=== PATIENT | female | born 1940 | race Caucasian/White ===

== ENCOUNTER 2016-11-11 20:19 | Inpatient (IN) | payer MEDICARE ==
[2016-11-11] MEDS ORDERED: Ondansetron INJ* 2 MG/ML VIAL IV ONE (20:49)
[2016-11-11] MEDS ORDERED: Morphine INJ* 4 MG/ML 1 ML SYRINGE IV ONE (20:49)
[2016-11-11] MEDS ORDERED: NS 0.9% 1000 ML* 2,000 ML IV ONE (20:49)
[2016-11-11] MEDS ORDERED: Morphine INJ* 4 MG/ML 1 ML SYRINGE IM ONE (21:50)
[2016-11-11] MEDS ORDERED: Ondansetron ODT TAB* 4 MG PO ONE (21:51)
[2016-11-11 22:27] LABS: Hematocrit 40 % (35-47); Mean Corpuscular HGB Conc 33 g/dl (31-36); Mean Corpuscular Hemoglobin 28 pg (27-31); Mean Corpuscular Volume 85 fL (80-97); Mean Platelet Volume 8 um3 (7.4-10.4); Red Blood Count 4.68 10^6/ul (4.0-5.4); Red Cell Distribution Width 13 % (10.5-15)
[2016-11-11 22:29] LABS: Add Diff/Slide Review? Slide Review Added; Comments Flag Yes
[2016-11-11 22:40] LABS: ALT 15 U/L (7-52); Albumin 3.5 g/dL (3.2-5.2); Alkaline Phosphatase 109 U/L (34-104); BUN/Creatinine Ratio 14.5 (8-20); Blood Urea Nitrogen 18 mg/dL (6-24); C Reactive Protein 21.03 mg/L (< 5.00); CO2 Carbon Dioxide 29 mmol/L (22-32); Calcium 9.5 mg/dL (8.6-10.3); Chloride 90 mmol/L (101-111); EGFR African American 54.1 (>60); EGFR Non-African American 42.1 (>60); Globulin 3.4 g/dL (2-4); Glucose 128 mg/dL (70-100); Lipase < 10 U/L (11.0-82.0); Sodium 128 mmol/L (133-145); Total Protein 6.9 g/dL (6.4-8.9)
[2016-11-11 23:04] LABS: AST 20 U/L (13-39); Anion Gap 9 mmol/L (2-11); Potassium 3.6 mmol/L (3.5-5.0)
[2016-11-11] MEDS ORDERED: Iodixanol* (CONTRAST) 320 MG/ML 100 ML SDV IV ONE (23:17)
--- NOTE | 2016-11-11 23:17 | ED ---
Jeremiah Huerta Erika, scribed for Mihai Schulz MD on 11/11/16 at 2055 . Abdominal Pain/Female - HPI Summary HPI Summary: Patient is a 76-year-old female presenting to the ED with a CC of abdominal pain. Patient reports that she had RLQ abdominal pain for 3 weeks. She had a negative CT at [place]. On 11/09/2016, patient had an upper and lower endoscopy, which showed polyps and diverticulosis. Yesterday, she had mild cramping, but pain was much improved. Then yesterday, she fell and broke her left wrist, but abdominal pain continued to be improved. At 05:00 today, patient developed worsening abdominal pains again, this time diffusely across the abdomen, but worse on the left side. Pain is aggravated by movement, and patient reports she feels bloated. Associated symptoms include chills and nausea. PSHx hysterectomy , , hip replacement. - History of Current Complaint Chief Complaint: EDAbdPain Stated Complaint: ABD PAIN Time Seen by Provider: 11/11/16 20:38 Hx Obtained From: Patient, Family/First Line Production Supervisor - Daughter Onset/Duration: Gradual Onset, Lasting Hours, Still Present Timing: Constant Severity Initially: Mild Severity Currently: Moderate Pain Intensity: 10 Pain Scale Used: 0-10 Numeric Location: Diffuse Aggravating Factor(s): Movement Alleviating Factor(s): Nothing Associated Signs and Symptoms: Positive: Nausea, Other: - chills Allergies/Adverse Reactions: Allergies Allergy/AdvReac Type Severity Reaction Status Date / Time Doxycycline AdvReac Nausea Verified 11/11/16 21:17 PMH/Surg Hx/FS Hx/Imm Hx Cardiovascular History: Reports: Hx Hypertension Respiratory History: Reports: Hx Chronic Obstructive Pulmonary Disease (COPD) - oxygen prn GI History: Reports: Other GI Disorders - frequent diarrhea History: Reports: Other Problems/Disorders - urinary incontinence Musculoskeletal History: Reports: Hx Arthritis - knees, Hx Back Problems Sensory History: Reports: Hx Contacts or Glasses Opthamlomology History: Reports: Hx Contacts or Glasses Neurological History: Reports: Hx Headaches, Other Neuro Impairments/Disorders - PAIN CLINIC PATIENT Psychiatric History: Reports: Hx Anxiety - Cancer History Cancer Type, Location and Year: cervical cancer - Surgical History Surgery Procedure, Year, and Place: hysterectomy 1980c-section 1975. left hip 07/2014 Infectious Disease History: No Infectious Disease History: Denies: Traveled Outside the [place] in Last 30 Days - Family History Known Family History: Positive: Hypertension - Social History Occupation: Retired Alcohol Use: None Hx Substance Use: No Substance Use Type: Reports: None Hx Tobacco Use: Yes Smoking Status (MU): Former Smoker Type: eCigarettes Review of Systems Positive: Chills Positive: Abdominal Pain, Nausea Positive: Arthralgia - L wrist All Other Systems Reviewed And Are Negative: Yes Physical Exam Triage Information Reviewed: Yes Vital Signs On Initial Exam: Initial Vitals Temp Pulse Resp BP Pulse Ox 97.5 F 86 22 110/81 95 11/11/16 20:21 11/11/16 20:21 11/11/16 20:21 11/11/16 20:21 11/11/16 20:21 Vital Signs Reviewed: Yes Appearance: Positive: Well-Appearing, Pain Distress - Moderate Skin: Positive: Warm, Skin Color Reflects Adequate Perfusion, Dry Head/Face: Positive: Normal Head/Face Inspection Eyes: Positive: EOMI, SADIA ENT: Positive: Normal ENT inspection Neck: Positive: Supple, Nontender Respiratory/Lung Sounds: Positive: Clear to Auscultation, Breath Sounds Present Cardiovascular: Positive: RRR Abdomen Description: Positive: Other: - Tenderness diffusely in the abdomen, worse on the left. LUE splinted Bowel Sounds: Positive: Hypoactive Musculoskeletal: Positive: Normal, Strength/ROM Intact Neurological: Positive: Normal, Sensory/Motor Intact, Alert, Oriented to Person Place, Time Psychiatric: Positive: Affect/Mood Appropriate Diagnostics - Vital Signs Vital Signs Temp Pulse Resp BP Pulse Ox 11/11/16 20:21 97.5 F 86 22 110/81 95 - Laboratory Lab Results: Lab Results 11/11/16 11/11/16 11/11/16 Range/Units 22:15 22:15 22:15 WBC 33.0 H (3.5-10.8) 10^3/ul RBC 4.68 (4.0-5.4) 10^6/ul Hgb 13.0 (12.0-16.0) g/dl Hct 40 (35-47) % MCV 85 (80-97) fL MCH 28 (27-31) pg MCHC 33 (31-36) g/dl RDW 13 (10.5-15) % Plt Count 414 (150-450) 10^3/ul MPV 8 (7.4-10.4) um3 Neut % (Auto) 97.1 H (38-83) % Lymph % (Auto) 1.0 L (25-47) % Shannon % (Auto) 1.1 (1-9) % Eos % (Auto) 0.1 (0-6) % Baso % (Auto) 0.7 (0-2) % Absolute Neuts (auto) 32.1 H (1.5-7.7) 10^3/ul Absolute Lymphs (auto) 0.3 L (1.0-4.8) 10^3/ul Absolute Monos (auto) 0.3 (0-0.8) 10^3/ul Absolute Eos (auto) 0 (0-0.6) 10^3/ul Absolute Basos (auto) 0.2 (0-0.2) 10^3/ul Absolute Nucleated RBC 0.02 10^3/ul Nucleated RBC % 0.1 INR (Anticoag Therapy) 0.81 L (0.89-1.11) APTT 23.4 L (26.0-36.3) seconds Sodium 128 L (133-145) mmol/L Potassium 3.6 (3.5-5.0) mmol/L Chloride 90 L (101-111) mmol/L Carbon Dioxide 29 (22-32) mmol/L Anion Gap 9 (2-11) mmol/L BUN 18 (6-24) mg/dL Creatinine 1.24 H (0.51-0.95) mg/dL Est GFR ( Amer) 54.1 (>60) Est GFR (Non-Af Amer) 42.1 (>60) BUN/Creatinine Ratio 14.5 (8-20) Glucose 128 H (70-100) mg/dL Lactic Acid (0.5-2.0) mmol/L Calcium 9.5 (8.6-10.3) mg/dL Total Bilirubin 0.60 (0.2-1.0) mg/dL AST 20 (13-39) U/L ALT 15 (7-52) U/L Alkaline Phosphatase 109 H (34-104) U/L C-Reactive Protein 21.03 H (< 5.00) mg/L B-Natriuretic Peptide ( - 100) pg/mL Total Protein 6.9 (6.4-8.9) g/dL Albumin 3.5 (3.2-5.2) g/dL Globulin 3.4 (2-4) g/dL Albumin/Globulin Ratio 1.0 (1-3) Lipase < 10 L (11.0-82.0) U/L 11/11/16 11/11/16 Range/Units 22:15 22:15 WBC (3.5-10.8) 10^3/ul RBC (4.0-5.4) 10^6/ul Hgb (12.0-16.0) g/dl Hct (35-47) % MCV (80-97) fL MCH (27-31) pg MCHC (31-36) g/dl RDW (10.5-15) % Plt Count (150-450) 10^3/ul MPV (7.4-10.4) um3 Neut % (Auto) (38-83) % Lymph % (Auto) (25-47) % Shannon % (Auto) (1-9) % Eos % (Auto) (0-6) % Baso % (Auto) (0-2) % Absolute Neuts (auto) (1.5-7.7) 10^3/ul Absolute Lymphs (auto) (1.0-4.8) 10^3/ul Absolute Monos (auto) (0-0.8) 10^3/ul Absolute Eos (auto) (0-0.6) 10^3/ul Absolute Basos (auto) (0-0.2) 10^3/ul Absolute Nucleated RBC 10^3/ul Nucleated RBC % INR (Anticoag Therapy) (0.89-1.11) APTT (26.0-36.3) seconds Sodium (133-145) mmol/L Potassium (3.5-5.0) mmol/L Chloride (101-111) mmol/L Carbon Dioxide (22-32) mmol/L Anion Gap (2-11) mmol/L BUN (6-24) mg/dL Creatinine (0.51-0.95) mg/dL Est GFR ( Amer) (>60) Est GFR (Non-Af Amer) (>60) BUN/Creatinine Ratio (8-20) Glucose (70-100) mg/dL Lactic Acid 1.2 (0.5-2.0) mmol/L Calcium (8.6-10.3) mg/dL Total Bilirubin (0.2-1.0) mg/dL AST (13-39) U/L ALT (7-52) U/L Alkaline Phosphatase (34-104) U/L C-Reactive Protein (< 5.00) mg/L B-Natriuretic Peptide 98 ( - 100) pg/mL Total Protein (6.4-8.9) g/dL Albumin (3.2-5.2) g/dL Globulin (2-4) g/dL Albumin/Globulin Ratio (1-3) Lipase (11.0-82.0) U/L Result Diagrams: 11/11/16 22:15 11/11/16 22:15 Lab Statement: Any lab studies that have been ordered have been reviewed, and results considered in the medical decision making process. Abdominal Pain Fem Course/Dx - Course Course Of Treatment: STABLE IN ED. CT/DISPOSITION PENDING AT SHIFT CHANGE. - Diagnoses Provider Diagnoses: Abdominal pain Discharge - Discharge Plan Condition: Stable Disposition: OTHER Discharge Disposition Comment: M Referrals: Campbell Cassidy MD [Primary Care Provider] - The documentation as recorded by the Jeremiah reich Erika accurately reflects the service I personally performed and the decisions made by , Mihai Schulz MD.
[2016-11-12] MEDS ORDERED: HYDROmorphone* 1 MG/ML 1 ML SYR IV ONE (00:08)
[2016-11-12] MEDS ORDERED: LORazepam INJ* 2 MG/ML 1 ML VIAL IV PUSH ONE (00:14)
[2016-11-12] MEDS ORDERED: Piperac/Tazob 3.375 gm in NS* 3.375 GM/100 ML BAG IVPB ONE (01:15)
--- NOTE | 2016-11-12 02:15 | HP ---
H&P (Free Text) History and Physical: PCP: Hao Cassidy MD Date/Time of Evaluation: 11/12/2016 0200 CC: abdominal pain HPI: Mrs Montero is a 76YO obese female currently sedated from IV narcotics administered in ED for abdominal pain. She rouses to light touch, but cannot answer questions. Responses are incoherent and then she fades quickly back to light sleep. This history is therefore obtained from ED staff and the available medical record. She reportedly has been having RLQ pain for ~3weeks. She has been seen at [facility] and undergone a negative CT. Upper/lower endoscopies performed 11/09/2016 in [facility] found diverticulosis & polyps. It is unknown whether a biopsy was performed during colonoscopy or not. Her pain was reportedly improved yesterday, but unfortunately she fell fracturing her L wrist which is splinted. Today around 1700 her pain began to worsen being more generalized than before prompting her to present for evaluation. WBCs are 33k 97 % neutrophils. Na+ is 128. Creatinine is 1.24 (? baseline). CRP is 21. Lipase < 10. CT abd/pel W is read as non-specific stranding in the sigmoid mesenteric fat without diverticulitis, small amount of ascites. PMedHx HTN COPD chronic diarrhea urinary incontinence OA chronic pain diverticulosis Ambulatory Orders Nursing to reconcile. Hydrochlorothiazide TAB* [Hydrodiuril TAB*] 25 mg PO DAILY 10/25/12 Metoprolol Tartrate TAB* [Lopressor TAB*] 25 mg PO DAILY 10/25/12 Sertraline* [Zoloft*] 50 mg PO DAILY 10/25/12 Tiotropium [place] Monohydrate [Spiriva Handihaler] 18 mcg IN DAILY 10/25/12 Diclofenac Sodium [Diclofenac Sodium ER] 100 mg PO DAILY 04/03/13 Lorazepam [Ativan] 1 mg PO TID PRN 12/03/14 HYDROcodone/ACETAMIN 5-325 MG* [[place] 5-325 TAB*] 1 tab PO TID PRN 09/24/15 Budesonide/Formote 160/4.5(NF) [Symbicort 160/4.5 (NF)] 1 puff INH BID 12/24/15 Allergies Doxycycline Adverse Reaction (Verified 11/11/16 21:17) Nausea PSurgHx hysterectomy BEBA SocHx: former smoker, no alcohol; uncertain living arrangements; full code status FamHx: unobtainable ROS: as above, otherwise reviewed and all were negative Constitutional: NAD, normally developed, obese elderly white female vitals: Vital Signs Temp 36.4 C 11/11/16 20:21 Pulse 92 11/12/16 02:30 Resp 22 11/12/16 02:30 BP 136/59 11/12/16 02:30 Pulse Ox 95 11/12/16 02:30 Intake & Output 11/11/16 11/11/16 11/12/16 11:59 23:59 11:59 Weight 77.111 kg HEENM: atraumatic; sclera/conjunctiva: non-icteric/clear; hearing: clinically intact; oropharynx: clear, mucosa moist Neck: soft tissue: non-tender; thyroid: normal Pulmonary: clear to auscultation bilaterally, good aeration, no accessory muscle use CV: RR/RR, normal S1S2, no carotid bruit, no jugular venous distention, 2+ B DP/ PT, no edema Abdominal: soft, non-distended, non-tender, no rebound/guarding/rigidity, normoactive bowel sounds, no hepatosplenomegaly or masses, no costovertebral angle tenderness Musculoskeletal: general: grossly intact; gait: too sedated to ambulate Integumental: normal appearance and texture of exposed skin Psychiatric orientation: somnolent, oriented to person and place, loosely to situation affect: sedated mood: acquiescent eye contact: poor content: mostly incoherent responses: slowed insight: currently poor Testing: Lab Results 11/11/16 11/11/16 11/11/16 Range/Units 22:15 22:15 22:15 WBC 33.0 H (3.5-10.8) 10^3/ul RBC 4.68 (4.0-5.4) 10^6/ul Hgb 13.0 (12.0-16.0) g/dl Hct 40 (35-47) % MCV 85 (80-97) fL MCH 28 (27-31) pg MCHC 33 (31-36) g/dl RDW 13 (10.5-15) % Plt Count 414 (150-450) 10^3/ul MPV 8 (7.4-10.4) um3 Neut % (Auto) 97.1 H (38-83) % Lymph % (Auto) 1.0 L (25-47) % [place] % (Auto) 1.1 (1-9) % Eos % (Auto) 0.1 (0-6) % Baso % (Auto) 0.7 (0-2) % Absolute Neuts (auto) 32.1 H (1.5-7.7) 10^3/ul Absolute Lymphs (auto) 0.3 L (1.0-4.8) 10^3/ul Absolute Monos (auto) 0.3 (0-0.8) 10^3/ul Absolute Eos (auto) 0 (0-0.6) 10^3/ul Absolute Basos (auto) 0.2 (0-0.2) 10^3/ul Absolute Nucleated RBC 0.02 10^3/ul Nucleated RBC % 0.1 INR (Anticoag Therapy) 0.81 L (0.89-1.11) APTT 23.4 L (26.0-36.3) seconds Sodium 128 L (133-145) mmol/L Potassium 3.6 (3.5-5.0) mmol/L Chloride 90 L (101-111) mmol/L Carbon Dioxide 29 (22-32) mmol/L Anion Gap 9 (2-11) mmol/L BUN 18 (6-24) mg/dL Creatinine 1.24 H (0.51-0.95) mg/dL Est GFR ( Amer) 54.1 (>60) Est GFR (Non-Af Amer) 42.1 (>60) BUN/Creatinine Ratio 14.5 (8-20) Glucose 128 H (70-100) mg/dL Lactic Acid (0.5-2.0) mmol/L Calcium 9.5 (8.6-10.3) mg/dL Total Bilirubin 0.60 (0.2-1.0) mg/dL AST 20 (13-39) U/L ALT 15 (7-52) U/L Alkaline Phosphatase 109 H (34-104) U/L C-Reactive Protein 21.03 H (< 5.00) mg/L B-Natriuretic Peptide ( - 100) pg/mL Total Protein 6.9 (6.4-8.9) g/dL Albumin 3.5 (3.2-5.2) g/dL Globulin 3.4 (2-4) g/dL Albumin/Globulin Ratio 1.0 (1-3) Lipase < 10 L (11.0-82.0) U/L 11/11/16 11/11/16 Range/Units 22:15 22:15 WBC (3.5-10.8) 10^3/ul RBC (4.0-5.4) 10^6/ul Hgb (12.0-16.0) g/dl Hct (35-47) % MCV (80-97) fL MCH (27-31) pg MCHC (31-36) g/dl RDW (10.5-15) % Plt Count (150-450) 10^3/ul MPV (7.4-10.4) um3 Neut % (Auto) (38-83) % Lymph % (Auto) (25-47) % [place] % (Auto) (1-9) % Eos % (Auto) (0-6) % Baso % (Auto) (0-2) % Absolute Neuts (auto) (1.5-7.7) 10^3/ul Absolute Lymphs (auto) (1.0-4.8) 10^3/ul Absolute Monos (auto) (0-0.8) 10^3/ul Absolute Eos (auto) (0-0.6) 10^3/ul Absolute Basos (auto) (0-0.2) 10^3/ul Absolute Nucleated RBC 10^3/ul Nucleated RBC % INR (Anticoag Therapy) (0.89-1.11) APTT (26.0-36.3) seconds Sodium (133-145) mmol/L Potassium (3.5-5.0) mmol/L Chloride (101-111) mmol/L Carbon Dioxide (22-32) mmol/L Anion Gap (2-11) mmol/L BUN (6-24) mg/dL Creatinine (0.51-0.95) mg/dL Est GFR ( Amer) (>60) Est GFR (Non-Af Amer) (>60) BUN/Creatinine Ratio (8-20) Glucose (70-100) mg/dL Lactic Acid 1.2 (0.5-2.0) mmol/L Calcium (8.6-10.3) mg/dL Total Bilirubin (0.2-1.0) mg/dL AST (13-39) U/L ALT (7-52) U/L Alkaline Phosphatase (34-104) U/L C-Reactive Protein (< 5.00) mg/L B-Natriuretic Peptide 98 ( - 100) pg/mL Total Protein (6.4-8.9) g/dL Albumin (3.2-5.2) g/dL Globulin (2-4) g/dL Albumin/Globulin Ratio (1-3) Lipase (11.0-82.0) U/L CT abd/pel W, personally reviewed: read as: non-specific sigmoid mesenteric fat stranding & small amount of ascites Impression: 76F presenting with worsening abdominal pain and leukocytosis 2 days after upper & lower endoscopies; clinically this is consistent with sigmoid diverticulitis, but certainly concern is had for an occult colonic injury during endoscopy DIAGNOSIS & PLAN Primary abdominal pain & leukocytosis : consider GI consult in AM : pain control : piperacillin/tazobactam IV : blood CX : trend WBCs : IVFs : clear liquid diet : supportive care Secondary HTN : review meds once reconciled COPD : albuterol PRN Admission Rational: inpatient for suspected diverticulitis vs colonic injury in patient at high risk of rapid decompensation making outpatient setting inappropriate DVTp: SCDs & heparin SQ Code Status: full HCP: unable to determine
[2016-11-12] MEDS ORDERED: Acetaminophen TAB* 325 MG PO PRN (02:19)
[2016-11-12] MEDS ORDERED: CMCS: Melatonin (NF) 3 MG TAB PO PRN (02:19)
[2016-11-12] MEDS ORDERED: Albuterol 2.5 MG/3 ML NEB.SOL* (0.083%) INH PRN (02:19)
[2016-11-12] MEDS ORDERED: Ondansetron INJ* 2 MG/ML VIAL IV PRN (02:19)
[2016-11-12] MEDS ORDERED: HYDROmorphone* 1 MG/ML 1 ML SYR IV PRN (02:19)
[2016-11-12] MEDS ORDERED: NS 0.9% 1000 ML* 1,000 ML IV SCH (02:30)
--- NOTE | 2016-11-12 02:36 | ED ---
Ayanna Huerta Janilya, scribed for Piper Mera MD on 11/11/16 at 2309 . Course/Dx - Course Course Of Treatment: pt admitted with likely diverticulitis case discussed with Dr. ashley maria given - Diagnoses Provider Diagnoses: Abdominal pain - Provider Notifications Discussed Care Of Patient With: Dr. Lucas (hospitalist) at 0136: agrees to evaluate pt for admission. Discharge - Discharge Plan Condition: Stable Disposition: ADMITTED TO [facility] Diagnostics - Vital Signs Vital Signs Temp Pulse Resp BP Pulse Ox 11/11/16 22:03 14 11/11/16 20:21 97.5 F 86 22 110/81 95 - Laboratory Lab Results: Lab Results 11/11/16 11/11/16 11/11/16 Range/Units 22:15 22:15 22:15 WBC 33.0 H (3.5-10.8) 10^3/ul RBC 4.68 (4.0-5.4) 10^6/ul Hgb 13.0 (12.0-16.0) g/dl Hct 40 (35-47) % MCV 85 (80-97) fL MCH 28 (27-31) pg MCHC 33 (31-36) g/dl RDW 13 (10.5-15) % Plt Count 414 (150-450) 10^3/ul MPV 8 (7.4-10.4) um3 Neut % (Auto) 97.1 H (38-83) % Lymph % (Auto) 1.0 L (25-47) % [place] % (Auto) 1.1 (1-9) % Eos % (Auto) 0.1 (0-6) % Baso % (Auto) 0.7 (0-2) % Absolute Neuts (auto) 32.1 H (1.5-7.7) 10^3/ul Absolute Lymphs (auto) 0.3 L (1.0-4.8) 10^3/ul Absolute Monos (auto) 0.3 (0-0.8) 10^3/ul Absolute Eos (auto) 0 (0-0.6) 10^3/ul Absolute Basos (auto) 0.2 (0-0.2) 10^3/ul Absolute Nucleated RBC 0.02 10^3/ul Nucleated RBC % 0.1 INR (Anticoag Therapy) 0.81 L (0.89-1.11) APTT 23.4 L (26.0-36.3) seconds Sodium 128 L (133-145) mmol/L Potassium 3.6 (3.5-5.0) mmol/L Chloride 90 L (101-111) mmol/L Carbon Dioxide 29 (22-32) mmol/L Anion Gap 9 (2-11) mmol/L BUN 18 (6-24) mg/dL Creatinine 1.24 H (0.51-0.95) mg/dL Est GFR ( Amer) 54.1 (>60) Est GFR (Non-Af Amer) 42.1 (>60) BUN/Creatinine Ratio 14.5 (8-20) Glucose 128 H (70-100) mg/dL Lactic Acid (0.5-2.0) mmol/L Calcium 9.5 (8.6-10.3) mg/dL Total Bilirubin 0.60 (0.2-1.0) mg/dL AST 20 (13-39) U/L ALT 15 (7-52) U/L Alkaline Phosphatase 109 H (34-104) U/L C-Reactive Protein 21.03 H (< 5.00) mg/L B-Natriuretic Peptide ( - 100) pg/mL Total Protein 6.9 (6.4-8.9) g/dL Albumin 3.5 (3.2-5.2) g/dL Globulin 3.4 (2-4) g/dL Albumin/Globulin Ratio 1.0 (1-3) Lipase < 10 L (11.0-82.0) U/L 11/11/16 11/11/16 Range/Units 22:15 22:15 WBC (3.5-10.8) 10^3/ul RBC (4.0-5.4) 10^6/ul Hgb (12.0-16.0) g/dl Hct (35-47) % MCV (80-97) fL MCH (27-31) pg MCHC (31-36) g/dl RDW (10.5-15) % Plt Count (150-450) 10^3/ul MPV (7.4-10.4) um3 Neut % (Auto) (38-83) % Lymph % (Auto) (25-47) % [place] % (Auto) (1-9) % Eos % (Auto) (0-6) % Baso % (Auto) (0-2) % Absolute Neuts (auto) (1.5-7.7) 10^3/ul Absolute Lymphs (auto) (1.0-4.8) 10^3/ul Absolute Monos (auto) (0-0.8) 10^3/ul Absolute Eos (auto) (0-0.6) 10^3/ul Absolute Basos (auto) (0-0.2) 10^3/ul Absolute Nucleated RBC 10^3/ul Nucleated RBC % INR (Anticoag Therapy) (0.89-1.11) APTT (26.0-36.3) seconds Sodium (133-145) mmol/L Potassium (3.5-5.0) mmol/L Chloride (101-111) mmol/L Carbon Dioxide (22-32) mmol/L Anion Gap (2-11) mmol/L BUN (6-24) mg/dL Creatinine (0.51-0.95) mg/dL Est GFR ( Amer) (>60) Est GFR (Non-Af Amer) (>60) BUN/Creatinine Ratio (8-20) Glucose (70-100) mg/dL Lactic Acid 1.2 (0.5-2.0) mmol/L Calcium (8.6-10.3) mg/dL Total Bilirubin (0.2-1.0) mg/dL AST (13-39) U/L ALT (7-52) U/L Alkaline Phosphatase (34-104) U/L C-Reactive Protein (< 5.00) mg/L B-Natriuretic Peptide 98 ( - 100) pg/mL Total Protein (6.4-8.9) g/dL Albumin (3.2-5.2) g/dL Globulin (2-4) g/dL Albumin/Globulin Ratio (1-3) Lipase (11.0-82.0) U/L Result Diagrams: 11/11/16 22:15 11/11/16 22:15 Lab Statement: Any lab studies that have been ordered have been reviewed, and results considered in the medical decision making process. - CT abd/pel CT Interpretation: Positive (See Comments) - Small ascites. Nonspecific strandig in sigmoid mesenteric fat. Top normal diamter small bowel left upper quadrant. No bowel obstruction, colitis, or free air. Appendix not seen. Diverticulosis colon without acute diverticulitis. Unremarkable pancreas, kidneys and gallbladder. Hysterectomy. Retroperitoneal surgical clips. GERD. CT Interpretation Completed By: Radiologist The documentation as recorded by the Ayanna reich Janilya accurately reflects the service I personally performed and the decisions made by me, Piper Mera MD.
[2016-11-12] MEDS ORDERED: Piperac/Tazob 3.375 gm in NS* 3.375 GM/100 ML BAG IVPB SCH (06:00)
[2016-11-12] MEDS ORDERED: Omeprazole CAP* 20 MG PO SCH (06:00)
--- NOTE | 2016-11-12 08:23 | RAD ---
INDICATION: Diffuse abdominal pain worse on the LEFT. Post colonoscopy and EGD November 09, 2016. Post hysterectomy. COMPARISON: No relevant prior exams available on the [facility] [place] PACS. TECHNIQUE: Multidetector CT images were obtained from the lung bases to the ischial tuberosities with 96 mL Visipaque 320 IV and oral contrast. Multiplanar reformation. REPORT: Mild RIGHT greater than LEFT basilar atelectasis. The liver is decreased in density consistent with fatty infiltration. No suspicious focal hepatic lesions or biliary dilatation. Unremarkable distended gallbladder. Unremarkable pancreas and spleen. Negative for CT abnormality of the upper GI or small bowel. Contrast extends to the ileocecal valve and cecum. The appendix is not visualized. The colon is largely decompressed remarkable for mild diverticulosis primarily at the sigmoid colon. No diffuse or focal colonic wall thickening. Small volume of water density ascites including perihepatic, RIGHT paracolic gutter, and LEFT lower quadrant. Reticulation in the abdominal mesenteric fat. Negative for free intraperitoneal air. Negative for hernias. Postsurgical change of previous infraumbilical midline laparotomy. Unremarkable adrenal glands. Unremarkable kidneys with symmetric nephrograms and pyelograms. No abnormality of the ureters evident. Partially distended urinary bladder without gross abnormality. Postsurgical change of hysterectomy. No adnexal region lesions evident. Negative for lymphadenopathy. Atherosclerotic plaque without aneurysm of the abdominal aorta or iliac arteries. Physiologic partial distention of the IVC. Prosthetic LEFT hip. Polyarticular degenerative arthropathy. No suspicious focal osseous lesions evident. IMPRESSION: 1. Fatty infiltration of the liver. 2. Small volume of water density ascites including perihepatic, RIGHT paracolic gutter, and LEFT lower quadrant. Reticulation of the pelvic mesenteric fat. No defined loculated peritoneal abscess evident. 3. Colonic diverticulosis without findings of diverticulitis. The appendix is not visualized and may have been resected. No focal or diffuse bowel wall thickening or dilatation. 4. Negative for free air.
[2016-11-12] MEDS ORDERED: Docusate CAP* 100 MG PO SCH (09:00)
[2016-11-12 09:03] LABS: Hematocrit 36 % (35-47); Hemoglobin 11.5 g/dl (12.0-16.0); Mean Corpuscular HGB Conc 32 g/dl (31-36); Mean Corpuscular Hemoglobin 27 pg (27-31); Mean Corpuscular Volume 86 fL (80-97); Mean Platelet Volume 9 um3 (7.4-10.4); Red Blood Count 4.21 10^6/ul (4.0-5.4); Red Cell Distribution Width 13 % (10.5-15)
[2016-11-12 09:12] LABS: BUN/Creatinine Ratio 16.2 (8-20); Calcium 8.6 mg/dL (8.6-10.3); EGFR African American 48.6 (>60); EGFR Non-African American 37.8 (>60); Potassium 3.4 mmol/L (3.5-5.0)
[2016-11-12 09:26] LABS: Comments Flag Yes; White Blood Count 39.5 10^3/ul (3.5-10.8)
--- NOTE | 2016-11-12 10:59 | PN ---
Subjective Date of Service: 11/12/16 Interval History: Called by RN that abd pain is severe. Upon arrival pt is tachypneic, cooperative , and conversational, but disoriented. Has problems with giving me adequate chronology of event. Spoke with daughter Matilda who stated that pt started developing abd pain when in [place] 3 weeks ago. She also had diarrhea 5x/day. She was seen at [facility] 2 weeks ago twice and sent to be seen by gastroenterology as outpatient. At this point her CT showed gastroenteritis. EGD/colonoscopy was delayed since pt was on baseline 02 at 2 L at home and performed with anesthesia help on 11/10/15 (GI doc: Dr. Dowell). Pt felt well x 2 days, then fell and fractured her left wrist-was seen in ED at hospital in [place] and discharged. She developed severe abd pain on 11/11/16. Today the pain is worse. Pt appears delirious Objective Active Medications: Acetaminophen (Tylenol Tab*) 650 mg PO Q6H PRN PRN Reason: FEVER/PAIN Albuterol (Ventolin 2.5 Mg/3 Ml Neb.[place]*) 2.5 mg INH Q2H PRN PRN Reason: SOB/WHEEZING Docusate Sodium (Colace Cap*) 200 mg PO BID BIBI Heparin Sodium (Porcine) (Heparin Vial(*)) 5,000 units SUBCUT Q8HR BIBI Hydromorphone HCl (Dilaudid Iv*) 0.5 mg IV Q3H PRN PRN Reason: PAIN Last Admin: 11/12/16 08:52 Dose: 0.5 mg Lactated Ringer's (Lactated Ringers 1000 Ml Bag*) 1,000 mls @ 175 mls/hr IV PER RATE BIBI Lactated Ringer's (Lactated Ringers 1000 Ml Bag*) 1,000 mls @ 0 mls/hr IV WIDE OPEN BIBI PRN Reason: Wide Open Stop: 11/12/16 23:59 Piperacillin Sod/Tazobactam Sod (Zosyn 3.375 Gm In Ns Premix*) 3.375 gm in 100 mls @ 25 mls/hr IVPB Q6HR BIBI Melatonin (Melatonin (Nf)) 3 mg PO BEDTIME PRN; Protocol PRN Reason: Sleep Omeprazole (Prilosec Cap*) 20 mg PO DAILY@0600 BIBI Last Admin: 11/12/16 05:57 Dose: 20 mg Ondansetron HCl (Zofran Inj*) 4 mg IV Q6H PRN PRN Reason: NAUSEA Vital Signs 11/12/16 11/12/16 11/12/16 02:30 03:00 03:47 Temperature 98.2 F Pulse Rate 92 92 95 Respiratory 22 21 18 Rate Blood Pressure 136/59 128/64 112/48 (mmHg) O2 Sat by Pulse 95 96 100 Oximetry 11/12/16 11/12/16 11/12/16 04:51 07:27 08:52 Temperature 98.3 F Pulse Rate 92 Respiratory 18 16 16 Rate Blood Pressure 106/55 (mmHg) O2 Sat by Pulse 96 Oximetry Oxygen Devices in Use Now: Nasal Cannula - at 2 L, 02 sat 97% Appearance: 76 yo F tachypneic, disoriented, cade to provide some history, oriented x2. Eyes: No Scleral Icterus, PERRLA Ears/Nose/Mouth/Throat: NL Teeth, Lips, Gums, - - mucosa Neck: NL Appearance and Movements; NL JVP, Trachea Midline Respiratory: Symmetrical Chest Expansion and Respiratory Effort, - - wheezes at b/l bases Cardiovascular: NL Sounds; No Murmurs; No JVD, RRR, - - tachy Abdominal: - - diffuse, severe abd tenderness and guarding, BS hyperactive Extremities: No Clubbing, Cyanosis, - - trace ankle edema b/l Skin: No Rash or Ulcers, No Nodules or Sclerosis Neurological: NL Muscle Strength and Tone Result Diagrams: 11/12/16 08:42 11/12/16 08:42 Additional Lab and Data: Lab Results 11/11/16 11/11/16 11/11/16 Range/Units 22:15 22:15 22:15 WBC 33.0 H (3.5-10.8) 10^3/ul RBC 4.68 (4.0-5.4) 10^6/ul Hgb 13.0 (12.0-16.0) g/dl Hct 40 (35-47) % MCV 85 (80-97) fL MCH 28 (27-31) pg MCHC 33 (31-36) g/dl RDW 13 (10.5-15) % Plt Count 414 (150-450) 10^3/ul MPV 8 (7.4-10.4) um3 Neut % (Auto) 97.1 H (38-83) % Lymph % (Auto) 1.0 L (25-47) % [place] % (Auto) 1.1 (1-9) % Eos % (Auto) 0.1 (0-6) % Baso % (Auto) 0.7 (0-2) % Absolute Neuts (auto) 32.1 H (1.5-7.7) 10^3/ul Absolute Lymphs (auto) 0.3 L (1.0-4.8) 10^3/ul Absolute Monos (auto) 0.3 (0-0.8) 10^3/ul Absolute Eos (auto) 0 (0-0.6) 10^3/ul Absolute Basos (auto) 0.2 (0-0.2) 10^3/ul Absolute Nucleated RBC 0.02 10^3/ul Nucleated RBC % 0.1 INR (Anticoag Therapy) 0.81 L (0.89-1.11) APTT 23.4 L (26.0-36.3) seconds Sodium 128 L (133-145) mmol/L Potassium 3.6 (3.5-5.0) mmol/L Chloride 90 L (101-111) mmol/L Carbon Dioxide 29 (22-32) mmol/L Anion Gap 9 (2-11) mmol/L BUN 18 (6-24) mg/dL Creatinine 1.24 H (0.51-0.95) mg/dL Est GFR ( Amer) 54.1 (>60) Est GFR (Non-Af Amer) 42.1 (>60) BUN/Creatinine Ratio 14.5 (8-20) Glucose 128 H (70-100) mg/dL Lactic Acid (0.5-2.0) mmol/L Calcium 9.5 (8.6-10.3) mg/dL Total Bilirubin 0.60 (0.2-1.0) mg/dL AST 20 (13-39) U/L ALT 15 (7-52) U/L Alkaline Phosphatase 109 H (34-104) U/L C-Reactive Protein 21.03 H (< 5.00) mg/L B-Natriuretic Peptide ( - 100) pg/mL Total Protein 6.9 (6.4-8.9) g/dL Albumin 3.5 (3.2-5.2) g/dL Globulin 3.4 (2-4) g/dL Albumin/Globulin Ratio 1.0 (1-3) Lipase < 10 L (11.0-82.0) U/L 11/11/16 11/11/16 Range/Units 22:15 22:15 WBC (3.5-10.8) 10^3/ul RBC (4.0-5.4) 10^6/ul Hgb (12.0-16.0) g/dl Hct (35-47) % MCV (80-97) fL MCH (27-31) pg MCHC (31-36) g/dl RDW (10.5-15) % Plt Count (150-450) 10^3/ul MPV (7.4-10.4) um3 Neut % (Auto) (38-83) % Lymph % (Auto) (25-47) % [place] % (Auto) (1-9) % Eos % (Auto) (0-6) % Baso % (Auto) (0-2) % Absolute Neuts (auto) (1.5-7.7) 10^3/ul Absolute Lymphs (auto) (1.0-4.8) 10^3/ul Absolute Monos (auto) (0-0.8) 10^3/ul Absolute Eos (auto) (0-0.6) 10^3/ul Absolute Basos (auto) (0-0.2) 10^3/ul Absolute Nucleated RBC 10^3/ul Nucleated RBC % INR (Anticoag Therapy) (0.89-1.11) APTT (26.0-36.3) seconds Sodium (133-145) mmol/L Potassium (3.5-5.0) mmol/L Chloride (101-111) mmol/L Carbon Dioxide (22-32) mmol/L Anion Gap (2-11) mmol/L BUN (6-24) mg/dL Creatinine (0.51-0.95) mg/dL Est GFR ( Amer) (>60) Est GFR (Non-Af Amer) (>60) BUN/Creatinine Ratio (8-20) Glucose (70-100) mg/dL Lactic Acid 1.2 (0.5-2.0) mmol/L Calcium (8.6-10.3) mg/dL Total Bilirubin (0.2-1.0) mg/dL AST (13-39) U/L ALT (7-52) U/L Alkaline Phosphatase (34-104) U/L C-Reactive Protein (< 5.00) mg/L B-Natriuretic Peptide 98 ( - 100) pg/mL Total Protein (6.4-8.9) g/dL Albumin (3.2-5.2) g/dL Globulin (2-4) g/dL Albumin/Globulin Ratio (1-3) Lipase (11.0-82.0) U/L Assess/Plan/Problems-Billing Assessment: 76 yo F with h/o 02 dependent COPD, HTN, chronic diarrhea presents with abd pain after EGD/colonoscopy - Patient Problems (1) Acute abdomen Comment: Revieved the CT with DR. Roca. Pt has acute abd s/p EGD/c-scope 3 days ago. Spoke with Dr. Duval, pt will be transferred to ICU. OR planned in the near future. Increased IVF. Bolus with 1 L LR now. cont Zosyn Pt's daughter aware. At this point pt has severe sepsis due to most likley bowel perforation. (2) HTN (hypertension) Comment: hold all PO meds, normotensive (3) Acute renal failure Comment: due to severe sepsis Creat worse today Tobin to be placed preop, cont IVF (4) Hyponatremia Comment: appears to be associated with hypovolemia cont IVF (5) DVT prophylaxis Comment: hold heparin preop Status and Disposition: inpatient, transfer to ICU under the care of Dallas Esquivel total time spent in pt's care:45 min
[2016-11-12] MEDS: HYDROmorphone* 1 MG/ML 1 ML SYR IV PRN ×2 (11:39→22:07)
[2016-11-12] MEDS: Piperac/Tazob 3.375 gm in NS* 3.375 GM/100 ML BAG IVPB SCH ×2 (12:00→17:20)
[2016-11-12] MEDS ORDERED: Etomidate* 2 MG/ML 10 ML VIAL ONE (12:03)
[2016-11-12] MEDS ORDERED: Succinylcholine* 20 MG/ML 10 ML VIAL ONE (12:03)
[2016-11-12] MEDS ORDERED: Atracurium* 10 MG/ML 10 ML VIAL ONE ×2 (12:04→15:53)
[2016-11-12] MEDS ORDERED: Midazolam* 1 MG/ML 5 ML VIAL (5 MG) ONE (12:04)
[2016-11-12] MEDS ORDERED: fentaNYL* 50 MCG/ML 5 ML VIAL (250 MCG VIAL) ONE (12:04)
--- NOTE | 2016-11-12 12:20 | CONSULT ---
Consult Consult: See dictated note 76 yo F w\ COPD and chronic diarrhea, s/p colonoscopy on 11/09 with sudden onset of lower abd pain on 11/11. She has acute abdomen with WBC=39.[address] shows free fluid. Suspicion is for colonic injury and she needs exploratory laparotomy for definitive management. D/w patient and daughter, Matilda, who understand and agree.
--- NOTE | 2016-11-12 12:31 | CONS ---
SURGICAL CONSULTATION REPORT: DATE OF CONSULT: 11/12/16 REQUESTING PHYSICIAN: Opal Carter MD. REASON FOR CONSULTATION: Acute abdomen. HISTORY OF PRESENT ILLNESS: This is a 76-year-old female with history of oxygen dependent COPD, who presented to the [facility] Emergency Room on the evening of 11/11/16 because of abdominal pain in the lower abdomen which had been of acute onset over a period of hours. Her history is notable for having chronic diarrhea with alternating constipation over a period of months with mild abdominal pain for which she underwent a upper and lower endoscopy at [facility] apparently on the . The patient does not know the results of those studies and unfortunately the day after her colonoscopy, she fell tripping over her feet at home and struck a piece of furniture and fractured her left wrist. She went to the emergency room at [facility] and was splinted. She reports that in general yesterday she was feeling quite well. She denied taking any pain medication for her wrist although she is chronically on NSAIDs for arthritis. Last night, she had acute onset of severe lower abdominal pain and presented to the [facility] Emergency Room with leukocytosis 33,[address] scan of the abdomen and pelvis showing nonspecific stranding in the sigmoid mesenteric fat with free fluid around the liver and in the right and left pericolic gutters and no evidence of diverticulitis. There was no free air reported. The patient was admitted to the hospitalist service. She was placed on IV Zosyn. This morning, she was noted to have an acute abdomen with a leukocytosis of 39,000 and surgical consultation was requested. At the time I evaluated the patient, she was in severe discomfort, clenching her abdomen and she was awake and alert with orientation x3. The patient is not reporting any nausea, vomiting and she is able to provide most of her history. PAST MEDICAL HISTORY: Hypertension, COPD, chronic diarrhea, urinary incontinence, osteoarthritis, chronic pain, diverticulosis, cervical cancer, wrist fracture. PAST SURGICAL HISTORY: She has had section in 1975 the past as well as total abdominal hysterectomy for cervical cancer in 1979 and left hip replacement in July 2014. HOME MEDICATIONS: 1. Spiriva. 2. Zoloft. 3. Lopressor. 4. Ativan. 5. Hydrochlorothiazide. 6. [place]. 7. Diclofenac. 8. Symbicort. ALLERGIES: DOXYCYCLINE. FAMILY HISTORY: Noncontributory. SOCIAL HISTORY: She is an ex-smoker. She lives on her own. No alcohol or drug use. PHYSICAL EXAM: 5 feet 2 inches, 170 pounds, BMI of 31, blood pressure of 106/55 , pulse of 92, respirations are 16, O2 sat 96%, her temperature is 98.3. In general, she is ill appearing and obese female. Her abdomen has bowel sounds that are diminished. There is a midline scar in the lower abdomen. She has diffuse abdominal tenderness to light and deep palpation with rebound and guarding. DIAGNOSTIC STUDIES/LAB DATA: WBC is 39.5, hemoglobin 11.5, hematocrit 36, platelets are 351. Sodium 129, potassium 3.4, chloride is 94, CO2 is 25, BUN is 22 and creatinine is 1.36, glucose is 104. CT scan was reviewed and findings were fatty infiltration of the liver with free fluid, perihepatic, right and left pericolic gutter and pelvis with reticulation of pelvic fat, diverticulosis and no evidence of free air. IMPRESSION: This is a 76-year-old female with obesity, chronic obstructive pulmonary disease, O2 dependent, recent history of colonoscopy, presenting with acute abdomen with free fluid seen on CT scan and severe leukocytosis. Findings are worrisome for perforated large bowel. PLAN/RECOMMENDATIONS: As the patient is appearing septic, I am recommending transfer to the intensive care unit for invasive monitoring and aggressive resuscitation. She is going to require emergent laparotomy to assess for large bowel injury and may require resection and/or colostomy. I did discuss this with the patient and explained that she is likely to require prolonged hospitalization and will likely require postoperative respiratory support due to her comorbidity. I explained that findings at the time of operation will dictate the type of surgery required. The patient stated her understanding and agrees to proceed. [id number]/CPS #: [id number] [facility]
--- NOTE | 2016-11-12 13:11 | RAD ---
Indication: Sigmoid diverticulitis. RIGHT IJ triple-lumen catheter placement. COPD. Cardiovascular disease. Comparison: November 11, 2016 CT abdomen. Technique: Upright AP 1230 hours. Report: Mild prominence and interspersed rarefaction of the interstitial markings. Negative for pleural effusion or pneumothorax. Negative for cardiomegaly. Unremarkable central pulmonary vasculature and mediastinal contours. Tip of RIGHT IJ central venous catheter is at the level of the RIGHT atrium. Negative for free air beneath the diaphragm. IMPRESSION: 1. Tip of RIGHT IJ central limits catheter at level of the RIGHT atrium. 2. Stigmata of chronic obstructive pulmonary disease.
[2016-11-12] MEDS ORDERED: EPHEDrine (Pressors)* 50 MG/ML VIAL ONE (14:59)
[2016-11-12] MEDS ORDERED: Phenylephrine IV* 40 MCG/ML 10 ML SYRINGE ONE (14:59)
[2016-11-12] MEDS ORDERED: Atropine 1MG/ML INJ* 1 ML VIAL ONE (14:59)
[2016-11-12] MEDS ORDERED: Phenylephrine INJ* 10 MG/ML 1 ML VIAL (10 MG) ONE (16:01)
[2016-11-12] MEDS ORDERED: Propofol* 100 ML ONE (16:16)
[2016-11-12] MEDS ORDERED: Norepinephrine 16MCG/ML IVPRE* 4,000 MCG/250 ML BAG IV ONE (17:02)
--- NOTE | 2016-11-12 18:16 | PN ---
Critical Care Services: Patient admitted with abdominal pain and brought to OR today for perforrated viscus, now returns from OR. received 5 liters crystalloid fluid in OR and brought back on neosynephrine drip. No perforation found and abdomen left open - will return to OR in 24-48 hrs. patient currently on a ventilator and sedated with propofol. Vital Signs: Temp Pulse Resp BP SpO2 FiO2 96.6 F 101 17 139/59 96 30 Physical Exam: Gen:Unresponsive HEENT:Pupils midposition and reactive Lungs:Clear Cardiac: No murmurs Abdomen:Distended. Open incision covered. Extremities: Warm. No cyanosis or edema. Fluid Balance (Past 24 Hours): 11/13/16 06:59 Intake Total 5968 Output Total 700 Balance +5268 Weight Intake: IV Fluids 5968 LR 5500 NS (0.9%) 468 Output: Tobin 700 Other: Estimated Void # Voids Labs: 11/12/16 11/12/16 08:42 08:42 WBC 39.5 Hgb 11.5 Hct 36 Plt Count 351 Sodium 129 Potassium 3.4 Chloride 94 Carbon Dioxide 25 BUN 22 Creatinine 1.36 Glucose 104 H Calcium 8.6 Studies: CXR: No infiltrates Nutrition: None Impression: Postop after laparotomy for bowel perforation. Hemodynamically stable at the present time. Plan: 1. Taper off the neosynephrine. 2. Empiric antibiotic coverage with PIP/TAZO. 3. Keep patient sedated and on ventilator pending return to OR. 4. [place] fluids to counteract 3rd space losses. Case discussed with Dr. Hendricks (surgeon). Critical Care Time: 60 minutes
--- NOTE | 2016-11-12 19:47 | SURGPN ---
Brief Operative Note - Surgery Procedures: PREOP DX: ACUTE ABDOMEN POSTOP DX: SAME, PERITONITIS, ADHESIONS; OPEN ABDOMEN PROC: EX LAP,MARELY, REPAIR SB ENTEROTOMY, TAKE DOWN SPLENIC FLEXURE, OPEN ABDOMEN SURG: MECENAS ASSIST: NONE ANES:. GET; SANITO EBL: <100ML IVF:. 4L LR SPEC:. PERITONEAL FLUID CX DRAIN:. NONE COMPL:. SB ENTEROTOMY COND: GUARDED, TO ICU, INTUBATED
[2016-11-12] MEDS: Chlorhexidine MOUTHWASH 0.12%* 15 ML UDC TOPICAL SCH ×2 (19:50→23:03)
[2016-11-12] MEDS: Enoxaparin(*) 40 MG/0.4 ML SYR SUBCUT SCH (19:50)
[2016-11-12] MEDS: Propofol* 100 ML IV SCH (21:20)
--- NOTE | 2016-11-12 21:37 | OP ---
DATE OF OPERATION: 11/12/16 - ROOM #ICU-02 DATE OF : 40 SURGEON: Mac Roca MD VIDEO CONTROL OPERATOR: None. ANESTHESIOLOGIST: Dr. Quach. ANESTHESIA: General endotracheal. PRE-OP DIAGNOSIS: Acute abdomen. POST-OP DIAGNOSES: Acute abdomen and intraperitoneal adhesions. OPERATIVE PROCEDURE: Exploratory laparotomy with lysis of adhesions, repair of small bowel enterotomy, take down of splenic flexure, peritoneal lavage, and open abdomen. ESTIMATED BLOOD LOSS: Less than 100 mL. IV FLUIDS: 4 L of crystalloid. SPECIMEN: Peritoneal fluid for Gram stain culture and sensitivity. DRAINS: None. COMPLICATIONS: Small bowel enterotomy. COUNTS: The instrument, needle and sponge counts were correct. CONDITION: Guarded to ICU, intubated. DESCRIPTION OF PROCEDURE: The patient was brought to the operating room, placed on table supine. She was administered general anesthesia. Her abdomen was prepped and draped in the usual sterile fashion. Time-out was performed. Midline laparotomy was undertaken starting in [place] in the upper abdomen and the incision was carried down through the patient's previous scar all the way down to the pubic symphysis. Peritoneum was entered in the upper abdomen. There was turbid serosanguineous fluid noted in the peritoneal cavity with the fibrinous exudate. This was sent for gram stain and cultures. The incision was extended inferiorly dividing the fascia and in the area of the infraumbilical abdomen. There were dense adhesions of small bowel loops to the undersurface of the abdominal wall and an inadvertent enterotomy with small bowel was created. There was no spillage from the site. The incision was completed through the fascia and adhesiolysis was performed on right and left sides of the abdomen to free the small bowel from the anterior abdominal wall. The enterotomy was about 75% of the bowel and this was a clean transection so it was primarily closed without any resection using two-layer closure with a 3- 0 Polysorb running, inner layer and 3-0 silk outer layer as Lembert sutures. There was noted to be extensive fluid throughout the right and left paracolic gutters and in the pelvis. There was a mass of small bowel which was adherent to itself as well as to the transverse colon and omentum that was adherent to the left side of the pelvis. An extensive adhesiolysis was performed to free all of the bowel from the pelvis. The small bowel was then lapped off and the tongue of omentum that was adherent to the left side of the pelvis was taken down with LigaSure in order to be able to identify the colon at the rectosigmoid junction. There were surgical clips noted in the pelvis from the patient's previous hysterectomy presumably. There was no stool or bile staining noted in the abdomen. The inspection of the rectum and sigmoid colon did not reveal any rachelle perforation. Attention was turned to the cecum which was noted to be distended with gas. There was no perforation noted there and appendix was absent. Adhesions were present in the right upper quadrant and upper abdomen of small bowel mesentry to the falciform ligament. These were taken down, as well and the liver appeared to be fatty infiltrated. There was fluid around the liver, which was irrigated until clear. There were some adhesions of omentum to the gallbladder which otherwise appeared normal without any stones and anterior surfaces of the stomach and the duodenum were inspected and there was noted to be no evidence of inflammatory change or perforation. The nasogastric tube was checked for its proper position in the body of the stomach and secured by Anesthesia. The remaining portions of the ascending colon and transverse colon were inspected and again, no perforations were identified. It was not possible to visualize the splenic flexure completely due to adhesions of omentum across this area, so the omentum was freed by entering the gastrocolic ligament and then the dissection proceeded to free the attachments of the splenic flexure so that the colon could be brought down further into the field, so it could be carefully inspected. The dissection then proceeded along the left colon as well to free this. Now with the colon being fully able to be visualized, the colonic gas was milked proximally to distally and the colon was carefully inspected for any evidence of perforation. Saline was used to fill the pelvis as gas was milked down through the sigmoid colon into the rectum and again I could identify no perforation. At this point, I noted that the patient was having some blood pressure instability and had been started on vasopressors. It was decided to terminate the procedure with plans to leave her abdomen open and return for second look laparotomy. The abdomen was thoroughly irrigated until clear and then the surgical towels wrapped in [place] were placed into the wound beneath the fascia and additional towels placed on top of this with 10 mm Deon-Valenzuela drain placed over this area and the entire abdominal wound and skin was covered with the second [place]oban dressing. The patient remained intubated and was transferred to the intensive care unit directly intubated in a guarded condition. CC: Dr. Campbell Cassidy, [place], [place]* Dr. Tonio Dowell, [place], [place]* [id number]/[facility] #: [id number] MTDD
--- NOTE | 2016-11-12 21:37 | PRO ---
PROCEDURE NOTE: DATE OF PROCEDURE: 11/12/16 - ROOM #ICU-102 PROCEDURE: Insertion of a central venous catheter. HISTORY: The patient is a 76-year-old female scheduled for the OR for an apparent ruptured abdominal viscus. Because of a tenuous blood pressure and planned surgery, a central line was requested by the surgical service. DESCRIPTION OF PROCEDURE: A 7-Malian triple lumen catheter was inserted into the right internal jugular vein under ultrasound guidance and without consequence and the tip position was verified by postprocedural chest x-ray. The patient tolerated the procedure well and there were no complications. [id number]/CPS #: [id number] MTDD
[2016-11-13] MEDS: Piperac/Tazob 3.375 gm in NS* 3.375 GM/100 ML BAG IVPB SCH ×4 (00:07→17:51)
[2016-11-13] MEDS: Norepinephrine 16MCG/ML IVPRE* 4,000 MCG/250 ML BAG IV SCH ×2 (01:38→07:18)
[2016-11-13] MEDS: Chlorhexidine MOUTHWASH 0.12%* 15 ML UDC TOPICAL SCH ×6 (02:32→20:55)
[2016-11-13] MEDS: Propofol* 100 ML IV SCH ×5 (02:32→20:55)
[2016-11-13] MEDS: Lactated Ringers 500 ml BAG* 500 ML IV PRN ×2 (02:50→05:24)
[2016-11-13] MEDS ORDERED: Norepinephrine VIAL* 4 MG in NS 0.9% 250 ML* 246 ML IVPB SCH ×2 (03:00→04:00)
[2016-11-13] MEDS: HYDROmorphone* 1 MG/ML 1 ML SYR IV PRN (03:22)
[2016-11-13] MEDS ORDERED: Heparin VIAL(*) 5000 UNITS/ML VIAL (FIVE THOUSAND) SUBCUT SCH (06:00)
[2016-11-13 06:39] LABS: Hematocrit 38 % (35-47); Hemoglobin 12.2 g/dl (12.0-16.0); Mean Corpuscular HGB Conc 32 g/dl (31-36); Mean Corpuscular Hemoglobin 27 pg (27-31); Mean Corpuscular Volume 86 fL (80-97); Mean Platelet Volume 9 um3 (7.4-10.4); Red Blood Count 4.44 10^6/ul (4.0-5.4); Red Cell Distribution Width 13 % (10.5-15); White Blood Count 41.6 10^3/ul (3.5-10.8)
[2016-11-13 06:41] LABS: Comments Flag Yes
[2016-11-13 07:25] LABS: BUN/Creatinine Ratio 20.4 (8-20); Calcium 7.7 mg/dL (8.6-10.3); EGFR Non-African American 52.1 (>60); Potassium 3.3 mmol/L (3.5-5.0)
[2016-11-13] MEDS: Fentanyl PCA (Continuous Infusion)* 20 ML PCA SCH ×2 (08:00→21:53)
--- NOTE | 2016-11-13 08:20 | RAD ---
INDICATION: Pneumonia COMPARISON: November 12, 2016 TECHNIQUE: An AP portable view obtained at 0550 hours is submitted. FINDINGS: Bones/Soft Tissues: There are no acute bony findings. There is a right IJ catheter terminating in the superior vena cava. There is an endotracheal tube in satisfactory position 3 cm above the carson. A nasogastric tube passes normally through the mediastinum. There are overlying chest leads Cardiomediastinal: The cardiomediastinal silhouette is normal. Lungs: There is basilar hypoventilation. A developing right basal infiltrate is not excluded radiographically. Suggest follow-up.. Pleura: There are no pleural effusions. Other: None IMPRESSION: BASILAR HYPOVENTILATION. SUGGEST FOLLOW-UP TO EVALUATE FOR DEVELOPING RIGHT BASILAR INFILTRATE
[2016-11-13] MEDS: Famotidine IV* 10 MG/ML 2 ML (20 mg) IV SCH (08:40)
[2016-11-13] MEDS ORDERED: NS 0.9% 1000 ML* 1,000 ML IV ONE ×2 (09:46→12:28)
[2016-11-13] MEDS: NS 0.9% w/ 40 Meq KCL 1000 ML* 1,000 ML IV SCH ×2 (09:59→19:20)
[2016-11-13 10:04] LABS: Magnesium 1.4 mg/dL (1.9-2.7); Phosphorus 3.3 mg/dL (2.5-5.0)
--- NOTE | 2016-11-13 10:58 | PN ---
Progress Note - Progress Note Note: CRITICAL CARE MEDICINE Date: 11/13/16 Time: 925 SUBJECTIVE: Patient seen and examined. PHYSICAL EXAM: Vital Signs: Reviewed. Neurologic: awakens on vent. marion HEENT: pupils equal. Sclera anicteric. Trachea midline. Cardiovascular: S1 S2 Respiratory: coarse. Abdomen: Soft, disended, cover apllied with serous moni drainage. nt. Extremities: Warmish; mild dep edema Access: cvc LABS: Reviewed. IMAGING: Reviewed. MEDICATIONS: Reviewed. ASSESSMENT: 76 F Acute abd with concern for perforated viscous, without identifiable source post OR 11/12, remaining with open abd for planned return OR eval and closure. Septic shock sec to acute abdomen/peritonitis Acute post op, nonthoracic, resp failure Chronic resp failure/copd on O2 Acute kidney injury on admission, pre-renal as it seems with improvement now PLAN: Neurologic: keep sedated with propofol. fent gtt for now. Cardiovascular: Perfusing. Intravascular vol still low. Interstium a touch up but she has serous losses from moni and ongoing Ebb phase. Fluids adjusted to meet needs. Cellularly sodium avid. Wide pulse pressure however with low diastolics. Wean levo to maintain SBP >100 for now. steroids will help wean off levo. Respiratory: Some concern on cxr for microatelectasis vs early inflammatory insult. Change to aprv for lung protection. Maintain vent and can adjust as needed for OR needs. Gastrointestinal: ngt. npo. sup. Surgical f/u Renal/Metabolic: cr better. fluids adjusted. sosa. Infectious Disease: on zosyn. cx ngtd. adequate coverage at present. no reason to suspect resistance currently, nor if we will find culprit micro. Hematology: stable, except concentrated this am. on lovenox subq. Endocrine: diastolics remain low despite agreesive levophed and adequete perfusion. coupled with her hypoNa, would treat with pulse stress dose steroids to be able to wean levo. Musculoskeletal: bedrest given open abd Psych/Social: will look to update family. resume her ssri soon. Supportive and preventative care as ordered. SUP: H2 VTE prophylaxis: lovenox Sosa catheter given critical illness, monitoring needs for accurate assessment of NAVID and KDIGO criteria for critically ill patients and to avoid potential harms of urinary retention, skin breakdown/ulcers. Disposition: ICU Code Status: Full Critical Care Time: 45min F. Grayson Reymundo, DO
[2016-11-13] MEDS ORDERED: Norepinephrine VIAL* 1 MG/ML 4 ML VIAL ONE (11:07)
[2016-11-13] MEDS ORDERED: Magnesium Sulf 4 GM/100 ML IV* 4,000 MG/100 ML BAG IVPB ONE (11:15)
[2016-11-13] MEDS: Hydrocortisone INJ* 100 MG VIAL IV SCH ×2 (11:46→17:51)
[2016-11-13] MEDS ORDERED: Albumin Human 5%* 250 ML BTL IV ONE (12:26)
--- NOTE | 2016-11-13 12:29 | PN ---
Progress Note - Progress Note SOAP: Subjective: Intubated, sedated, on vent. Per RN has been following commands. On Levophed. Objective: Vital Signs Temp 99.7 F 11/13/16 07:12 Pulse 112 11/13/16 11:00 Resp 12 11/13/16 11:45 BP 151/66 11/13/16 08:00 Pulse Ox 99 11/13/16 11:00 NAD, intubated. Abd: dressings intact; obese. SUSANA SS o/p. Intake & Output 11/12/16 11/13/16 11/13/16 18:59 06:59 18:59 Intake Total 5968 4124.3 Output Total 700 1145 535 Balance 5268 2979.3 -535 Weight 191 lb 5.78 oz Intake: IV Fluids 5968 3255.3 LR 5500 3208 NS (0.9%) 468 47.3 IVPB 250 NS (0.9%) 250 Medicated IV 619 Levophed 456 Propofol 163 Output: SUSANA #1 750 440 Tobin 700 395 95 Laboratory Results - last 24 hr 11/13/16 11/13/16 11/13/16 06:22 06:22 06:22 WBC 41.6 H RBC 4.44 Hgb 12.2 Hct 38 MCV 86 MCH 27 MCHC 32 RDW 13 Plt Count 414 MPV 9 Hem Pathologist Commnt Sodium 131 L Potassium 3.3 L Chloride 98 L Carbon Dioxide 24 Anion Gap 9 BUN 21 Creatinine 1.03 H Est GFR ( Amer) 67.0 Est GFR (Non-Af Amer) 52.1 BUN/Creatinine Ratio 20.4 H Glucose 137 H Lactic Acid 1.5 Calcium 7.7 L Phosphorus 3.3 Magnesium 1.4 L Assessment: POD#1 s/p exlap/MARELY for peritonitis without identification of perforation. Critically ill. Plan: Cont ICU management per CCM. Cont abx and await cx results. NPO. Plan for second look laparotomy tomorrow afternoon. D/W pt's dtr Matilda.
[2016-11-13] MEDS ORDERED: Propofol* 100 ML ONE ×2 (14:39→18:04)
[2016-11-13] MEDS: Enoxaparin(*) 40 MG/0.4 ML SYR SUBCUT SCH (20:55)
[2016-11-14] MEDS: Hydrocortisone INJ* 100 MG VIAL IV SCH ×5 (01:17→23:00)
[2016-11-14] MEDS: Piperac/Tazob 3.375 gm in NS* 3.375 GM/100 ML BAG IVPB SCH ×4 (01:21→18:05)
[2016-11-14] MEDS: Chlorhexidine MOUTHWASH 0.12%* 15 ML UDC TOPICAL SCH ×6 (02:13→20:57)
[2016-11-14] MEDS: NS 0.9% w/ 40 Meq KCL 1000 ML* 1,000 ML IV SCH ×2 (03:01→09:21)
[2016-11-14 06:20] LABS: Hematocrit 27 % (35-47); Hemoglobin 8.7 g/dl (12.0-16.0); Mean Corpuscular HGB Conc 32 g/dl (31-36); Mean Corpuscular Hemoglobin 27 pg (27-31); Mean Corpuscular Volume 86 fL (80-97); Mean Platelet Volume 9 um3 (7.4-10.4); Red Blood Count 3.18 10^6/ul (4.0-5.4); Red Cell Distribution Width 14 % (10.5-15); White Blood Count 18.6 10^3/ul (3.5-10.8)
[2016-11-14 06:33] LABS: BUN/Creatinine Ratio 26.2 (8-20); Calcium 7.9 mg/dL (8.6-10.3); EGFR Non-African American 88.6 (>60); Magnesium 2.6 mg/dL (1.9-2.7); Phosphorus 2.1 mg/dL (2.5-5.0); Potassium 3.6 mmol/L (3.5-5.0)
[2016-11-14] MEDS: Propofol* 100 ML IV SCH ×4 (08:13→22:05)
[2016-11-14] MEDS: Famotidine IV* 10 MG/ML 2 ML (20 mg) IV SCH (09:19)
[2016-11-14] MEDS ORDERED: NS 0.9% w/ 40 Meq KCL 1000 ML* 1,000 ML IV SCH (09:53)
[2016-11-14] MEDS ORDERED: Potassium Phosphate IV* 15 MMOLE in NS 0.9% 250 ML* 250 ML IVPB ONE (10:30)
[2016-11-14] MEDS: fentaNYL* 50 MCG/ML 2 ML VIAL (100 MCG VIAL) IV SLOW PU PRN ×2 (10:37→20:57)
--- NOTE | 2016-11-14 10:38 | PN ---
Progress Note - Progress Note Note: CRITICAL CARE MEDICINE Date: 11/14/16 Time: 855 SUBJECTIVE: Patient seen and examined. PHYSICAL EXAM: Vital Signs: Reviewed. Neurologic: awakens on vent. communicating HEENT: pupils equal. Sclera anicteric. Trachea midline. Cardiovascular: S1 S2 Respiratory: coarse but clear. not working Abdomen: Soft, distended, moni drainage and dressing saturation serous noted Extremities: Warm. mild dep edema Access: Rij cvc LABS: Reviewed. IMAGING: Reviewed. MEDICATIONS: Reviewed. ASSESSMENT: 76 F Acute abd with perforated viscous seemingly walled off, post ex lap 11/12 Septic shock sec to acute abdomen/peritonitis Acute post op, nonthoracic, resp failure Chronic resp failure/copd on O2 Acute kidney injury on admission, improved Relative adrenal insufficiency PLAN: Neurologic: keep comfortable with propofol and fent. Cardiovascular: Perfusing. Vol status better. Has interstitial volume. off levo. Respiratory: aprv for now and lung protection through OR needs. Fio2 30% Gastrointestinal: ngt. npo. sup. OR today Renal/Metabolic: cr better. dec fluids. sosa. Infectious Disease: on zosyn. excoli from cx. keep zosyn and can de-escalate in another day or so. Hematology: stable, hemodiluted now. on lovenox subq. Endocrine: better post steroids. Musculoskeletal: bedrest given open abd Psych/Social: family at bedside updated. Supportive and preventative care as ordered. SUP: H2 VTE prophylaxis: lovenox Sosa catheter given critical illness, monitoring needs for accurate assessment of NAVID and KDIGO criteria for critically ill patients and to avoid potential harms of urinary retention, skin breakdown/ulcers. Disposition: ICU, for OR today Code Status: Full Critical Care Time: 35min Chester Dwyer DO
[2016-11-14] MEDS ORDERED: fentaNYL* 50 MCG/ML 5 ML VIAL (250 MCG VIAL) ONE (14:29)
[2016-11-14] MEDS ORDERED: Midazolam* 1 MG/ML 5 ML VIAL (5 MG) ONE (14:29)
[2016-11-14] MEDS ORDERED: Rocuronium* 10 MG/ML VIAL ONE (14:29)
[2016-11-14] MEDS ORDERED: fentaNYL* 50 MCG/ML 2 ML VIAL (100 MCG VIAL) ONE ×2 (15:33→15:53)
--- NOTE | 2016-11-14 16:51 | SURGPN ---
Brief Operative Note - Surgery Procedures: Procedures Preop Dx: intraabdominal sepsis; open abdomen Postop Dx: same; also, gangrenous acalculous cholecystitis Procedure: exploratory laparotomy; cholecystectomy Anesthesia: GET Surgeon: Chanelle Asst: ROBERTO Sotelo; MS Analilia3 EBL: <100 ml Fluids: 800 ml crystalloid Drains/Packs: 3 towels w/ ioban intra-abd; 1 towel extra-abdominal; 1 SUSANA
[2016-11-14] MEDS: Fentanyl PCA (Continuous Infusion)* 20 ML PCA SCH (16:52)
[2016-11-14] MEDS: HYDROmorphone* 1 MG/ML 1 ML SYR IV PRN ×2 (18:10→23:29)
[2016-11-14] MEDS: Enoxaparin(*) 40 MG/0.4 ML SYR SUBCUT SCH (20:57)
[2016-11-14] MEDS: Lactated Ringers 500 ml BAG* 500 ML IV PRN (22:59)
[2016-11-15] MEDS: Piperac/Tazob 3.375 gm in NS* 3.375 GM/100 ML BAG IVPB SCH ×5 (01:10→23:25)
[2016-11-15] MEDS: Chlorhexidine MOUTHWASH 0.12%* 15 ML UDC TOPICAL SCH ×6 (01:11→22:20)
[2016-11-15] MEDS: Propofol* 100 ML IV SCH ×3 (02:48→22:20)
--- NOTE | 2016-11-15 04:34 | OP ---
DATE OF OPERATION: 11/14/16 - ROOM #ICU-02 DATE OF : 40 SURGEON: Mac Roca MD ATTORNEY: ROBERTO Miranda ANESTHESIOLOGIST: Dr. Niño. ANESTHESIA: General endotracheal. PRE-OP DIAGNOSIS: Peritonitis and open abdomen. POST-OP DIAGNOSES: 1. Peritonitis and open abdomen. 2. Acalculous cholecystitis. OPERATIVE PROCEDURE: Exploratory laparotomy, open cholecystectomy, peritoneal lavage. ESTIMATED BLOOD LOSS: Minimal. IV FLUIDS: Crystalloid. SPECIMEN: Gallbladder. DRAINS: None. COMPLICATIONS: None. COUNTS: The instrument, needle, and sponge counts were correct. DESCRIPTION OF PROCEDURE: The patient was brought to the operating room and placed on the table supine. Her abdominal dressings and packs were removed and the abdomen was prepped and draped in sterile fashion. Time-out was performed. Inspection of the abdomen commenced with inspection of the previous small bowel enterotomy closure, which appeared to be intact. The small bowel was run from the ileocecal valve proximally and back again and there were no injuries noted. The cecum, ascending colon, transverse colon, splenic flexure, descending, sigmoid colon were all inspected and there was no evidence of any bowel compromise, fibrinous exudate, purulence, or ischemia. There was bowel edema present consistent with her recent surgical history. The abdomen was irrigated in 4 quadrants and the irrigant was clear. In the right upper quadrant, however , there was some bile stain noted on the retroperitoneum and inspection of the gallbladder revealed what appeared to be ischemic changes consistent with acalculous cholecystitis, therefore it was decided to perform cholecystectomy. Two lap pads were placed above the liver and retractors were placed. The gallbladder was dissected using cautery and blunt dissection to dissect in the retrograde fashion. Couple of inadvertent cholecystotomies were created and the gallbladder was drained of bile. The dissecting proceeded down to the cystic duct and the duct and artery were each identified, dissected out, doubly clamped and divided. The gallbladder was handed off as specimen. The area was lavaged again until clear. The abdominal viscera were then returned to the abdominal cavity and the abdomen was left open again due to the bowel edema. The temporary closure consisted of 3 OR towels with Ioban wraps and then Ioban across the entire dressing over SUSANA drain. The patient was then left intubated and transferred back to the intensive care unit in stable condition. CC: Tonio Dowell MD, [place], [place]; Campbell Cassidy MD, [place], [place] * [id number]/[facility] #: [id number] [facility]
[2016-11-15] MEDS: Hydrocortisone INJ* 100 MG VIAL IV SCH ×4 (06:09→23:24)
[2016-11-15] MEDS: Lactated Ringers 500 ml BAG* 500 ML IV PRN (06:23)
[2016-11-15 06:28] LABS: Hematocrit 30 % (35-47); Hemoglobin 9.5 g/dl (12.0-16.0); Mean Corpuscular HGB Conc 32 g/dl (31-36); Mean Corpuscular Hemoglobin 28 pg (27-31); Mean Corpuscular Volume 86 fL (80-97); Mean Platelet Volume 9 um3 (7.4-10.4); Red Blood Count 3.45 10^6/ul (4.0-5.4); Red Cell Distribution Width 14 % (10.5-15); White Blood Count 17.1 10^3/ul (3.5-10.8)
[2016-11-15 06:50] LABS: BUN/Creatinine Ratio 32.3 (8-20); Calcium 8.6 mg/dL (8.6-10.3); EGFR Non-African American 88.6 (>60); Potassium 4.4 mmol/L (3.5-5.0)
[2016-11-15] MEDS: Famotidine IV* 10 MG/ML 2 ML (20 mg) IV SCH (07:34)
--- NOTE | 2016-11-15 09:16 | PN ---
Progress Note - Progress Note Note: CRITICAL CARE MEDICINE Date: 11/15/16 Time: 900 SUBJECTIVE: Patient seen and examined. PHYSICAL EXAM: Vital Signs: Reviewed. Neurologic: awakens on vent. communicating HEENT: pupils equal. Sclera anicteric. Trachea midline. Cardiovascular: S1 S2 Respiratory: coarse but clear. not overbreathing this am. Abdomen: Soft, distended; inc edema Extremities: Warm. inc dep edema Access: Rij cvc LABS: Reviewed. IMAGING: Reviewed. MEDICATIONS: Reviewed. ASSESSMENT: 76 F Acute abd with perforated viscous seemingly walled off, post ex lap 11/12 Septic shock sec to acute abdomen/peritonitis Acute post op, nonthoracic, resp failure Chronic resp failure/copd on O2 Acute kidney injury on admission, improved Relative adrenal insufficiency Acalculus cholecystitis PLAN: Neurologic: keep comfortable with propofol and fent. Cardiovascular: Perfusing. Vol status up and needs diuertics. off levo. Respiratory: aprv continued thru Or needs and then look to cpap and liberate. Fio2 30% Gastrointestinal: ultilze trophic feeds for next 48hrs till OR. Renal/Metabolic: cr stable. agressive diuretics as needed. Infectious Disease: on zosyn continued. Hematology: stable, lovenox subq. Endocrine: better post steroids and can slowly taper during her acute course Musculoskeletal: bedrest given open abd Psych/Social: family at bedside updated yesterday Supportive and preventative care as ordered. SUP: H2 VTE prophylaxis: lovenox Tobin catheter given critical illness, monitoring needs for accurate assessment of NAVID and KDIGO criteria for critically ill patients and to avoid potential harms of urinary retention, skin breakdown/ulcers. Disposition: ICU, for OR Fri Code Status: Full Critical Care Time: 35min Chester Dwyer DO
--- NOTE | 2016-11-15 09:43 | PN ---
Progress Note - Progress Note SOAP: Subjective: Intubated, sedated on vent. Per RN no sinificant changes in status overnight. Objective: Vital Signs Temp 97.5 F 11/15/16 09:00 Pulse 76 11/15/16 09:00 Resp 12 11/15/16 08:00 BP 109/64 11/15/16 08:00 Pulse Ox 98 11/15/16 09:00 Abd: dressings intact. SUSANA serous. Intake & Output 11/14/16 11/15/16 11/15/16 18:59 06:59 18:59 Intake Total 1370 2149 Output Total 475 1325 347 Balance 895 824 -347 Weight 214 lb 8.156 oz 208 lb 5.389 oz Intake: IV Fluids 1185 1645 Lactated ringers 700 NS (0.9%) 288 126 NS w/ 40 meq K+ 897 819 IVPB 208 NS (0.9%) 208 Medicated IV 185 296 Propofol 185 296 Output: NG Tube Drainage Amount 50 SUSANA #1 1050 300 Tobin 475 225 47 Laboratory Results - last 24 hr 11/15/16 11/15/16 06:15 06:15 WBC 17.1 H RBC 3.45 L Hgb 9.5 L Hct 30 L MCV 86 MCH 28 MCHC 32 RDW 14 Plt Count 321 MPV 9 Sodium 133 Potassium 4.4 Chloride 107 Carbon Dioxide 22 Anion Gap 4 BUN 21 Creatinine 0.65 Est GFR ( Amer) 114.0 Est GFR (Non-Af Amer) 88.6 BUN/Creatinine Ratio 32.3 H Glucose 128 H Calcium 8.6 Active Medications Generic Name Dose Route Start Last Admin Trade Name Freq PRN Reason Stop Dose Admin Albuterol 2.5 mg 11/12/16 02:19 Ventolin 2.5 Mg/3 Ml [place]* INH Q2H PRN SOB/WHEEZING Chlorhexidine Gluconate 15 ml 11/12/16 19:00 11/15/16 06:09 Peridex Mouth Wash 0.12%* TOPICAL 15 ml Q4HR BIBI Administration Enoxaparin Sodium 40 mg 11/12/16 20:00 11/14/16 20:57 Lovenox(*) SUBCUT 40 mg Q24H BIBI Administration Famotidine 20 mg 11/13/16 09:00 11/15/16 07:34 Pepcid Iv* IV 20 mg DAILY BIBI Administration Fentanyl Citrate 25 mcg 11/14/16 09:56 11/14/16 20:57 Fentanyl* IV SLOW PU 25 mcg Q1H PRN Administration PAIN Furosemide 40 mg 11/15/16 09:00 Lasix Iv* IV SLOW PU 0800,1700 BIBI Hydrocortisone Sodium Succinate 50 mg 11/13/16 11:00 11/15/16 06:09 Solu-Cortef* IV 50 mg Q6H BIBI Administration Hydromorphone HCl 1 mg 11/12/16 11:19 11/14/16 23:29 Dilaudid Iv* IV 1 mg Q3H PRN Administration PAIN Piperacillin Sod/Tazobactam Sod 3.375 gm in 100 mls @ 200 mls/hr 11/12/16 12: 00 11/15/16 06:16 Zosyn 3.375 Gm In Ns Premix* IVPB 200 mls/hr Q6HR BIBI Administration Propofol 100 mls @ 13.88 mls/hr 11/12/16 17:00 11/15/16 02:48 Diprivan* IV 20.6 mls/hr .(Initial Rate) BIBI Administration Protocol 30 MCG/KG/MIN Lactated Ringer's 500 mls @ 999 mls/hr 11/12/16 23:12 11/15/16 06:23 Lactated Ringers 500 Ml Bag* IV 999 mls/hr .BOLUS PRN Administration IF U/O IS < 125ML OVER 4HRS Wide Open Norepinephrine Bitartrate 4 mg 250 mls @ 18.75 mls/hr 11/13/16 04:00 11:34 / Sodium Chloride IVPB 45 mls/hr .INITIAL RATE BIBI Administration Protocol 5 MCG/MIN Fentanyl Citrate 20 mls @ 1 mls/hr 11/13/16 08:00 11/14/16 16:52 Fentanyl [employer]* [employer] ENGINEER 1 mls/hr .change Q24H BIBI Administration Protocol 50 MCG/HR Ondansetron HCl 4 mg 11/12/16 02:19 Zofran Inj* IV Q6H PRN NAUSEA Microbiology 11/12/16 08:42 Aerobic Blood Culture - Preliminary Blood Venous No Growth Day 3 Anaerobic Blood Culture - Final 11/12/16 13:30 Anaerobic Culture - Preliminary Wound - Abdominal Gram Stain - Final Wound Culture - Preliminary Escherichia Coli Acid Fast Bacilli Smear - Final Assessment: Resolved intraabdominal sepsis (bacterial peritonitis presumed from bacterial translocation s/p colonoscopy) and acalculous cholecystitis. POD#1 s/p cholecystectomy/washout; POD#2 s/p exlap/MARELY repair of SB enterotomy. Plan: Will allow for diuresis and plan on return to OR on Sunday for abdominal closure. Appreciate [facility] management.
[2016-11-15] MEDS: Furosemide IV* 10 MG/ML VIAL (40 MG) IV SLOW PU SCH ×2 (10:20→17:22)
[2016-11-15] MEDS: Fentanyl PCA (Continuous Infusion)* 20 ML PCA SCH (11:16)
[2016-11-15] MEDS: KCL 20 MEQ/100 ML IVPREMIX* 20 MEQ/100 ML BAG IV SCH ×2 (17:21→20:35)
[2016-11-15] MEDS: Enoxaparin(*) 40 MG/0.4 ML SYR SUBCUT SCH (20:35)
[2016-11-15] MEDS ORDERED: Furosemide IV* 10 MG/ML VIAL (40 MG) IV SLOW PU ONE (23:00)
[2016-11-16] MEDS: Propofol* 100 ML IV SCH ×4 (02:29→21:13)
[2016-11-16] MEDS: Chlorhexidine MOUTHWASH 0.12%* 15 ML UDC TOPICAL SCH ×7 (02:29→22:30)
[2016-11-16] MEDS: Fentanyl PCA (Continuous Infusion)* 20 ML PCA SCH ×2 (05:00→20:57)
[2016-11-16] MEDS: Piperac/Tazob 3.375 gm in NS* 3.375 GM/100 ML BAG IVPB SCH ×3 (05:25→17:54)
[2016-11-16 05:55] LABS: Hematocrit 31 % (35-47); Hemoglobin 9.7 g/dl (12.0-16.0); Mean Corpuscular HGB Conc 31 g/dl (31-36); Mean Corpuscular Hemoglobin 27 pg (27-31); Mean Corpuscular Volume 86 fL (80-97); Mean Platelet Volume 9 um3 (7.4-10.4); Red Blood Count 3.64 10^6/ul (4.0-5.4); Red Cell Distribution Width 13 % (10.5-15); White Blood Count 12.3 10^3/ul (3.5-10.8)
[2016-11-16 06:27] LABS: BUN/Creatinine Ratio 32.3 (8-20); Calcium 8.5 mg/dL (8.6-10.3); EGFR African American 75.4 (>60); EGFR Non-African American 58.6 (>60); Magnesium 2.1 mg/dL (1.9-2.7); Phosphorus 3.2 mg/dL (2.5-5.0); Potassium 3.5 mmol/L (3.5-5.0)
[2016-11-16] MEDS: Hydrocortisone INJ* 100 MG VIAL IV SCH ×2 (07:22→15:16)
[2016-11-16] MEDS: Famotidine IV* 10 MG/ML 2 ML (20 mg) IV SCH (07:23)
[2016-11-16] MEDS: Furosemide IV* 10 MG/ML VIAL (40 MG) IV SLOW PU SCH (07:23)
[2016-11-16] MEDS ORDERED: D5W 1/2 NS 40 Meq KCL 1000 ML* 1,000 ML IV SCH (10:00)
[2016-11-16] MEDS: KCL 20 MEQ/100 ML IVPREMIX* 20 MEQ/100 ML BAG IV SCH ×4 (10:13→18:10)
--- NOTE | 2016-11-16 11:13 | PN ---
Progress Note - Progress Note Note: CRITICAL CARE MEDICINE Date: 11/16/16 Time: 940 SUBJECTIVE: Patient seen and examined. PHYSICAL EXAM: Vital Signs: Reviewed. Neurologic: awakens. but RASS -3 HEENT: pupils equal. Sclera anicteric. Trachea midline. Cardiovascular: S1 S2 Respiratory: coarse but clear. sync with vent Abdomen: Soft, distended; anasarca remains. Extremities: Warm. + edema Access: Rij cvc LABS: Reviewed. IMAGING: Reviewed. MEDICATIONS: Reviewed. ASSESSMENT: 76 F Acute abd with perforated viscous seemingly walled off, post ex lap 11/12, relook wash out and maryjane 11/14 Septic shock sec to acute abdomen/peritonitis - improved. Acute post op, nonthoracic, resp failure - ongoing on chronic resp failure/copd on O2 Acute kidney injury on admission, improved Relative adrenal insufficiency - stable Acalculus cholecystitis PLAN: Neurologic: keep comfortable with propofol and fent but lower sedation to allow vent trigger Cardiovascular: Perfusing. Vol status up still and would like to see further diuresis afforded as we need to ensure she can be closed to tomorrow to ensure her best chance at recovery. lasix gtt today. Respiratory: aprv continued thru OR needs. stable but need her to trigger vent at least. Fio2 30% Gastrointestinal: trophic feeds for now; can hold in am Renal/Metabolic: cr stable. Bun up and will go up further. aggressive diuretics as above. Infectious Disease: zosyn for ecoli peritonitis. Hematology: stable, lovenox subq. Endocrine: steroids taper. Musculoskeletal: bedrest given open abd Psych/Social: family to be updated Supportive and preventative care as ordered. SUP: H2 VTE prophylaxis: lovenox Tobin catheter given critical illness, monitoring needs for accurate assessment of NAVID and KDIGO criteria for critically ill patients and to avoid potential harms of urinary retention, skin breakdown/ulcers. Disposition: ICU, for OR Fri Code Status: Full Critical Care Time: 35min Chester Dwyer DO
[2016-11-16] MEDS: Enoxaparin(*) 40 MG/0.4 ML SYR SUBCUT SCH (20:56)
[2016-11-17] MEDS: Hydrocortisone INJ* 100 MG VIAL IV SCH ×3 (00:53→17:02)
[2016-11-17] MEDS: Piperac/Tazob 3.375 gm in NS* 3.375 GM/100 ML BAG IVPB SCH ×4 (00:53→17:45)
[2016-11-17] MEDS: Chlorhexidine MOUTHWASH 0.12%* 15 ML UDC TOPICAL SCH ×6 (03:26→21:56)
[2016-11-17] MEDS: Propofol* 100 ML IV SCH ×3 (06:01→19:54)
[2016-11-17 06:34] LABS: Hematocrit 34 % (35-47); Hemoglobin 10.6 g/dl (12.0-16.0); Mean Corpuscular HGB Conc 32 g/dl (31-36); Mean Corpuscular Hemoglobin 27 pg (27-31); Mean Corpuscular Volume 85 fL (80-97); Mean Platelet Volume 9 um3 (7.4-10.4); Red Blood Count 3.94 10^6/ul (4.0-5.4); Red Cell Distribution Width 13 % (10.5-15)
[2016-11-17 06:36] LABS: Add Diff/Slide Review? Slide Review Added; Comments Flag Yes
[2016-11-17 06:48] LABS: Albumin 2.6 g/dL (3.2-5.2); Calcium 8.6 mg/dL (8.6-10.3); EGFR African American 69.3 (>60); EGFR Non-African American 53.9 (>60); Magnesium 1.8 mg/dL (1.9-2.7); Phosphorus 3.5 mg/dL (2.5-5.0); Total Bilirubin 1.1 mg/dL (0.2-1.0); Total Protein 5.6 g/dL (6.4-8.9)
[2016-11-17 06:57] LABS: Potassium 2.5 mmol/L (3.5-5.0)
[2016-11-17] MEDS: KCL 20 MEQ/100 ML IVPREMIX* 20 MEQ/100 ML BAG IV SCH ×6 (07:30→21:55)
[2016-11-17] MEDS: Famotidine IV* 10 MG/ML 2 ML (20 mg) IV SCH (08:23)
[2016-11-17] MEDS ORDERED: Magnesium Sulfate 2 GM IV* 2 GM/50 ML BAG IVPB ONE (10:02)
--- NOTE | 2016-11-17 11:41 | PN ---
Progress Note - Progress Note Note: CRITICAL CARE MEDICINE Date: 11/17/16 Time: 925 SUBJECTIVE: Patient seen and examined. PHYSICAL EXAM: Vital Signs: Reviewed. Neurologic: awakens. but RASS -2 HEENT: pupils equal. Sclera anicteric. Trachea midline. Cardiovascular: S1 S2 Respiratory: coarse but clear. sync with vent Abdomen: Soft, distended; anasarca better. dressing intact Extremities: Warm. + edema better Access: Rij cvc LABS: Reviewed. IMAGING: Reviewed. MEDICATIONS: Reviewed. ASSESSMENT: 76 F Acute abd with perforated viscous seemingly walled off, post ex lap 11/12, relook wash out and maryjane 11/14 Septic shock sec to acute abdomen/peritonitis - improved. Acute post op, nonthoracic, resp failure - ongoing on chronic resp failure/copd on O2 Acute kidney injury on admission, improved Relative adrenal insufficiency - stable Acalculus cholecystitis PLAN: Neurologic: stable on propofol and fent and dec post Or. Cardiovascular: Perfusing. Vol status better post lasix gtt. hopefully can hold off on this if closure achieved today. Respiratory: aprv continued thru OR needs then will take a bit to inc her wob to meet liberated demands. Fio2 30% Gastrointestinal: trophic feeds held currently. enteral post. if further ailments lingering, would consider tpn. sup Renal/Metabolic: cr stable and Bun up a touch with no surprise post steroids/ lasix. Infectious Disease: zosyn for ecoli peritonitis. Hematology: stable, lovenox subq. Endocrine: steroids taper. Musculoskeletal: bedrest given open abd Psych/Social: family updated yesterday Supportive and preventative care as ordered. SUP: H2 VTE prophylaxis: lovenox Tobin catheter given critical illness, monitoring needs for accurate assessment of NAVID and KDIGO criteria for critically ill patients and to avoid potential harms of urinary retention, skin breakdown/ulcers. Disposition: ICU, for OR Code Status: Full Critical Care Time: 35min Chester Dwyer DO
[2016-11-17 12:39] LABS: BUN/Creatinine Ratio 36.1 (8-20); Calcium 8.5 mg/dL (8.6-10.3); EGFR African American 71.8 (>60); EGFR Non-African American 55.8 (>60); Potassium 2.8 mmol/L (3.5-5.0)
[2016-11-17] MEDS ORDERED: Rocuronium* 10 MG/ML VIAL ONE (13:06)
[2016-11-17] MEDS ORDERED: fentaNYL* 50 MCG/ML 2 ML VIAL (100 MCG VIAL) ONE (13:06)
--- NOTE | 2016-11-17 14:19 | PN ---
Progress Note - Progress Note Note: Brief surgery note: Pre-op: Open abdomen, Sepsis Post-op: same Procedure: Abdominal cavity wash out and primary closure of midline wound Surgeon: Dr. Roca Smeller: Graciela Gonzales Ellie: SARA Fluids: 1000cc LR EBL: Minimal Drains: None Catheter: Tobin to gravity Specimen: None Findings: See dictated op note
[2016-11-17] MEDS: Fentanyl PCA (Continuous Infusion)* 20 ML PCA SCH (14:52)
[2016-11-17] MEDS: Enoxaparin(*) 40 MG/0.4 ML SYR SUBCUT SCH (19:49)
[2016-11-18] MEDS: Piperac/Tazob 3.375 gm in NS* 3.375 GM/100 ML BAG IVPB SCH ×4 (00:41→18:40)
[2016-11-18] MEDS: Hydrocortisone INJ* 100 MG VIAL IV SCH ×3 (00:41→22:47)
[2016-11-18] MEDS: Chlorhexidine MOUTHWASH 0.12%* 15 ML UDC TOPICAL SCH ×6 (01:45→22:48)
[2016-11-18] MEDS: Propofol* 100 ML IV SCH ×5 (01:45→23:10)
[2016-11-18 06:05] LABS: Hematocrit 32 % (35-47); Hemoglobin 10.3 g/dl (12.0-16.0); Mean Corpuscular HGB Conc 33 g/dl (31-36); Mean Corpuscular Hemoglobin 28 pg (27-31); Mean Corpuscular Volume 85 fL (80-97); Mean Platelet Volume 9 um3 (7.4-10.4); Red Blood Count 3.74 10^6/ul (4.0-5.4); Red Cell Distribution Width 14 % (10.5-15); White Blood Count 17.5 10^3/ul (3.5-10.8)
[2016-11-18 06:24] LABS: BUN/Creatinine Ratio 41.3 (8-20); Calcium 8.7 mg/dL (8.6-10.3); EGFR African American 76.3 (>60); EGFR Non-African American 59.4 (>60); Magnesium 2.5 mg/dL (1.9-2.7); Phosphorus 2.5 mg/dL (2.5-5.0); Potassium 3.1 mmol/L (3.5-5.0)
[2016-11-18] MEDS: Famotidine IV* 10 MG/ML 2 ML (20 mg) IV SCH (10:00)
--- NOTE | 2016-11-18 11:20 | PN ---
Progress Note - Progress Note Note: CRITICAL CARE MEDICINE Date: 11/18/16 Time: 945 SUBJECTIVE: Patient seen and examined. PHYSICAL EXAM: Vital Signs: Reviewed. Neurologic: awakens. RASS -1 and off prop now. HEENT: pupils equal. Sclera anicteric. Trachea midline. Cardiovascular: S1 S2 Respiratory: coarse but clear. overbreathing. no wheeze Abdomen: Soft, less distended; anasarca better. dressing intact Extremities: Warm. edema better Access: Rij cvc LABS: Reviewed. IMAGING: Reviewed. MEDICATIONS: Reviewed. ASSESSMENT: 76 F Acute abd with perforated viscous seemingly walled off, post ex lap 11/12, relook wash out and maryjane 11/14, closure 11/17 Septic shock sec to acute abdomen/ ecoli peritonitis - improved. Acute post op, nonthoracic, resp failure - ongoing on chronic resp failure/copd on O2 Acute kidney injury on admission, improved Relative adrenal insufficiency - stable Acalculus cholecystitis Anasarca post resuscitation PLAN: Neurologic: hold prop today. fent gtt for now. re-eval pain. eval better for delirium. Cardiovascular: Perfusing. Vol status up still although inhibiting her weight moreso then resp status at this point but best to diuerese further, Respiratory: cpap this am. lighten sedation. see how her mechanics can maintain on a long sbt. hopefully to liberate today if she is fantastic or moreso tomorrow. Gastrointestinal: trophic feeds again today. sup Renal/Metabolic: diuretics. replete k Infectious Disease: zosyn for ecoli peritonitis. Hematology: stable, lovenox subq. Endocrine: steroids taper ongoing. Musculoskeletal: bedrest today but oob soon. Psych/Social: will look to update family Supportive and preventative care as ordered. SUP: H2 VTE prophylaxis: lovenox Tobin catheter given critical illness, monitoring needs for accurate assessment of NAVID and KDIGO criteria for critically ill patients and to avoid potential harms of urinary retention, skin breakdown/ulcers. Disposition: ICU Code Status: Full Critical Care Time: 35min Chester Dwyer DO
[2016-11-18] MEDS ORDERED: Furosemide IV* 10 MG/ML VIAL (40 MG) ONE (11:31)
[2016-11-18] MEDS ORDERED: Potassium Chloride LIQUID* 20 MEQ PACKET ONE (11:31)
[2016-11-18] MEDS: Sertraline* 50 MG TAB G TUBE SCH (11:35)
[2016-11-18] MEDS: KCL 20 MEQ/100 ML IVPREMIX* 20 MEQ/100 ML BAG IV SCH ×2 (11:42→14:48)
[2016-11-18] MEDS ORDERED: Chlorothiazide IV* 250 MG in NS 0.9% 50 ML* 50 ML IVPB ONE (12:00)
[2016-11-18] MEDS ORDERED: CHLOROTHIAZIDE 500 MG IV ONE (13:30)
[2016-11-18] MEDS: Potassium Chloride LIQUID* 20 MEQ PACKET G TUBE SCH ×2 (14:46→22:47)
[2016-11-18] MEDS: Furosemide IV* 10 MG/ML VIAL (40 MG) IV SLOW PU SCH ×2 (14:46→22:48)
[2016-11-18] MEDS: Enoxaparin(*) 40 MG/0.4 ML SYR SUBCUT SCH (19:28)
[2016-11-18] MEDS: Senna TAB G TUBE SCH (22:47)
[2016-11-19] MEDS: Piperac/Tazob 3.375 gm in NS* 3.375 GM/100 ML BAG IVPB SCH ×4 (00:05→17:57)
[2016-11-19] MEDS: Fentanyl PCA (Continuous Infusion)* 20 ML PCA SCH (01:32)
[2016-11-19] MEDS: Chlorhexidine MOUTHWASH 0.12%* 15 ML UDC TOPICAL SCH ×3 (03:41→10:58)
[2016-11-19] MEDS: Propofol* 100 ML IV SCH (05:40)
[2016-11-19 06:24] LABS: Hematocrit 30 % (35-47); Hemoglobin 9.8 g/dl (12.0-16.0); Mean Corpuscular HGB Conc 32 g/dl (31-36); Mean Corpuscular Hemoglobin 28 pg (27-31); Mean Corpuscular Volume 85 fL (80-97); Mean Platelet Volume 8 um3 (7.4-10.4); Red Blood Count 3.54 10^6/ul (4.0-5.4); Red Cell Distribution Width 14 % (10.5-15)
[2016-11-19 06:53] LABS: BUN/Creatinine Ratio 38.5 (8-20); Calcium 8.7 mg/dL (8.6-10.3); EGFR African American 77.3 (>60); EGFR Non-African American 60.1 (>60); Magnesium 2.4 mg/dL (1.9-2.7); Phosphorus 3.2 mg/dL (2.5-5.0)
[2016-11-19 06:59] LABS: Potassium 2.7 mmol/L (3.5-5.0)
[2016-11-19] MEDS: Famotidine IV* 10 MG/ML 2 ML (20 mg) IV SCH (07:44)
[2016-11-19] MEDS: Hydrocortisone INJ* 100 MG VIAL IV SCH (07:45)
[2016-11-19] MEDS: Senna TAB G TUBE SCH ×2 (07:45→20:33)
[2016-11-19] MEDS: Potassium Chloride LIQUID* 20 MEQ PACKET G TUBE SCH ×3 (07:45→21:51)
[2016-11-19] MEDS: Sertraline* 50 MG TAB G TUBE SCH (07:45)
[2016-11-19] MEDS: Furosemide IV* 10 MG/ML VIAL (40 MG) IV SLOW PU SCH ×3 (07:45→21:51)
--- NOTE | 2016-11-19 10:22 | PN ---
Progress Note - Progress Note Note: CRITICAL CARE MEDICINE Date: 11/19/16 Time: 925 SUBJECTIVE: Patient seen and examined. Issa cpap, high level, this am PHYSICAL EXAM: Vital Signs: Reviewed. Neurologic: awakens. RASS 0 and off prop. denies pain. HEENT: pupils equal. Sclera anicteric. Trachea midline. Cardiovascular: S1 S2 Respiratory: pretty clear. good volumes. no wheeze Abdomen: Soft, less distended again; edema better. Extremities: Warm. dep edema Access: Rij cvc LABS: Reviewed. IMAGING: Reviewed. MEDICATIONS: Reviewed. ASSESSMENT: 76 F Acute abd with perforated viscous seemingly walled off, post ex lap 11/12, relook wash out and maryjane 11/14, closure 11/17 Septic shock sec to acute abdomen/ ecoli peritonitis - improved. Acute post op, nonthoracic, resp failure - ongoing on chronic resp failure/copd on O2 Acute kidney injury on admission, improved Relative adrenal insufficiency - stable Acalculus cholecystitis Anasarca post resuscitation - improved PLAN: Neurologic: doing well. question if a level of delirium. f/u. off propo. hold fent. Cardiovascular: Perfusing. Vol status up still but stable. keep diuretics to promote flow phase today. Respiratory: liberate today. may need flow but seems to look ok and can try without to start post liberation. li leonard needs post. Gastrointestinal: trophic feeds tolerating. +Bms. Hold tf this am. may resume vs see if she can tolerate po liquids later today. sup. surgical f/u Renal/Metabolic: diuretics. replete k continued Infectious Disease: zosyn for ecoli peritonitis for 10 day course anticipated. Hematology: stable, lovenox subq. Endocrine: steroids taper - 3 days prednisone then dc Musculoskeletal: oob later today. Psych/Social: family updated. Supportive and preventative care as ordered. SUP: H2 VTE prophylaxis: lovenox Tobin catheter given critical illness, monitoring needs for accurate assessment of NAVID and KDIGO criteria for critically ill patients and to avoid potential harms of urinary retention, skin breakdown/ulcers. Disposition: ICU, improving. Code Status: Full Critical Care Time: 35min Chester Dwyer DO
[2016-11-19] MEDS: fentaNYL* 50 MCG/ML 2 ML VIAL (100 MCG VIAL) IV SLOW PU PRN ×3 (11:04→16:38)
[2016-11-19] MEDS: oxyCODONE/Acetamin 5/325 MG* TAB PO PRN ×2 (11:48→16:38)
[2016-11-19] MEDS: KCL 20 MEQ/100 ML IVPREMIX* 20 MEQ/100 ML BAG IV SCH ×2 (11:48→13:48)
[2016-11-19] MEDS: Enoxaparin(*) 40 MG/0.4 ML SYR SUBCUT SCH (21:51)
[2016-11-20] MEDS: oxyCODONE/Acetamin 5/325 MG* TAB PO PRN ×3 (01:02→19:38)
[2016-11-20] MEDS: Piperac/Tazob 3.375 gm in NS* 3.375 GM/100 ML BAG IVPB SCH ×4 (01:03→17:08)
--- NOTE | 2016-11-20 03:50 | OP ---
DATE OF OPERATION: 11/17/16 - ROOM #ICU-02 DATE OF : 40 SURGEON: Mac Roca MD INTEL RECRUITER: ROBERTO Sweeney ANESTHESIOLOGIST: Cynthia Pathak MD ANESTHESIA: General endotracheal. PRE-OP DIAGNOSIS: Peritonitis and open abdomen. POST-OP DIAGNOSIS: Peritonitis and open abdomen. OPERATIVE PROCEDURE: Exploratory laparotomy, peritoneal lavage and closure of abdominal wound. ESTIMATED BLOOD LOSS: Minimal. IV FLUIDS: 300 mL crystalloid. SPECIMEN: None. DRAINS: None. COMPLICATIONS: None. COUNTS: Instrument, needle and sponge counts were correct. DESCRIPTION OF PROCEDURE: The patient was brought to the operating room and placed on the table supine. The abdominal dressing was removed and then a Betadine prep was performed. The site was draped in sterile fashion. Time-out was performed. The small bowel was inspected, run from the ileocecal valve proximally, noted to be intact. Prior repair appeared to be intact. No evidence of any inflammation or compromise. The small bowel was inspected as well. Again it appeared to be normal with no compromise. There was adhesion of the right colon to the area of previous cholecystectomy and these adhesions were not taken down. Lavage was performed in all 4 quadrants. There was only clear fluid within the abdominal cavity. No bile staining. No evidence of any fibrinous exudate or purulence. At this point, it was determined that abdominal closure would be performed. Closure was performed with #1 Polysorb sutures in the interrupted figure-of- eight and simple interrupted fashion to approximate the fascia. The subcutaneous tissues were copiously irrigated and closure was performed with carlos at widely spaced intervals in order to allow packing of the subcutaneous tissue with 1-inch gauze. Dressing was applied. The patient remained intubated and was transferred back to the intensive care unit in a stable condition. CC: Campbell Cassidy MD, [place], [place]; Tonio Dowell MD, [place], [place]* [id number]/[facility] #: [id number] [facility] [place] [facility]
[2016-11-20 06:33] LABS: BUN/Creatinine Ratio 34.8 (8-20); Calcium 8.6 mg/dL (8.6-10.3); EGFR African American 106.4 (>60); EGFR Non-African American 82.7 (>60)
[2016-11-20 06:42] LABS: Potassium 2.7 mmol/L (3.5-5.0)
[2016-11-20] MEDS: Senna TAB G TUBE SCH (07:48)
[2016-11-20] MEDS: KCL 10 MEQ/50 ML IVPREMIX* 10 MEQ/50 ML BAG IV SCH ×3 (08:05→10:46)
[2016-11-20] MEDS: Furosemide IV* 10 MG/ML VIAL (40 MG) IV SLOW PU SCH (08:05)
[2016-11-20] MEDS: Famotidine IV* 10 MG/ML 2 ML (20 mg) IV SCH (08:05)
[2016-11-20] MEDS: Potassium Chloride LIQUID* 20 MEQ PACKET G TUBE SCH (08:05)
[2016-11-20] MEDS: predniSONE TAB* 20 MG PO SCH (08:06)
[2016-11-20] MEDS: Sertraline* 50 MG TAB G TUBE SCH (08:06)
--- NOTE | 2016-11-20 09:59 | PN ---
Progress Note - Progress Note SOAP: Subjective: Extubated over the weekend, complaints of L arm pain. Denies N/V or abdominal pain. Wants to go home. Tube feeding d/c'ed, started clear liquids. Objective: Awake and alert, looks weak, but in NAD Abdominal dressing clean and dry. Packing changed by Dr. Roca earlier today. Tobin with clear urine, I/O reviewed. Labs noted, K 2.7, WBCs trending down. Assessment: Clinically improving, s/p abdominal cavity lavage with primary closure. Plan: Clear liquid diet. Ortho consult for apparently hx L forearm fracture. Pt had fallen the day before her admission. Hypokalemia, replace K per medicine.
[2016-11-20] MEDS ORDERED: D5W KCl 40 MEQ 1000 ML* 1,000 ML IV SCH (10:00)
--- NOTE | 2016-11-20 10:29 | RAD ---
HISTORY: Follow-up left distal radius fracture. No other history is provided COMPARISONS: None VIEWS: 3, Frontal, lateral, and oblique views of the left wrist FINDINGS: BONE DENSITY: There is diffuse osteopenia. BONES: There is a comminuted slightly impacted fracture of the distal radial metaphysis. 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 ALIGNMENT: There is no dislocation. SOFT TISSUES: Unremarkable. OTHER FINDINGS: None. IMPRESSION: 1. SOMEWHAT IMPACTED FRACTURE OF THE DISTAL RADIAL METAPHYSIS. 2. OSTEOPENIA. 3. OSTEOARTHRITIS.
[2016-11-20] MEDS ORDERED: Magnesium Sulfate 2 GM IV* 2 GM/50 ML BAG IVPB ONE (10:34)
--- NOTE | 2016-11-20 10:45 | PN ---
Progress Note - Progress Note Note: CRITICAL CARE MEDICINE Date: 11/20/16 Time: 905 SUBJECTIVE: Patient seen and examined. PHYSICAL EXAM: Vital Signs: Reviewed. Neurologic: more awake and communicating. question a little delirium HEENT: pupils equal. Sclera anicteric. Trachea midline. Cardiovascular: S1 S2 Respiratory: pretty clear. good volumes. no wheeze Abdomen: Soft, less distended again; edema better Extremities: Warm. dep edema much better Access: Rij cvc LABS: Reviewed. IMAGING: Reviewed. MEDICATIONS: Reviewed. ASSESSMENT: 76 F Acute abd with perforated viscous seemingly walled off, post ex lap 11/12, relook wash out and maryjane 11/14, closure 11/17 Septic shock sec to acute abdomen/ ecoli peritonitis - improved. Acute post op, nonthoracic, resp failure - ongoing on chronic resp failure/copd on O2 Acute kidney injury on admission, improved Relative adrenal insufficiency - stable Acalculus cholecystitis Anasarca post resuscitation - improved Left Radial fx PLAN: Neurologic: doing well, maybe a mild delirium should improve with time. prn pain control Cardiovascular: Perfusing. Vol status much better and lasix completed. does need a little water back and given lack of amount of po intake would give her a day and a half of D5w. Respiratory: doing well from resp standpoint. continued. add back outpt rx Gastrointestinal: advance diet. surgical f/u Renal/Metabolic: fruther replete k and should stabilize come tomorrow. Infectious Disease: zosyn for ecoli peritonitis for 10 day course anticipated. Hematology: stable, lovenox subq. Endocrine: steroids taper - 2 days prednisone then dc Musculoskeletal: oob and pt. orhto to eval Left radial fx Psych/Social: family updated. Supportive and preventative care as ordered. SUP: H2 VTE prophylaxis: lovenox Tobin catheter out later today. Disposition: ICU this am. potential surgical floor later today or tomorrow. Code Status: Full Critical Care Time: 30min Chester Dwyer DO
[2016-11-20] MEDS: Potassium Chloride IV* 40 MEQ in D5W 1000 ML BAG* 1,000 ML IVPB SCH (10:52)
[2016-11-20] MEDS ORDERED: D5W IVPB SCH ×2 (11:00)
[2016-11-20] MEDS ORDERED: POTASSIUM CHLORIDE IVPB SCH ×2 (11:00)
[2016-11-20] MEDS ORDERED: Spiriva Inhaler DEVICE* 1 EACH DEVICE INH ONE (11:00)
[2016-11-20] MEDS: Mometasone/Formoter 100/5 MDI INH SCH ×2 (12:11→20:14)
[2016-11-20] MEDS: Tiotropium CAP.INH* CAP.INH/18 MCG INH SCH (12:11)
[2016-11-20] MEDS: KCL 20 MEQ/100 ML IVPREMIX* 20 MEQ/100 ML BAG IV SCH ×2 (12:17→13:54)
[2016-11-20] MEDS: fentaNYL* 50 MCG/ML 2 ML VIAL (100 MCG VIAL) IV SLOW PU PRN ×4 (12:33→22:49)
[2016-11-20] MEDS: Potassium Chlor TAB* 20 MEQ TAB.ER PO SCH ×2 (13:54→21:15)
[2016-11-20] MEDS ORDERED: Bupivacaine 0.5%* 50 ML VIAL INJ ONE (14:26)
--- NOTE | 2016-11-20 18:57 | RAD ---
Indication: Post distal radial reduction. Comparison: 09 hours November 20, 2016 Technique: Lateral and oblique AP views of the LEFT wrist. REPORT AND IMPRESSION: Overlying splint limits image quality. Transverse fracture through the distal metaphysis of the radius extending to the distal radial ulnar articulation. Decreased magnitude of dorsal tilt of the distal radioarticular surface compared with the earlier exam of the same date.
[2016-11-20] MEDS: Enoxaparin(*) 40 MG/0.4 ML SYR SUBCUT SCH (21:14)
--- NOTE | 2016-11-20 22:25 | CONS ---
CONSULTATION REPORT: DATE OF CONSULT: 11/20/16 CHIEF COMPLAINT: Left wrist fracture. HISTORY OF PRESENT ILLNESS: Ms. Montero is a 76-year-old female who is in the ICU. She was extubated yesterday per the nurse. She has undergone multiple abdominal surgeries while here in the hospital. The last of these was on , which was an exploratory laparotomy and a peritoneal lavage. She has had a repair of the small bowel enterotomy during the admission as well. Prior to admission to the hospital, she had fractured her left wrist. This was splinted. The time is a little unclear, but it was sometime around 11/12/16, the date she was admitted to the hospital. She has been in the ICU. PAST MEDICAL HISTORY: Reviewed from the patient's chart. PAST SURGICAL HISTORY: Reviewed from the patient's chart. MEDICATIONS: Reviewed from the patient's chart. ALLERGIES: Reviewed from the patient's chart. FAMILY HISTORY: Reviewed from the patient's chart. SOCIAL HISTORY: Reviewed from the patient's chart. REVIEW OF SYSTEMS: Obtained from the chart. She currently has altered mental status. She is extubated and has quite a productive cough. Otherwise, the review of systems is unobtainable given her mental status. PHYSICAL EXAMINATION: General: She has altered mental status and is not oriented to person, place, or time. Left upper extremity: Focused examination of the left upper extremity shows tenderness at the left wrist. There was a splint placed, which was taken off. There is a little maceration in the first web space, but otherwise, the skin is intact. There is quite a bit of edema in all of the extremities. There is a little deformity again at the left wrist. The remainder of the secondary survey was negative for any focal areas of tenderness. IMAGING: X-rays of the left wrist show a left extraarticular distal radius fracture that has a little bit dorsal tilt and is a little bit dorsally translated. IMPRESSION: Left distal radius fracture. PLAN: I went ahead and performed a closed reduction maneuver and placed her in a short-arm cast. Postreduction films are of poor quality but alignment looks adequate so we can plan to treat this nonoperatively. I have instructed her nurse at the bedside about how to care for the skin edges of the cast. I will check on her again if she stays in the hospital or if she is discharged, she should follow up with me in the office. The number for my office is [phone]. DESCRIPTION OF PROCEDURE: Informed consent was obtained over the telephone from the patient's decision makers. I went ahead and infiltrated the areas of fracture with 0.5% Marcaine, 20 mL. I then waited about 10 or 15 minutes and then, we performed a closed reduction maneuver via extension, traction, and then flexion. While the reduction was held, I went ahead and placed a short arm cast in a standard fashion. She tolerated this very well with minimal discomfort. [id number]/[facility] #: [id number] BARBI
[2016-11-20] MEDS ORDERED: Temazepam CAP* 15 MG PO PRN (22:34)
[2016-11-21] MEDS: Potassium Chloride IV* 40 MEQ in D5W 1000 ML BAG* 1,000 ML IVPB SCH (00:58)
[2016-11-21] MEDS: Piperac/Tazob 3.375 gm in NS* 3.375 GM/100 ML BAG IVPB SCH ×4 (00:58→18:06)
[2016-11-21] MEDS: fentaNYL* 50 MCG/ML 2 ML VIAL (100 MCG VIAL) IV SLOW PU PRN ×5 (01:40→18:05)
[2016-11-21] MEDS: oxyCODONE/Acetamin 5/325 MG* TAB PO PRN ×2 (04:38→16:23)
[2016-11-21 06:12] LABS: Hematocrit 30 % (35-47); Hemoglobin 9.5 g/dl (12.0-16.0); Mean Corpuscular HGB Conc 32 g/dl (31-36); Mean Corpuscular Hemoglobin 27 pg (27-31); Mean Corpuscular Volume 86 fL (80-97); Mean Platelet Volume 8 um3 (7.4-10.4); Red Blood Count 3.49 10^6/ul (4.0-5.4); Red Cell Distribution Width 14 % (10.5-15); White Blood Count 15.5 10^3/ul (3.5-10.8)
[2016-11-21 06:27] LABS: BUN/Creatinine Ratio 26.3 (8-20); Calcium 8.5 mg/dL (8.6-10.3); EGFR African American 132.6 (>60); EGFR Non-African American 103.1 (>60); Magnesium 2.2 mg/dL (1.9-2.7); Phosphorus 1.8 mg/dL (2.5-5.0); Potassium 3.8 mmol/L (3.5-5.0)
[2016-11-21] MEDS: Tiotropium CAP.INH* CAP.INH/18 MCG INH SCH (08:37)
[2016-11-21] MEDS: Mometasone/Formoter 100/5 MDI INH SCH ×2 (08:42→20:31)
[2016-11-21] MEDS: Potassium Chlor TAB* 20 MEQ TAB.ER PO SCH ×2 (09:47→13:39)
[2016-11-21] MEDS: predniSONE TAB* 20 MG PO SCH (09:47)
[2016-11-21] MEDS: Sertraline* 50 MG TAB G TUBE SCH (09:48)
--- NOTE | 2016-11-21 09:58 | PN ---
Progress Note - Progress Note Note: CRITICAL CARE MEDICINE Date: 11/21/16 Time: 855 SUBJECTIVE: Patient seen and examined. oob in chair. PHYSICAL EXAM: Vital Signs: Reviewed. Neurologic: communicating. probable mild delirium HEENT: pupils equal. Sclera anicteric. Trachea midline. Cardiovascular: S1 S2 Respiratory: clear. adequete volumes. no wheeze Abdomen: Soft, dressing applied. edema better Extremities: Warm. mild dep edema Access: Rij cvc LABS: Reviewed. IMAGING: Reviewed. MEDICATIONS: Reviewed. ASSESSMENT: 76 F Acute abd with perforated viscous seemingly walled off, post ex lap 11/12, relook wash out and maryjane 11/14, closure 11/17 Septic shock sec to acute abdomen/ ecoli peritonitis - improved. Acute post op, nonthoracic, resp failure - ongoing on chronic resp failure/copd on O2 Acute kidney injury on admission, improved Relative adrenal insufficiency - stable Acalculus cholecystitis Anasarca post resuscitation - improved Left Radial fx PLAN: Neurologic: doing well. not on her outpt ativan and would continue that way. prn pain control. mild delirium should improve with time. Cardiovascular: Perfusing. Vol status stable. not on oupt bb yet and can f/u need. dc cvc and place piv Respiratory: doing well from resp standpoint. home O2 allotment. outpt regimen. Gastrointestinal: advancing diet. surgical f/u Renal/Metabolic: lytes better. Infectious Disease: zosyn for ecoli peritonitis to complete 10 day course. wbc still up post op and with steroids, otherwise stable. Hematology: stable, lovenox subq. Endocrine: steroids taper - 1 days prednisone then dc Musculoskeletal: oob and pt. ortho to placed left radius in cast and will need outpt f/u. Psych/Social: family updated yesterday. Supportive and preventative care as ordered. SUP: H2 VTE prophylaxis: lovenox Disposition: to surgical floor today. will need rehab soon. Code Status: Full Critical Care Time: 28min Chester Dwyer DO
--- NOTE | 2016-11-21 13:10 | SURGPN ---
Subjective - Introduction -: Feeling much better today, OOB to chair, already transferred to surgical floor. Denies any pain. Tolerating liquid diet. - Medications -: Active Medications Generic Name Dose Route Start Last Admin Trade Name Freq PRN Reason Stop Dose Admin Albuterol 2.5 mg 11/12/16 02:19 Ventolin 2.5 Mg/3 Ml Neb.[place]* INH Q2H PRN SOB/WHEEZING Enoxaparin Sodium 40 mg 11/12/16 20:00 11/20/16 21:14 Lovenox(*) SUBCUT 40 mg Q24H BIBI Administration Fentanyl Citrate 25 mcg 11/14/16 09:56 11/21/16 09:48 Fentanyl* IV SLOW PU 25 mcg Q1H PRN Administration PAIN Piperacillin Sod/Tazobactam Sod 3.375 gm in 100 mls @ 200 mls/hr 11/12/16 12: 00 11/21/16 12:17 Zosyn 3.375 Gm In Ns Premix* IVPB 11/22/16 06:01 200 mls/hr Q6HR BIBI Administration Mometasone Furoate/Formoterol Fumar 2 puff 11/20/16 11:00 11/21/16 08:42 Dulera 100/5 Mdi* INH 2 puff BID BIBI Administration Ondansetron HCl 4 mg 11/12/16 02:19 Zofran Inj* IV Q6H PRN NAUSEA Oxycodone/Acetaminophen 1 tab 11/19/16 11:23 11/21/16 04:38 Percocet 5/325 Tab* PO 1 tab Q4H PRN Administration PAIN Potassium Chloride 20 meq 11/20/16 14:00 11/21/16 09:47 Klor Con Er Tab* PO 11/21/16 14:01 20 meq TID BIBI Administration Potassium Phosphate 500 mg 11/21/16 14:00 K Phos Original Tab* PO 11/22/16 09:01 TID BIBI Prednisone 20 mg 11/20/16 09:00 11/21/16 09:47 Deltasone Tab* PO 11/22/16 09:01 20 mg DAILY BIBI Administration Sertraline HCl 50 mg 11/18/16 12:00 11/21/16 09:48 Zoloft* G TUBE 50 mg DAILY BIBI Administration Tiotropium [place] 1 cap 11/20/16 11:00 11/21/16 08:37 Spiriva Cap.Inh* INH 1 cap DAILY BIBI Administration Objective - Objective -: Awake and alert, more verbal and oriented today, respond to questions. - Intake and Output -: Intake & Output 11/19/16 11/20/16 11/21/16 11/22/16 06:59 06:59 06:59 06:59 Intake Total 1047.1 2861 4142 120 Output Total 2185 5050 1450 Balance -1137.9 -2189 2692 120 Weight 190 lb 11.198 oz 178 lb 9.191 oz 181 lb 10.574 oz Intake: IV Fluids 833.1 680 2002 D5 with 40K 1702 NS KVO 356.1 135 Zosyn 477 545 300 IVPB 141 784 D5 with 40K 352 NS KVO 285 Zosyn 141 147 Medicated IV 214 Propofol 214 IV Narcotic Infusion 717 Fentanyl 717 Oral 25 1190 120 Tube Feeding 298 106 Tube Feeding Flush Amount 0 60 Albumin 1000 Output: NG Tube Drainage Amount 50 Urine 100 Tobin 2085 5000 1450 Other: Estimated Void Large # Bowel Movements 2 1 1 Estimated Stool Amount Medium Small Small # Voids 1 Surgical Physical Exam - Comments -: VSS, afebrile Lungs CTA bilaterally Heart RRR, no murmurs. Abdomen soft, non-distended. Midline wound clean and dry. Packing between carlos changed from iodoform to aquacell as instructed. No bleeding or discharge noted. Ext with no edema Assessment and Plan - Assessment -: A 76 y/o female with resolving peritonitis and sepsis, s/p multiple abdominal surgeries with lavage and closure. - Plan Additional Comments: Continue liquid diet, advance as tolerated. GI and DVT prophylaxis Will change Aquacell packing every other day.
[2016-11-21] MEDS ORDERED: Potassium Chlor TAB* 20 MEQ TAB.ER ONE (13:31)
[2016-11-21] MEDS: Potassium Acid Phosphate TAB* 500 MG PO SCH ×2 (13:39→20:30)
[2016-11-21] MEDS: oxyCODONE TAB* 5 MG TAB PO PRN (20:29)
[2016-11-21] MEDS: Enoxaparin(*) 40 MG/0.4 ML SYR SUBCUT SCH (20:33)
[2016-11-21] MEDS: Famotidine IV* 10 MG/ML 2 ML (20 mg) IV SCH (21:25)
[2016-11-22] MEDS: Piperac/Tazob 3.375 gm in NS* 3.375 GM/100 ML BAG IVPB SCH ×2 (00:16→05:47)
[2016-11-22] MEDS: oxyCODONE TAB* 5 MG TAB PO PRN ×4 (05:53→19:58)
[2016-11-22] MEDS: Mometasone/Formoter 100/5 MDI INH SCH ×2 (08:14→19:59)
[2016-11-22] MEDS: Tiotropium CAP.INH* CAP.INH/18 MCG INH SCH (08:14)
[2016-11-22] MEDS: Potassium Acid Phosphate TAB* 500 MG PO SCH (09:14)
[2016-11-22] MEDS: Sertraline* 50 MG TAB PO SCH (09:14)
[2016-11-22] MEDS: predniSONE TAB* 20 MG PO SCH (09:14)
--- NOTE | 2016-11-22 11:08 | PN ---
Progress Note - Progress Note SOAP: Subjective: Feeling much better today. Pain is less, more tolerable. Appetite is better, tolerating liquid diet well. Multiple loose BMs past 2 days. No N/V, fever or chills. Objective: Awake and alert, sitting on chair, comfortable and talkative. VSS, afebrile Abdomen soft, NT, ND Dressing clean and intact, packing to be changed tomorrow. I/O reviewed Assessment: Resolved peritonitis/sepsis of unclear etiology. Plan: Regular diet PT/OT geovanny appreciated Plans for STR arrangement possibly by Friday 11/24
--- NOTE | 2016-11-22 11:19 | PN ---
Progress Note - Progress Note SOAP: Subjective: []Patient seen OOB in chair. Doing well, denies pain in her left wrist. "This cast is heavy." Objective: []Left forearm cast clean and dry Fingers and exposed dorsum of hand moderately edematous and mildly ecchymotic Moving all fingers very well with full sensation and good cap refill Assessment: []s/p closed reduction and casting left distal radius fracture 11/20/16 Plan: []Encourage finger motion and elevation on pillows to help with edema Follow up with Dr. Villegas in 7-10 days after discharge
[2016-11-22] MEDS: Morphine INJ* 2 MG/ML 1 ML SYRINGE IV PRN (16:30)
--- NOTE | 2016-11-22 17:17 | PN ---
Subjective Date of Service: 11/22/16 Interval History: Patient seen and examined at bedside. She reports feeling tired but denies pain at this time. She reports tolerating PO intake. No acute concerns. Family History: Unchanged from Admission Social History: Unchanged from Admission Past Medical History: Unchanged from Admission Objective Active Medications: Albuterol (Ventolin 2.5 Mg/3 Ml Neb.[place]*) 2.5 mg INH Q2H PRN PRN Reason: SOB/WHEEZING Enoxaparin Sodium (Lovenox(*)) 40 mg SUBCUT Q24H [facility] Last Admin: 11/21/16 20:33 Dose: 40 mg Mometasone Furoate/Formoterol Fumar (Dulera 100/5 Mdi*) 2 puff INH BID [facility] Last Admin: 11/22/16 08:14 Dose: 2 puff Morphine Sulfate (Morphine Inj (Syringe)*) 2 mg IV Q4H PRN PRN Reason: PAIN Last Admin: 11/22/16 16:30 Dose: 2 mg Nystatin (Nystatin Top Powder*) 1 applic TOPICAL TID [facility] Ondansetron HCl (Zofran Inj*) 4 mg IV Q6H PRN PRN Reason: NAUSEA Oxycodone HCl (Roxycodone Tab*) 10 mg PO Q4H PRN PRN Reason: PAIN Last Admin: 11/22/16 14:09 Dose: 10 mg Sertraline HCl (Zoloft*) 50 mg PO DAILY [facility] Last Admin: 11/22/16 09:14 Dose: 50 mg Tiotropium [place] (Spiriva Cap.Inh*) 1 cap INH DAILY [facility] Last Admin: 11/22/16 08:14 Dose: 1 cap Vital Signs 11/21/16 11/21/16 11/21/16 17:24 17:50 18:05 Temperature Pulse Rate Respiratory 20 16 Rate Blood Pressure (mmHg) O2 Sat by Pulse 100 Oximetry 11/21/16 11/21/16 11/21/16 18:20 19:05 19:35 Temperature 97.8 F Pulse Rate 78 Respiratory 20 17 18 Rate Blood Pressure 114/47 (mmHg) O2 Sat by Pulse 100 Oximetry 11/21/16 11/21/16 11/21/16 20:00 20:29 22:29 Temperature Pulse Rate Respiratory 17 17 16 Rate Blood Pressure (mmHg) O2 Sat by Pulse Oximetry 11/22/16 11/22/16 11/22/16 00:14 00:50 04:27 Temperature 98.3 F 96.9 F Pulse Rate 77 83 74 Respiratory 16 20 18 Rate Blood Pressure 122/49 132/60 (mmHg) O2 Sat by Pulse 100 98 100 Oximetry 11/22/16 11/22/16 11/22/16 05:53 07:15 07:53 Temperature Pulse Rate Respiratory 16 16 16 Rate Blood Pressure (mmHg) O2 Sat by Pulse Oximetry 11/22/16 11/22/16 11/22/16 08:15 08:39 09:14 Temperature 97.6 F Pulse Rate 75 79 Respiratory 18 18 16 Rate Blood Pressure 127/67 (mmHg) O2 Sat by Pulse 98 100 Oximetry 11/22/16 11/22/16 11/22/16 11:14 11:31 14:09 Temperature 97.6 F Pulse Rate 80 Respiratory 18 18 16 Rate Blood Pressure 142/72 (mmHg) O2 Sat by Pulse 96 Oximetry 11/22/16 11/22/16 15:26 16:30 Temperature 97.4 F Pulse Rate 72 Respiratory 20 18 Rate Blood Pressure 144/63 (mmHg) O2 Sat by Pulse 96 Oximetry Oxygen Devices in Use Now: Nasal Cannula - at 2 L, 02 sat 97% Appearance: Elderly female, OOB to chair, NAD Eyes: PERRLA Ears/Nose/Mouth/Throat: Mucous Membranes Moist Neck: NL Appearance and Movements; NL JVP Respiratory: Symmetrical Chest Expansion and Respiratory Effort, Clear to Auscultation Cardiovascular: NL Sounds; No Murmurs; No JVD, RRR Abdominal: NL Sounds; No Tenderness; No Distention, - - dressing c/d/i Extremities: - - LUE in cast, left hand edema but distal movement/sensation intact, cap refill<2 sec Neurological: Alert and Oriented x 3 Lines/Tubes/Other Access: Clean, Dry and Intact Central Line - right IJ Nutrition: Taking PO's Result Diagrams: 11/21/16 06:00 11/21/16 06:00 Additional Lab and Data: Lab Results 11/11/16 11/11/16 11/11/16 Range/Units 22:15 22:15 22:15 WBC 33.0 H (3.5-10.8) 10^3/ul RBC 4.68 (4.0-5.4) 10^6/ul Hgb 13.0 (12.0-16.0) g/dl Hct 40 (35-47) % MCV 85 (80-97) fL MCH 28 (27-31) pg MCHC 33 (31-36) g/dl RDW 13 (10.5-15) % Plt Count 414 (150-450) 10^3/ul MPV 8 (7.4-10.4) um3 Neut % (Auto) 97.1 H (38-83) % Lymph % (Auto) 1.0 L (25-47) % Terry % (Auto) 1.1 (1-9) % Eos % (Auto) 0.1 (0-6) % Baso % (Auto) 0.7 (0-2) % Absolute Neuts (auto) 32.1 H (1.5-7.7) 10^3/ul Absolute Lymphs (auto) 0.3 L (1.0-4.8) 10^3/ul Absolute Monos (auto) 0.3 (0-0.8) 10^3/ul Absolute Eos (auto) 0 (0-0.6) 10^3/ul Absolute Basos (auto) 0.2 (0-0.2) 10^3/ul Absolute Nucleated RBC 0.02 10^3/ul Nucleated RBC % 0.1 INR (Anticoag Therapy) 0.81 L (0.89-1.11) APTT 23.4 L (26.0-36.3) seconds Sodium 128 L (133-145) mmol/L Potassium 3.6 (3.5-5.0) mmol/L Chloride 90 L (101-111) mmol/L Carbon Dioxide 29 (22-32) mmol/L Anion Gap 9 (2-11) mmol/L BUN 18 (6-24) mg/dL Creatinine 1.24 H (0.51-0.95) mg/dL Est GFR ( Amer) 54.1 (>60) Est GFR (Non-Af Amer) 42.1 (>60) BUN/Creatinine Ratio 14.5 (8-20) Glucose 128 H (70-100) mg/dL Lactic Acid (0.5-2.0) mmol/L Calcium 9.5 (8.6-10.3) mg/dL Total Bilirubin 0.60 (0.2-1.0) mg/dL AST 20 (13-39) U/L ALT 15 (7-52) U/L Alkaline Phosphatase 109 H (34-104) U/L C-Reactive Protein 21.03 H (< 5.00) mg/L B-Natriuretic Peptide ( - 100) pg/mL Total Protein 6.9 (6.4-8.9) g/dL Albumin 3.5 (3.2-5.2) g/dL Globulin 3.4 (2-4) g/dL Albumin/Globulin Ratio 1.0 (1-3) Lipase < 10 L (11.0-82.0) U/L 11/11/16 11/11/16 Range/Units 22:15 22:15 WBC (3.5-10.8) 10^3/ul RBC (4.0-5.4) 10^6/ul Hgb (12.0-16.0) g/dl Hct (35-47) % MCV (80-97) fL MCH (27-31) pg MCHC (31-36) g/dl RDW (10.5-15) % Plt Count (150-450) 10^3/ul MPV (7.4-10.4) um3 Neut % (Auto) (38-83) % Lymph % (Auto) (25-47) % Terry % (Auto) (1-9) % Eos % (Auto) (0-6) % Baso % (Auto) (0-2) % Absolute Neuts (auto) (1.5-7.7) 10^3/ul Absolute Lymphs (auto) (1.0-4.8) 10^3/ul Absolute Monos (auto) (0-0.8) 10^3/ul Absolute Eos (auto) (0-0.6) 10^3/ul Absolute Basos (auto) (0-0.2) 10^3/ul Absolute Nucleated RBC 10^3/ul Nucleated RBC % INR (Anticoag Therapy) (0.89-1.11) APTT (26.0-36.3) seconds Sodium (133-145) mmol/L Potassium (3.5-5.0) mmol/L Chloride (101-111) mmol/L Carbon Dioxide (22-32) mmol/L Anion Gap (2-11) mmol/L BUN (6-24) mg/dL Creatinine (0.51-0.95) mg/dL Est GFR ( Amer) (>60) Est GFR (Non-Af Amer) (>60) BUN/Creatinine Ratio (8-20) Glucose (70-100) mg/dL Lactic Acid 1.2 (0.5-2.0) mmol/L Calcium (8.6-10.3) mg/dL Total Bilirubin (0.2-1.0) mg/dL AST (13-39) U/L ALT (7-52) U/L Alkaline Phosphatase (34-104) U/L C-Reactive Protein (< 5.00) mg/L B-Natriuretic Peptide 98 ( - 100) pg/mL Total Protein (6.4-8.9) g/dL Albumin (3.2-5.2) g/dL Globulin (2-4) g/dL Albumin/Globulin Ratio (1-3) Lipase (11.0-82.0) U/L Microbiology and Other Data: Microbiology 11/12/16 08:42 Aerobic Blood Culture - Final Blood Venous No Growth Day 5 Anaerobic Blood Culture - Final 11/12/16 13:30 Anaerobic Culture - Final Wound - Abdominal Gram Stain - Final Wound Culture - Final Escherichia Coli Acid Fast Bacilli Smear - Final 11/12/16 17:45 Nasal Screen MRSA (PCR)([facility]) - Final Nasal Mrsa Negative Assess/Plan/Problems-Billing Assessment: 76 yo F with h/o oxygen dependent COPD, HTN, chronic diarrhea presents with abd pain after EGD/colonoscopy; found to have acute abdomen with perforated viscous and associated septic shock from E.coli peritonitis. - Patient Problems (1) Septic shock due to Escherichia coli Code(s): A41.51 - SEPSIS DUE TO ESCHERICHIA COLI [E. COLI]; R65.21 - SEVERE SEPSIS WITH SEPTIC SHOCK Comment: Resolved Secondary to acute abdomen with E. coli peritonitis S/p exp laparatomy, MARELY, repair of small bowel enterotomy, take down of splenic flexure, and peritoneal lavage Completed 10 day course of Zosyn (2) Acalculous cholecystitis Code(s): K81.9 - CHOLECYSTITIS, UNSPECIFIED Comment: S/p open maryjane on 11/14 with associated exp laparatomy and peritoneal lavage (3) Left radial fracture Code(s): S52.92XA - UNSP FRACTURE OF LEFT FOREARM, INIT FOR CLOS FX Comment: Left forearm cast Continue PT/OT Outpatient follow-up with Dr. Villegas (4) Acute renal failure Comment: Resolved Secondary to septic shock (5) COPD (chronic obstructive pulmonary disease) Code(s): J44.9 - CHRONIC OBSTRUCTIVE PULMONARY DISEASE, UNSPECIFIED Comment: Stable Continue Dulera, Spiriva, prn nebulizers (6) HTN (hypertension) Code(s): I10 - ESSENTIAL (PRIMARY) HYPERTENSION Comment: BP trending up Restart metoprolol with hold paramters. (7) DVT prophylaxis Code(s): NFZ5701 - Comment: SQ heparin Status and Disposition: Inpatient admission. Extended LOS secondary to sepsis, acute abdomen with associated peritonitis, and post-operative respiratory failure, now extubated. Continue PT/OT, anticipate rehab needs. PMRU referral.
[2016-11-22] MEDS: Enoxaparin(*) 40 MG/0.4 ML SYR SUBCUT SCH (19:59)
[2016-11-22] MEDS: Nystatin TOP POWDER* 15 GM BTL TOPICAL SCH ×2 (19:59→20:12)
[2016-11-23 03:48] LABS: Urine Bacteria Absent (Absent); Urine Bilirubin Negative (Negative); Urine Glucose Negative (Negative); Urine Nitrite Negative (Negative)
[2016-11-23] MEDS: oxyCODONE TAB* 5 MG TAB PO PRN (05:39)
[2016-11-23 06:14] LABS: Hematocrit 30 % (35-47); Hemoglobin 9.6 g/dl (12.0-16.0); Mean Corpuscular HGB Conc 32 g/dl (31-36); Mean Corpuscular Hemoglobin 27 pg (27-31); Mean Corpuscular Volume 86 fL (80-97); Mean Platelet Volume 9 um3 (7.4-10.4); Red Cell Distribution Width 14 % (10.5-15); White Blood Count 15.8 10^3/ul (3.5-10.8)
[2016-11-23 06:30] LABS: BUN/Creatinine Ratio 20.5 (8-20); Calcium 8.7 mg/dL (8.6-10.3); EGFR African American 205.5 (>60); EGFR Non-African American 159.8 (>60); Magnesium 2.1 mg/dL (1.9-2.7); Phosphorus 2.3 mg/dL (2.5-5.0); Potassium 3.3 mmol/L (3.5-5.0)
[2016-11-23] MEDS ORDERED: Potassium Chlor TAB* 20 MEQ TAB.ER PO ONE (07:33)
[2016-11-23] MEDS: Morphine INJ* 2 MG/ML 1 ML SYRINGE IV PRN (08:06)
[2016-11-23] MEDS: Nystatin TOP POWDER* 15 GM BTL TOPICAL SCH (08:09)
[2016-11-23] MEDS: Sertraline* 50 MG TAB PO SCH (08:10)
--- NOTE | 2016-11-23 08:25 | PN ---
Subjective Date of Service: 11/23/16 Interval History: Patient seen and examined at bedside. Denies acute complaints, including CP, SOB, n/v. She reports that her cast "feels so heavy." Swelling to hand has improved some She has been working with PT/OT and is receptive to PMRU. No acute nursing concerns at this time. Family History: Unchanged from Admission Social History: Unchanged from Admission Past Medical History: Unchanged from Admission Objective Active Medications: Albuterol (Ventolin 2.5 Mg/3 Ml Neb.[place]*) 2.5 mg INH Q2H PRN PRN Reason: SOB/WHEEZING Enoxaparin Sodium (Lovenox(*)) 40 mg SUBCUT Q24H [facility] Last Admin: 11/22/16 19:59 Dose: 40 mg Heparin Sodium (Porcine) (Heparin Flush Picc/Ml/Cvc(*)) 1 ml FLUSH 0600,1800 BIBI PRN Reason: Protocol Last Admin: 11/23/16 05:59 Dose: 3 ml Metoprolol Tartrate (Lopressor Tab*) 25 mg PO DAILY [facility] Last Admin: 11/23/16 08:10 Dose: 25 mg Mometasone Furoate/Formoterol Fumar (Dulera 100/5 Mdi*) 2 puff INH BID [facility] Last Admin: 11/22/16 19:59 Dose: 2 puff Morphine Sulfate (Morphine Inj (Syringe)*) 2 mg IV Q4H PRN PRN Reason: PAIN Last Admin: 11/23/16 08:06 Dose: 2 mg Nystatin (Nystatin Top Powder*) 1 applic TOPICAL TID [facility] Last Admin: 11/23/16 08:09 Dose: 1 applic Ondansetron HCl (Zofran Inj*) 4 mg IV Q6H PRN PRN Reason: NAUSEA Oxycodone HCl (Roxycodone Tab*) 10 mg PO Q4H PRN PRN Reason: PAIN Last Admin: 11/23/16 05:39 Dose: 10 mg Sertraline HCl (Zoloft*) 50 mg PO DAILY [facility] Last Admin: 11/23/16 08:10 Dose: 50 mg Tiotropium [place] (Spiriva Cap.Inh*) 1 cap INH DAILY [facility] Last Admin: 11/22/16 08:14 Dose: 1 cap Vital Signs 11/22/16 11/22/16 11/22/16 08:39 09:14 11:14 Temperature 97.6 F Pulse Rate 79 Respiratory 18 16 18 Rate Blood Pressure 127/67 (mmHg) O2 Sat by Pulse 100 Oximetry 11/22/16 11/22/16 11/22/16 11:31 14:09 15:26 Temperature 97.6 F 97.4 F Pulse Rate 80 72 Respiratory 18 16 20 Rate Blood Pressure 142/72 144/63 (mmHg) O2 Sat by Pulse 96 96 Oximetry 11/22/16 11/22/16 11/22/16 16:09 16:30 17:30 Temperature Pulse Rate Respiratory 18 18 16 Rate Blood Pressure (mmHg) O2 Sat by Pulse Oximetry 11/22/16 11/22/16 11/22/16 19:30 19:43 19:58 Temperature 97.7 F Pulse Rate 78 Respiratory 20 18 18 Rate Blood Pressure 137/62 (mmHg) O2 Sat by Pulse 96 Oximetry 11/22/16 11/22/16 11/23/16 21:58 23:44 03:17 Temperature 98.0 F 97.9 F Pulse Rate 73 74 Respiratory 18 20 16 Rate Blood Pressure 146/69 151/63 (mmHg) O2 Sat by Pulse 100 100 Oximetry 11/23/16 11/23/16 11/23/16 05:39 07:39 08:03 Temperature 98.0 F Pulse Rate 86 Respiratory 16 16 18 Rate Blood Pressure 159/78 (mmHg) O2 Sat by Pulse 100 Oximetry 11/23/16 08:06 Temperature Pulse Rate Respiratory 16 Rate Blood Pressure (mmHg) O2 Sat by Pulse Oximetry Oxygen Devices in Use Now: Nasal Cannula - at 2 L, 02 sat 97% Appearance: Elderly female, lying in bed, NAD Eyes: No Scleral Icterus, PERRLA Ears/Nose/Mouth/Throat: Mucous Membranes Moist Neck: NL Appearance and Movements; NL JVP Respiratory: Symmetrical Chest Expansion and Respiratory Effort, Clear to Auscultation Cardiovascular: NL Sounds; No Murmurs; No JVD, RRR Abdominal: NL Sounds; No Tenderness; No Distention, - - abdominal dressing c/d/i Extremities: No Edema, - - LUE cast, distally nvi, edema to distal hand/fingers Neurological: Alert and Oriented x 3 Lines/Tubes/Other Access: Clean, Dry and Intact Central Line - right IJ Nutrition: Taking PO's Result Diagrams: 11/23/16 06:00 11/23/16 06:00 Additional Lab and Data: Lab Results 11/11/16 11/11/16 11/11/16 Range/Units 22:15 22:15 22:15 WBC 33.0 H (3.5-10.8) 10^3/ul RBC 4.68 (4.0-5.4) 10^6/ul Hgb 13.0 (12.0-16.0) g/dl Hct 40 (35-47) % MCV 85 (80-97) fL MCH 28 (27-31) pg MCHC 33 (31-36) g/dl RDW 13 (10.5-15) % Plt Count 414 (150-450) 10^3/ul MPV 8 (7.4-10.4) um3 Neut % (Auto) 97.1 H (38-83) % Lymph % (Auto) 1.0 L (25-47) % Mora % (Auto) 1.1 (1-9) % Eos % (Auto) 0.1 (0-6) % Baso % (Auto) 0.7 (0-2) % Absolute Neuts (auto) 32.1 H (1.5-7.7) 10^3/ul Absolute Lymphs (auto) 0.3 L (1.0-4.8) 10^3/ul Absolute Monos (auto) 0.3 (0-0.8) 10^3/ul Absolute Eos (auto) 0 (0-0.6) 10^3/ul Absolute Basos (auto) 0.2 (0-0.2) 10^3/ul Absolute Nucleated RBC 0.02 10^3/ul Nucleated RBC % 0.1 INR (Anticoag Therapy) 0.81 L (0.89-1.11) APTT 23.4 L (26.0-36.3) seconds Sodium 128 L (133-145) mmol/L Potassium 3.6 (3.5-5.0) mmol/L Chloride 90 L (101-111) mmol/L Carbon Dioxide 29 (22-32) mmol/L Anion Gap 9 (2-11) mmol/L BUN 18 (6-24) mg/dL Creatinine 1.24 H (0.51-0.95) mg/dL Est GFR ( Amer) 54.1 (>60) Est GFR (Non-Af Amer) 42.1 (>60) BUN/Creatinine Ratio 14.5 (8-20) Glucose 128 H (70-100) mg/dL Lactic Acid (0.5-2.0) mmol/L Calcium 9.5 (8.6-10.3) mg/dL Total Bilirubin 0.60 (0.2-1.0) mg/dL AST 20 (13-39) U/L ALT 15 (7-52) U/L Alkaline Phosphatase 109 H (34-104) U/L C-Reactive Protein 21.03 H (< 5.00) mg/L B-Natriuretic Peptide ( - 100) pg/mL Total Protein 6.9 (6.4-8.9) g/dL Albumin 3.5 (3.2-5.2) g/dL Globulin 3.4 (2-4) g/dL Albumin/Globulin Ratio 1.0 (1-3) Lipase < 10 L (11.0-82.0) U/L 11/11/16 11/11/16 Range/Units 22:15 22:15 WBC (3.5-10.8) 10^3/ul RBC (4.0-5.4) 10^6/ul Hgb (12.0-16.0) g/dl Hct (35-47) % MCV (80-97) fL MCH (27-31) pg MCHC (31-36) g/dl RDW (10.5-15) % Plt Count (150-450) 10^3/ul MPV (7.4-10.4) um3 Neut % (Auto) (38-83) % Lymph % (Auto) (25-47) % Mora % (Auto) (1-9) % Eos % (Auto) (0-6) % Baso % (Auto) (0-2) % Absolute Neuts (auto) (1.5-7.7) 10^3/ul Absolute Lymphs (auto) (1.0-4.8) 10^3/ul Absolute Monos (auto) (0-0.8) 10^3/ul Absolute Eos (auto) (0-0.6) 10^3/ul Absolute Basos (auto) (0-0.2) 10^3/ul Absolute Nucleated RBC 10^3/ul Nucleated RBC % INR (Anticoag Therapy) (0.89-1.11) APTT (26.0-36.3) seconds Sodium (133-145) mmol/L Potassium (3.5-5.0) mmol/L Chloride (101-111) mmol/L Carbon Dioxide (22-32) mmol/L Anion Gap (2-11) mmol/L BUN (6-24) mg/dL Creatinine (0.51-0.95) mg/dL Est GFR ( Amer) (>60) Est GFR (Non-Af Amer) (>60) BUN/Creatinine Ratio (8-20) Glucose (70-100) mg/dL Lactic Acid 1.2 (0.5-2.0) mmol/L Calcium (8.6-10.3) mg/dL Total Bilirubin (0.2-1.0) mg/dL AST (13-39) U/L ALT (7-52) U/L Alkaline Phosphatase (34-104) U/L C-Reactive Protein (< 5.00) mg/L B-Natriuretic Peptide 98 ( - 100) pg/mL Total Protein (6.4-8.9) g/dL Albumin (3.2-5.2) g/dL Globulin (2-4) g/dL Albumin/Globulin Ratio (1-3) Lipase (11.0-82.0) U/L Microbiology and Other Data: Microbiology 11/12/16 08:42 Aerobic Blood Culture - Final Blood Venous No Growth Day 5 Anaerobic Blood Culture - Final 11/12/16 13:30 Anaerobic Culture - Final Wound - Abdominal Gram Stain - Final Wound Culture - Final Escherichia Coli Acid Fast Bacilli Smear - Final 11/12/16 17:45 Nasal Screen MRSA (PCR)([facility]) - Final Nasal Mrsa Negative Assess/Plan/Problems-Billing Assessment: 76 yo F with h/o oxygen dependent COPD, HTN, chronic diarrhea presents with abd pain after EGD/colonoscopy; found to have acute abdomen with perforated viscous and associated septic shock from E.coli peritonitis. - Patient Problems (1) Septic shock due to Escherichia coli Code(s): A41.51 - SEPSIS DUE TO ESCHERICHIA COLI [E. COLI]; R65.21 - SEVERE SEPSIS WITH SEPTIC SHOCK Comment: Resolved Secondary to acute abdomen with E. coli peritonitis S/p exp laparatomy, MARELY, repair of small bowel enterotomy, take down of splenic flexure, and peritoneal lavage Completed 10 day course of Zosyn (2) Leukocytosis Code(s): D72.829 - ELEVATED WHITE BLOOD CELL COUNT, UNSPECIFIED Comment: Trending down, suspect persistent elevation secondary to prednisone, which was tapered and discontinued yesterday. Afebrile, no acute complaints UA unremarkable (3) Acalculous cholecystitis Code(s): K81.9 - CHOLECYSTITIS, UNSPECIFIED Comment: S/p open maryjane on 11/14 with associated exp laparatomy and peritoneal lavage (4) Left radial fracture Code(s): S52.92XA - UNSP FRACTURE OF LEFT FOREARM, INIT FOR CLOS FX Comment: Left forearm cast Continue PT/OT Outpatient follow-up with Dr. Villegas (5) Acute renal failure Comment: Resolved Secondary to septic shock (6) COPD (chronic obstructive pulmonary disease) Code(s): J44.9 - CHRONIC OBSTRUCTIVE PULMONARY DISEASE, UNSPECIFIED Comment: Stable Continue Dulera, Spiriva, prn nebulizers (7) HTN (hypertension) Code(s): I10 - ESSENTIAL (PRIMARY) HYPERTENSION Comment: BP trending up Continue home metoprolol with hold paramters. (8) DVT prophylaxis Code(s): ZRK0299 - Comment: SQ heparin Status and Disposition: Inpatient admission. Extended LOS secondary to sepsis, acute abdomen with associated peritonitis, and post-operative respiratory failure, now extubated. Continue PT/OT, anticipate rehab needs. PMRU referral.
[2016-11-23] MEDS ORDERED: Potassium Acid Phosphate TAB* 500 MG PO ONE (08:27)
[2016-11-23] MEDS: Mometasone/Formoter 100/5 MDI INH SCH (08:53)
[2016-11-23] MEDS: Tiotropium CAP.INH* CAP.INH/18 MCG INH SCH (08:57)
[2016-11-23] MEDS ORDERED: Metoprolol Tartrate TAB* 50 mg PO SCH ×2 (09:00)
--- NOTE | 2016-11-23 12:07 | PN ---
Progress Note - Progress Note SOAP: Subjective:feeling better,not very hungry but eating small amounts,no n/v,had more formed stool today [] Objective: Vital Signs Temp 98.0 F 11/23/16 08:03 Pulse 86 11/23/16 09:00 Resp 16 11/23/16 09:06 BP 159/78 11/23/16 08:03 Pulse Ox 100 11/23/16 09:00 Intake & Output 11/22/16 11/23/16 11/23/16 18:59 06:59 18:59 Intake Total 200 300 Output Total 425 Balance 200 -125 Intake: Oral 200 300 Output: Urine 425 Other: Estimated Void Large Large # Bowel Movements 1 Estimated Stool Amount Medium Small # Voids 2 2 abd:+bs,soft,midline incision clean,carlos intact;aquacel repacked into open wounds in between carlos,wounds are granulating and most are less than 2 cm indepth and are clean;binder on Ext:nontender,no edema [] Assessment:POD#11/ S/P EX LAP,MARELY AND SECOND LOOK WITH CHOLECYSTECTOMY, SURGICALLY STABLE [] Plan: OK TO GO TO PMRU TODAY,DR XAVIER UPDATED []
[2016-11-23 12:38] VITALS: BP 125/61
--- NOTE | 2016-11-24 03:29 | DS ---
MEDICINE DISCHARGE SUMMARY: DATE OF ADMISSION: 11/12/16 DATE OF DISCHARGE: 11/23/16 PROVIDER: Xuan Dowell NP ATTENDING PHYSICIAN: Dr. Nato Shen *(as dictated by Xuan Dowell NP). CONSULTING PHYSICIANS: 1. Dr. Mac Roca, Surgery. 2. Dr. Grayson Villegas, Orthopedics. PRIMARY CARE PROVIDER: Campbell Cassidy MD PRIMARY DISCHARGE DIAGNOSES: 1. Acute abdomen with Escherichia coli peritonitis, status post exploratory laparotomy and repair. 2. Cholecystitis, status post cholecystectomy. 3. Acute renal failure. 4. Left radial fracture. SECONDARY DISCHARGE DIAGNOSES: 1. Chronic obstructive pulmonary disease. 2. Hypertension. 3. History of chronic diarrhea. 4. History of urinary incontinence. 5. Osteoarthritis. 6. Chronic pain. 7. Diverticulosis. HOME MEDICATIONS AT DISCHARGE: 1. Diclofenac 100 mg daily. 2. Symbicort 160/4.5 one puff inhaled b.i.d. 3. Spiriva 18 mcg daily. 4. Sertraline 50 mg daily. 5. Metoprolol tartrate 25 mg daily. 6. Lorazepam 1 mg t.i.d. p.r.n. 7. Hydrochlorothiazide 25 mg daily. 8. Melvin 5/325 one tab t.i.d. p.r.n. Note: These are the patient's home medications. The patient was also on subcu Lovenox here in the hospital as well as p.r.n. oxycodone for pain. PMRU to decide on medications for continuation while in rehab. HOSPITAL COURSE OF STAY: For full details, please refer to the full medical record. In summary, Ms. Montero is a 76-year-old female, who presented to the ER on 11/12/16 with concern for abdominal pain. This is a lady, who had previously reported right lower quadrant pain for approximately 3 weeks. She was seen at [facility] where she had a negative CT scan. Upper and lower endoscopies were performed on November 09 at [place], which found diverticulosis and polyps. The patient went home where she sustained a fall. She fractured her left wrist and had it splinted. This appears to be unrelated to her previous abdominal pain. Her pain began to worsen again at home in her abdomen and she returned to the [facility] ER for evaluation, at which point she was admitted with concern for intractable pain and potentially occult colonic injury and/or sigmoid diverticulitis. The patient was evaluated by Surgery, who expressed concern for the patient's hemodynamic stability though the patient described a 3 -week time period of pain. It was noted that her abdomen presented with free fluid on CT scan. The following day, she was also noted to have leukocytosis with significantly elevated WBCs at 39,000. There was concern for perforated large bowel. The patient was taken to surgery emergently that day where she underwent an exploratory laparotomy with lysis of adhesions, repair of small bowel enterotomy, take down of splenic flexure, peritoneal lavage, and open abdomen. The patient was transferred to ICU for a close monitoring. The patient was intubated during her procedure, remained on a ventilator, and sedated with propofol. Due to her open abdomen and hemodynamic status, she was maintained on the ventilator with the plan to within 24 to 48 hours. The patient returned to the OR on 11/14/16 for exploratory laparotomy, open cholecystectomy, and peritoneal lavage. The patient had her gallbladder removed due to what appeared to be ischemic changes consistent with acalculous cholecystitis during the exploratory laparotomy. Due to the bowel edema, the patient's abdomen was left open again and she was left intubated and was transferred back to the ICU. She had a followup surgical procedure on 11/17/16 where she underwent another exploratory laparotomy with peritoneal lavage and closure of abdominal wound. Given the extensive abdominal findings and surgeries, the patient was treated with Zosyn for acute abdomen and the associated peritonitis. Her wound culture did grow E. coli. The patient was treated with a total of 10 days for an E. coli associated peritonitis. She was able to be extubated in the ICU on . The patient was also seen in consultation by Dr. Grayson Villegas of Orthopedics. Dr. Villegas performed a closed reduction maneuver on 11/20/16 and placed her on a short-arm cast. Plan to treat the distal radius fracture nonoperatively. The patient is to follow up with Dr. Villegas as an outpatient. The patient was then transferred to the medical floor where she has done well. She has been able to participate in PT and OT. A [facility] referral was sent and the patient was accepted to the [facility] for continued rehabilitation. At the time of discharge, the patient was hemodynamically stable. She is tolerating p.o. intake. Her wound appears to be healing well. Sepsis appears to be resolved. The patient's leukocytosis was improving and it is likely still elevated secondary to prednisone, which has been recently discontinued. No other acute concerns. The patient is at her baseline mental state and is on her home oxygen level. CONCERNS AT DISCHARGE: Ms. Montero will be discharged to PMRU on 11/23/16. She is to follow up with Orthopedics either on PMRU as an outpatient. Recommend continued followup of CBC in order to ensure resolution of leukocytosis. DIET: Heart-healthy diet. ACTIVITY: As tolerated. CONDITION: Stable. DISPOSITION: To PM. TIME SPENT: Time spent on this discharge was approximately 45 minutes. Again, this is only a brief summary of the patient's hospital course of stay. For full details, please refer to the full medical record. If you have any further questions or need further assistance, please feel free to contact me at [phone]. XUAN DOWELL NP CC: Dr. Campbell Cassidy * [id number]/CPS #: [id number] MTDD
== END 2016-11-23 13:12 | DRG 853 ==
LOC: ED 20:19 → SSU 11-12 02:27 → ICU 11-12 10:47 → UNDODISIN 11-13 14:21 → SSU 11-21 11:27
PROVIDERS: ADMIT Hospitalist; ATTEND Hospitalist
PROC: 0DNW0ZZ Release Peritoneum, Open Approach (ICD-10-PCS; 2016-11-12)
PROC: 5A1955Z Respiratory Ventilation, Greater than 96 Consecutive Hours (ICD-10-PCS; 2016-11-12)
PROC: 0BH17EZ Insertion of Endotracheal Airway into Trachea, Via Natural or Artificial Opening (ICD-10-PCS; principal; 2016-11-12 12:12)
PROC: 0FT40ZZ Resection of Gallbladder, Open Approach (ICD-10-PCS; 2016-11-14)
PROC: 05HM33Z Insertion of Infusion Device into Right Internal Jugular Vein, Percutaneous Approach (ICD-10-PCS; 2016-11-14)
PROC: 3E1M38Z Irrigation of Peritoneal Cavity using Irrigating Substance, Percutaneous Approach (ICD-10-PCS; 2016-11-14)
PROC: 3E033XZ Introduction of Vasopressor into Peripheral Vein, Percutaneous Approach (ICD-10-PCS; 2016-11-14)
PROC: 0JQ80ZZ Repair Abdomen Subcutaneous Tissue and Fascia, Open Approach (ICD-10-PCS; 2016-11-17)
PROC: 0PSJXZZ Reposition Left Radius, External Approach (ICD-10-PCS; 2016-11-20)
DX: A41.51 Sepsis due to Escherichia coli [E. coli] (principal); J95.822 Acute and chronic postprocedural respiratory failure; R65.21 Severe sepsis with septic shock; K63.1 Perforation of intestine (nontraumatic); K65.9 Peritonitis, unspecified; K81.9 Cholecystitis, unspecified; E27.40 Unspecified adrenocortical insufficiency; N17.9 Acute kidney failure, unspecified; E87.1 Hypo-osmolality and hyponatremia; J44.9 Chronic obstructive pulmonary disease, unspecified; Z99.81 Dependence on supplemental oxygen; E66.9 Obesity, unspecified; Z90.710 Acquired absence of both cervix and uterus; Z88.1 Allergy status to other antibiotic agents; I10 Essential (primary) hypertension; F41.9 Anxiety disorder, unspecified; Z85.41 Personal history of malignant neoplasm of cervix uteri; Z96.642 Presence of left artificial hip joint; Z87.891 Personal history of nicotine dependence; R40.0 Somnolence; Z68.33 Body mass index [BMI] 33.0-33.9, adult; G89.29 Other chronic pain; Z82.49 Family history of ischemic heart disease and other diseases of the circulatory system; R19.7 Diarrhea, unspecified; R65.20 Severe sepsis without septic shock; B96.20 Unspecified Escherichia coli [E. coli] as the cause of diseases classified elsewhere; K57.90 Diverticulosis of intestine, part unspecified, without perforation or abscess without bleeding; Y83.8 Other surgical procedures as the cause of abnormal reaction of the patient, or of later complication, without mention of misadventure at the time of the procedure; W19.XXXD Unspecified fall, subsequent encounter; K66.0 Peritoneal adhesions (postprocedural) (postinfection); K76.0 Fatty (change of) liver, not elsewhere classified; F32.9 Major depressive disorder, single episode, unspecified; S52.502D Unspecified fracture of the lower end of left radius, subsequent encounter for closed fracture with routine healing; W01.0XXA Fall on same level from slipping, tripping and stumbling without subsequent striking against object, initial encounter; Y92.009 Unspecified place in unspecified non-institutional (private) residence as the place of occurrence of the external cause; M17.0 Bilateral primary osteoarthritis of knee
CPT/HCPCS: 36415; 71010; 74177; 80048; 80053; 81003; 81015; 83605; 83690; 83735; 83880; 84100; 85025; 85027; 85060; 85610; 85730; 86140; 87040; 87070; 87073; 87077; 87086; 87116; 87186; 87205; 87206; 87641; 88304; 93005; 94002; 94003; 94640; 94760; 97530; A9270-GY; J0330; J0461; J1170; J1642; J1650; J1720; J1940; J2060; J2250; J2270; J2543; J2704; J3010; J3480; J7512; P9045; Q9967

== ENCOUNTER 2016-11-23 12:39 | Inpatient (IN) | payer MEDICARE ==
[2016-11-23] MEDS ORDERED: Senna TAB PO PRN (15:57)
[2016-11-23] MEDS ORDERED: Albuterol HFA INHALER* 8 gm MDI INH PRN (19:32)
[2016-11-23] MEDS: LORazepam TAB(*) 1 MG PO PRN (19:54)
[2016-11-23] MEDS: oxyCODONE TAB* 5 MG TAB PO PRN (19:54)
[2016-11-23] MEDS: Docusate CAP* 100 MG PO PRN (19:55)
[2016-11-23] MEDS: Mometasone/Formoter 200/5 MDI INH SCH (19:56)
[2016-11-23] MEDS: Enoxaparin(*) 40 MG/0.4 ML SYR SUBCUT SCH (19:58)
--- NOTE | 2016-11-23 22:36 | HP ---
HISTORY AND PHYSICAL: DATE OF ADMISSION: 11/23/16 REASON FOR SURGERY: Weakness following three abdominal surgeries. HISTORY OF ILLNESS: Paulette Montero is a 76-year-old female with a medical history significant for COPD. She has been in [place] for much of the winter visiting her daughter. She returned to the [place] area in mid October. Prior to that, however, she was having a lot of stomach pain while in [place]. She had many bouts of diarrhea. It was felt that this was due to antibiotics, which she was taking for flu like symptoms and then also for an infected toe. The patient was brought to the emergency room at [facility]. Somewhere around 11/02/16 and again on 11/07/16. Arrangements were made for her to see a heating technician and then arrangements were made for her to have colonoscopy. She had a colonoscopy and an EGD done on 11/09/16. On Sunday, , she fell at home and fractured her left wrist. She went to the emergency room and was splinted and sent home. She developed severe abdominal pain on 11/11/16 and presented to the emergency room at [facility]. In the emergency room, she was found to have a white blood cell count of 33, 000. She had a CAT scan of her abdomen and pelvis. The CAT scan showed a small volume of water density ascites, which the surgeon felt might have been secondary to a perforated viscus. She was felt to have an acute abdomen and arrangements were made to take her to the operating room. She went to the operating room on 11/12/16 and underwent an exploratory laparotomy with lysis of adhesions and repair of small bowel enterotomy. Her abdomen was left open. She was taken back to the operating room on 11/14/16. She underwent an exploratory laparotomy with cholecystectomy. She also underwent peritoneal lavage. She went back to the operating room on 11/17/16. She underwent exploratory laparotomy with peritoneal lavage and closure of the abdominal wound. The patient continued to be monitored in the intensive care unit. She was slowly weaned off the vent. By 11/19/16, she was off the vent and starting nutrition. On 11/20/16, she was starting clear liquids. Orthopedics was consulted for her left forearm fracture. She was seen by Dr. Villegas who did a close reduction on 11/20/16 and reapplied the cast. By 11/22/16, the patient was tolerating a liquid diet. The patient was also treated with broad-spectrum antibiotics while in the hospital for severe sepsis. The patient completed a 10-day course of IV Zosyn. She also had an elevated white count part which was felt to be due to prednisone taper as she weaned off the vent. The patient was eating small amounts today. She was noted to have open wounds between her carlos in her abdominal midline incision. She had an abdominal binder placed over her wounds. The patient was quite weakened after her long hospital course. She was felt to have physical therapy and occupational therapy needs. She is now being admitted for inpatient rehab so she might return to independent living. PAST MEDICAL HISTORY: Significant for the aforementioned COPD. She also has a history of hypertension, diverticulosis, and has chronic low back pain as well. CURRENT MEDICATIONS: 1. Spiriva. 2. She is on Lovenox for DVT prophylaxis. 3. Lopressor. 4. Symbicort. 5. Zoloft. 6. Oxycodone. ALLERGIES: To DOXYCYCLINE. SOCIAL HISTORY: She is a former smoker. Nondrinker. She lives in a 2-jud house in [place], but plans to go to her daughter's house, which is 1 story, after discharge. She has 5 children one of whom lives locally. REVIEW OF SYSTEMS: The patient reports minimal appetite. No shortness of breath or chest pain. She is on oxygen 2 L. PHYSICAL EXAMINATION VITAL SIGNS: The patient's temperature is 98.2, blood pressure is 129/60, pulse 81, and respirations 18. HEENT: Her extraocular movements are intact. She is wearing oxygen 2 L via nasal cannula. LUNGS: scattered rhonchi bilaterally. HEART: Heart sounds were regular. ABDOMEN: She had a midline incision with areas of separation seen. The wound look clean. NEUROLOGIC: The patient was awake, alert, oriented. Muscle strength was about 4/5 throughout. Her functional exam, she transfers with mod to max assist. ASSESSMENT: 1. Status post severe sepsis. 2. Status post multiple abdominal surgeries for an acute abdomen. PLAN: We are going to integrate her into a comprehensive and therapeutic rehab program with the following goals: 1. Physical Therapy will work with the patient. They are going to work on functional transfer training, ambulation training, wheelchair mobilities. 2. Occupational Therapy will see the patient. They are going to work on her activities of daily living including toileting and toilet transfers. 3. Lovenox for DVT prophylaxis. 4. Adequate nutritional support. 5. Adequate analgesia. 6. conference services director will be closely involved to make sure that any services and equipment that the patient requires are in place prior to discharge. 7. For her COPD, we will continue her inhalers as well as supplemental oxygen. 8. Family training as appropriate. 9. Advanced directives: The patient is a full code. 10. Home with appropriate services. ESTIMATED LENGTH OF STAY: Three weeks. [id number]/CPS #: [id number] BARBI
[2016-11-24] MEDS: oxyCODONE TAB* 5 MG TAB PO PRN ×3 (06:35→21:56)
[2016-11-24 06:45] LABS: Hematocrit 31 % (35-47); Mean Corpuscular HGB Conc 32 g/dl (31-36); Mean Corpuscular Hemoglobin 28 pg (27-31); Mean Corpuscular Volume 87 fL (80-97); Mean Platelet Volume 9 um3 (7.4-10.4); Red Blood Count 3.61 10^6/ul (4.0-5.4); Red Cell Distribution Width 14 % (10.5-15); White Blood Count 16.2 10^3/ul (3.5-10.8)
[2016-11-24 07:03] LABS: Albumin 2.6 g/dL (3.2-5.2); BUN/Creatinine Ratio 17.5 (8-20); EGFR African American 199.6 (>60); EGFR Non-African American 155.2 (>60); Globulin 3.1 g/dL (2-4); Potassium 3.6 mmol/L (3.5-5.0); Total Bilirubin 0.5 mg/dL (0.2-1.0); Total Protein 5.7 g/dL (6.4-8.9)
[2016-11-24] MEDS ORDERED: Spiriva Inhaler DEVICE* 1 EACH DEVICE ONE (09:00)
[2016-11-24] MEDS: Acetaminophen TAB* 325 MG PO PRN (09:36)
[2016-11-24] MEDS: Lactobacillus Acidophilu (GG)* 1 CAP CAP PO SCH (09:37)
[2016-11-24] MEDS: Metoprolol Tartrate TAB* 25 MG PO SCH (09:37)
[2016-11-24] MEDS: Sertraline* 50 MG TAB PO SCH (09:37)
[2016-11-24] MEDS: LORazepam TAB(*) 1 MG PO PRN ×2 (09:41→20:25)
[2016-11-24] MEDS: Mometasone/Formoter 200/5 MDI INH SCH ×2 (09:42→20:18)
[2016-11-24] MEDS: Tiotropium CAP.INH* CAP.INH/18 MCG INH SCH (09:45)
--- NOTE | 2016-11-24 12:48 | PMRUTEAM ---
PMRU: Goals Current Status: Nursing: Current Status Skin Deviations [under breasts Rash ] Skin Deviations [abdomen] Abrasion Skin Deviations [Midline Incision Abdomen] Skin Deviations [Left Arm] Other Skin Deviation Description [ red rash under both breasts, right breast worse under breasts] than the left. Skin Deviation Description [ healing tape blisters in various stages abdomen] surrounding the dressing on patient's abdomen Skin Deviation Description [ dressing is CDI with santiago straps and then an Midline Abdomen] abdominal binder. Skin Deviation Description [ cast Left Arm] Physical Therapy: Current Status Bed Mobility Assistance 2 mod to max asist Transfer Moblility Assistance total assist Transfer/Bed Mobility karson Recommended Devices Ambulation Assistance unable Ambulation Assistive Devices Rolling Walker Stairs Assistance Not Tested Occupational Therapy: Current Status Upper Body Dressing Total Assist Lower Body Dressing Total Assist Bathing Max Asst,Total Assist Toileting Total Assist,2 Person Assist Toilet Transfer Total Assist,2 Person Assist Shower Transfer Total Assist Eating Mod to max Assist Social Work: Current Status Discharge Plan stay with her daughter and recieve home care svs Potential for Family Training pt's family is attentive and involved Anticipated Discharge Home Destination Discharge With home care svs and family support Goals: Physical Therapy: Initial Goals Bed Mobility Assistance Independent Transfer Mobility Assistance Independent Transfer/Bed Mobility Rolling Walker Recommended Devices Ambulation Independent Ambulation Recommended Devices Rolling Walker Ambulation Distance 150 Stairs Assistance Independent Stair Recommended Devices not a goal at this time Number of Stairs not a goal at this time Occupational Therapy: Initial Goals Goals to be Completed in (Days 3-4 weeks ) Upper Body Bathing Routine Independent Lower Body Bathing Routine Modified Independent with AE Upper Body Dressing Routine Independent Lower Body Dressing Routine Modified Independent with AE Toilet Hygeine and Clothing Modified Independent with AE Management Routine Toilet Transfer Routine Modified Independent with AE Step-In Shower Transfer Supervision/Set Up Routine Functional Transfers for ADL Modified Independent with AE Grooming Routine Independent Feeding Routine Independent Social Work: Goals Discharge Plan stay with her daughter and recieve home care svs Potential for Family Training pt's family is attentive and involved Anticipated Discharge Home Destination Discharge With home care svs and family support Will get Speech therapy evaluation. Care Plan: Care Plan ADL's - Improve/Maintain Start: 11/23/16 14:22 Freq: QSHIFT Status: Active Target: Activity Type Activity Date Activity User E-Sign Co-Sign Detail Recorded Client Recorded Date Recorded By Document 11/23/16 14:22 [id number] 11/23/16 14:22 [id number] 11/23/16 14:22 PMRU Outcome: ADL's/ADL Transfers Orders/Interventions Occupational Therapy Evaluation & Treatment Communication Tool in Patient Room Patient to receive OT 5x/wk for 60-120 Therex min/day Self Care Management Group Therapy Neuromuscular ReEducation UE/LE ADL's with Assist Yes ADL Transfers with Assist Yes Toileting: Transfers,Clothing Management Yes ,Hygeine w/Assist Progression Toward Outcome/Goals Progressing Communication-Improve/Maintain Start: 11/24/16 01:58 Freq: QSHIFT Status: Active Target: Activity Type Activity Date Activity User E-Sign Co-Sign Detail Recorded Client Recorded Date Recorded By Document 11/24/16 01:58 [id number] 11/24/16 01:59 [id number] 11/24/16 01:58 PMRU Outcome: Communication/Cognitive Status Outcome/Goals Use Comm Tools/ Devices Makes Needs Known Effectively Progression Toward Outcomes/Goals Progressing Coping/Psych-Improve/Maintain Start: 11/24/16 11:31 Freq: QSHIFT Status: Active Target: Activity Type Activity Date Activity User E-Sign Co-Sign Detail Recorded Client Recorded Date Recorded By Document 11/24/16 11:33 [id number] 11/24/16 11:37 [id number] 11/24/16 11:33 PMRU Outcome: Coping/Psychosocial Coping Outcome/Goals Verbalization of Acceptance of Rehab Admit Utilization of Appropriate Problem Solving Techniques Willingness to Participate in Treatment Plan and Basic Needs Utilization of Available Support Systems Psychosocial Outcome/Goals Demonstrates Knowledge of Healthy Coping Mechanisms Available Cooperate/ Participate in Plan Other Outcome/Goals ativan given this am Progression Toward Outcome/Goals - Progressing Coping Progression Toward Outcome/Goals - Progressing Psychosocial Education-Improve/Maintain Start: 11/24/16 11:31 Freq: QSHIFT Status: Active Target: Activity Type Activity Date Activity User E-Sign Co-Sign Detail Recorded Client Recorded Date Recorded By Document 11/24/16 11:33 [id number] 11/24/16 11:37 [id number] 11/24/16 11:33 PMRU Outcome: Education Outcome/Goals Demonstrate/ Verbalize Understanding of Written Discharge Instructions Demonstrates Skills Encourage Questions Progression Toward Outcome/Goals Progressing /GI-Improve/Maintain Start: 11/24/16 11:31 Freq: QSHIFT Status: Active Target: Activity Type Activity Date Activity User E-Sign Co-Sign Detail Recorded Client Recorded Date Recorded By Document 11/24/16 11:33 [id number] 11/24/16 11:37 [id number] 11/24/16 11:33 PMRU Outcome: Genitourinary/ Gastrointestinal Genitourinary- Outcome/Goals Maintain/ Achieve Adequate Urinary Output Remain Free of Hospital- Acquired UTI Gastrointestinal-Outcome/Goals Maintain/ Achieve Bowel Regularity in Accordance with Pt's Baseline Remain Free of Emesis Progression Toward Outcome/Goals - Progressing Progression Toward Outcome/Goals - GI Progressing Medication Administration Start: 11/24/16 11:31 Freq: QSHIFT Status: Active Target: Activity Type Activity Date Activity User E-Sign Co-Sign Detail Recorded Client Recorded Date Recorded By Document 11/24/16 11:33 [id number] 11/24/16 11:37 [id number] 11/24/16 11:33 PMRU Outcome: Medication Administration Assess Patient Knowledge/Teach Med Yes Education for all Meds Outcome/Goals Family/ Caregiver Administer Medications at Home Demonstrates Understanding Progression Towards Outcome/Goals Progressing Is Patient Going Home on Lovenox? No Mobility- Improve/Maintain Start: 11/23/16 17:49 Freq: QSHIFT Status: Active Target: Activity Type Activity Date Activity User E-Sign Co-Sign Detail Recorded Client Recorded Date Recorded By Document 11/23/16 17:49 [id number] 11/23/16 17:50 [id number] 11/23/16 17:49 PMRU Outcome: Mobility Physical Therapy Evaluation and Yes Treatment Activity OOB with Assistance Yes WBAT Yes Device Yes Assistance Yes Patient to be seen 5x/wk for 60-120 min/ Therex day for: Mobility Training Gait Training W/C Mobility Balance Outcome/Goals Maintain/ Achieve Baseline Mobility Status Improve Mobility Status Demonstrates Proper Use of Assistive Devices Free from Complications of Immobility Bed Mobility Yes: independent Transfers Yes: independent with rollign walker. Gait x ft Yes: independnt with rolling walker 150' Up/Down Stairs Yes: independent up/ down 5 stairs with B rails. Neurological- Improve/Maintain Start: 11/24/16 11:31 Freq: QSHIFT Status: Active Target: Activity Type Activity Date Activity User E-Sign Co-Sign Detail Recorded Client Recorded Date Recorded By Document 11/24/16 11:33 [id number] 11/24/16 11:37 [id number] 11/24/16 11:33 PMRU Outcome: Neurological Weakness/Aphasia Weakness Outcome/Goals Improve Neurological Status Prevent Avoidable Neurological Decline Maintain/ Improve Strength/ROM Progression Toward Outcome/Goals Progressing Pain/Comfort- Improve/Maintain Start: 11/24/16 01:58 Freq: QSHIFT Status: Active Target: Activity Type Activity Date Activity User E-Sign Co-Sign Detail Recorded Client Recorded Date Recorded By Document 11/24/16 11:33 [id number] [id number] 11/24/16 11:37 [id number] 11/24/16 11:33 PMRU Outcome: Pain/Comfort Outcome/Goals Demonstrates Knowledge and Use of Available Comfort Measures Achieves Acceptable Comfort/Pain Level as Determined by Patient/Condit Maintain Comfort Level Allowing Patient to Fully Participate in Rehab Progression Toward Outcome/Goals Progressing Respiratory - Improve/Maintain Start: 11/24/16 11:31 Freq: QSHIFT Status: Active Target: Activity Type Activity Date Activity User E-Sign Co-Sign Detail Recorded Client Recorded Date Recorded By Document 11/24/16 11:33 [id number] 11/24/16 11:37 [id number] 11/24/16 11:33 PMRU Outcome: Respiratory Does Patient Have a Trach No Outcome/Goals Maintain/ Improve Baseline Respiratory Status Maintain/ Improve Activity Tolerance Prevent Pneumonia/ Atelectasis Progression Toward Outcome/Goals Progressing Safety- Improve/Maintain Start: 11/24/16 01:58 Freq: QSHIFT Status: Active Target: Activity Type Activity Date Activity User E-Sign Co-Sign Detail Recorded Client Recorded Date Recorded By Document 11/24/16 11:33 [id number] 11/24/16 11:37 [id number] 11/24/16 11:33 PMRU Outcome: Safety Outcome/Goals Remain Free of Injury or Harm Cooperates with Safety Measures for Least Restrictive Environment Prevent Falls/ Injury Other Outcome/Goals PA on Progression Toward Outcome/Goals Progressing Skin- Improve/Maintain Start: 11/24/16 01:58 Freq: QSHIFT Status: Active Target: Activity Type Activity Date Activity User E-Sign Co-Sign Detail Recorded Client Recorded Date Recorded By Document 11/24/16 11:33 [id number] 11/24/16 11:37 [id number] 11/24/16 11:33 PMRU Outcome: Skin Skin Risk Level Medium Skin Orders Dressing Change Teach Patient Air Mattress Turn/Position q2hr While in Bed Outcome/Goals Maintain/ Improve Skin Intergrity Free from Decubitus Maintain/ Improve Wound Status Surgical Incisions Healing Progression Toward Outcome/Goals Progressing Medicine Note: Length of Stay: [4 weeks] Anticipated Discharge Destination: Home Tentative Discharge Date: [12/22/16] Discharged to: [home with daughter]
[2016-11-24] MEDS: guaiFENesin ER TAB 600 MG PO SCH (18:03)
[2016-11-24] MEDS: Enoxaparin(*) 40 MG/0.4 ML SYR SUBCUT SCH (20:20)
[2016-11-25] MEDS: oxyCODONE TAB* 5 MG TAB PO PRN ×5 (03:09→21:08)
[2016-11-25] MEDS: LORazepam TAB(*) 1 MG PO PRN ×2 (03:44→17:24)
[2016-11-25] MEDS: Acetaminophen TAB* 325 MG PO PRN ×2 (06:41→17:24)
[2016-11-25] MEDS: Tiotropium CAP.INH* CAP.INH/18 MCG INH SCH (09:51)
[2016-11-25] MEDS: Metoprolol Tartrate TAB* 25 MG PO SCH (09:54)
[2016-11-25] MEDS: Lactobacillus Acidophilu (GG)* 1 CAP CAP PO SCH (09:55)
[2016-11-25] MEDS: Sertraline* 50 MG TAB PO SCH (09:55)
[2016-11-25] MEDS: Mometasone/Formoter 200/5 MDI INH SCH ×2 (10:11→20:44)
[2016-11-25] MEDS: guaiFENesin ER TAB 600 MG PO SCH ×2 (11:02→17:24)
[2016-11-25] MEDS: Enoxaparin(*) 40 MG/0.4 ML SYR SUBCUT SCH (21:06)
[2016-11-26] MEDS: LORazepam TAB(*) 1 MG PO PRN ×3 (00:41→20:43)
[2016-11-26] MEDS: oxyCODONE TAB* 5 MG TAB PO PRN ×4 (01:31→20:43)
[2016-11-26] MEDS: Lactobacillus Acidophilu (GG)* 1 CAP CAP PO SCH (11:13)
[2016-11-26] MEDS: Sertraline* 50 MG TAB PO SCH (11:13)
[2016-11-26] MEDS: Metoprolol Tartrate TAB* 25 MG PO SCH (11:14)
[2016-11-26] MEDS: Tiotropium CAP.INH* CAP.INH/18 MCG INH SCH (11:16)
[2016-11-26] MEDS: Mometasone/Formoter 200/5 MDI INH SCH ×2 (11:19→20:04)
[2016-11-26] MEDS: guaiFENesin ER TAB 600 MG PO SCH ×3 (12:07→20:04)
[2016-11-26] MEDS: QUEtiapine TAB* 25 MG PO SCH ×2 (16:05→21:37)
[2016-11-26 18:15] LABS: Urine Bilirubin Negative (Negative); Urine Glucose Negative (Negative); Urine Nitrite Negative (Negative)
[2016-11-26] MEDS: Enoxaparin(*) 40 MG/0.4 ML SYR SUBCUT SCH (20:03)
[2016-11-26] MEDS ORDERED: QUEtiapine TAB* 25 MG PO PRN (21:06)
[2016-11-27] MEDS: oxyCODONE TAB* 5 MG TAB PO PRN ×5 (00:58→17:06)
[2016-11-27] MEDS: LORazepam TAB(*) 1 MG PO PRN (04:03)
[2016-11-27] MEDS: Lactobacillus Acidophilu (GG)* 1 CAP CAP PO SCH (08:16)
[2016-11-27] MEDS: Metoprolol Tartrate TAB* 25 MG PO SCH (08:16)
[2016-11-27] MEDS: Sertraline* 50 MG TAB PO SCH (08:17)
[2016-11-27] MEDS: Tiotropium CAP.INH* CAP.INH/18 MCG INH SCH (08:20)
[2016-11-27] MEDS: Mometasone/Formoter 200/5 MDI INH SCH ×2 (08:21→21:31)
[2016-11-27 09:04] LABS: Hematocrit 29 % (35-47); Hemoglobin 9.7 g/dl (12.0-16.0); Mean Corpuscular HGB Conc 33 g/dl (31-36); Mean Corpuscular Hemoglobin 28 pg (27-31); Mean Corpuscular Volume 85 fL (80-97); Mean Platelet Volume 10 um3 (7.4-10.4); Red Blood Count 3.43 10^6/ul (4.0-5.4); Red Cell Distribution Width 14 % (10.5-15)
[2016-11-27 09:19] LABS: Albumin 2.6 g/dL (3.2-5.2); BUN/Creatinine Ratio 6.8 (8-20); Calcium 8.8 mg/dL (8.6-10.3); EGFR African American 178.8 (>60); Globulin 3.1 g/dL (2-4); Potassium 2.8 mmol/L (3.5-5.0); Total Bilirubin 0.5 mg/dL (0.2-1.0); Total Protein 5.7 g/dL (6.4-8.9)
[2016-11-27 11:21] LABS: Magnesium 1.8 mg/dL (1.9-2.7)
[2016-11-27] MEDS: LORazepam TAB(*) 0.5 MG PO PRN ×2 (13:52→23:38)
[2016-11-27] MEDS: Acetaminophen TAB* 325 MG PO PRN (15:48)
[2016-11-27] MEDS ORDERED: HYDROcodone/ACETAMIN 5-325 MG* 1 TAB PO PRN (17:50)
[2016-11-27] MEDS: Enoxaparin(*) 40 MG/0.4 ML SYR SUBCUT SCH (20:29)
[2016-11-27] MEDS: HYDROcodone/ACETAMIN 5-325 MG* 1 TAB PO PRN (21:27)
[2016-11-27] MEDS: QUEtiapine TAB* 25 MG PO SCH (21:29)
[2016-11-27] MEDS: Potassium Chlor TAB* 20 MEQ TAB.ER PO SCH (21:30)
[2016-11-27] MEDS: Nicotine Patch Removal NOTE FOLLOW UP SCH (21:59)
[2016-11-28] MEDS: HYDROcodone/ACETAMIN 5-325 MG* 1 TAB PO PRN ×4 (03:42→23:30)
[2016-11-28] MEDS: Metoprolol Tartrate TAB* 25 MG PO SCH (07:42)
[2016-11-28] MEDS: Tiotropium CAP.INH* CAP.INH/18 MCG INH SCH (07:43)
[2016-11-28] MEDS: Sertraline* 50 MG TAB PO SCH (07:43)
[2016-11-28] MEDS: Lactobacillus Acidophilu (GG)* 1 CAP CAP PO SCH (07:43)
[2016-11-28] MEDS: Magnesium Oxide TAB* 400 MG PO SCH (07:43)
[2016-11-28] MEDS: Nicotine PATCH 14 MG/24 HR* PATCH TRANSDERM SCH (07:44)
[2016-11-28] MEDS: Potassium Chlor TAB* 20 MEQ TAB.ER PO SCH ×2 (07:44→20:23)
[2016-11-28] MEDS: Mometasone/Formoter 200/5 MDI INH SCH ×2 (07:51→20:24)
--- NOTE | 2016-11-28 12:51 | PMRUTEAM ---
PMRU: Goals Current Status: Nursing: Current Status Skin Deviations [Bottom] Other Skin Deviations [Mandy Area] Other Skin Deviations [under breasts Other ] Skin Deviations [abdomen] Incision Skin Deviations [Midline Incision Abdomen] Skin Deviations [Left Arm] Other Skin Deviation Description [ redness, improving Bottom] Skin Deviation Description [ redness Mandy Area] Skin Deviation Description [ slight redness under breasts] Skin Deviation Description [ dressing held in place with Mongomery Straps abdomen] Skin Deviation Description [ dressing intact Midline Abdomen] Skin Deviation Description [ cast Left Arm] Drain Type [Bottom] None Bladder Current Status sosa catheter inserted 11/26/16 Bowel Current Status 11/26/16 colace given Nutrition Current Status po intake very poor Medication Current Status whole with reinforcement. currently taking ativan oxycodone, seroquil Physical Therapy: Current Status Bed Mobility Assistance Max Assist,2 or More Person Assist Transfer Moblility Assistance 2 or More Person Assist Transfer/Bed Mobility EZ Stand,Lilly Lift Recommended Devices Ambulation Assistance Unable Ambulation Assistive Devices Rolling Walker Stairs Assistance Not Tested Occupational Therapy: Current Status Upper Body Dressing Min Assist Lower Body Dressing Total Assist,2 Person Assist Bathing Max Asst,2 Person Assist Toileting Total Assist,2 Person Assist Toileting Progress EZ stand Toilet Transfer Total Assist,2 Person Assist Toilet Transfer Progress EZ stand Shower Transfer Total Assist Shower Transfer Progress Not yet attempted. Eating Max Asst Eating Progress Pt showing improved B shoulder AROM/strength, but is resistant to PO intake Rec Therapy: Current Status Summary of Assessment and RT assessment complete and pt. is aware of Clinical Impression services and open to them while on the unit. Treatment Goals Pt. will engage in leisure activities while on the unit. Treatment Plan Provide RT services and encourage involvement. Social Work: Current Status Discharge Plan return home with home care svs and family support Potential for Family Training pt's family is supportive and involved Anticipated Discharge Home Destination Discharge With home care svs and family support Speech: Current Status Assessment The patient presented with improvements with alertness and ability participate with less frequent cues, however the patient fatigued at end of session. The patient would benefit from skilled DELIVERY CLERK services to improve receptive language and cognitive-linguistic skills for improved safety, function and independence for daily living tasks. The patient will require further cognitive- linguistic evaluation as it was not fully completed this date. Goals: Physical Therapy: Initial Goals Bed Mobility Assistance Independent Transfer Mobility Assistance Independent Transfer/Bed Mobility Rolling Walker Recommended Devices Ambulation Independent Ambulation Recommended Devices Rolling Walker Ambulation Distance 150 Stairs Assistance Independent Stair Recommended Devices Two Rails Number of Stairs 5 Physical Therapy: Updated Goals Transfer/Bed Mobility EZ Stand Recommended Devices Occupational Therapy: Initial Goals Goals to be Completed in (Days 3-4 weeks ) Upper Body Bathing Routine Independent Lower Body Bathing Routine Modified Independent with Upper Body Dressing Routine Independent Lower Body Dressing Routine Modified Independent with Toilet Hygeine and Clothing Modified Independent with Management Routine Toilet Transfer Routine Modified Independent with Step-In Shower Transfer Supervision/Set Up Routine Functional Transfers for ADL Modified Independent with Grooming Routine Independent Feeding Routine Independent Nursing: Goals Bladder Goal independent with pads Bowel Goal independent Nutrition Goal eat 100 percent of all meals Medication Goal take independently Nutrition: Goals Intervention Goals 1. pt will tolerate po diet w/o GI distress 2. improved and adequate po intake to maintain lean body mass and stable wt 3. regulated bowel pattern w/o diarrhea/ constipation 4. achive and maintain electrolyte balance; K and mag will be within acceptable ranges 5. maintain intact skin integrity; no evidence of skin breakdown/open areas Speech: Goals Speech Goal 1 Auditory comprehension Goal 1 Comments LTG: The patient will improve auditory comprehension to understand various information presented with use of strategies with various communication partners. STGs: 1. The patient will follow functional 2 step commands at 80% accuracy. 2. The patient will complete functional spatial relations tasks at 80% accuracy. 3. The patient will respond to complex/abstract yes/no questions at 80% accuracy Status: The patient responded to complex/abstract yes/no questions at 40% accuracy. 4. The patient will complete additional assessment for auditory comprehension skills and update to POC as warranted. Completed 11/27/16 Speech Goal 2 Cognitive-linguistic Speech Goal 2 Comments The patient will complete cognitive-lingusitic assessment as it was unable to be completed this date secondary to lethargy with update to POC as warranted. Status: The patient stated viable solutions to functional problem scenarios at 50% accuracy. The patient recalled 2/3 items immediately after presentation. The patient recalled 1/3 items per 2 minute delay, improving to 2/3 items given semantic cue. The patient recalled 3 digits immediately after presentation, the patient recalled 4 digits immediately after presentation at 50% accuracy. The patient was unable to recall 5 digits. The patient was unable recall 2 numbers and repeat in opposite order. The patient listened to a paragraph and recalled 4/21 ideas immediately after presentation. The patient was unable to provide responses to basic functional money and time management tasks. Assessment completed at this time. Updated goals listed below . Updated ST. The patient will complete functional sequencing task for 3 items at 70% accuracy with min cues. 2. The patient will complete various immediate and short term memory tasks with use of memory strategies at 70% accuracy with moderate cues. 3. The patient will recall and demonstrate use of memory strategies over 2 sessions. 4. The patient will complete various basic functional time and money management tasks at 50% accuracy with max cues. Social Work: Goals Discharge Plan return home with home care svs and family support Potential for Family Training pt's family is supportive and involved Anticipated Discharge Home Destination Discharge With home care svs and family support Care Plan: Care Plan ADL's - Improve/Maintain Start: 11/23/16 14:22 Freq: DAILY Status: Active Target: Activity Type Activity Date Activity User E-Sign Co-Sign Detail Recorded Client Recorded Date Recorded By Document 11/25/16 12:30 [id number] 11/25/16 12:31 [id number] 11/25/16 12:30 PMRU Outcome: ADL's/ADL Transfers Orders/Interventions Occupational Therapy Evaluation & Treatment Communication Tool in Patient Room Patient to receive OT 5x/wk for 60-120 Therex min/day Self Care Management Group Therapy Neuromuscular ReEducation UE/LE ADL's with Assist Yes ADL Transfers with Assist Yes Toileting: Transfers,Clothing Management Yes ,Hygeine w/Assist Progression Toward Outcome/Goals Not Progressing Outcome/Goals Met Pt required totalA for bathing and dressing routine. Pt now lilly lift and bedpan for toileting per physician/ nursing recommendation 2* abdominal incision site/ dressing. Communication-Improve/Maintain Start: 11/24/16 01:58 Freq: DAILY Status: Active Target: Activity Type Activity Date Activity User E-Sign Co-Sign Detail Recorded Client Recorded Date Recorded By Document 11/28/16 12:00 [id number] 11/28/16 12:01 [id number] 11/28/16 12:00 PMRU Outcome: Communication/Cognitive Status Outcome/Goals Use Comm Tools/ Devices Makes Needs Known Effectively Progression Toward Outcomes/Goals Progressing Outcome/Goals Met Comment Assessment completed - deficits with problem solving , immediate and short term memory, and time and money management noted. Coping/Psych-Improve/Maintain Start: 11/24/16 11:31 Freq: DAILY Status: Active Target: Activity Type Activity Date Activity User E-Sign Co-Sign Detail Recorded Client Recorded Date Recorded By Document 11/28/16 12:07 [id number] 11/28/16 12:12 [id number] 11/28/16 12:07 PMRU Outcome: Coping/Psychosocial Coping Outcome/Goals Verbalization of Acceptance of Rehab Admit Utilization of Appropriate Problem Solving Techniques Willingness to Participate in Treatment Plan and Basic Needs Utilization of Available Support Systems Psychosocial Outcome/Goals Demonstrates Knowledge of Healthy Coping Mechanisms Available Cooperate/ Participate in Plan Other Outcome/Goals . Progression Toward Outcome/Goals - Progressing Coping Progression Toward Outcome/Goals - Progressing Psychosocial Discharge Planning - Improve/Maintain Start: 11/24/16 11:31 Freq: DAILY Status: Active Target: Activity Type Activity Date Activity User E-Sign Co-Sign Detail Recorded Client Recorded Date Recorded By Document 11/28/16 00:59 [id number] 11/28/16 01:02 [id number] 11/28/16 00:59 PMRU Outcome: Discharge Planning Identify Patient Needs yes Update Patient Family No Outcome/Goals Demonstrates Understanding of Discharge Plan Progression Toward Outcome/Goals Progressing Education-Improve/Maintain Start: 11/24/16 11:31 Freq: DAILY Status: Active Target: Activity Type Activity Date Activity User E-Sign Co-Sign Detail Recorded Client Recorded Date Recorded By Document 11/28/16 12:07 [id number] 11/28/16 12:12 [id number] 11/28/16 12:07 PMRU Outcome: Education Outcome/Goals Demonstrate/ Verbalize Understanding of Written Discharge Instructions Demonstrates Skills Encourage Questions Progression Toward Outcome/Goals Progressing /GI-Improve/Maintain Start: 11/24/16 11:31 Freq: DAILY Status: Active Target: Activity Type Activity Date Activity User E-Sign Co-Sign Detail Recorded Client Recorded Date Recorded By Document 11/28/16 12:07 [id number] 11/28/16 12:12 [id number] 11/28/16 12:07 PMRU Outcome: Genitourinary/ Gastrointestinal Genitourinary- Outcome/Goals Maintain/ Achieve Adequate Urinary Output Remain Free of Hospital- Acquired UTI Gastrointestinal-Outcome/Goals Maintain/ Achieve Bowel Regularity in Accordance with Pt's Baseline Remain Free of Emesis Progression Toward Outcome/Goals - Progressing Progression Toward Outcome/Goals - GI Progressing Outcome/Goals Met Comment pt used the commode x1 Medication Administration Start: 11/24/16 11:31 Freq: DAILY Status: Active Target: Activity Type Activity Date Activity User E-Sign Co-Sign Detail Recorded Client Recorded Date Recorded By Document 11/28/16 12:07 [id number] 11/28/16 12:12 [id number] 11/28/16 12:07 PMRU Outcome: Medication Administration Assess Patient Knowledge/Teach Med Yes Education for all Meds Outcome/Goals Family/ Caregiver Administer Medications at Home Demonstrates Understanding Progression Towards Outcome/Goals Progressing Is Patient Going Home on Lovenox? No Mobility- Improve/Maintain Start: 11/23/16 17:49 Freq: DAILY Status: Active Target: Activity Type Activity Date Activity User E-Sign Co-Sign Detail Recorded Client Recorded Date Recorded By Document 11/23/16 17:49 [id number] 11/23/16 17:50 [id number] 11/23/16 17:49 PMRU Outcome: Mobility Physical Therapy Evaluation and Yes Treatment Activity OOB with Assistance Yes WBAT Yes Device Yes Assistance Yes Patient to be seen 5x/wk for 60-120 min/ Therex day for: Mobility Training Gait Training W/C Mobility Balance Outcome/Goals Maintain/ Achieve Baseline Mobility Status Improve Mobility Status Demonstrates Proper Use of Assistive Devices Free from Complications of Immobility Bed Mobility Yes: independent Transfers Yes: independent with rollign walker. Gait x ft Yes: independnt with rolling walker 150' Up/Down Stairs Yes: independent up/ down 5 stairs with B rails. Neurological- Improve/Maintain Start: 11/24/16 11:31 Freq: DAILY Status: Active Target: Activity Type Activity Date Activity User E-Sign Co-Sign Detail Recorded Client Recorded Date Recorded By Document 11/28/16 12:07 [id number] 11/28/16 12:12 [id number] 11/28/16 12:07 PMRU Outcome: Neurological Weakness/Aphasia Weakness Outcome/Goals Improve Neurological Status Prevent Avoidable Neurological Decline Maintain/ Improve Strength/ROM Progression Toward Outcome/Goals Progressing Nutrition/Swallowing- Improve/Maintain Start: 11/24/16 11:31 Freq: DAILY Status: Active Target: Activity Type Activity Date Activity User E-Sign Co-Sign Detail Recorded Client Recorded Date Recorded By Document 11/28/16 12:07 [id number] 11/28/16 12:12 [id number] 11/28/16 12:07 PMRU Outcome: Nutrition/Swallowing Outcome/Goals Demonstrates Adequate Hydration/ Prevents Dehydration Progression Toward Outcome/Goals Progressing Outcome/Goals Met Comment drinking adequately Pain/Comfort- Improve/Maintain Start: 11/24/16 01:58 Freq: DAILY Status: Active Target: Activity Type Activity Date Activity User E-Sign Co-Sign Detail Recorded Client Recorded Date Recorded By Document 11/28/16 12:07 [id number] 11/28/16 12:12 [id number] 11/28/16 12:07 PMRU Outcome: Pain/Comfort Outcome/Goals Demonstrates Knowledge and Use of Available Comfort Measures Achieves Acceptable Comfort/Pain Level as Determined by Patient/Condit Maintain Comfort Level Allowing Patient to Fully Participate in Rehab Other Outcome/Goals pt complaining of right upper abdominal pain, given oxycodone Progression Toward Outcome/Goals Not Progressing Respiratory - Improve/Maintain Start: 11/24/16 11:31 Freq: DAILY Status: Active Target: Activity Type Activity Date Activity User E-Sign Co-Sign Detail Recorded Client Recorded Date Recorded By Document 11/28/16 12:07 [id number] 11/28/16 12:12 [id number] 11/28/16 12:07 PMRU Outcome: Respiratory Does Patient Have a Trach No Outcome/Goals Maintain/ Improve Baseline Respiratory Status Maintain/ Improve Activity Tolerance Prevent Pneumonia/ Atelectasis Progression Toward Outcome/Goals Progressing Safety- Improve/Maintain Start: 11/24/16 01:58 Freq: DAILY Status: Active Target: Activity Type Activity Date Activity User E-Sign Co-Sign Detail Recorded Client Recorded Date Recorded By Document 11/28/16 12:07 [id number] 11/28/16 12:12 [id number] 11/28/16 12:07 PMRU Outcome: Safety Outcome/Goals Remain Free of Injury or Harm Cooperates with Safety Measures for Least Restrictive Environment Prevent Falls/ Injury Other Outcome/Goals [address], pt near nurses station Progression Toward Outcome/Goals Progressing Skin- Improve/Maintain Start: 11/24/16 01:58 Freq: DAILY Status: Active Target: Activity Type Activity Date Activity User E-Sign Co-Sign Detail Recorded Client Recorded Date Recorded By Document 11/28/16 12:07 [id number] 11/28/16 12:12 [id number] 11/28/16 12:07 PMRU Outcome: Skin Skin Risk Level Low Skin Orders Dressing Change Teach Patient Air Mattress Outcome/Goals Maintain/ Improve Skin Intergrity Free from Decubitus Maintain/ Improve Wound Status Surgical Incisions Healing Progression Toward Outcome/Goals Progressing Medicine Note: Length of Stay: 3 1/2 weeks Anticipated Discharge Destination: Home Tentative Discharge Date: December 22, 2016 Discharged to: Home with daughter
[2016-11-28] MEDS: LORazepam TAB(*) 0.5 MG PO PRN ×2 (16:03→21:44)
[2016-11-28] MEDS: Nicotine Patch Removal NOTE FOLLOW UP SCH (19:20)
[2016-11-28] MEDS: QUEtiapine TAB* 25 MG PO SCH (20:23)
[2016-11-28] MEDS: Enoxaparin(*) 40 MG/0.4 ML SYR SUBCUT SCH (20:26)
[2016-11-29] MEDS: LORazepam TAB(*) 0.5 MG PO PRN ×2 (03:36→18:22)
[2016-11-29] MEDS: HYDROcodone/ACETAMIN 5-325 MG* 1 TAB PO PRN ×3 (04:08→23:16)
[2016-11-29] MEDS: Nicotine PATCH 14 MG/24 HR* PATCH TRANSDERM SCH (09:45)
[2016-11-29] MEDS: Sertraline* 50 MG TAB PO SCH (09:46)
[2016-11-29] MEDS: Lactobacillus Acidophilu (GG)* 1 CAP CAP PO SCH (09:46)
[2016-11-29] MEDS: Potassium Chlor TAB* 20 MEQ TAB.ER PO SCH ×2 (09:47→20:10)
[2016-11-29] MEDS: Metoprolol Tartrate TAB* 25 MG PO SCH (09:47)
[2016-11-29] MEDS: Magnesium Oxide TAB* 400 MG PO SCH (09:47)
[2016-11-29] MEDS: Mometasone/Formoter 200/5 MDI INH SCH ×2 (09:52→20:10)
[2016-11-29] MEDS: Tiotropium CAP.INH* CAP.INH/18 MCG INH SCH (09:54)
[2016-11-29] MEDS: QUEtiapine TAB* 25 MG PO SCH (20:11)
[2016-11-29] MEDS: Enoxaparin(*) 40 MG/0.4 ML SYR SUBCUT SCH (20:11)
[2016-11-29] MEDS: Nicotine Patch Removal NOTE FOLLOW UP SCH (20:11)
[2016-11-30] MEDS: LORazepam TAB(*) 0.5 MG PO PRN ×3 (01:30→19:18)
[2016-11-30] MEDS: [UNRECOGNIZED DRUG - OTHER] PO PRN ×2 (01:30→16:57)
[2016-11-30] MEDS: HYDROcodone/ACETAMIN 5-325 MG* 1 TAB PO PRN ×2 (03:22→13:20)
[2016-11-30 06:41] LABS: BUN/Creatinine Ratio 7.3 (8-20); Calcium 8.6 mg/dL (8.6-10.3); EGFR Non-African American 150.8 (>60); Potassium 3.8 mmol/L (3.5-5.0)
[2016-11-30] MEDS: Nicotine PATCH 14 MG/24 HR* PATCH TRANSDERM SCH (08:12)
[2016-11-30] MEDS: Potassium Chlor TAB* 20 MEQ TAB.ER PO SCH ×2 (08:14→21:18)
[2016-11-30] MEDS: Lactobacillus Acidophilu (GG)* 1 CAP CAP PO SCH (08:15)
[2016-11-30] MEDS: Magnesium Oxide TAB* 400 MG PO SCH (08:15)
[2016-11-30] MEDS: Sertraline* 50 MG TAB PO SCH (08:15)
[2016-11-30] MEDS: Metoprolol Tartrate TAB* 25 MG PO SCH (08:16)
[2016-11-30] MEDS: Tiotropium CAP.INH* CAP.INH/18 MCG INH SCH (08:28)
[2016-11-30] MEDS: Mometasone/Formoter 200/5 MDI INH SCH ×2 (08:31→21:11)
[2016-11-30] MEDS: Enoxaparin(*) 40 MG/0.4 ML SYR SUBCUT SCH (19:17)
[2016-11-30] MEDS: Nicotine Patch Removal NOTE FOLLOW UP SCH (21:07)
[2016-11-30] MEDS: QUEtiapine TAB* 25 MG PO SCH (21:08)
[2016-11-30] MEDS: Docusate CAP* 100 MG PO PRN (21:19)
[2016-12-01] MEDS: LORazepam TAB(*) 0.5 MG PO PRN ×2 (04:11→09:09)
[2016-12-01 04:45] VITALS: BP 135/55
[2016-12-01 08:06] LABS: Hematocrit 30 % (35-47); Hemoglobin 9.7 g/dl (12.0-16.0); Mean Corpuscular HGB Conc 32 g/dl (31-36); Mean Corpuscular Hemoglobin 28 pg (27-31); Mean Corpuscular Volume 86 fL (80-97); Mean Platelet Volume 9 um3 (7.4-10.4); Red Blood Count 3.46 10^6/ul (4.0-5.4); Red Cell Distribution Width 15 % (10.5-15); White Blood Count 7.2 10^3/ul (3.5-10.8)
[2016-12-01 08:12] LABS: Albumin 2.6 g/dL (3.2-5.2); BUN/Creatinine Ratio 7.9 (8-20); Calcium 8.8 mg/dL (8.6-10.3); EGFR African American 211.8 (>60); EGFR Non-African American 164.7 (>60); Potassium 3.8 mmol/L (3.5-5.0); Total Bilirubin 0.3 mg/dL (0.2-1.0); Total Protein 5.6 g/dL (6.4-8.9)
[2016-12-01] MEDS: Nicotine PATCH 14 MG/24 HR* PATCH TRANSDERM SCH (09:03)
[2016-12-01] MEDS: Mometasone/Formoter 200/5 MDI INH SCH (09:05)
[2016-12-01] MEDS: Tiotropium CAP.INH* CAP.INH/18 MCG INH SCH (09:07)
[2016-12-01] MEDS: Metoprolol Tartrate TAB* 25 MG PO SCH (09:10)
[2016-12-01] MEDS: Sertraline* 50 MG TAB PO SCH (09:11)
[2016-12-01] MEDS: HYDROcodone/ACETAMIN 5-325 MG* 1 TAB PO PRN (09:12)
[2016-12-01] MEDS: Potassium Chlor TAB* 20 MEQ TAB.ER PO SCH (09:12)
[2016-12-01] MEDS: Lactobacillus Acidophilu (GG)* 1 CAP CAP PO SCH (09:12)
[2016-12-01] MEDS: Magnesium Oxide TAB* 400 MG PO SCH (09:14)
--- NOTE | 2016-12-03 08:27 | DS ---
DISCHARGE SUMMARY: DATE OF ADMISSION: 11/23/16 DATE OF DISCHARGE: 12/01/16 DISCHARGE DIAGNOSES: 1. Status post abdominal perforation. 2. Status post exploratory laparotomy x3. 3. Severe sepsis. 4. Malnutrition. 5. Chronic obstructive pulmonary disease. 6. Hypertension. 7. Anxiety. 8. Left radial fracture. 9. Low-back pain. HISTORY OF ILLNESS AND HOSPITAL COURSE: For complete history of the events leading up to her rehab stay, please see the history and physical dictated by me on 11/23/16. While on the rehab unit, the patient had some complaints of insomnia and anxiety. She also felt that the cast on her left arm was tight. Orthopedic Surgery came by to see it and felt that it was appropriate. The patient's daughter felt that she would do better at home and asked to take her home early. The daughter came in for family training. Equipment was ordered for the daughter to take her home, including an EasyStand as well as a hospital bed. The patient was seen by Physical Therapy and Occupational Therapy and did make some gains while on the rehab unit. At the time of admission, the patient required an EasyStand to do transfers. She was 2-assist to do bed mobility, unable to ambulate with occupational therapy, she was dependent for most of her activity of daily living. By the time of discharge, she still required max assist for her activities of daily living, except eating. She was transferring still with the EasyStand. The patient was discharged home, as mentioned, at the family's request on 12/01/16. They agreed to provide 24-hour care at home. DISCHARGE DIET: Regular. DISCHARGE MEDICATIONS: Included: 1. Guaifenesin DM 20 mL every 4 hours as needed. 2. Albuterol inhaler 2 puffs every 4 hours as needed. 3. Combs 5/325 mg 2 tabs every 4 hours as needed. 4. Lorazepam 0.5 mg every 6 hours as needed. 5. Lopressor 25 mg daily. 6. Zoloft 50 mg daily. 7. Spiriva 1 cap inhaled every day. 8. Potassium chloride 20 mEq daily. 9. Symbicort 1 puff twice daily. SERVICES AFTER DISCHARGE: Through [facility], she will have home nursing, home physical therapy, home health aide, home speech therapy, and home occupational therapy. FOLLOWUP: Follow up with Dr. Mac Mecenas at [facility] as well as her primary care doctor, Dr. Campbell Cassidy in [place]. CC: Dr. Campbell Cassidy * [id number]/CPS #: [id number] [facility] HOSPITALNoemí
== END 2016-12-01 13:40 | disposition home health service (06) | DRG 949 ==
LOC: PMRU 12:57
PROVIDERS: ADMIT Physical Medicine & Rehabilitation; ATTEND Physical Medicine & Rehabilitation
PROC: F07Z5ZZ Bed Mobility Treatment (ICD-10-PCS; principal; 2016-11-23)
PROC: F07Z9ZZ Gait Training/Functional Ambulation Treatment (ICD-10-PCS; 2016-11-23)
PROC: F07Z8ZZ Transfer Training Treatment (ICD-10-PCS; 2016-11-23)
PROC: F08Z0ZZ Bathing/Showering Techniques Treatment (ICD-10-PCS; 2016-11-23)
PROC: F08Z1ZZ Dressing Techniques Treatment (ICD-10-PCS; 2016-11-23)
PROC: F08Z3ZZ Feeding/Eating Treatment (ICD-10-PCS; 2016-11-23)
DX: Z48.815 Encounter for surgical aftercare following surgery on the digestive system (principal); E46 Unspecified protein-calorie malnutrition; J44.9 Chronic obstructive pulmonary disease, unspecified; S52.502D Unspecified fracture of the lower end of left radius, subsequent encounter for closed fracture with routine healing; W18.30XD Fall on same level, unspecified, subsequent encounter; Z68.31 Body mass index [BMI] 31.0-31.9, adult; I10 Essential (primary) hypertension; F41.9 Anxiety disorder, unspecified; M54.5 Low back pain; D72.828 Other elevated white blood cell count; D64.9 Anemia, unspecified; H57.8 Other specified disorders of eye and adnexa
CPT/HCPCS: 36415; 80048; 80053; 81003; 83735; 85025; 94760; A9270-GY; J1650

== ENCOUNTER 2016-12-15 16:02 | Emergency (ER) | payer MEDICARE, OTHER ==
[2016-12-15] MEDS ORDERED: NS 0.9% 1000 ML* 1,000 ML IV ONE ×2 (16:20→16:30)
[2016-12-15] MEDS ORDERED: Pantoprazole IV* 40 MG IV ONE (16:30)
[2016-12-15] MEDS ORDERED: Ondansetron INJ* 2 MG/ML VIAL IV ONE (16:30)
[2016-12-15 17:24] LABS: Hematocrit 35 % (35-47); Hemoglobin 11.2 g/dl (12.0-16.0); Mean Corpuscular HGB Conc 32 g/dl (31-36); Mean Corpuscular Hemoglobin 27 pg (27-31); Mean Corpuscular Volume 83 fL (80-97); Mean Platelet Volume 9 um3 (7.4-10.4); Red Blood Count 4.21 10^6/ul (4.0-5.4); Red Cell Distribution Width 14 % (10.5-15); White Blood Count 9.4 10^3/ul (3.5-10.8)
[2016-12-15 17:32] LABS: Urine Bacteria Absent (Absent); Urine Bilirubin Negative (Negative); Urine Glucose Negative (Negative); Urine Nitrite Positive (Negative)
[2016-12-15 17:40] LABS: BUN/Creatinine Ratio 14.8 (8-20); C Reactive Protein 50.55 mg/L (< 5.00); Calcium 9.5 mg/dL (8.6-10.3); EGFR African American 141.2 (>60); EGFR Non-African American 109.8 (>60); Globulin 3.8 g/dL (2-4); Total Bilirubin 0.4 mg/dL (0.2-1.0); Total Protein 6.8 g/dL (6.4-8.9)
[2016-12-15 17:41] LABS: Troponin I 0.01 ng/mL (<0.04)
[2016-12-15] MEDS ORDERED: Iohexol 300* (CONTRAST) 10 ML SDV IV ONE (18:17)
--- NOTE | 2016-12-15 18:57 | RAD ---
CLINICAL HISTORY: Left lower quadrant pain COMPARISON: November 11, 2016 TECHNIQUE: Multiple contiguous axial CT scans were obtained of the abdomen and pelvis after the administration of intravenous contrast. Coronal and sagittal multiplanar reformations are submitted for review. Oral contrast was administered. Delayed images were obtained through the abdomen and pelvis. FINDINGS: LUNG BASES: The lung bases are clear. LIVER: The liver is diffusely low in attenuation compared to the spleen. There are no focal hepatic parenchymal masses. BILE DUCTS: There is ectasia of the common duct which measures up to 0.9 cm in caliber. There is no intrahepatic biliary dilatation. GALLBLADDER: The gallbladder is not visualized. Surgical clips are noted in the gallbladder fossa. PANCREAS: The pancreas is normal, without mass or ductal dilatation. SPLEEN: Normal in size and appearance. UPPER GI TRACT: Evaluation of the gastrointestinal tract is limited by incomplete gastric distention. The upper GI tract is unremarkable. SMALL BOWEL AND MESENTERY: There is no obstruction. There is minimal stranding of the mesenteric fat COLON: There is scattered diverticula of the colon ADRENALS: Normal bilaterally. KIDNEYS: The kidneys are normal in shape, size, contour, and axis. There is no hydronephrosis or nephrolithiasis. BLADDER: The bladder is smooth in contour. PELVIC ORGANS: The pelvic organs are not visualized. AORTA: There is calcific atherosclerotic disease of the abdominal aorta and its branches, without aneurysmal dilatation IVC: Unremarkable LYMPH NODES: There is no lymphadenopathy by size criteria. ABDOMINAL WALL: There is postsurgical change to the anterior abdominal wall BONES AND SOFT TISSUES: The patient is status post left hip arthroplasty. There is a scoliotic curvature of the spine. Degenerative changes are noted OTHER: None IMPRESSION: 1. FATTY LIVER. 2. STATUS POST CHOLECYSTECTOMY. 3. THERE IS MILD INFLAMMATORY CHANGE OF THE MESENTERIC FAT, WITHOUT OBSTRUCTION. THIS IS NONSPECIFIC BUT CAN BE ASSOCIATED WITH ENTERITIS OR MESENTERIC PANNICULITIS. 4. ATHEROSCLEROSIS
[2016-12-15] MEDS ORDERED: Potassium Chlor TAB* 20 MEQ TAB.ER PO ONE (19:22)
[2016-12-15] MEDS ORDERED: cefTRIAXone VIAL(*) 1,000 MG in NS 0.9% 50 ML* 50 ML IVPB ONE (19:23)
[2016-12-15 19:43] LABS: Magnesium 1.9 mg/dL (1.9-2.7)
--- NOTE | 2016-12-15 20:45 | ED ---
Harvey Huerta Alok, scribed for Piper Mera MD on 12/15/16 at 1658 . Abdominal Pain/Female - HPI Summary HPI Summary: 76F presents to the ED with abd pain and diarrhea for the past two days. Pt states that her abd pain comes and goes on the LLQ without radiation to the back. She currently denies feeling abd pain. Pt took one Ativan [employer]ACH[employer]. Pt also notes nausea aggravated by eating as well as loss of appetite for the last 2 days. Pt denies dysuria. Pt was lasted admitted to [facility] about 2 months ago for an abd perforation and exasperation of COPD. Her admittance was preceded by abd pain, diarrhea, and constipation. Pt just returned from rehabilitation on . Pt denies h/o UTI. Pt is a former tobacco smoker and has since switched to e -cigarettes. Pt took Requip last night for restless leg syndrome. Pt is allergic to doxycycline. - History of Current Complaint Chief Complaint: EDGeneral Stated Complaint: ABD PAIN,NAUSEA Time Seen by Provider: 12/15/16 16:15 Hx Obtained From: Patient, Family/Blasting Entryman, Medical Records ?: No Onset/Duration: Lasting Days, Still Present Timing: Intermittent Episode Lasting Severity Initially: Moderate Severity Currently: Moderate Pain Intensity: 0 Pain Scale Used: 0-10 Numeric Location: Discrete At: LLQ Radiates: No Aggravating Factor(s): Food Alleviating Factor(s): Nothing Associated Signs and Symptoms: Positive: Decreased Appetite, Nausea, Diarrhea. Negative: Back Pain, Urinary Symptoms Allergies/Adverse Reactions: Allergies Allergy/AdvReac Type Severity Reaction Status Date / Time Doxycycline AdvReac Nausea Verified 11/11/16 21:17 PMH/Surg Hx/FS Hx/Imm Hx Cardiovascular History: Reports: Hx Hypertension Respiratory History: Reports: Hx Chronic Obstructive Pulmonary Disease (COPD) GI History: Reports: Hx Diverticulosis - current visit, Other GI Disorders - frequent diarrhea History: Reports: Other Problems/Disorders - urinary incontinence Musculoskeletal History: Reports: Hx Arthritis, Hx Back Problems - chronic pain Sensory History: Reports: Hx Contacts or Glasses Denies: Hx Hearing Aid Opthamlomology History: Reports: Hx Contacts or Glasses Neurological History: Reports: Hx Headaches, Other Neuro Impairments/Disorders - pain clinic patient Psychiatric History: Reports: Hx Anxiety - Cancer History Cancer Type, Location and Year: cervical cancer - Surgical History Surgery Procedure, Year, and Place: hysterectomy 1979c-section 1975. left hip 07/2014, Abdominal surgery 11/2016 Hx Anesthesia Reactions: No - Immunization History Date of Tetanus Vaccine: unk Date of Influenza Vaccine: utd Infectious Disease History: Yes Infectious Disease History: Denies: Traveled Outside the US in Last 30 Days - Family History Known Family History: Positive: Hypertension - Social History Occupation: Retired Alcohol Use: None Hx Substance Use: No Substance Use Type: Reports: None Hx Tobacco Use: Yes Smoking Status (MU): Former Smoker Type: eCigarettes Review of Systems Negative: Fever Positive: Abdominal Pain, Diarrhea, Nausea, Other - Loss of appetite Negative: dysuria All Other Systems Reviewed And Are Negative: Yes Physical Exam Triage Information Reviewed: Yes Vital Signs On Initial Exam: Initial Vitals Temp Pulse Resp BP Pulse Ox 97.8 F 77 20 122/60 90 12/15/16 16:04 12/15/16 16:04 12/15/16 16:04 12/15/16 16:04 12/15/16 16:04 Vital Signs Reviewed: Yes Appearance: Positive: Well-Appearing, No Pain Distress Skin: Positive: Warm, Skin Color Reflects Adequate Perfusion, Dry Eyes: Positive: EOMI, SADIA ENT: Positive: Pharynx normal, TMs normal Neck: Positive: Supple, Nontender Respiratory/Lung Sounds: Positive: Clear to Auscultation, Breath Sounds Present. Negative: Rales, Rhonchi, Wheezes Cardiovascular: Positive: RRR, Other - No Gallop. Negative: Murmur, Rub Abdomen Description: Positive: Nontender, Soft, Other: - No Rebound. Negative: Distended, Guarding Bowel Sounds: Positive: Present Musculoskeletal: Positive: Strength/ROM Intact. Negative: Edema Left, Edema Right Neurological: Positive: Sensory/Motor Intact, Alert, Oriented to Person Place, Time, CN Intact II-III Psychiatric: Positive: Affect/Mood Appropriate Diagnostics - Vital Signs Vital Signs Temp Pulse Resp BP Pulse Ox 12/15/16 16:04 97.8 F 77 20 122/60 90 - Laboratory Lab Results: Lab Results 12/15/16 12/15/16 12/15/16 Range/Units 17:10 17:10 17:10 WBC 9.4 (3.5-10.8) 10^3/ul RBC 4.21 (4.0-5.4) 10^6/ul Hgb 11.2 L (12.0-16.0) g/dl Hct 35 (35-47) % MCV 83 (80-97) fL MCH 27 (27-31) pg MCHC 32 (31-36) g/dl RDW 14 (10.5-15) % Plt Count 379 (150-450) 10^3/ul MPV 9 (7.4-10.4) um3 Neut % (Auto) 75.3 (38-83) % Lymph % (Auto) 12.2 L (25-47) % [place] % (Auto) 10.2 H (1-9) % Eos % (Auto) 1.0 (0-6) % Baso % (Auto) 1.3 (0-2) % Absolute Neuts (auto) 7.1 (1.5-7.7) 10^3/ul Absolute Lymphs (auto) 1.2 (1.0-4.8) 10^3/ul Absolute Monos (auto) 1.0 H (0-0.8) 10^3/ul Absolute Eos (auto) 0.1 (0-0.6) 10^3/ul Absolute Basos (auto) 0.1 (0-0.2) 10^3/ul Absolute Nucleated RBC 0.01 10^3/ul Nucleated RBC % 0.1 Sodium 132 L (133-145) mmol/L Potassium 3.0 L (3.5-5.0) mmol/L Chloride 90 L (101-111) mmol/L Carbon Dioxide 33 H (22-32) mmol/L Anion Gap 9 (2-11) mmol/L BUN 8 (6-24) mg/dL Creatinine 0.54 (0.51-0.95) mg/dL Est GFR ( Amer) 141.2 (>60) Est GFR (Non-Af Amer) 109.8 (>60) BUN/Creatinine Ratio 14.8 (8-20) Glucose 101 H (70-100) mg/dL Lactic Acid (0.5-2.0) mmol/L Calcium 9.5 (8.6-10.3) mg/dL Magnesium 1.9 (1.9-2.7) mg/dL Total Bilirubin 0.40 (0.2-1.0) mg/dL AST 18 (13-39) U/L ALT 8 (7-52) U/L Alkaline Phosphatase 237 H (34-104) U/L Troponin I 0.01 (<0.04) ng/mL C-Reactive Protein 50.55 H (< 5.00) mg/L Total Protein 6.8 (6.4-8.9) g/dL Albumin 3.0 L (3.2-5.2) g/dL Globulin 3.8 (2-4) g/dL Albumin/Globulin Ratio 0.8 L (1-3) Lipase 18 (11.0-82.0) U/L Urine Color Yellow Urine Appearance Cloudy Urine pH 8.0 (5-9) Ur Specific [place] 1.010 (1.010-1.030) Urine Protein Negative (Negative) Urine Ketones Negative (Negative) Urine Blood Negative (Negative) Urine Nitrate Positive H (Negative) Urine Bilirubin Negative (Negative) Urine Urobilinogen Negative (Negative) Ur Leukocyte Esterase 1+ H (Negative) Urine WBC (Auto) 2+(11-20/hpf) H (Absent) Urine RBC (Auto) 2+(6-10/hpf) H (Absent) Ur Squamous Epith Cells Present H (Absent) Urine Bacteria Absent (Absent) Hyaline Casts Present H (Absent) Urine Glucose Negative (Negative) 12/15/16 Range/Units 17:10 WBC (3.5-10.8) 10^3/ul RBC (4.0-5.4) 10^6/ul Hgb (12.0-16.0) g/dl Hct (35-47) % MCV (80-97) fL MCH (27-31) pg MCHC (31-36) g/dl RDW (10.5-15) % Plt Count (150-450) 10^3/ul MPV (7.4-10.4) um3 Neut % (Auto) (38-83) % Lymph % (Auto) (25-47) % [place] % (Auto) (1-9) % Eos % (Auto) (0-6) % Baso % (Auto) (0-2) % Absolute Neuts (auto) (1.5-7.7) 10^3/ul Absolute Lymphs (auto) (1.0-4.8) 10^3/ul Absolute Monos (auto) (0-0.8) 10^3/ul Absolute Eos (auto) (0-0.6) 10^3/ul Absolute Basos (auto) (0-0.2) 10^3/ul Absolute Nucleated RBC 10^3/ul Nucleated RBC % Sodium (133-145) mmol/L Potassium (3.5-5.0) mmol/L Chloride (101-111) mmol/L Carbon Dioxide (22-32) mmol/L Anion Gap (2-11) mmol/L BUN (6-24) mg/dL Creatinine (0.51-0.95) mg/dL Est GFR ( Amer) (>60) Est GFR (Non-Af Amer) (>60) BUN/Creatinine Ratio (8-20) Glucose (70-100) mg/dL Lactic Acid 1.4 (0.5-2.0) mmol/L Calcium (8.6-10.3) mg/dL Magnesium (1.9-2.7) mg/dL Total Bilirubin (0.2-1.0) mg/dL AST (13-39) U/L ALT (7-52) U/L Alkaline Phosphatase (34-104) U/L Troponin I (<0.04) ng/mL C-Reactive Protein (< 5.00) mg/L Total Protein (6.4-8.9) g/dL Albumin (3.2-5.2) g/dL Globulin (2-4) g/dL Albumin/Globulin Ratio (1-3) Lipase (11.0-82.0) U/L Urine Color Urine Appearance Urine pH (5-9) Ur Specific [place] (1.010-1.030) Urine Protein (Negative) Urine Ketones (Negative) Urine Blood (Negative) Urine Nitrate (Negative) Urine Bilirubin (Negative) Urine Urobilinogen (Negative) Ur Leukocyte Esterase (Negative) Urine WBC (Auto) (Absent) Urine RBC (Auto) (Absent) Ur Squamous Epith Cells (Absent) Urine Bacteria (Absent) Hyaline Casts (Absent) Urine Glucose (Negative) Result Diagrams: 12/15/16 17:10 12/15/16 17:10 Lab Statement: Any lab studies that have been ordered have been reviewed, and results considered in the medical decision making process. - CT abd/pel CT CT Interpretation: Positive (See Comments) - IMPRESSION: 1. FATTY LIVER. 2. STATUS POST CHOLECYSTECTOMY. 3. THERE IS MILD INFLAMMATORY CHANGE OF THE MESENTERIC FAT, WITHOUT OBSTRUCTION. THIS IS NONSPECIFIC BUT CAN BE ASSOCIATED WITH ENTERITIS OR MESENTERIC PANNICULITIS. 4. ATHEROSCLEROSIS CT Interpretation Completed By: Radiologist - EKG 2000 Cardiac Rate: NL - 77 bpm EKG Rhythm: Sinus Rhythm ST Segment: Non-Specific Re-Evaluation - Re-Evaluation First Eval Re-Evaluation Time: 20:37 Change: Improved Comment: Pt is feeling better and would like to go home. Abdominal Pain Fem Course/Dx - Course Course Of Treatment: 76 yo female with recent perforated bowel back with malaise and intermittent abdominal pain, non now on exam. CT of abd and pelvis showed some inflammation of mesentery, pt was seen by Dr. Ray since he is well known to their service. Her urine is suspicious for uti and so she was treated with rocephin and sent home with macrobid, she was also sent with nausea meds and potassium - Diagnoses Provider Diagnoses: UTI (urinary tract infection) - Provider Notifications Discussed Care Of Patient With: Mukund Ray - Will come examine pt Time Discussed With Above Provider: 19:16 Discharge - Discharge Plan Condition: Stable Disposition: HOME Prescriptions: Nitrofurantoin Monohyd Macro [Macrobid] 100 mg PO BID #14 cap Ondansetron [Zofran 4 MG Odt] 4 mg PO Q4HR PRN #10 tab PRN Reason: Nausea Potassium Chloride LIQUID* [Klor-Con LIQUID*] 20 meq PO DAILY #7 packet Patient Education Materials: Urinary Tract Infection in Women (ED) Referrals: Campbell Cassidy MD [Primary Care Provider] - The documentation as recorded by the Harvey reich Alok accurately reflects the service I personally performed and the decisions made by me, Piper Mera MD.
[2016-12-15 21:08] VITALS: BP 119/54
--- NOTE | 2016-12-15 23:09 | CONS ---
EMERGENCY ROOM CONSULTATION REPORT: DATE OF CONSULT: 12/15/16 - EMERGENCY DEPT REASON FOR CONSULT: Nausea with intermittent abdominal pain. HISTORY OF PRESENT ILLNESS: Ms. Paulette Montero is a 76-year-old woman well- known to the surgical service, she was discharged home 3-1/2 weeks ago from the hospital after she had presented back on November 12 after the end of October here at [facility]. Her history was somewhat complicated as she had been seen and treated at the [facility] at the end of October after she had presented with abdominal pain and loose bowel movements. She had undergone an upper endoscopy as well as a colonoscopy and was discharged after this was reportedly normal but she fell and broke her wrist and was taken back to the emergency room at [facility] and she was complaining of quite significant amount of abdominal discomfort and she was brought by her daughters to the [facility] Emergency Room. At that time, she was noted to have a white blood cell count of 33,000. CT scan of the abdomen and pelvis which showed some stranding in the sigmoid mesenteric fat with some free fluid in the pelvis, but no extraluminal air/ abscess and no evidence of diverticulitis. At that time, she was admitted to the hospitalist service and despite having been placed on IV antibiotics, she developed significant abdominal pain with a white blood cell count up to 39,000 and was taken to the operating room emergently with Dr. Roca and she underwent exploratory laparotomy. At that time, there was no evidence of an obvious perforation on careful evaluation and she remained quite septic and was taken back to the intensive care unit with an open abdomen. She subsequently returned to the operating room 48 hours for a second-look laparotomy and at that time it was noted that she had inflammation of the gallbladder and this was removed. The cultures from her peritoneal cavity did grow E. coli and she was treated with long-term IV antibiotics. She underwent a total of 3 laparotomies and on the third procedure, her abdomen was closed and it was concluded that there was no bowel injury from colonoscopy or other perforated viscus. It was felt that this may have been translocation from the colonoscopy or other type of bacterial illness that she had presented with. She spent about a week in the rehab and then was discharged home. She had been home 12 days with her daughters. She presented back to the emergency room tonight with some intermittent lower abdominal pain and diarrhea. She has also had some nausea. She has had no burning on urination. She has had no vomiting. She drinks quite a bit of liquid during the day, has been trying to eat more. She is somewhat vague about her discomfort as it comes and goes. She has various times that are pain free. Here, her white blood cell count is noted to be 9.4. There is a normal BUN and creatinine with sodium 132 and potassium of 3, however. Lactic acid was 1.4. She has a C-reactive protein mildly elevated at 50. Normal liver transaminases and mild elevation of alkaline phosphatase. She underwent a CT scan of her abdomen and pelvis. I did review this study. This showed no evidence of bowel obstruction, abdominal abscess, extraluminal air or fluid. There was some mild inflammation of the mesenteric fat of the small bowel mesentery, but no evidence of obstruction or volvulus. Contrast rapidly passed through the GI tract down into the rectum on this study. No abdominal wall hernia or other acute findings. PAST MEDICAL HISTORY: 1. COPD. 2. Hypertension. 3. Anxiety. 4. Left radial artery fracture. PAST SURGICAL HISTORY: 1. section. 2. Abdominal hysterectomy. 3. Left hip replacement. 4. Exploratory laparotomy as per above. MEDICATIONS: On presentation today include: 1. Spiriva. 2. Zoloft. 3. Potassium chloride. 4. Metoprolol. 5. Lorazepam. 6. Hydrochlorothiazide. 7. Hydrocodone. 8. Docusate. 9. Symbicort. 10. Albuterol inhaler. ALLERGIES: She is allergic to DOXYCYCLINE. SOCIAL HISTORY: She lives with one daughter. She has a second daughter visiting from [place], who is helping with her care. She is an ex-smoker. She does not use alcohol or drug use at this point. REVIEW OF SYSTEMS: Otherwise, per above. She has had no chest pain, shortness of breath, wheezing, or hemoptysis. PHYSICAL EXAM: She is afebrile, pulse 69, blood pressure 129/41. General: She is an elderly woman, who is quite awake, alert, and conversive. She appears to be in no apparent distress. She moves from the wheelchair to the gurney without difficulty. Her oral mucosa is slightly dry. Sclerae are anicteric. Her lungs are clear to auscultation with normal respiratory effort. Heart has regular rate and rhythm without murmurs, rubs, or gallops. Her abdomen is soft and nondistended. She has a healing midline incision without evidence of abscess, induration, or drainage. She had bowel sounds that are present throughout. There is no localized tenderness, rebound, guarding, or distention. Psychiatric: She is awake, alert, and oriented x3. She has normal judgment and insight. IMPRESSION AND PLAN: Abdominal pain by history in a woman, who had 3 laparotomies for intra-abdominal sepsis, but this time an unknown etiology. She was treated with long-term antibiotics and an open abdomen. She has been doing quite well, presented with the above symptoms. I reviewed the CT scan and this does not appear to have any acute findings. I am not certain the significance of the mild mesenteric inflammation, maybe most likely postoperative in nature. There is no evidence of obstruction, abscess, extraluminal air or other acute findings. I discussed her care with Dr. Mera. Not mentioned above is that she does have some white blood cells and red cells in her urine and may have a urinary tract infection. At this point, I do not believe there is any acute surgical pathology that is present at this point that would require surgical admission or operation at this point. She may well have a urinary tract infection and may be dehydrated but she has been treated with IV antibiotics and her urine culture is to be sent. She will be hydrated. She would like to go home and I think that this acceptable as long as she can maintain adequate oral intake and her potassium can be repleted. Certainly if her symptoms worsen or return, she should return to the emergency room. Thank you very much for this consultation. CC: [facility]; [facility]; Dr. Campbell Csasidy* [id number]/[facility] #: [id number] MTDD
--- NOTE | 2016-12-17 08:51 | PN ---
Progress Note - Progress Note Note: Patient diagnosed and treated for UTI. Preliminary culture results grew >100,000 of E. coli Was put on Macrobid at discharge. Will wait for final urine culture results with susceptibility. No further change needed at this time.
--- NOTE | 2016-12-18 08:57 | PN ---
Progress Note - Progress Note Note: Obtained final urine culture results. Patient was diagnosed and treated with Macrobid at discharge. Culture results show bacteria to be susceptible to Macrobid. No further change needed at this time.
== END 2016-12-15 21:07 | disposition home or self-care (01) ==
LOC: ED 16:02
DX: N39.0 Urinary tract infection, site not specified (principal); R10.32 Left lower quadrant pain; Z87.891 Personal history of nicotine dependence; R19.7 Diarrhea, unspecified; R11.0 Nausea
CPT/HCPCS: 36415; 74177; 80053; 81003; 81015; 83605; 83690; 83735; 84484; 85025; 86140; 87040; 87077; 87086; 87186; 93005; 99284; A9270-GY; J0696; J2405; Q9967

== ENCOUNTER 2017-01-06 13:55 | Emergency (ER) | payer MEDICARE, OTHER ==
[2017-01-06] MEDS ORDERED: Levalbuterol 1.25MG/0.5ML NEB INH ONE (14:34)
[2017-01-06] MEDS ORDERED: predniSONE TAB* 20 MG PO ONE (14:35)
--- NOTE | 2017-01-06 15:05 | RAD ---
INDICATION: Shortness of breath. COMPARISON: Comparison is made with a prior chest x-ray study from November 13, 2016. TECHNIQUE: A portable view of the chest was obtained. FINDINGS: Cardiac and mediastinal contours appear to be within normal limits. The lungs are clear. No pleural effusion is seen. IMPRESSION: NO EVIDENCE FOR ACUTE DISEASE.
[2017-01-06] MEDS ORDERED: Azithromycin TAB* 250 MG PO ONE (16:11)
[2017-01-06 17:02] VITALS: BP 121/52
--- NOTE | 2017-01-08 15:21 | ED ---
Renee Huerta SooYoung, scribed for Shawn Macario MD on 01/06/17 at 1420 . Respiratory - HPI Summary HPI Summary: A 76 y/o F presents to ED with c/o worsening productive cough, phlegm is green, onset past few days. Associated sx: SOB worse than usual, rhinorrhea, myalgia. Denies fever, chills, sweat, CP. Pt is on home O2. She has a home nebulizer with Albuterol medication but taking it makes her feel nauseous. Pt was last seen in ED on 12/15/16 for abd pain. Pert PMHx: diverticulitis, e coli. Pt had three recent abd surgeries. Pt was on ABX for UTI. Former smoker, currently uses eCigs. - History of Current Complaint Chief Complaint: EDUpperRespComplaint Stated Complaint: CHEST CONGESTION Time Seen by Provider: 01/06/17 14:16 Hx Obtained From: Patient, Family/Supervisor [place] - daughter present Onset/Duration: Lasting Days, Still Present Timing: Constant Initial Severity: Mild Current Severity: Mild Pain Intensity: 0 - out of 10 Character: Cough (Productive) Sputum Color: Green Associated Signs and Symptoms: SOB - Allergy/Home Medications Allergies/Adverse Reactions: Allergies Allergy/AdvReac Type Severity Reaction Status Date / Time Doxycycline AdvReac Nausea Verified 01/06/17 14:04 PMH/Surg Hx/FS Hx/Imm Hx Previously Healthy: No Cardiovascular History: Reports: Hx Hypertension Respiratory History: Reports: Hx Chronic Obstructive Pulmonary Disease (COPD) GI History: Reports: Hx Diverticulosis, Other GI Disorders - frequent diarrhea History: Reports: Other Problems/Disorders - urinary incontinence Musculoskeletal History: Reports: Hx Arthritis, Hx Back Problems - chronic pain Sensory History: Reports: Hx Contacts or Glasses Denies: Hx Hearing Aid Opthamlomology History: Reports: Hx Contacts or Glasses Neurological History: Reports: Hx Headaches, Other Neuro Impairments/Disorders - pain clinic patient Psychiatric History: Reports: Hx Anxiety - Cancer History Cancer Type, Location and Year: cervical cancer Hx Chemotherapy: Yes Hx Radiation Therapy: Yes - Surgical History Surgery Procedure, Year, and Place: hysterectomy 1979c-section 1975. left hip 07/2014, Abdominal surgery 11/2016 Hx Anesthesia Reactions: No - Immunization History Date of Tetanus Vaccine: unk Date of Influenza Vaccine: utd Infectious Disease History: No Infectious Disease History: Denies: Traveled Outside the [place] in Last 30 Days - Family History Known Family History: Positive: Hypertension - Social History Occupation: Retired Lives: With Family Alcohol Use: None Hx Substance Use: No Substance Use Type: Reports: None Hx Tobacco Use: Yes Smoking Status (MU): Former Smoker Type: eCigarettes Review of Systems Negative: Fever, Chills, Skin Diaphoresis Negative: Erythema Positive: Nasal Discharge - rhinorrhea. Negative: Sore Throat Negative: Chest Pain Positive: Shortness Of Breath, Cough - productive, green phlegm Negative: Abdominal Pain, Vomiting, Nausea Negative: dysuria, hematuria Positive: Myalgia - general. Negative: Edema Negative: Rash Neurological: Other - neg: dizziness All Other Systems Reviewed And Are Negative: Yes Physical Exam - Summary Physical Exam Summary: Constitutional: Well-developed, Well-nourished, Alert. (-) Distressed Skin: Warm, Dry HENT: Normocephalic; Atraumatic Eyes: Conjunctiva normal Neck: Musculoskeletal ROM normal neck. (-) JVD, (-) Stridor, (-) Tracheal deviation Cardio: Rhythm regular, rate normal, Heart sounds normal; Intact distal pulses; The pedal pulses are 2+ and symmetric. Radial pulses are 2+ and symmetric. (-) Murmur Pulmonary/Chest wall: (-) Rales; DIMINISHED BREATH SOUNDS; NEG RHONCHI; NEG WHEEZES Abd: Soft, (-) Tenderness, (-) Distension, (-) Guarding, (-) Rebound Musculoskeletal: (-) Edema Lymph: (-) Cervical adenopathy Neuro: Alert, Oriented x3 Psych: Mood and affect Normal Triage Information Reviewed: Yes Vital Signs On Initial Exam: Initial Vitals Temp Pulse Resp BP Pulse Ox 97.5 F 87 18 116/53 92 01/06/17 13:59 01/06/17 13:59 01/06/17 13:59 01/06/17 13:59 01/06/17 13:59 Vital Signs Reviewed: Yes Diagnostics - Vital Signs Vital Signs Temp Pulse Resp BP Pulse Ox 01/06/17 14:01 97.5 F 88 18 116/53 90 01/06/17 13:59 97.5 F 87 18 116/53 92 - Laboratory Lab Statement: Any lab studies that have been ordered have been reviewed, and results considered in the medical decision making process. - Radiology CXR Xray Interpretation: No Acute Changes - Impression: No evidence for acute dz. Radiology Interpretation Completed By: Radiologist Re-Evaluation - Re-Evaluation 1 Re-Evaluation Time: 16:21 Change: Improved Comment: Discussing results with pt. Pt states feeling better. Will ambulate her prior to D/C. Disposition - Course Course Of Treatment: Pt is a 76 y/o F presenting with c/o worsening productive cough, phlegm is green, onset past few days. Associated sx: SOB worse than usual , rhinorrhea, myalgia. Denies fever, chills, sweat, CP. Pt is on home O2. She has a home nebulizer with Albuterol medication but taking it makes her feel nauseous. Pt was last seen in ED on 12/15/16 for abd pain. 3 recent abd surgeries. Pt was on ABX for UTI. Former smoker, currently uses eCigs. Pt given albuterol, Prednisone in ED. CXR was nml. Upon reeval, pt states feeling better after breathing treatment. Pt was able to ambulate; O2 stats reflect having COPD. Will D/C home with prednisone, levalbuterol, azithromycin. - Diagnoses Provider Diagnoses: COPD exacerbation Discharge - Discharge Plan Condition: Stable Disposition: HOME Prescriptions: Azithromycin TAB* [Zithromax TAB (Z-NAREN) 250 mg #6 tabs] 250 mg PO DAILY #4 tab Levalbuterol 1.25MG/0.5ML NEB* [Xopenex 1.25 MG/0.5 ML NEB.OLU*] 1.25 mg INH Q4H PRN #60 vial PRN Reason: Shortness Of Breath predniSONE TAB* [Deltasone TAB*] 40 mg PO DAILY #5 tab Patient Education Materials: Prednisone (By mouth), Azithromycin (By mouth), Levalbuterol (By breathing), COPD (Chronic Obstructive Pulmonary Disease) (ED) Referrals: Campbell Cassidy MD [Primary Care Provider] - Additional Instructions: Please return to the ED if you experience new or worsening symptoms. The documentation as recorded by the Renee reich SooYoung accurately reflects the service I personally performed and the decisions made by me, Shawn Macario MD.
== END 2017-01-06 17:05 | disposition home or self-care (01) ==
LOC: ED 13:55
DX: J44.1 Chronic obstructive pulmonary disease with (acute) exacerbation (principal); R05 Cough; R06.02 Shortness of breath; Z87.891 Personal history of nicotine dependence
CPT/HCPCS: 71010; 94640; 99282; A9270-GY; J7512

== ENCOUNTER 2017-02-06 22:29 | Emergency (ER) | payer MEDICARE, OTHER ==
[2017-02-07] MEDS ORDERED: Morphine INJ* 4 MG/ML 1 ML SYRINGE IV ONE ×2 (01:12→04:11)
[2017-02-07] MEDS ORDERED: Ondansetron INJ* 2 MG/ML VIAL IV ONE (01:12)
[2017-02-07] MEDS: NS 0.9% 1000 ML* 2,000 ML IV ONE (01:35)
[2017-02-07 01:45] LABS: Hematocrit 33 % (35-47); Hemoglobin 10.6 g/dl (12.0-16.0); Mean Corpuscular HGB Conc 32 g/dl (31-36); Mean Corpuscular Hemoglobin 26 pg (27-31); Mean Corpuscular Volume 83 fL (80-97); Mean Platelet Volume 9 um3 (7.4-10.4); Red Blood Count 4.03 10^6/ul (4.0-5.4); Red Cell Distribution Width 15 % (10.5-15); White Blood Count 11.9 10^3/ul (3.5-10.8)
[2017-02-07 01:57] LABS: ALT 9 U/L (7-52); AST 18 U/L (13-39); Albumin 3.5 g/dL (3.2-5.2); Alkaline Phosphatase 129 U/L (34-104); Amylase 20 U/L (29-103); Anion Gap 5 mmol/L (2-11); BUN/Creatinine Ratio 13.4 (8-20); Blood Urea Nitrogen 15 mg/dL (6-24); C Reactive Protein 3.27 mg/L (< 5.00); CO2 Carbon Dioxide 29 mmol/L (22-32); Calcium 9.3 mg/dL (8.6-10.3); Chloride 94 mmol/L (101-111); Creatine Kinase 113 U/L (10-223); EGFR African American 60.8 (>60); EGFR Non-African American 47.3 (>60); Glucose 102 mg/dL (70-100); Lipase < 10 U/L (11.0-82.0); Potassium 3.1 mmol/L (3.5-5.0); Sodium 128 mmol/L (133-145); Total Protein 6.5 g/dL (6.4-8.9)
[2017-02-07] MEDS ORDERED: Iodixanol* (CONTRAST) 320 MG/ML 100 ML SDV IV ONE (02:32)
[2017-02-07 02:34] LABS: Urine Bacteria 1+ (Absent); Urine Bilirubin Negative (Negative); Urine Glucose Negative (Negative); Urine Nitrite Negative (Negative)
[2017-02-07] MEDS ORDERED: Ciprofloxacin TAB* 500 MG PO ONE (04:40)
[2017-02-07 04:57] VITALS: BP 132/44
--- NOTE | 2017-02-07 05:48 | ED ---
Tay Huerta Rebecca, scribed for Mark Pierre MD on 02/07/17 at 0111 . Abdominal Pain/Female - HPI Summary HPI Summary: Pt is a 76 y/o F who presents to ED c/o LLQ abd pain. Pain began suddenly this morning and has been constant since onset, waxing and waning in intensity. Pain is characterized as sharp and discrete to the LLQ. Pt reports her pain is mild at this moment, though at triage it was noted to be 8/10. Sx aggravated and alleviated by nothing. Additionally c/o hematuria, chills and nausea. Hematuria described as "pink colored urine." Denies edema, fever, vomiting, dysuria, urine frequency and back pain. Is not on a blood thinner. PSHx 3 months ago she was admitted to [facility] [place] ED during which they treated diverticulitis and "cleaned out her stomach" and was in the ICU for 1 week, under sedation. Daughter reports that her current location of pain is where the painw as located prior to surgeries. - History of Current Complaint Chief Complaint: EDAbdPain Stated Complaint: ABD PAIN,COLD CHILLS Time Seen by Provider: 02/07/17 00:59 Hx Obtained From: Patient Onset/Duration: Sudden Onset, Still Present Timing: Constant Severity Initially: Severe - 8/10 Severity Currently: Mild Location: Discrete At: LLQ Radiates: No Character: Sharp Aggravating Factor(s): Nothing Alleviating Factor(s): Nothing Associated Signs and Symptoms: Positive: Urinary Symptoms - hematuria; denies dysuria and urine frequenct, Nausea, Other: - Chills. Negative: Fever, Back Pain Allergies/Adverse Reactions: Allergies Allergy/AdvReac Type Severity Reaction Status Date / Time Doxycycline AdvReac Nausea Verified 01/06/17 14:04 PMH/Surg Hx/FS Hx/Imm Hx Cardiovascular History: Reports: Hx Hypertension Respiratory History: Reports: Hx Chronic Obstructive Pulmonary Disease (COPD) GI History: Reports: Hx Diverticulosis, Other GI Disorders - frequent diarrhea History: Reports: Other Problems/Disorders - urinary incontinence Musculoskeletal History: Reports: Hx Arthritis, Hx Back Problems - chronic pain Sensory History: Reports: Hx Contacts or Glasses Denies: Hx Hearing Aid Opthamlomology History: Reports: Hx Contacts or Glasses Neurological History: Reports: Hx Headaches, Other Neuro Impairments/Disorders - pain clinic patient Psychiatric History: Reports: Hx Anxiety - Cancer History Cancer Type, Location and Year: cervical cancer Hx Chemotherapy: Yes Hx Radiation Therapy: Yes - Surgical History Surgery Procedure, Year, and Place: hysterectomy 1979c-section 1975. left hip 07/2014, Abdominal surgery 11/2016 Hx Anesthesia Reactions: No - Immunization History Date of Tetanus Vaccine: unk Date of Influenza Vaccine: utd Infectious Disease History: No Infectious Disease History: Denies: Traveled Outside the [place] in Last 30 Days - Family History Known Family History: Positive: Hypertension - Social History Alcohol Use: None Hx Substance Use: No Substance Use Type: Reports: None Hx Tobacco Use: Yes Smoking Status (MU): Former Smoker Type: eCigarettes Review of Systems Positive: Chills. Negative: Fever Positive: Abdominal Pain - LLQ pain, Nausea. Negative: Vomiting Positive: hematuria. Negative: dysuria, frequency Positive: Other - Denies back pain. Negative: Edema All Other Systems Reviewed And Are Negative: Yes Physical Exam - Summary Physical Exam Summary: The patient is well-nourished and slightly short of breath. The skin is warm and dry and skin color reflects adequate perfusion. HEENT: The head is normocephalic and atraumatic. The pupils are equal and reactive. The conjunctivae are clear and without drainage. Nares are patent and without drainage. Mouth reveals moist mucous membranes and the throat is without erythema and exudate. The external ears are intact. The ear canals are patent and without drainage. The tympanic membranes are intact. Respiratory: Chest is non-tender. Lungs are clear to auscultation and breath sounds are symmetrical and equal. Cardiovascular: Hear is regular rate and rhythm. There is no murmur or rub auscultated. There is no peripheral edema and pulses are symmetrical and equal. Abdomen: The abdomen is soft and tender in the LUQ. There are normal bowel sounds heard in all four quadrants and there is no organomegaly palpated. No CVA tenderness. Musculoskeletal: No CVA tenderness. Extremities are non-tender with full range of motion. There is good capillary refill of 2 seconds. Decreased skin turgor. There is no peripheral edema or calf tenderness elicited. Neurological: Patient is alert and oriented to person, place and time. The patient has symmetrical motor strength in all four extremities. Cranial nerves are grossly intact. Deep tendon reflexes are symmetrical and equal in all four extremities. Psychiatric: The patient has an appropriate affect and does not exhibit any anxiety or depression. Triage Information Reviewed: Yes Vital Signs On Initial Exam: Initial Vitals Temp Pulse Resp BP Pulse Ox 98.7 F 72 20 155/91 90 02/06/17 22:41 02/06/17 22:41 02/06/17 22:41 02/06/17 22:41 02/06/17 22:41 Vital Signs Reviewed: Yes - Petros Coma Scale Coma Scale Total: 15 Diagnostics - Vital Signs Vital Signs Temp Pulse Resp BP Pulse Ox 02/07/17 00:50 98 F 75 16 165/73 96 02/07/17 00:14 97.7 F 69 141/62 98 02/06/17 22:41 98.7 F 72 20 155/91 90 - Laboratory Lab Results: Lab Results 02/07/17 02/07/17 02/07/17 Range/Units 01:30 01:30 01:30 WBC 11.9 H (3.5-10.8) 10^3/ul RBC 4.03 (4.0-5.4) 10^6/ul Hgb 10.6 L (12.0-16.0) g/dl Hct 33 L (35-47) % MCV 83 (80-97) fL MCH 26 L (27-31) pg MCHC 32 (31-36) g/dl RDW 15 (10.5-15) % Plt Count 281 (150-450) 10^3/ul MPV 9 (7.4-10.4) um3 Neut % (Auto) 78.2 (38-83) % Lymph % (Auto) 11.6 L (25-47) % [place] % (Auto) 7.8 (1-9) % Eos % (Auto) 1.7 (0-6) % Baso % (Auto) 0.7 (0-2) % Absolute Neuts (auto) 9.3 H (1.5-7.7) 10^3/ul Absolute Lymphs (auto) 1.4 (1.0-4.8) 10^3/ul Absolute Monos (auto) 0.9 H (0-0.8) 10^3/ul Absolute Eos (auto) 0.2 (0-0.6) 10^3/ul Absolute Basos (auto) 0.1 (0-0.2) 10^3/ul Absolute Nucleated RBC 0 10^3/ul Nucleated RBC % 0 Sodium 128 L (133-145) mmol/L Potassium 3.1 L (3.5-5.0) mmol/L Chloride 94 L (101-111) mmol/L Carbon Dioxide 29 (22-32) mmol/L Anion Gap 5 (2-11) mmol/L BUN 15 (6-24) mg/dL Creatinine 1.12 H (0.51-0.95) mg/dL Est GFR ( Amer) 60.8 (>60) Est GFR (Non-Af Amer) 47.3 (>60) BUN/Creatinine Ratio 13.4 (8-20) Glucose 102 H (70-100) mg/dL Lactic Acid 0.6 (0.5-2.0) mmol/L Calcium 9.3 (8.6-10.3) mg/dL Total Bilirubin 0.40 (0.2-1.0) mg/dL AST 18 (13-39) U/L ALT 9 (7-52) U/L Alkaline Phosphatase 129 H (34-104) U/L Total Creatine Kinase 113 (10-223) U/L C-Reactive Protein 3.27 (< 5.00) mg/L Total Protein 6.5 (6.4-8.9) g/dL Albumin 3.5 (3.2-5.2) g/dL Globulin 3.0 (2-4) g/dL Albumin/Globulin Ratio 1.2 (1-3) Amylase 20 L (29-103) U/L Lipase < 10 L (11.0-82.0) U/L Urine Color Urine Appearance Urine pH (5-9) Ur Specific [place] (1.010-1.030) Urine Protein (Negative) Urine Ketones (Negative) Urine Blood (Negative) Urine Nitrate (Negative) Urine Bilirubin (Negative) Urine Urobilinogen (Negative) Ur Leukocyte Esterase (Negative) Urine WBC (Auto) (Absent) Urine RBC (Auto) (Absent) Ur Squamous Epith Cells (Absent) Urine Bacteria (Absent) Urine Glucose (Negative) 02/07/17 Range/Units 02:15 WBC (3.5-10.8) 10^3/ul RBC (4.0-5.4) 10^6/ul Hgb (12.0-16.0) g/dl Hct (35-47) % MCV (80-97) fL MCH (27-31) pg MCHC (31-36) g/dl RDW (10.5-15) % Plt Count (150-450) 10^3/ul MPV (7.4-10.4) um3 Neut % (Auto) (38-83) % Lymph % (Auto) (25-47) % [place] % (Auto) (1-9) % Eos % (Auto) (0-6) % Baso % (Auto) (0-2) % Absolute Neuts (auto) (1.5-7.7) 10^3/ul Absolute Lymphs (auto) (1.0-4.8) 10^3/ul Absolute Monos (auto) (0-0.8) 10^3/ul Absolute Eos (auto) (0-0.6) 10^3/ul Absolute Basos (auto) (0-0.2) 10^3/ul Absolute Nucleated RBC 10^3/ul Nucleated RBC % Sodium (133-145) mmol/L Potassium (3.5-5.0) mmol/L Chloride (101-111) mmol/L Carbon Dioxide (22-32) mmol/L Anion Gap (2-11) mmol/L BUN (6-24) mg/dL Creatinine (0.51-0.95) mg/dL Est GFR ( Amer) (>60) Est GFR (Non-Af Amer) (>60) BUN/Creatinine Ratio (8-20) Glucose (70-100) mg/dL Lactic Acid (0.5-2.0) mmol/L Calcium (8.6-10.3) mg/dL Total Bilirubin (0.2-1.0) mg/dL AST (13-39) U/L ALT (7-52) U/L Alkaline Phosphatase (34-104) U/L Total Creatine Kinase (10-223) U/L C-Reactive Protein (< 5.00) mg/L Total Protein (6.4-8.9) g/dL Albumin (3.2-5.2) g/dL Globulin (2-4) g/dL Albumin/Globulin Ratio (1-3) Amylase (29-103) U/L Lipase (11.0-82.0) U/L Urine Color Straw Urine Appearance Clear Urine pH 6.0 (5-9) Ur Specific [place] 1.003 L (1.010-1.030) Urine Protein Negative (Negative) Urine Ketones Negative (Negative) Urine Blood 3+ H (Negative) Urine Nitrate Negative (Negative) Urine Bilirubin Negative (Negative) Urine Urobilinogen Negative (Negative) Ur Leukocyte Esterase Trace H (Negative) Urine WBC (Auto) 1+(6-10/hpf) H (Absent) Urine RBC (Auto) 3+(>10/hpf) H (Absent) Ur Squamous Epith Cells Present H (Absent) Urine Bacteria 1+ H (Absent) Urine Glucose Negative (Negative) Result Diagrams: 02/07/17 01:30 02/07/17 01:30 Lab Statement: Any lab studies that have been ordered have been reviewed, and results considered in the medical decision making process. - CT Abd/Pel CT CT Interpretation: Positive (See Comments) - Compared to the prior scan, there has been interval development of ascites. The cause is indeterminate. There is also mesenteric edema along with the ascites concentrated in the left lower abdomen but the cause is not apparent. There has been interval development of intrahepatic biliary dilation and mild dilation of the common bile duct compared to the prior scan. I cannot find an obstructing stone but MCRP would be moer sensitive. Also correlate with liver enzymes. Normal pancreas. Normal spleen. Normal adrenal glands. Normal kidneys and urinary tracts. Mildly dilated loops of jejunum are identified but on delayed views contrasts gets past these loops. Possible mild adynamic ileus. CT Interpretation Completed By: Radiologist - EKG 0124 Cardiac Rate: NL - 65 bpm EKG Rhythm: Sinus Rhythm EKG Interpretation: Poor R wave progression. No ST elevation. Re-Evaluation - Re-Evaluation First Eval Re-Evaluation Time: 04:34 Change: Improved Comment: Discussed lab, EKG and CT results with the pt. Abdominal Pain Fem Course/Dx - Course Course Of Treatment: Pt is a 76 y/o F who presents to ED c/o constant, sharp LLQ abd pain since this morning. Pain is mild at this moment, though at triage it was noted to be 8/10. Additionally c/o hematuria, chills and nausea. Hematuria described as "pink colored urine." Denies edema, fever, vomiting, dysuria, urine frequency and back pain. Is not on a blood thinner. PSHx 3 months ago she was admitted to [facility] [place] ED during which they treated diverticulitis and "cleaned out her stomach" and was in the ICU for 1 week, under sedation. Daughter reports that her current location of pain is where the painw as located prior to surgeries. EKG reveals no STEMI. WBC of 11.9. Abd/Pel CT findings outlined above. In the ED course, she received morphine, zofran and fluids. She will be D/C to home with Dx of abdominal pain and UTI with Rx for Cipro and Roxycodone. She understands and agrees. - Diagnoses Differential Diagnosis: Positive: Bowel Obstruction, Diverticulitis, Renal Colic , Urinary Tract Infection Provider Diagnoses: Abdominal pain, UTI (urinary tract infection) Discharge - Discharge Plan Condition: Stable Disposition: HOME Prescriptions: Ciprofloxacin TAB* [Cipro 500 MG TAB*] 500 mg PO BID #14 tab oxyCODONE TAB* [Roxycodone TAB 5 mg*] 5 mg PO Q6H PRN #20 tab MDD 4 PRN Reason: pain Patient Education Materials: Acute Abdominal Pain (ED), Urinary Tract Infection in Women (ED) Referrals: Campbell Cassidy MD [Primary Care Provider] - 3 Days The documentation as recorded by the Tay reich Rebecca accurately reflects the service I personally performed and the decisions made by , Mark Pierre MD.
--- NOTE | 2017-02-07 09:36 | RAD ---
Indication: Abdominal pain. Contrast: Administered 82.0 ml of VISIPAQUE 320 mgi/ml CT of the abdomen and pelvis was performed after oral and IV contrast administration. Coronal and sagittal reconstructed images were obtained. Lung bases demonstrate no pleural fluid, nodules or masses. Heart is of normal size without evidence of pericardial effusion. The liver is normal in size. There are prominent intrahepatic ducts and a prominent common duct likely due to postcholecystectomy state of the patient. The pancreas demonstrates no mass or pancreatic duct dilatation. The spleen is normal in size. A small amount of perihepatic ascites is noted. The kidneys demonstrate symmetric nephrograms without evidence of hydronephrosis. Atherosclerotic aorta is noted. Small amount of fluid is noted in the anterior wall at the incision just above the umbilicus midline. This may be a postsurgical incision. Moderately distended loops of small bowel in the left lower quadrant with suggestion of a zone of transition. There is contrast in the colon. This is nonspecific and may represent adynamic ileus or a partial small bowel obstruction. A small amount of free fluid is noted. The urinary bladder is otherwise unremarkable. IMPRESSION: 1. Ascites is noted. There is moderately distended loops of small bowel in the left mid abdomen which may represent adynamic ileus or a partial small bowel obstruction. 2. A small amount of fluid is noted at the incision site.
== END 2017-02-07 04:57 | disposition home or self-care (01) ==
LOC: ED 22:29
DX: N39.0 Urinary tract infection, site not specified (principal); R31.9 Hematuria, unspecified; R10.32 Left lower quadrant pain; I10 Essential (primary) hypertension; J44.9 Chronic obstructive pulmonary disease, unspecified; F41.9 Anxiety disorder, unspecified; Z85.41 Personal history of malignant neoplasm of cervix uteri; Z90.710 Acquired absence of both cervix and uterus; Z87.891 Personal history of nicotine dependence
CPT/HCPCS: 36415; 74177; 80053; 81003; 81015; 82150; 82550; 83605; 83690; 85025; 86140; 87086; 93005; 96361; 96374; 96375; 96376; 99283; J2270; J2405; Q9967

== ENCOUNTER 2018-07-28 10:01 | Inpatient (IN) | payer MEDICARE, OTHER ==
--- OUTSIDE RECORDS SUMMARY | 2018-07-28 10:06 | XMS REPORT | Continuity of Care Document ---
:1940 External Reference #:[id number] Author Name Gabino Weeks MD Address [address] [place] [address] Care Team Providers Name Role Phone Jennifer Pinto NP Care Team Information Panel Gluer Unavailable Payers Type Date Identification Numbers Payment Provider Subscriber Effective: Policy Number: [id number] Medicare - Bswny Umd Paulette Montero 2005 PayID: [id number] [address] [place] [address] Effective: 2016 Policy Number: [facility] Ariela Montero [id number] Comp Group Name: Plan F [address] PayID: [id number] ANDREW José [address] Advance Directives Description No Information Available Problems Date Description Provider Status Onset: 03/02/2017 Essential hypertension GISELLE Shaffer Active Onset: 03/02/2017 Anxiety state GISELLE Shaffer Active Onset: 03/02/2017 Low back pain GISELLE Shaffer Active Family History Description No Information Available Social History Type Date Description Comments Sex Unknown Marital Status Single Lives With Alone across street from daughter Allergies, Adverse Reactions, Alerts Description No Known Drug Allergies Medications Medication Date Status Form Strength Qnty SIG Indications Ordering Provider Sertraline HCL 07/02 Active Tablets 100mg 135ta take 1 and nt bs 1/2 tablets R. 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 Spiriva Handihaler Active Capsules 18mcg 90cap 1 capsule Josy s inhaled Rich, once daily DIETETIC INTERN-C Metoprolol Active Tablets 25mg 90tab 1 by mouth Gabino Tartrate / s every day MD Micky Hydrochlorothiazid Active Tablets 25mg 90tab 1 tab by Gabino e s mouth every Micky lyons MD Oxygen Active 3 liters Unknown Concentrator prn Wears at night Lorazepam Active Tablets 1mg 90tab Take One Mac s Tablet By Candy Rod Every M.D. 8 Hours as Needed For Anxiety. Maximum Daily Dose=3 Tablets Hydrocodone-Acetam Active Tablets 5-325mg 60tab Take One Gabino inophen s Tablet By Micky Benson MD 8 Hours as Needed Maximum Daily Dose=3 Tablets Duloxetine HCL 07/[address] 20mg 14cap 1 by mouth F33.1 rahul Part s every day Christina Mahan for 1 week, DIETETIC INTERN-C 07/19 the one by mouth every other day for 2 weeks then stop Fluoxetine HCL 05/17 Hx Capsules 40mg 30cap 1 by mouth F33.1 s every day Micky Vasquez MD 05/17 Ketoconazole 05/17 Hx Cream 2% 60gm 1 apply to B37.2 affected [place]derks - area every , Duloxetine HCL 05/[address] 40mg 30cap 1 tab by F33.1 Gabino Part s mouth every [place] - day , 07/02 Iron 02/04 Hx Tablets 325(65Fe) 30tab 1 by mouth E55.9 Gabino mg s every day [place] - for iron , 05/17 Vitamin D3 01/29 Hx Capsules 09516Nrnt 8caps 1 tab by E55.9 Gabino mouth every [place] - week , 05/17 Gabapentin 01/29 Hx Capsules 100mg 30cap take 1-2 G56.22 Gabino s capsules by [place] - mouth up to , 04/19 3 times a day Iron (Ferrous 01/29 Hx Tablets 256(28Fe) 30tab 1 tab by E55.9 Gabino Gluconate) /2017 mg s mouth every [place] - day , 02/04 Cipro 11/16 Hx Tablets 500mg 20tab Take 1 K57.32 s tablet by [place] - mouth every , 04/19 12 hours /2017 for 10 days for infection Metronidazole 11/16 Hx Tablets 500mg 30tab take 1 K57.32 s tablet by [place] - mouth 3 , 11/28 times day for 10 days for diverticuli tis Augmentin 07/04 Hx Tablets 875-125mg 10tab 1 take by Pascale Lloyd s mouth [place] - tablet , 11/21 every hours for 10 days for infection Prednisone 07/04 Hx Tablets 50mg 3tabs 1 tab by Javier44.1 Gabino mouth daily [place] - for 3 days , 04/19 Erythromycin 06/14 Hx Ointment 5mg/GM 3.500 apply a gm thin layer Rich, - in affected DIETETIC INTERN-C 11/21 eye twice a day Buspirone HCL 05/09 Hx Tablets 7.5mg 90tab take one Allen s tablet by Almond - mouth twice III, 04/19 a day DIETETIC INTERN-C /2018 Bupropion HCL 03/02 Hx Tablets 75 60tab 1 by mouth s daily Rich, - 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/17 once Buspirone HCL 03/02 Hx Tablets 5mg 180ta 1 tab by bs mouth twice Rich, - a day DIETETIC INTERN-C 05/09 Sertraline HCL Hx Tablets 150 Take 1 And Unknown / 1 2 Tablets - By Mouth 03/02 Once Daily Risperidone Hx Solution 1mg/ml monthly - 03/02 Proair HFA Hx Aerosol 108(90Bas 8.500 1-2 puffs e) gm every 6 Shortle, - mcg/Act hours as ELECTRICIAN APPRENTICE 02/28 Medications Administered in Office Medication Date Status Form Strength Qnty SIG Indications Ordering Provider Injection, Administered Injection Gabino Depo-Medrol 20 018 MG STEPH Weeks Immunizations CPT Code Status Date Vaccine Lot # [id number] Given 04/19/2018 Influenza Vaccine High Dose PF [id number] Given 01/18/2018 Prevnar-13 Pneumococcal Conjugate Vaccine [id number] Given 05/09/2017 Influenza Vaccine High Dose PF [id number] Vital Signs Date Vital Result Comment 07/19/2018 2:11pm Weight 176.00 lb Weight 79.834 kg BP Systolic 130 mmHg BP Diastolic 70 mmHg Heart Rate 54 /min Body Temperature 97.7 F Respiratory Rate 20 /min 06/21/2018 2:11pm BP Systolic 124 mmHg BP Diastolic 80 mmHg Heart Rate 82 /min Body Temperature 97.9 F Respiratory Rate 16 /min O2 % BldC Oximetry 96 % 05/17/2018 2:20pm Weight 174.00 lb Weight 78.926 kg BP Systolic 130 mmHg BP Diastolic 70 mmHg Heart Rate 70 /min Body Temperature 97.7 F Respiratory Rate 16 /min O2 % BldC Oximetry 93 % 04/19/2018 2:48pm Weight 172.00 lb Weight 78.019 kg BP Systolic 130 mmHg BP Diastolic 68 mmHg Heart Rate 68 /min Body Temperature 97.4 F Respiratory Rate 20 /min 01/29/2018 2:08pm Weight 173.00 lb Weight 78.473 kg BP Systolic 132 mmHg BP Diastolic 74 mmHg Heart Rate 72 /min Body Temperature 97.4 F Respiratory Rate 16 /min 01/18/2018 1:46pm Weight 170.00 lb Weight 77.112 kg BP Systolic 130 mmHg BP Diastolic 70 mmHg Heart Rate 68 /min Body Temperature 97.3 F Respiratory Rate 16 /min 12/17/2017 2:12pm Weight 168.00 lb Weight 76.205 kg BP Systolic 124 mmHg BP Diastolic 74 mmHg Heart Rate 62 /min Body Temperature 97.0 F Respiratory Rate 15 /min 11/28/2017 3:15pm Weight 168.00 lb Weight 76.205 kg BP Systolic 126 mmHg BP Diastolic 72 mmHg Heart Rate 76 /min Body Temperature 98.3 F Respiratory Rate 18 /min O2 % BldC Oximetry 95 % 11/21/2017 10:56am Weight 168.00 lb Weight 76.205 kg BP Systolic 107 mmHg BP Diastolic 49 mmHg Heart Rate 80 /min Body Temperature 98.7 F O2 % BldC Oximetry 97 % 11/16/2017 9:50am Weight 166.00 lb Weight 75.298 kg BP Systolic 152 mmHg BP Diastolic 78 mmHg Heart Rate 67 /min Body Temperature 97.1 F Respiratory Rate 20 /min O2 % BldC Oximetry 96 % 09/24/2017 1:49pm Weight 168.00 lb Weight 76.205 kg BP Systolic 118 mmHg BP Diastolic 68 mmHg Heart Rate 64 /min Body Temperature 97.1 F Respiratory Rate 15 /min O2 % BldC Oximetry 96 % 07/04/2017 3:17pm Weight 160.00 lb Weight 72.576 kg BP Systolic 115 mmHg BP Diastolic 50 mmHg Heart Rate 68 /min Body Temperature 98.5 F O2 % BldC Oximetry 92 % 06/14/2017 1:30pm Weight 163.00 lb Weight 73.937 kg BP Systolic 140 mmHg BP Diastolic 78 mmHg Heart Rate 64 /min Body Temperature 96.7 F Respiratory Rate 20 /min O2 % BldC Oximetry 96 % 05/09/2017 11:28am Weight 158.00 lb Weight 71.669 kg BP Systolic 130 mmHg BP Diastolic 62 mmHg Heart Rate 72 /min Body Temperature 97.4 F 04/11/2017 12:01pm Weight 156.00 lb Weight 70.762 kg BP Systolic 140 mmHg BP Diastolic 60 mmHg Heart Rate 64 /min Body Temperature 98.4 F 04/07/2017 11:11am Weight 158.00 lb Weight 71.669 kg BP Systolic 138 mmHg BP Diastolic 74 mmHg Heart Rate 73 /min Body Temperature 97.5 F Respiratory Rate 20 /min O2 % BldC Oximetry 97 % 03/02/2017 4:07pm Weight 156.00 lb Weight 70.762 kg BP Systolic 130 mmHg BP Diastolic 72 mmHg Heart Rate 68 /min Body Temperature 96.7 F Respiratory Rate 24 /min Height 60 inches 5'0" BMI (Body Mass Index) 30.5 kg/m2 Results Test Date Facility Test Result H/L Range Note Laboratory test In House Lab Fecal Hemoglobin Negative finding 8 [phone] - [facility] Laboratory test [facility] [place] Pylori Negative Negative 1 finding 8 [phone] Antigen- Stool CBC Auto Diff [facility] White Blood Count 7.7 10^3/uL N 3.5-10.8 8 [phone] Red Blood Count 4.23 10^6/uL N 4.00-5.40 Hemoglobin 10.6 g/dL Low 12.0-16.0 Hematocrit 33 % Low 35-47 Mean Corpuscular Volume 79 fL Low 80-97 Mean Corpuscular Hemoglobin 25 pg Low 27-31 Mean Corpuscular HGB Conc 32 g/dL N 31-36 Red Cell Distribution Width 15 % N 10.5-15 Platelet Count 273 10^3/uL N 150-450 Mean Platelet Volume 9.4 um3 N 7.4-10.4 Abs Neutrophils 5.6 10^3/uL N 1.5-7.7 Abs Lymphocytes 1.0 10^3/uL N 1.0-4.8 Abs Monocytes 0.8 10^3/uL N 0-0.8 Abs Eosinophils 0.2 10^3/uL N 0-0.6 Abs Basophils 0.1 10^3/uL N 0-0.2 Abs Nucleated RBC 0 10^3/uL Granulocyte % 72.8 % N 38-83 Lymphocyte % 13.4 % Low 25-47 Monocyte % 10.8 % High 0-7 Eosinophil % 2.3 % N 0-6 Basophil % 0.7 % N 0-2 Nucleated Red Blood Cells % 0 Comp Metabolic 01/18/2018 [facility] Sodium 134 mmol/ L Low 135-145 Panel [phone] Potassium 4.4 mmol/L N 3.5-5.0 Chloride 96 mmol/L Low 101-111 Co2 Carbon Dioxide 32 mmol/L N 22-32 Anion Gap 6 mmol/L N 2-11 Glucose 88 mg/dL N 70-100 Blood Urea Nitrogen 15 mg/dL N 6-24 Creatinine 0.79 mg/dL N 0.51-0.95 BUN/Creatinine Ratio 19.0 N 8-20 Calcium 9.5 mg/dL N 8.6-10.3 Total Protein 6.8 g/dL N 6.4-8.9 Albumin 3.8 g/dL N 3.2-5.2 Globulin 3.0 g/dL N 2-4 Albumin/Globulin Ratio 1.3 N 1-3 Total Bilirubin 0.40 mg/dL N 0.2-1.0 Alkaline Phosphatase 156 U/L High 34-104 Alt 11 U/L N 7-52 Ast 17 U/L N 13-39 Egfr Non- 70.6 >60 Egfr 85.4 >60 2 Laboratory test 01/18/2018 [facility] Vitamin B12 359 pg/mL N 180-914 3 finding [phone] TSH (Thyroid Stim Horm) 2.15 mcIU/mL N 0.34-5.60 4 Folic Acid (Folate) 15.23 ng/mL >3.99 5 Vitamin D Total 25(Oh) 17.4 ng/mL Low 20-50 6 Lyme Disease Serology Negative Negative 7 CBC Auto Diff 11/28/2017 [facility] White Blood 7.6 10^3/uL N 3.5-10.8 [phone] Count Red Blood Count 4.45 10^6/uL N 4.0-5.4 Hemoglobin 11.0 g/dL Low 12.0-16.0 Hematocrit 35 % N 35-47 Mean Corpuscular Volume 79 fL Low 80-97 Mean Corpuscular Hemoglobin 25 pg Low 27-31 Mean Corpuscular HGB Conc 32 g/dL N 31-36 Red Cell Distribution Width 16 % High 10.5-15 Platelet Count 296 10^3/uL N 150-450 Mean Platelet Volume 9.7 um3 N 7.4-10.4 Abs Neutrophils 5.2 10^3/uL N 1.5-7.7 Abs Lymphocytes 1.4 10^3/uL N 1.0-4.8 Abs Monocytes 0.8 10^3/uL N 0-0.8 Abs Eosinophils 0.1 10^3/uL N 0-0.6 Abs Basophils 0.1 10^3/uL N 0-0.2 Abs Nucleated RBC 0 10^3/uL Granulocyte % 68.8 % N 38-83 Lymphocyte % 18.5 % Low 25-47 Monocyte % 10.0 % High 0-7 Eosinophil % 1.8 % N 0-6 Basophil % 0.9 % N 0-2 Nucleated Red Blood Cells % 0.1 Laboratory test 11/28/2017 [facility] C Reactive 1.12 mg/L N < 5.00 8 finding [phone] Protein CBC Auto Diff 06/14/2017 [facility] White Blood 8.1 N 3.5-10.8 [phone] Count 10^3/uL Red Blood Count 4.05 10^6/uL N 4.0-5.4 Hemoglobin 10.2 g/dL Low 12.0-16.0 Hematocrit 32 % Low 35-47 Mean Corpuscular Volume 80 fL N 80-97 Mean Corpuscular Hemoglobin 25 pg Low 27-31 Mean Corpuscular HGB Conc 31 g/dL N 31-36 Red Cell Distribution Width 15 % N 10.5-15 Platelet Count 312 10^3/uL N 150-450 Mean Platelet Volume 10 um3 N 7.4-10.4 Abs Neutrophils 5.1 10^3/uL N 1.5-7.7 Abs Lymphocytes 1.9 10^3/uL N 1.0-4.8 Abs Monocytes 0.8 10^3/uL N 0-0.8 Abs Eosinophils 0.3 10^3/uL N 0-0.6 Abs Basophils 0.1 10^3/uL N 0-0.2 Abs Nucleated RBC 0 10^3/uL Granulocyte % 62.7 % N 38-83 Lymphocyte % 23.0 % Low 25-47 Monocyte % 9.8 % High 1-9 Eosinophil % 3.7 % N 0-6 Basophil % 0.8 % N 0-2 Nucleated Red Blood Cells % 0.1 Comp Metabolic 06/14/2017 [facility] Sodium 129 mmol/ L Low 133-145 Panel [phone] Potassium 4.6 mmol/L N 3.5-5.0 Chloride 92 mmol/L Low 101-111 Co2 Carbon Dioxide 31 mmol/L N 22-32 Anion Gap 6 mmol/L N 2-11 Glucose 92 mg/dL N 70-100 Blood Urea Nitrogen 20 mg/dL N 6-24 Creatinine 0.87 mg/dL N 0.51-0.95 BUN/Creatinine Ratio 23.0 High 8-20 Calcium 9.9 mg/dL N 8.6-10.3 Total Protein 6.8 g/dL N 6.4-8.9 Albumin 4.0 g/dL N 3.2-5.2 Globulin 2.8 g/dL N 2-4 Albumin/Globulin Ratio 1.4 N 1-3 Total Bilirubin 0.40 mg/dL N 0.2-1.0 Alkaline Phosphatase 168 U/L High 34-104 Alt 11 U/L N 7-52 Ast 18 U/L N 13-39 Egfr Non- 63.3 >60 Egfr 81.4 >60 9 Lipid Profile 06/14/2017 [facility] Triglycerides 253 mg/dL 10 (Trig/Chol/HDL) [phone] Cholesterol 258 mg/dL 11 HDL Cholesterol 84.9 mg/dL 12 LDL Cholesterol 123 mg/dL 13 Urine DIP 04/07/2017 In House Lab Leukocytes NEG Neg (607)- - Urine Nitrites NEG Neg Urobilinogen NORM Norm Total Protein, Urine NEG Neg Urine pH 7 High 5-6 Urine Blood NEG Neg Specific [place] 1.01 1.01-1.02 Urine Ketones NEG Neg Urine Bilirubin NEG Neg Urine Glucose NORM Norm 1 Test Performed by: [facility] - [address] [address] 2 Because ethnic data is not always readily available, this report includes an eGFR for both -Americans and non- Americans. The National Kidney Disease Education Program (NKDEP) does not endorse the use of the MDRD equation for patients that are not between the ages of 18 and 70, are , have extremes of body size, muscle mass, or nutritional status, or are non- or non-. According to the National Kidney Foundation, irrespective of diagnosis, the stage of the disease is based on the level of kidney function: Stage Description GFR(mL/min/1.73 m(2)) 1 Kidney damage with normal or decreased GFR 90 2 Kidney damage with mild decrease in GFR 60-89 3 Moderate decrease in GFR 30-59 4 Severe decrease in GFR 15-29 5 Kidney failure <15 (or dialysis) 3 Normal Range 180 to 914 Indeterminate Range 145 to 180 Deficient Range <145 4 [id number] 5 [id number] 6 [id number] 7 No evidence of antibodies to B. burgdorferi detected. False negative results may occur in recently infected patients (<=2 weeks) due to low or undetectable antibody levels to B. burgdorferi. If recent exposure is suspected, a second sample should be collected and tested in 2-4 weeks. Test Performed by: [facility] [address] [place] [address] 8 Acute inflammation: >10.00 9 Because ethnic data is not always readily available, this report includes an eGFR for both -Americans and non- Americans. The National Kidney Disease Education Program (NKDEP) does not endorse the use of the MDRD equation for patients that are not between the ages of 18 and 70, are , have extremes of body size, muscle mass, or nutritional status, or are non- or non-. According to the National Kidney Foundation, irrespective of diagnosis, the stage of the disease is based on the level of kidney function: Stage Description GFR(mL/min/1.73 m(2)) 1 Kidney damage with normal or decreased GFR 90 2 Kidney damage with mild decrease in GFR 60-89 3 Moderate decrease in GFR 30-59 4 Severe decrease in GFR 15-29 5 Kidney failure <15 (or dialysis) 10 Desirable: <150 Borderline High: 150-199 High: 200-499 Very High: >500 11 Desirable: <200 Borderline High: 200-239 High: >239 12 Low: <40 Desirable: 40-60 High: >60 13 Desirable: <100 Near Optimal: 100-129 Borderline High: 130-159 High: 160-189 Very High: >189 Procedures Date Code Description Status 04/19/201868033 Inj Of Tendon Sheath,Or Ligament, Aponeurosis Completed 07/16/2015 [id number] Colonoscopy Completed Encounters Type Date Location Provider Dx Diagnosis Office Visit 06/21/2018 Main Office Gabino Weeks F33.1 Major depressive 2:15p disorder, recurrent, moderate Office Visit 05/17/2018 Main Office Gabino Weeks F33.1 Major depressive 2:15p disorder, recurrent, moderate B37.2 Candidiasis of skin and nail R06.83 Snoring J44.1 Chronic obstructive pulmonary disease w (acute) exacerbation K30 Functional dyspepsia Office Visit 04/19/2018 2:30p Main Office Gabino Weeks M65.331 Trigger finger, MD right middle finger F41.9 Anxiety disorder, unspecified G47.00 Insomnia, unspecified Z23 Encounter for immunization Office Visit 01/29/2018 2:00p Main Office Gabino Weeks E55.9 Vitamin D MD deficiency, unspecified G56.22 Lesion of ulnar nerve, left upper limb Office Visit 01/18/2018 1:45p Main Office Gabino Weeks MD R53.83 Other fatigue M25.522 Pain in left elbow Z23 Encounter for immunization Office Visit 12/17/2017 2:15p Main Office Gabino Weeks G56.22 Lesion of ulnar MD nerve, left upper limb Office Visit 11/28/2017 3:00p Main Office Gabino Weeks K57.32 Dvtrcli of lexy montes MD w/o perforation or abscess w/o bleeding Office Visit 11/21/2017 10:45a Main Office Gabino Weeks K57.32 Dvtrcli of lexy montes MD w/o perforation or abscess w/o bleeding R05 Cough Office Visit 11/16/2017 9:45a Main Office Gabino Weeks K57.32 Dvtrcli of lexy montes MD w/o perforation or abscess w/o bleeding Office Visit 09/24/2017 1:45p Main Office Jennifer Pinto 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, ELECTRICIAN APPRENTICE unspecified finger G56.03 Carpal tunnel syndrome, bilateral upper limbs Office Visit 07/04/2017 3:15p Main Office Gabino Weeks MD R05 Cough J44.1 Chronic obstructive pulmonary disease w (acute) exacerbation Office Visit 06/14/2017 1:30p Main Office Josy Villanueva, Z00.00 Encntr for DIETETIC INTERN-C general adult medical exam w/o abnormal findings I10 Essential (primary) hypertension M54.5 Low back pain Office Visit 05/09/2017 11:15a Main Office Josy Villanueva, F41.9 Anxiety disorder, DIETETIC INTERN-C unspecified M54.5 Low back pain Z23 Encounter for immunization Office Visit 04/11/2017 11:45a Main Office Mac Rod, R10.32 Left lower quadrant M.D. pain Office Visit 04/07/2017 11:15a Main Office Mac Rod, R10.32 Left lower quadrant M.D. pain Office Visit 03/02/2017 4:00p Main Office Josy Villanueva, I10 Essential ( primary) DIETETIC INTERN-C hypertension F41.9 Anxiety disorder, unspecified M54.5 Low back pain M25.552 Pain in left hip Plan of Treatment 07/19/2018 - Gabino Weeks MDF33.1 Major depressive disorder, recurrent, moderateComments:2 weeks into the switch from duloxetine to sertraline and things are already improving. I think it is too soon to start changing things, the likelihood is that she will do even better by the time she gets up to full effectiveness in the next several weeks.We will rediscuss increasing the dosage at that time if necessary.
[2018-07-28] MEDS ORDERED: Morphine VIAL* 4 MG/ML VIAL (1 ml vial) IV ONE ×2 (10:13→10:43)
[2018-07-28] MEDS ORDERED: NS 0.9% 1000 ML** 1,000 ML IV ONE (10:13)
[2018-07-28] MEDS ORDERED: Ondansetron INJ* 2 MG/ML VIAL IV ONE ×2 (10:13→10:26)
--- NOTE | 2018-07-28 10:13 | ED ---
Abdominal Pain/Female - HPI Summary HPI Summary: A 77 y/o F presents to ED with c/o intermittent, upper abd pain onset this AM approx 0800. Patient was at baseline last night and woke with pain this morning. The pain radiates to her back but not her shoulders. Associated sx: nausea. Denies: dizziness, CP, diarrhea. She has had 3 previous abd surgeries including: , hysterectomy, and most recently for diverticulitis/sepsis [place] [address] Roca, surgery. When she had the surgery due to the sepsis infection, her family says she had similar sx and was behaving similarly as today. Spoke with daughter, patient does is not DNR/DNI. - History of Current Complaint Stated Complaint: ABD PAIN Time Seen by Provider: 07/28/18 10:05 Hx Obtained From: Patient, Family/Classified Advertising Clerk - daughter, Medical Records Onset/Duration: Sudden Onset, Lasting Hours, Still Present Timing: Intermittent Episode Lasting Severity Initially: Severe Severity Currently: Severe Pain Intensity: 10 Pain Scale Used: 0-10 Numeric Location: Discrete At: RUQ, Discrete At: LUQ Radiates: Yes Radiates to: Back Character: Other: - aching, radiating, sharp, throbbing, tight Associated Signs and Symptoms: Positive: Nausea. Negative: Chest Pain, Dizzy, Diarrhea Allergies/Adverse Reactions: Allergies Allergy/AdvReac Type Severity Reaction Status Date / Time doxycycline AdvReac Intermediate Nausea Verified 07/28/18 10:42 Home Medications: Home Medications Meloxicam [Mobic] 15 mg PO DAILY 07/28/18 [History Confirmed 07/28/18] Omeprazole 20 mg PO DAILY 07/28/18 [History Confirmed 07/28/18] Sertraline* [Zoloft*] 100 mg PO DAILY 07/28/18 [History Confirmed 07/28/18] rOPINIRole TAB* [Requip TAB*] 1 mg PO DAILY 07/28/18 [History Confirmed 07/28/18 ] PMH/Surg Hx/FS Hx/Imm Hx Previously Healthy: No Endocrine/Hematology History: Denies: Hx Diabetes Cardiovascular History: Reports: Hx Hypertension Denies: Hx Pacemaker/ICD Respiratory History: Reports: Hx Chronic Obstructive Pulmonary Disease (COPD) GI History: Reports: Hx Diverticulosis, Other GI Disorders - frequent diarrhea History: Reports: Other Problems/Disorders - urinary incontinence Denies: Hx Renal Disease Musculoskeletal History: Reports: Hx Arthritis, Hx Back Problems - chronic pain Sensory History: Reports: Hx Contacts or Glasses Denies: Hx Hearing Aid Opthamlomology History: Reports: Hx Contacts or Glasses Neurological History: Reports: Hx Headaches, Other Neuro Impairments/Disorders - pain clinic patient Psychiatric History: Reports: Hx Anxiety Denies: Hx Panic Disorder - Cancer History Cancer Type, Location and Year: cervical cancer Hx Chemotherapy: Yes Hx Radiation Therapy: Yes - Surgical History Surgery Procedure, Year, and Place: hysterectomy 1979c-section 1975. left hip 07/2014, Abdominal surgery 11/2016. CATARACT BILATERAL EYES 2013 Hx Anesthesia Reactions: No - Immunization History Date of Tetanus Vaccine: unk Date of Influenza Vaccine: utd Infectious Disease History: Denies: Traveled Outside the [place] in Last 30 Days - Family History Known Family History: Positive: Hypertension - Social History Occupation: Retired Lives: With Family Alcohol Use: None Hx Substance Use: No Substance Use Type: Reports: None Hx Tobacco Use: Yes Smoking Status (MU): Former Smoker Type: eCigarettes Review of Systems Negative: Chest Pain Positive: Abdominal Pain, Nausea. Negative: Diarrhea Neurological: Other - neg: dizziness All Other Systems Reviewed And Are Negative: Yes Physical Exam - Summary Physical Exam Summary: VITAL SIGNS: Reviewed. GENERAL: Patient is a well-developed elderly female who is in acute distress secondary to pain. Patient is not in any acute respiratory distress. HEAD AND FACE: Normocephalic and atraumatic. EYES: PERRLA, EOMI x 2, No injected conjunctiva. EARS: Hearing grossly intact. Ear canals and tympanic membranes are WNL. MOUTH: Dry oral mucosa. NECK: Supple, trachea is midline, no adenopathy, no JVD. CHEST: Symmetric, no tenderness at palpation LUNGS: Clear to auscultation bilaterally. No wheezing or crackles. CVS: RRR, S1 and S2 present, no murmurs or gallops appreciated. ABDOMEN: Soft. Diffuse abd tenderness, increased in RUQ. No signs of distention. Positive bowel sounds. No rebound, no guarding, and no masses palpated. No abdominal bruit or pulsations. EXTREMITIES: FROM in all major joints, no edema, no cyanosis or clubbing. NEURO: Alert and oriented x 3. No acute neurological deficits. Speech is normal. SKIN: Dry and warm Triage Information Reviewed: Yes Vital Signs Reviewed: Yes Diagnostics - Laboratory Result Diagrams: 07/29/18 05:30 07/29/18 05:30 Lab Statement: Any lab studies that have been ordered have been reviewed, and results considered in the medical decision making process. - Radiology ABD/KUB Radiology Interpretation Completed By: Radiologist Summary of Radiographic Findings: IMPRESSION: 1. No pneumoperitoneum. 2. Paucity of bowel gas. 3. Surgical clips in the mid and lower abdomen. ED provider has reviewed this report. - CT A/P CT CT Interpretation Completed By: Radiologist Summary of CT Findings: IMPRESSION: 1. High suspicion for ischemic bowel in the presence of long segment circumferential jejunal wall thickening; suspected trace pneumatosis and portal venous gas; small volume ascites; and extensive calcified atherosclerotic plaque along the abdominal aorta. 2. Diverticulosis with no secondary signs of inflammation. 3. Status post cholecystectomy. 4. Status post hysterectomy. ED provider has reviewed this report. CTA CT Interpretation Completed By: Radiologist Summary of CT Findings: ABDOMINAL CTA COMPONENT: 1. Extensive atherosclerotic disease as above with no hemodynamically significant stenosis or intra-arterial thrombosis. ED provider has reviewed this report. - EKG 10:17 Cardiac Rate: NL - 62 bpm EKG Rhythm: Sinus Rhythm ST Segment: Normal - no ST elevation EKG Comparison: No Significant Change - from 02/07/17 Re-Evaluation - Re-Evaluation 1 Re-Evaluation Time: 11:50 Change: Improved Comment: Discussing Dr. Villalobos, surgery's, recommendation for abd CTA with pt. Pt says her pain has significantly improved, rated as 2 out of 10. She has already completed her CT and is requesting to wait on the CTA for now. 2 Re-Evaluation Time: 12:21 Change: Unchanged Comment: Discussed benefits and risks of CTA. Pt and daughter are agreeable to CTA at this time. Abdominal Pain Fem Course/Dx - Course Course Of Treatment: A 77 y/o F presents to ED with c/o intermittent, upper abd pain onset this AM approx 0800. Patient was at baseline last night and woke with pain this morning. The pain radiates to her back but not her shoulders. Associated sx: nausea. She has had 3 previous abd surgeries including: , hysterectomy, and most recently for diverticulitis/sepsis in 2017. When she had the surgery due to the sepsis infection, her family says she had similar sx and was behaving similarly as today. Spoke with daughter, patient does is not DNR/DNI. Patient seems to be in significant pain therefore the patient was given morphine for pain and Zofran for nausea and vomiting. Patient continued to have nausea and vomiting therefore the patient was given a second dose of Zofran and a second dose of morphine. Blood work without any significant abnormality except for potassium level III.3 chloride 97, creatinine is 1.38 and a estimated GFR 37.1. Therefore, I cannot perform a CTA of the abdomen to rule out any type of mesenteric ischemia. Glucose is 167, alkaline phosphatase is 188. Abdominal x-ray was performed to rule out any hair on to the diaphragm and he shows no pneumoperitoneum. Patient has a cholecystectomy therefore I have no suspicion for cholecystitis or cholangitis. I will perform a CT abdomen and pelvis without contrast also will consult with surgery. Abdominal and pelvic CT IMPRESSION: 1. High suspicion for ischemic bowel in the presence of long segment circumferential. jejunal wall thickening; suspected trace pneumatosis and portal venous gas; small volume. ascites; and extensive calcified atherosclerotic plaque along the abdominal aorta. 2. Diverticulosis with no secondary signs of inflammation. 3. Status post cholecystectomy. 4. Status post hysterectomy. In the ED course the patient was given IV fluids, Zofran and for nausea vomiting, morphine and fentanyl for the pain. After the patient was given fentanyl symptoms improved. However after half an hour the pain returned. Therefore, I believe that I need to rule out mesenteric ischemia. Therefore at this time I discussed my physical exam, findings and benefits and risks of doing a CT with and IV contrast. The patient understands the risks and benefits and accepts to do CTA. Before the CTA was read by radiology Dr. Villalobos from surgery came and examined the patient. She reports that she thinks that the patient has an ischemic bowel and she will have to take the patient to the OR. the patient understands and agrees. Patient is hemolyticus stable at this point. The patient was given Zosyn. Patient was admitted to Dr. Villalobos services. - Diagnoses Differential Diagnosis: Positive: Appendicitis, Bowel Obstruction, Constipation , Diverticulitis, Irritable Bowel Syndrome, Pelvic Inflammatory Disease, Urinary Tract Infection, Other - Mesenteric Ischemia Provider Diagnoses: Abdominal pain, acute - Provider Notifications Discussed Care Of Patient With: Lisa Villalobos - surgery Time Discussed With Above Provider: 11:44 Instructed by Provider To: Other - Recommends abd CTA with patient approval - Critical Care Time Critical Care Time: 30-74 min Discharge - Sign-Out/Discharge Documenting (check all that apply): Patient Departure - ADMIT to OR - Discharge Plan Condition: Stable Disposition: ADMITTED TO [facility] - Billing Disposition and Condition Condition: STABLE Disposition: Admitted to [facility] - Attestation Statements Document Initiated by Scribe: Yes Documenting Scribe: Vasile Duran Provider For Whom Scribe is Documenting (Include Credential): Dr. Daniel Weiss MD Scribe Attestation: I, Vasile Duran, scribed for Dr. Daniel Weiss MD on 07/29/18 at 0955. Scribe Documentation Reviewed: Yes Provider Attestation: The documentation as recorded by the scribe, Vasile Duran accurately reflects the service I personally performed and the decisions made by me, Dr. Daniel Weiss MD Status of Scribe Document: Viewed Consult Consult: 1218: Consult with Dr. Bowman, radiology Discussing A/P CT impression, showing ascites and jejunum wall thickening, cannot rule out ischemia. 1347: Consult with Dr. Villalobos, surgery Reviewed CTA images, will talk to patient about taking to OR now. Pt agreeable to surgery.
[2018-07-28 10:32] LABS: ABS Basophils 0.1 10^3/ul (0-0.2); ABS Eosinophils 0.4 10^3/ul (0-0.6); ABS Lymphocytes 2.5 10^3/ul (1.0-4.8); ABS Neutrophils 6.7 10^3/ul (1.5-7.7); ABS Nucleated RBC 0 10^3/ul; Eosinophil % 3.9 %; Hematocrit 44 % (35-47); Hemoglobin 14.3 g/dl (12.0-16.0); Lymphocyte % 23.5 %; Mean Corpuscular HGB Conc 32 g/dl (31-36); Mean Corpuscular Hemoglobin 28 pg (27-31); Mean Corpuscular Volume 88 fL (80-97); Mean Platelet Volume 9.6 fL (7.4-10.4); Nucleated Red Blood Cells % 0.1; Platelet Count 307 10^3/ul (150-450); Red Blood Count 5.03 10^6/ul (4.00-5.40); Red Cell Distribution Width 13 % (10.5-15); White Blood Count 10.8 10^3/ul (3.5-10.8)
[2018-07-28 10:40] LABS: Activated Partial Thrombo Time 28.7 seconds (26.0-36.3); INR 0.76 (0.77-1.02)
[2018-07-28] MEDS ORDERED: Morphine VIAL* 4 MG/ML VIAL (1 ml vial) ONE ×2 (10:45→19:06)
[2018-07-28 10:49] LABS: Albumin 4.1 g/dL (3.2-5.2); Albumin/Globulin Ratio 1.5 (1-3); BUN/Creatinine Ratio 16.7 (8-20); C Reactive Protein 4.62 mg/L (<8.01); Calcium 9.9 mg/dL (8.6-10.3); EGFR African American 44.9 (>60); EGFR Non-African American 37.1 (>60); Globulin 2.8 g/dL (2-4); Magnesium 2.2 mg/dL (1.9-2.7); Potassium 3.3 mmol/L (3.5-5.0); Total Bilirubin 0.4 mg/dL (0.2-1.0); Total Protein 6.9 g/dL (6.4-8.9)
[2018-07-28 10:50] LABS: Troponin I 0.01 ng/mL (<0.04)
[2018-07-28] MEDS ORDERED: Iodixanol* (CONTRAST) 320 MG/ML 100 ML SDV IV ONE (10:53)
[2018-07-28] MEDS ORDERED: fentaNYL* 50 MCG/ML 2 ML VIAL (100 MCG VIAL) IV SLOW PU ONE ×2 (11:26→12:28)
[2018-07-28] MEDS ORDERED: Iodixanol 320 (CONTRAST) 100 ML SDV IV ONE (12:51)
[2018-07-28] MEDS ORDERED: Piperacillin/Tazobac ADVAN(*) 3.375 GM in NS 0.9% 100 ML* 100 ML IVPB ONE (14:17)
[2018-07-28] MEDS ORDERED: Clindamycin 900 MG/D5W BAG(*) 900 MG/50 ML BAG IVPB ONE (14:51)
[2018-07-28] MEDS ORDERED: Rocuronium* 10 MG/ML VIAL ONE ×2 (14:59→16:36)
[2018-07-28] MEDS ORDERED: fentaNYL* 50 MCG/ML 5 ML VIAL (250 MCG VIAL) ONE (14:59)
[2018-07-28] MEDS ORDERED: Bupivacaine 0.25% W/EPI* 10 ML SDV ONE (15:23)
[2018-07-28] MEDS ORDERED: GENTAMICIN ADULT IVPB ONE (15:30)
[2018-07-28] MEDS ORDERED: NS 0.9% IVPB ONE (15:30)
[2018-07-28] MEDS ORDERED: Phenylephrine INJ* 10 MG/ML 1 ML VIAL (10 MG) ONE (16:15)
[2018-07-28] MEDS ORDERED: Lidocaine 2% PF * 5 ML VIAL ONE (16:15)
[2018-07-28] MEDS ORDERED: Etomidate* 2 MG/ML 10 ML VIAL ONE (16:16)
[2018-07-28] MEDS ORDERED: Levalbuterol HFA INHALER* 1 PUFF MDI ONE (16:16)
[2018-07-28] MEDS ORDERED: Succinylcholine* 20 MG/ML 10 ML VIAL ONE (16:16)
[2018-07-28] MEDS ORDERED: Propofol* 10 MG/ML 20 ML BTL ONE (16:16)
[2018-07-28] MEDS ORDERED: EPHEDrine (Pressors)* 50 MG/ML VIAL ONE (16:58)
[2018-07-28] MEDS ORDERED: Sugammadex * 200 MG/2 ML VIAL IV PUSH ONE (17:16)
[2018-07-28] MEDS ORDERED: Midazolam* 1 MG/ML 2 ML VIAL (2 MG) ONE (17:29)
[2018-07-28] MEDS ORDERED: Morphine VIAL* 4 MG/ML VIAL (1 ml vial) IV PRN (17:49)
[2018-07-28] MEDS ORDERED: Acetaminophen IV 1GM/100ML * 1,000 MG/100 ML VIAL IVPB ONE (17:49)
[2018-07-28] MEDS ORDERED: Naloxone* 0.4 MG/ML 1 ML VIAL IV PRN (17:49)
[2018-07-28] MEDS ORDERED: DiMENhydriNATE IV* 50 MG/ML VIAL IV PUSH PRN (17:49)
[2018-07-28] MEDS ORDERED: fentaNYL* 50 MCG/ML 2 ML VIAL (100 MCG VIAL) IV PRN (17:49)
[2018-07-28] MEDS ORDERED: HYDROmorphone INJ* 2 MG/ML CARPUJECT SYRINGE IV PRN (17:53)
[2018-07-28] MEDS ORDERED: Ketorolac INJ* 15 MG/ML 1 ML VIAL IV PUSH PRN (17:53)
[2018-07-28] MEDS ORDERED: Ibuprofen TAB* 600 MG PO PRN (17:53)
[2018-07-28] MEDS ORDERED: Acetaminophen IV 1GM/100ML * 100 ML ONE (17:55)
[2018-07-28] MEDS ORDERED: fentaNYL* 50 MCG/ML 2 ML VIAL (100 MCG VIAL) ONE ×2 (17:55→18:14)
[2018-07-28] MEDS ORDERED: NS 0.9% 1000 ML** 1,000 ML IV SCH (18:00)
--- NOTE | 2018-07-28 18:57 | HP ---
HISTORY AND PHYSICAL: DATE OF ADMISSION: 07/28/18 SERVICE: General Surgery. ATTENDING SURGEON: Dr. Lisa Villalobos. ADMISSION DIAGNOSIS: Diffuse abdominal pain, possible ischemic bowel. HISTORY OF PRESENT ILLNESS: Ms. Montero is a 77-year-old female with a complicated past surgical history, who presents to the emergency room with acute onset diffuse abdominal pain that started this morning around 9 a.m. The patient notes that she was in her normal state of health yesterday without any abdominal pain, and was tolerating a regular diet. However, when she woke up this morning, she suddenly had acute abdominal pain. There was nothing that she could do to alleviate or exacerbate it. Per her family members she has had intermittent abdominal pain in similar nature but not as severe. They do not recall if it is post prandial in nature and she has not had significant weight loss. The pain was so severe that she was brought to the emergency room by her family for further evaluation. The patient notes that she has not had any fevers at home. She has a notable past surgical history which is as follows--s he was seen in 2017 at [facility] where at that time she had presented after a recent colonoscopy had been done for what was presumed to be gastroenteritis and diarrhea. The next day she had diffuse abdominal pain, elevated white counts over 30,000 and a finding from CT scan concerning for possible sigmoid perforation with sigmoid colon mesenteric stranding. She was taken to the operating room by Dr. Roca who noted in his operative report that there was a large amount of turbid fluid throughout the abdomen as well as adhesions, but there was no definitive enterotomy. During that operative procedure, she became hemodynamically unstable, so her abdomen was left open and she was taken to the ICU for further resuscitation. She was brought back to the operating room a second time for exploration and at that time it was noted that her gallbladder looked edematous and possibly ischemic, so it was removed. Then, she was brought back a third time where a final exploration showed that there was no definitive enterotomy, so her abdomen was closed at that time and she eventually was able to leave the hospital after a period of in patient care and rehabilitation. Since then, the patient says that she has been doing well and she has no further issues other than the chronic intermittent abdominal pain. Her bowel movements are typically normal. On initial examination in the emergency room, the patient was noted to be afebrile, slightly tachycardic; however, her white count was normal and her lactic acid was normal. She had an elevated creatinine, so a CT abdomen and pelvis noncontrast was ordered, which showed that she did have mild ascites throughout her abdomen and around the segment of thickened appearing jejunum with possible portal venous gas and possible pneumatosis. Given the concern that she may have mesenteric ischemia, given her history and the severe atherosclerotic disease present on her CT scan, a CTA of the abdomen was also ordered. The final report is not up, but on reviewing this with the radiologist , there is no apparent occlusion or significant stenosis in the mesenteric vasculature. PAST MEDICAL HISTORY: Hypertension; COPD, on 3 L of oxygen intermittently at home; osteoarthritis; chronic pain; diverticulosis; cervical cancer; previous wrist fracture. PAST SURGICAL HISTORY: , 1975; total abdominal hysterectomy for cervical cancer, 1979; left hip replacement in July 2014; 3 exploratory laparotomies in 2016 with cholecystectomy at that time; and repair of left wrist fracture in 2016. MEDICATIONS: 1. Omeprazole 20 mg p.o. daily. 2. Sertraline 100 mg p.o. daily. 3. Ropinirole 1 mg p.o. daily. ALLERGIES: DOXYCYCLINE. SOCIAL HISTORY: The patient is a former smoker. She lives with her daughter. REVIEW OF SYSTEMS: Negative except for as stated in the HPI. PHYSICAL EXAMINATION GENERAL: This is an elderly female, obese, lying very uncomfortably in bed, rolling around in discomfort and moaning. VITAL SIGNS: Temperature is 98.3, pulse is 100, respiratory rate is 23, O2 sat is 96% O2 on 3 L nasal cannula, blood pressure is 116/45. HEENT: Normocephalic, atraumatic. RESPIRATORY: There is no increased work of breathing. ABDOMEN: Obese. Well-healed midline incision. She has diffuse abdominal tenderness throughout her abdomen without rebound. EXTREMITIES: No edema. DIAGNOSTIC STUDIES/LAB DATA: White blood cell count is 10.8, hemoglobin is 14.3, hematocrit is 44, platelets 307,000. INR is 0.76. Sodium is 136, potassium is 3.3, chloride is 97, anion gap is 9, BUN of 23, creatinine is 1.38 , glucose is 167, lactic acid is less than 0.3. Alkaline phosphatase is 188. The remainder of her LFTs are normal. Troponin is 0.01. Radiology: CT abdomen and pelvis without contrast shows high suspicion for ischemic bowel in the presence of long segment circumferential jejunal thickening, suspected trace pneumatosis and portal venous gas, small volume ascites and extensive calcified atherosclerotic plaque along the abdominal aorta , diverticulosis with no secondary signs of inflammation, status post cholecystectomy. CTA abdomen and pelvis: No final reports; however, this was reviewed with the radiologist and there is no apparent occlusion to her mesenteric vessels or mesenteric vein thrombosis. ASSESSMENT AND PLAN: Ms. Montero is a 77-year-old female with a history of chronic obstructive pulmonary disease and a complex past surgical history in which she underwent 3 abdominal explorations with an open abdomen in 2017 for diffuse abdominal pain and leukocytosis after a colonoscopy, at which time there was no apparent enterotomy or injury that had been identified. The thought was that she had some sort of intraabdominal sepsis or translocation of bacteria during the colonoscopy that had caused intraabdominal sepsis. Today, the patient presents with also diffuse abdominal pain but a fairly soft abdomen , but no leukocytosis, no fevers, no elevated lactate, but on imaging it appears that she has a segment of jejunum that may be ischemic with surrounding ascites. She does have diffuse atherosclerotic disease, but there appear to be no significant stenosis of her SMA, although there is some stenosis of her celiac and NICOLA. Given her presentation and the concern for ischemic bowel, informed consent was obtained for a diagnostic laparoscopy, possible exploratory laparotomy, possible bowel resection, and possible ostomy. I discussed this with the patient, her daughter and her son- in-law at the bedside. I discussed the risks that are included, but not limited to are bleeding, infection, injury to nearby adjacent anatomic structures. It is quite possible that she may require an ostomy. Based on the findings and her her history of COPD I have discussed with her that there may be difficulty weaning her from the ventilator and if this were to occur she may undergo prolonged intubation and possibly a tracheostomy. She understands all these things and she wishes to proceed. I spent over 60 minutes in the coordination and care of this patient, including time spent reviewing clinical data, and half of which was spent in face to face discussion and examination. [id number]/[facility] #: [id number] BARBI
[2018-07-28] MEDS ORDERED: DiMENhydriNATE IV* 50 MG/ML VIAL ONE (19:06)
--- NOTE | 2018-07-28 20:37 | OP ---
DATE OF OPERATION: 07/28/18 - ROOM #ICU-03 DATE OF : 40 SURGEON: Dr. Lisa Villalobos. OPEN HEARTH FURNACE OPERATOR: Dr. Mundo Sheridan. ANESTHESIOLOGIST: Dr. Sparks. PRE-OP DIAGNOSES: Abdominal pain, possible ischemic bowel. POST-OP DIAGNOSES: Inflamed small-bowel, extensive intraabdominal adhesions. OPERATIVE PROCEDURE: Diagnostic laparoscopy, laparoscopic lysis of adhesions. INDICATIONS FOR SURGERY: Ms. Montero is a 77-year-old female with a history of hypertension and COPD, on home O2, who presented to the emergency room with a sudden-onset diffuse abdominal pain beginning this morning when she woke up. Her pain was fairly out of proportion to her exam and she had a CTA of the abdomen that showed an area of thickened jejunum as well as some free fluid throughout her abdomen. She also had extensive atherosclerotic disease; however , there was no definitive mesenteric stenosis or embolus that was noted. Although she did not have a white count, fever, or lactic acidosis, she did have extensive abdominal pain and a CT scan that was concerning for ischemic bowel. Therefore the decision was made to take her to the operating room for an exploration. The patient understood the risks, benefits, and alternatives of the procedure and she wished to proceed. DESCRIPTION OF PROCEDURE: The patient was brought back to the operating room. Venodyne boots were placed on the bilateral lower extremities for DVT prophylaxis. General endotracheal anesthesia was induced while she was on the stretcher and then the patient was moved to the operating table. Antibiotics were administered prior to incision and a Tobin catheter was placed as well. The urine output that came out was very dark and the patient was apparently dehydrated prior to beginning the surgery despite receiving some fluids in the emergency room. The patient had had extensive surgery 2 years ago, where she had had a similar episode of having diffuse abdominal pain after a colonoscopy; however, she had 3 negative explorations and a cholecystectomy and it was thought at that time she had intraabdominal sepsis. So, given the fact that she probably had many adhesions, the decision was made to enter the abdomen through a left upper quadrant Optiview technique. Once this was done, the abdomen was insufflated to 15 mmHg. The abdomen was entered with a laparoscope and inspection of the intraabdominal cavity showed that there were extensive adhesions throughout the abdomen and no apparent injury had been made upon entry. In the mid abdominal area, there was omentum adherent to the abdominal wall directly under the prior midline laparotomy incision. Also in the left upper quadrant, there was a small amount of turbid fluid that was suctioned off and sent for culture and Gram stain. Next, another 5 mm trocar was placed under direct visualization just to the left of her upper midline incision where there was clearly a free space that could be entered. Once this was done, careful lysis of adhesions was done using sharp dissection with scissors to free up as many adhesions as possible. Once enough adhesions were freed up one more additional trocar in the left mid abdomen, under direct visualization. Next, very extensive and careful adhesiolysis was done laparoscopically for the next 30 to 40 minutes. There was small-bowel adherent to the right of her abdomen as well as the right lower quadrant and left lower quadrant. There was also omentum adherent to all these loops of small-bowel. There was a free area in the abdomen that was identified in the right mid abdomen consistent with the area of thickening of the jejunal loop that was possibly the areaseen on CT scan. This area of bowel was freed up. It was noted to be slightly hyperemic in appearance. It was mildly distended and appeared to be clearly more inflamed than the surrounding normal small-bowel. This bowel was run distally and proximally until reaching adhesions in the right lower quadrant and there was no apparent or clear enterotomy. There was a small amount of exudate, but nothing concerning for perforation or even an internal hernia. Given these negative findings and the fact that the patient prior to surgery did not have white count or lactic acidosis or fever, the decision was made to end the operation at this time. She had a similar episode about 2 years ago and had to undergo extensive abdominal surgery and also had an essentially negative exploration at that time. On the differential was the possibility that patient may have intermittent non occlusive mesenteric ischemia possibly from a low- flow state as the patient also notes that she does not drink much water or keep herself very hydrated. So, once the decision was made to terminate the procedure given that there were no significant intraabdominal findings from this exploration, the 3 trocars were removed under direct visualization. Desufflation was obtained. These incisions were closed with interrupted 4-0 Monocryl sutures and a sterile dressing was placed with Dermabond. The patient was able to be extubated and she was taken to the PACU in stable condition. Of note, at the end of the case, her Tobin did have some bloody appearing urine output. At the end of the case, all counts were correct and I was present during the entirety of the case. [id number]/[facility] #: [id number] [facility]
[2018-07-28] MEDS ORDERED: HYDROmorphone INJ* 0.5 MG/0.5 ML SYRINGE ONE (21:22)
[2018-07-28] MEDS: Piperacillin/Tazobactam VIAL*) 3.375 GM in NS 0.9% 100 ML* 100 ML IVPB SCH (22:14)
[2018-07-28] MEDS ORDERED: NS 0.9% 1000 ML** 500 ML IV ONE (22:43)
--- NOTE | 2018-07-28 23:13 | CONS ---
CC: Dr. Lisa Villalobos; Dr. Gabino Weeks * CONSULTATION REPORT: DATE OF ADMISSION: 07/28/18 DATE OF CONSULTATION: 07/28/18 PRIMARY CARE PROVIDER: Dr. Gabino Weeks. PHYSICIAN REQUESTING CONSULTATION: Dr. Lisa Villalobos. ATTENDING PHYSICIAN: Dr. Jani Mantilla (dictated by Vira Hernandez NP). REASON FOR CONSULTATION: Co-medical management in a patient with a history of COPD, hypertension, anxiety, chronic pain. HISTORY OF PRESENT ILLNESS: Ms. Montero is a 77-year-old female with past medical history significant for COPD who is oxygen dependent at 3 L, hypertension, anxiety, chronic diarrhea, cervical cancer, urinary incontinence, osteoarthritis, chronic pain, and diverticulosis who presented to the emergency room with complaints of diffuse abdominal pain. Please note that this consultation HPI comes from the patient's notes as she is currently sedated and unable to respond to questions in the PACU. According to her chart, her diffuse abdominal pain started at 9 a.m. this morning. She had been in her normal state of health yesterday without any abdominal pain, eating her regular diet. She found nothing that alleviated her pain. Her discomfort was so severe that she presented to the emergency room for further evaluation. It is to note that in 2017, the patient presented after a colonoscopy that was done for gastroenteritis and diarrhea, that the day after she developed diffuse abdominal pain with an elevated white count over 30,[address] findings concerning for possible sigmoid perforation and sigmoid colon mesenteric straining. She was taken to the operating room by Dr. Mac Roca at that time , where there was a large amount of turbid fluid throughout the abdomen as well as adhesions. While in the operating room, she became hemodynamically unstable and her abdomen was left open and she was taken to the ICU for further resuscitation efforts. After approximately 2 days, she was brought back to the operating room a second time for exploration, at which time she was noted to have an edematous and possibly ischemic gallbladder and so she underwent cholecystectomy at that time. She was then taken back to the OR a third time for exploration showing no definitive issues and at that time, her abdomen was closed and after a period of time, she was able to be extubated and went to rehab and has been discharged home with no issues since. While in the emergency room, she was noted to be afebrile, slightly tachycardic , a normal white count, and a normal lactic acid. She was found to have an elevated creatinine and she underwent CT of her abdomen and pelvis with noncontrast showing mild ascites throughout her abdomen and around the segment of thickened-appearing jejunum with possible portal vein gas and possible pneumatosis. Given the concern of possible mesenteric ischemia and the fact that she seemed to have severe atherosclerotic disease present on her CT scan, a CTA of her abdomen was ordered. On the CTA, there was no apparent occlusion or embolus of the mesenteric vasculature. The decision was made to take the patient to the operating room for an exploratory laparotomy. The patient underwent an exploratory laparotomy with Dr. Villalobos. She had extensive lysis of adhesions and culture of the turbid fluid. She was able to be extubated and brought to the recovery room, where she is currently recovering without any concerns or issues. Due to the patient's past history of difficult postoperative course, the hospitalists have been asked to consult on the patient. PAST MEDICAL HISTORY: 1. COPD, oxygen dependent 3 L via nasal cannula. 2. Hypertension. 3. Anxiety. 4. Chronic diarrhea. 5. Cervical cancer. 6. Urinary incontinence. 7. Osteoarthritis. 8. Chronic pain. 9. Diverticulitis. PAST SURGICAL HISTORY: 1. Status post section. 2. Status post hysterectomy. 3. Status post left total hip arthroplasty. 4. Status post exploratory lap with lysis of adhesions and cholecystectomy in 2017. HOME MEDICATIONS: Include: 1. Requip 1 mg oral daily. 2. [place] 5/325 two tablets oral 3 times daily as needed for pain. 3. Omeprazole 20 mg oral daily. 4. Meloxicam 15 mg oral daily. 5. Symbicort 160 mcg/4.5 mcg 1 puff inhalation twice daily. 6. Albuterol HFA inhaler 2 puffs inhalation every 4 hours as needed for shortness of breath or wheeze. 7. Ativan 1 mg oral 3 times daily as needed for anxiety. 8. Hydrochlorothiazide 25 mg oral daily. 9. Zoloft 100 mg oral daily. 10. Metoprolol tartrate 25 mg oral daily. 11. Oxycodone 5 mg oral every 6 hours as needed for pain. 12. Spiriva 1 capsule inhalation daily. ALLERGIES: DOXYCYCLINE. FAMILY HISTORY: Unable to obtain at this time due to the patient's lethargy in the PACU. SOCIAL HISTORY: She is a former smoker. According to the records, she does not drink alcohol or use recreational drugs. Her daughter, Lisa, will be her surrogate decision maker in the event she is unable to make decisions for herself. REVIEW OF SYSTEMS: I am unable to perform a review of systems due to the patient being lethargic and sedated in the PACU. PHYSICAL EXAM: Vital Signs: Temperature 98.3, heart rate 108, respiratory rate 27, O2 sat 95% on 3.5 L via nasal cannula, blood pressure 148/82. General Appearance: The patient is resting with her eyes closed. She appears to be in no acute distress. HEENT: Normocephalic, atraumatic. Respiratory: There is no accessory muscle use. The lungs are clear to auscultation bilateral, but diminished. Cardiovascular: Regular rate and rhythm. S1, S2 present. There are no murmurs, rubs, or gallops heard. Abdomen appears to be soft and nontender at this time. There are hypoactive bowel sounds. Extremities: There is no lower extremity edema. DP and PT pulses are 1+ and symmetric. Musculoskeletal: There is no clubbing or cyanosis noted. Neurological: The patient is lethargic, unable to determine orientation. Skin: There are no rashes or abnormalities seen. DIAGNOSTIC STUDIES/LAB DATA: Sodium 136, potassium 3.3, chloride 97, CO2 of 30 , BUN 23, creatinine 1.38, glucose 167. White blood cell count 10.8, hemoglobin 14.3, hematocrit 44, platelet count 307. Alk phos 188, lactic acid less than 0.3. EKG shows a sinus rhythm at a rate of 62. There are no acute signs of ischemia. This is similar to previous EKG from 02/07/17. Abdominal x-ray from today. Radiologist's impression: No pneumoperitoneum. Paucity of bowel gas. Surgical clips in the mid and lower abdomen. Abdomen and pelvis CT from today. Radiologist's impression: High suspicion for ischemic bowel in the presence of long segment circumferential to junctional wall thickening, suspected trace pneumatosis and portal venous gas; small-volume ascites and extensive calcified atherosclerotic plaque along the abdominal aorta. Diverticulosis with no secondary findings of inflammation. Status post cholecystectomy. Status post hysterectomy. Abdomen/pelvis CTA from today. Radiologist's impression: Unchanged long segment jejunal wall thickening with suspicion for ischemic bowel. Diverticulitis with no significant sign of inflammation. Status post cholecystectomy. Status post hysterectomy. Extensive atherosclerotic disease as above with no hemodynamically significant stenosis or intraarterial thrombus. IMPRESSION: Ms. Montero is a 77-year-old female with past medical history significant for chronic obstructive pulmonary disease; oxygen dependent, hypertension, anxiety, chronic diarrhea, cervical cancer, urinary incontinence, osteoarthritis, chronic pain, and diverticulitis who presented to the emergency room with complaints of abdominal pain. She was seen by Dr. Lisa Villalobos with general surgery who took the patient to the operating room for an exploratory lap. The patient is now status post exploratory lap with lysis of adhesions by Dr. Villalobos. Hospitalists have been asked to consult the patient to assist with medical co- management. ASSESSMENT AND PLAN: 1. Abdominal pain. At this time, there seems to be unclear cause of her abdominal pain. According to Dr. Villalobos, there were no significant findings. She was found to have extensive adhesions and had lysis of adhesions and she did obtain some abdominal cultures, but no perforation or necrotic bowel sound. 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 It is possible that her symptoms were caused by a low flow state due to dehydration. I am going to give her IV hydration. I recommend checking a LDH in the morning and fasting lipids in the setting of the atherosclerotic disease. Additionally, she could benefit from being started on an aspirin and a statin. She may also benefit from a vascular consult. 2. Acute kidney injury. The patient is going to receive IV hydration. I am going to hold her meloxicam, hydrochlorothiazide, and ibuprofen. Recheck her labs in the morning. 3. Elevated alkaline phosphatase. The patient appears to chronically have an elevated alkaline phosphatase and is near her baseline. 4. Chronic obstructive pulmonary disease. The patient has no signs of acute chronic obstructive pulmonary disease exacerbation. She will be continued on oxygen. We will titrate her as able down to her home 3 L via nasal cannula at baseline. She will be continued on her home Symbicort, albuterol as needed. 5. Hypertension. She has mostly been normotensive postoperatively. While in the emergency room when she was having pain, she was hypertensive, but I suspect this was secondary to her pain. She did have a few hypotensive blood pressures in the PACU. I am going to hold her hydrochlorothiazide, continue her metoprolol with hold parameters. 6. Anxiety. She will be continued on her home Ativan as needed. 7. Chronic pain. Currently, the patient will be receiving postoperative pain management per General Surgery. We will place her back on her home regimen when able. 8. Food, electrolytes, nutrition. She is n.p.o. at this time per General Surgery. 9. Code status. Full code. 10. DVT prophylaxis. She will be on subcu heparin per General Surgery. 11. Disposition. Inpatient with disposition per Orthopedic Surgery. TIME SPENT: Time spent for this consultation was approximately 60 minutes, greater than half of that was spent with reviewing the patient's chart and discussing the case with Dr. Villalobos and examining the patient. The case has been reviewed with the attending, Dr. Mantilla, who agrees with the plan of care. Thank you for this consultation. We will continue to follow along with the patient. Reviewed by GISELLE AN 08/15/18 [id number]/PILLO #: [id number] BARBI
[2018-07-29] MEDS ORDERED: Acetaminophen IV 1GM/100ML * 1,000 MG/100 ML VIAL IVPB ONE
[2018-07-29 00:24] LABS: Hematocrit 38 % (35-47); Hemoglobin 12.6 g/dl (12.0-16.0)
[2018-07-29] MEDS ORDERED: NS 0.9% 1000 ML** 1,000 ML IV SCH (00:30)
[2018-07-29] MEDS ORDERED: NS 0.9% 1000 ML** 1,000 ML IV ONE (00:33)
[2018-07-29] MEDS: KCL 20 MEQ/100 ML IVPREMIX* 20 MEQ/100 ML BAG IV SCH ×2 (00:34→03:04)
[2018-07-29] MEDS: NS 0.9% 1000 ML** 1,000 ML IV SCH ×2 (01:58→12:13)
--- NOTE | 2018-07-29 02:00 | PN ---
Hospitalist Progress Note Date of Service: 07/29/18 I evaluated Mr. Montero at 11pm for hypotension. At that time, she was alert and oriented and appropriate, but moaning in pain. Her abdomen was tender and a 4cm hematoma was noted over the LUQ incision. Of note, she has a large soft tissue mass on her left pec that she and her son report is old. She had received 1.5L NS. We gained another peripheral IV, gave another 1L of NS, gave IV tylenol, and ordered an H&H and lactic acid and CXR. Since then, her bp has come up to 98/47, her hgb is 12, her pain is improved, and her cxr is negative for pulmonary edema. Her son reports delirium after anesthesia every time she has received it. She is receiving zosyn empirically and I am continuing that. Will continue to monitor closely and escalate her level of care should closer monitoring be necessary.
[2018-07-29] MEDS: Piperacillin/Tazobactam VIAL*) 3.375 GM in NS 0.9% 100 ML* 100 ML IVPB SCH ×4 (03:49→21:27)
--- NOTE | 2018-07-29 04:32 | PN ---
Hospitalist Progress Note Date of Service: 07/29/18 Persistent MAPS < 60 on short stay after 3 L NS. I transferred her to the ICU for pressor support. I came to re-evaluate her; she continues to mentate appropriately and interact with me. On arrival here her BPs are 99/55. Will hold off on central line. I discussed her case with Dr. Villalobos and updated her on her status. She agreed with current plan.
[2018-07-29] MEDS: HYDROmorphone INJ* 0.5 MG/0.5 ML SYRINGE IV PRN ×6 (05:09→17:22)
[2018-07-29 05:46] LABS: Hematocrit 38 % (35-47); Hemoglobin 12.1 g/dl (12.0-16.0); Mean Corpuscular HGB Conc 32 g/dl (31-36); Mean Corpuscular Hemoglobin 29 pg (27-31); Mean Corpuscular Volume 90 fL (80-97); Mean Platelet Volume 9.8 fL (7.4-10.4); Platelet Count 194 10^3/ul (150-450); Red Cell Distribution Width 13 % (10.5-15); White Blood Count 14.6 10^3/ul (3.5-10.8)
[2018-07-29 06:06] LABS: Albumin 2.8 g/dL (3.2-5.2); Albumin/Globulin Ratio 1.1 (1-3); BUN/Creatinine Ratio 18.3 (8-20); Calcium 8.1 mg/dL (8.6-10.3); EGFR African American 49.8 (>60); EGFR Non-African American 41.2 (>60); Globulin 2.5 g/dL (2-4); HDL Cholesterol 72.9 mg/dL; Potassium 4.5 mmol/L (3.5-5.0); Total Bilirubin 1.3 mg/dL (0.2-1.0); Total Protein 5.3 g/dL (6.4-8.9)
[2018-07-29 06:16] LABS: ABS Basophils 0 10^3/ul (0-0.2); ABS Eosinophils 0 10^3/ul (0-0.6); ABS Lymphocytes 0.3 10^3/ul (1.0-4.8); ABS Monocytes 0.7 10^3/ul (0-0.8); ABS Neutrophils 13.6 10^3/ul (1.5-7.7); ABS Nucleated RBC 0 10^3/ul; Eosinophil % 0 %; Lymphocyte % 2.1 %; Nucleated Red Blood Cells % 0
[2018-07-29] MEDS: Heparin VIAL(*) 5000 UNITS/ML VIAL (FIVE THOUSAND) SUBCUT SCH ×2 (07:48→21:27)
[2018-07-29] MEDS: Metoprolol Tartrate TAB* 25 MG PO SCH (08:58)
[2018-07-29] MEDS: Sertraline* 100 MG TAB PO SCH (08:58)
[2018-07-29] MEDS ORDERED: Metoprolol Tartrate TAB* 25 MG PO SCH (09:00)
[2018-07-29] MEDS ORDERED: Hydrochlorothiazide TAB* 25 MG PO SCH (09:00)
[2018-07-29] MEDS ORDERED: Spiriva Inhaler DEVICE* 1 EACH DEVICE INH ONE (09:00)
[2018-07-29] MEDS ORDERED: Lactated Ringers 1000 ML Bag* 1,000 ML IV ONE (10:00)
[2018-07-29] MEDS ORDERED: Albumin Human 25%* 25 GM/100 ML BTL IV ONE (11:01)
--- NOTE | 2018-07-29 11:17 | PN ---
Progress Note - Progress Note Date of Service: 07/29/18 Note: Surgery Progress Note S: I saw the patient this morning at 7:15am. The patient overnight was transferred to the ICU for hypotension. I spoke with Dr. Flowers overnight. Her Hct has remained stable, lactate remains normal and she remained afebrile. Her mentation has been somewhat poor and she does not respond to questions appropriately and has been agitated. Per her children post extubation during her last hospitalization in 2016 when she underwent three laparotomies and had a prolonged open abdomen she was also very agitated and delirious. Currently she cannot respond appropriately to my questions. UOP has been adequate overnight. Son at bedside says she is less agitated now than earlier overnight. Objective: Vital Signs - 24 hr 07/28/18 07/28/18 07/28/18 11:06 11:20 11:27 Temperature Pulse Rate 69 70 66 Respiratory 21 19 17 Rate Blood Pressure 176/86 157/86 187/85 (mmHg) O2 Sat by Pulse 97 98 99 Oximetry 07/28/18 07/28/18 07/28/18 11:33 11:35 12:00 Temperature Pulse Rate 72 78 Respiratory 18 23 16 Rate Blood Pressure 167/86 (mmHg) O2 Sat by Pulse 99 97 Oximetry 07/28/18 07/28/18 07/28/18 12:06 12:20 12:43 Temperature Pulse Rate 79 84 Respiratory 23 26 18 Rate Blood Pressure 163/70 176/95 (mmHg) O2 Sat by Pulse 96 96 Oximetry 07/28/18 07/28/18 07/28/18 12:50 12:58 13:14 Temperature Pulse Rate 76 84 90 Respiratory 14 15 25 Rate Blood Pressure 138/63 138/63 (mmHg) O2 Sat by Pulse 97 100 95 Oximetry 07/28/18 07/28/18 07/28/18 13:20 13:35 13:50 Temperature Pulse Rate 93 86 90 Respiratory 19 23 26 Rate Blood Pressure 162/93 139/63 131/54 (mmHg) O2 Sat by Pulse 97 96 97 Oximetry 07/28/18 07/28/18 07/28/18 14:00 14:05 14:20 Temperature Pulse Rate 104 112 92 Respiratory 21 22 25 Rate Blood Pressure 132/74 109/74 (mmHg) O2 Sat by Pulse 97 96 98 Oximetry 07/28/18 07/28/18 07/28/18 14:35 14:47 17:38 Temperature 98.3 F 97.5 F Pulse Rate 94 100 102 Respiratory 24 23 Rate Blood Pressure 116/45 116/45 (mmHg) O2 Sat by Pulse 97 96 98 Oximetry 07/28/18 07/28/18 07/28/18 17:43 17:51 17:56 Temperature Pulse Rate 102 108 107 Respiratory 15 27 30 Rate Blood Pressure 160/95 148/82 130/76 (mmHg) O2 Sat by Pulse 98 95 96 Oximetry 07/28/18 07/28/18 07/28/18 18:00 18:02 18:10 Temperature Pulse Rate 108 108 Respiratory 29 27 13 Rate Blood Pressure 118/68 (mmHg) O2 Sat by Pulse 96 95 Oximetry 07/28/18 07/28/18 07/28/18 18:16 18:30 18:45 Temperature Pulse Rate 94 97 90 Respiratory 12 17 19 Rate Blood Pressure 83/61 91/67 109/57 (mmHg) O2 Sat by Pulse 93 95 99 Oximetry 07/28/18 07/28/18 07/28/18 19:00 19:02 19:03 Temperature 96.8 F Pulse Rate 98 98 95 Respiratory 26 20 28 Rate Blood Pressure 75/61 84/46 (mmHg) O2 Sat by Pulse 95 94 93 Oximetry 07/28/18 07/28/18 07/28/18 19:05 19:07 19:12 Temperature Pulse Rate 91 Respiratory 23 20 Rate Blood Pressure 110/64 110/64 (mmHg) O2 Sat by Pulse 98 97 Oximetry 07/28/18 07/28/18 07/28/18 19:15 19:16 19:30 Temperature 97.5 F Pulse Rate 92 88 91 Respiratory 18 18 17 Rate Blood Pressure 95/68 120/74 (mmHg) O2 Sat by Pulse 99 98 100 Oximetry 07/28/18 07/28/18 07/28/18 19:45 19:46 20:00 Temperature Pulse Rate 85 88 92 Respiratory 17 17 21 Rate Blood Pressure 116/68 101/60 (mmHg) O2 Sat by Pulse 100 100 98 Oximetry 07/28/18 07/28/18 07/28/18 20:15 20:30 20:45 Temperature Pulse Rate 97 91 102 Respiratory Rate Blood Pressure (mmHg) O2 Sat by Pulse 95 98 91 Oximetry 07/28/18 07/28/18 07/28/18 21:11 21:19 21:23 Temperature Pulse Rate Respiratory 24 24 Rate Blood Pressure 91/52 107/47 (mmHg) O2 Sat by Pulse 96 Oximetry 07/28/18 07/28/18 07/28/18 21:30 21:46 21:56 Temperature 98.5 F Pulse Rate 98 Respiratory 22 25 22 Rate Blood Pressure 91/50 (mmHg) O2 Sat by Pulse 98 Oximetry 07/28/18 07/28/18 07/28/18 22:23 22:42 23:09 Temperature Pulse Rate Respiratory 20 Rate Blood Pressure 87/46 87/51 (mmHg) O2 Sat by Pulse Oximetry 07/28/18 07/28/18 07/28/18 23:16 23:20 23:28 Temperature Pulse Rate Respiratory Rate Blood Pressure 82/50 84/52 (mmHg) O2 Sat by Pulse 98 Oximetry 07/28/18 07/29/18 07/29/18 23:34 00:26 00:36 Temperature 98.5 F Pulse Rate 104 Respiratory 24 Rate Blood Pressure 91/45 (mmHg) O2 Sat by Pulse 97 Oximetry 07/29/18 07/29/18 07/29/18 00:40 01:00 01:48 Temperature Pulse Rate 92 Respiratory Rate Blood Pressure 85/49 91/49 98/47 (mmHg) O2 Sat by Pulse Oximetry 07/29/18 07/29/18 07/29/18 03:02 04:08 04:15 Temperature 99.0 F Pulse Rate 95 90 Respiratory 20 15 33 Rate Blood Pressure 89/43 99/61 (mmHg) O2 Sat by Pulse 100 96 Oximetry 07/29/18 07/29/18 07/29/18 04:16 04:24 04:30 Temperature 98.5 F Pulse Rate 96 103 92 Respiratory 18 24 26 Rate Blood Pressure 92/46 (mmHg) O2 Sat by Pulse 95 98 98 Oximetry 07/29/18 07/29/18 07/29/18 04:31 04:45 04:46 Temperature Pulse Rate 101 99 102 Respiratory 31 23 27 Rate Blood Pressure 93/40 107/64 (mmHg) O2 Sat by Pulse 97 97 98 Oximetry 07/29/18 07/29/18 07/29/18 05:00 05:01 05:09 Temperature Pulse Rate 97 101 Respiratory 17 23 25 Rate Blood Pressure 94/63 (mmHg) O2 Sat by Pulse 99 99 Oximetry 07/29/18 07/29/18 07/29/18 05:15 05:16 05:30 Temperature Pulse Rate 101 99 92 Respiratory 20 20 20 Rate Blood Pressure 87/50 (mmHg) O2 Sat by Pulse 98 99 99 Oximetry 07/29/18 07/29/18 07/29/18 05:31 05:45 05:46 Temperature Pulse Rate 89 94 92 Respiratory 17 18 23 Rate Blood Pressure 91/56 78/45 (mmHg) O2 Sat by Pulse 99 99 99 Oximetry 07/29/18 07/29/18 07/29/18 06:00 06:01 06:15 Temperature Pulse Rate 89 91 94 Respiratory 30 19 22 Rate Blood Pressure 86/50 (mmHg) O2 Sat by Pulse 98 98 100 Oximetry 07/29/18 07/29/18 07/29/18 06:16 06:30 06:31 Temperature Pulse Rate 100 100 96 Respiratory 22 22 18 Rate Blood Pressure 91/52 92/46 (mmHg) O2 Sat by Pulse 99 98 99 Oximetry 07/29/18 07/29/18 07/29/18 06:45 06:46 07:00 Temperature Pulse Rate 97 98 110 Respiratory 20 20 17 Rate Blood Pressure 87/59 (mmHg) O2 Sat by Pulse 98 98 90 Oximetry 07/29/18 07/29/18 07/29/18 07:14 07:16 07:22 Temperature Pulse Rate 106 101 Respiratory 26 24 19 Rate Blood Pressure 93/44 120/42 (mmHg) O2 Sat by Pulse 96 98 Oximetry 07/29/18 07/29/18 07/29/18 07:24 07:30 07:31 Temperature Pulse Rate 103 99 Respiratory 22 19 19 Rate Blood Pressure 94/43 (mmHg) O2 Sat by Pulse 99 99 Oximetry 07/29/18 07/29/18 07/29/18 07:45 07:46 07:47 Temperature Pulse Rate 98 103 Respiratory 26 21 25 Rate Blood Pressure 91/70 (mmHg) O2 Sat by Pulse 99 97 Oximetry 07/29/18 07/29/18 07/29/18 07:50 07:53 08:00 Temperature 100 F Pulse Rate 89 99 Respiratory 17 18 Rate Blood Pressure 87/48 (mmHg) O2 Sat by Pulse 98 83 Oximetry 07/29/18 07/29/18 07/29/18 08:01 08:15 08:16 Temperature Pulse Rate 105 93 100 Respiratory 23 15 13 Rate Blood Pressure 82/77 82/63 (mmHg) O2 Sat by Pulse 97 99 99 Oximetry 07/29/18 07/29/18 07/29/18 08:30 08:45 08:46 Temperature Pulse Rate 97 100 99 Respiratory 14 19 20 Rate Blood Pressure 90/40 85/44 (mmHg) O2 Sat by Pulse 98 98 98 Oximetry 07/29/18 07/29/18 07/29/18 08:58 09:00 09:15 Temperature Pulse Rate 98 103 Respiratory 18 17 19 Rate Blood Pressure 88/65 (mmHg) O2 Sat by Pulse 99 98 Oximetry 07/29/18 07/29/18 07/29/18 09:16 09:30 09:45 Temperature Pulse Rate 96 90 98 Respiratory 19 15 25 Rate Blood Pressure 89/46 88/64 109/46 (mmHg) O2 Sat by Pulse 98 99 100 Oximetry 07/29/18 07/29/18 07/29/18 10:00 10:01 10:13 Temperature Pulse Rate 100 100 104 Respiratory 21 19 27 Rate Blood Pressure 119/50 123/89 (mmHg) O2 Sat by Pulse 99 99 97 Oximetry 07/29/18 07/29/18 07/29/18 10:15 10:16 10:20 Temperature Pulse Rate 105 106 Respiratory 26 25 21 Rate Blood Pressure 116/60 (mmHg) O2 Sat by Pulse 97 97 Oximetry 07/29/18 07/29/18 07/29/18 10:30 10:31 10:45 Temperature Pulse Rate 98 101 100 Respiratory 17 16 21 Rate Blood Pressure 90/50 (mmHg) O2 Sat by Pulse 98 98 98 Oximetry 07/29/18 07/29/18 10:46 10:52 Temperature Pulse Rate 104 Respiratory 17 18 Rate Blood Pressure 96/59 (mmHg) O2 Sat by Pulse 97 Oximetry Laboratory Results - last 24 hr 07/29/18 07/29/18 07/29/18 00:15 00:15 05:30 WBC 14.6 H RBC 4.20 Hgb 12.6 12.1 Hct 38 38 MCV 90 MCH 29 MCHC 32 RDW 13 Plt Count 194 MPV 9.8 Neut % (Auto) 93.1 Lymph % (Auto) 2.1 [place] % (Auto) 4.6 Eos % (Auto) 0 Baso % (Auto) 0.2 Absolute Neuts (auto) 13.6 H Absolute Lymphs (auto) 0.3 L Absolute Monos (auto) 0.7 Absolute Eos (auto) 0 Absolute Basos (auto) 0 Absolute Nucleated RBC 0 Nucleated RBC % 0 Sodium Potassium Chloride Carbon Dioxide Anion Gap BUN Creatinine Est GFR ( Amer) Est GFR (Non-Af Amer) BUN/Creatinine Ratio Glucose Lactic Acid 2.0 Calcium Total Bilirubin AST ALT Alkaline Phosphatase Lactate Dehydrogenase Total Protein Albumin Globulin Albumin/Globulin Ratio Triglycerides Cholesterol LDL Cholesterol HDL Cholesterol 07/29/18 07/29/18 05:30 05:30 WBC RBC Hgb Hct MCV MCH MCHC RDW Plt Count MPV Neut % (Auto) Lymph % (Auto) [place] % (Auto) Eos % (Auto) Baso % (Auto) Absolute Neuts (auto) Absolute Lymphs (auto) Absolute Monos (auto) Absolute Eos (auto) Absolute Basos (auto) Absolute Nucleated RBC Nucleated RBC % Sodium 138 Potassium 4.5 Chloride 107 Carbon Dioxide 27 Anion Gap 4 BUN 23 Creatinine 1.26 H Est GFR ( Amer) 49.8 Est GFR (Non-Af Amer) 41.2 BUN/Creatinine Ratio 18.3 Glucose 97 Lactic Acid 1.0 Calcium 8.1 L Total Bilirubin 1.30 H AST 181 H ALT 146 H Alkaline Phosphatase 161 H Lactate Dehydrogenase 318 H Total Protein 5.3 L Albumin 2.8 L Globulin 2.5 Albumin/Globulin Ratio 1.1 Triglycerides 92 Cholesterol 159 LDL Cholesterol 68 HDL Cholesterol 72.9 Intake & Output 07/28/18 07/29/18 07/29/18 22:59 06:59 14:59 Intake Total 2150 1132 Output Total 2625 175 155 Balance -475 957 -155 Weight 181 lb 3.52 oz Intake: IV Fluids 2150 985 CLINDAMYCIN 900MG 50 NS (0.9%) 685 NS 100ML, Gentamycin 100 120MG Potassium 300 lr 2000 IVPB 147 Potassium 147 Oral 0 Output: Urine 105 Tobin 2625 70 155 Other: Estimated Blood Loss min Comment Abx: Zosyn Physical exam: patient responds to her name but cannot answer questions appropriately. Abdomen is soft and she does not clearly vocalize or respond to deep palpation. With prompting she says it hurts with palpation. Incision in LUQ with skin erythema, likely hematoma. A/P: Patient is a 77 yo F with a history of COPD, O2 dependent, HTN and a complex past surgical history (three negative laparotomies and open abdomen in 2017 after presenting with diffuse abdominal pain and leukocytosis after a colonoscopy) and presented with acute onset diffuse abdominal pain yesterday and imaging concerning for ischemic bowel. Work up showed no fevers, no leukocytosis or lactic acidosis but given imaging and clinical exam she was consented for a diagnostic laparoscopy, possible ex lap, possible bowel resection and ostomy. A diagnostic laparoscopy was performed and after extensive adhesiolysis, the bowel that was not adherent to the side tam and pelvis was freed and run with no clear ischemic segment of bowel. Post op with hypotension and delirium. - It is unclear what the source of the abdominal pain and thickened jejunum with ascites was on imaging. On exploration there was a segment of hyperemic distended small bowel but no clearly ischemic segments. There was a small amount of fluid that was sent for culture. Due to the lack of findings on laparoscopic exam and the absence of leukocytosis, lactic acidosis or fever the decision was made to close and follow closely. 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 The risk of injury and inadvertent enterotomies may outweigh the benefit at this time. I discussed this with the patient's family yesterday. - I asked Dr. Raymundo from [place] to consult on the patient regarding the peritoneal fluid, so far GNB growing. Previously culture in past was e.coli, henriquez sensitive. - Hypotension and delirium may be from ongoing sepsis/post op anesthesia. H/H have remained stable. Continue broad spectrum abx. - Appreciate ICU board certified music therapist care
--- NOTE | 2018-07-29 11:42 | PN ---
Date of Service: 07/29/18 - HD 2, POD 1 Critical Care Services: 77 yo F with hx of multiple prior abdominal surgeries presented to ED on 07/28 with acute onset diffuse abdominal pain x 1 day. On evaluation in ED found to be tachycardic but with otherwise stable VS. WBC and lactic acid normal. CT abdomen noncontrasted (due to elevated creatinine) showed free fluid in abdomen and thickened jejunum with possible portal venous gas and pneumatosis. CTA done which was negative for mesenteric arterial thrombosis/embolus. She was admitted to Medicine and surgery consulted. She went emergently to the OR for diagnositic laparoscopy where she was found to have inflammed, hyperemic small bowel and extensive intraabdominal adhesions. A laparoscopic lysis of adhesions was performed. Turbid fluid was found and sent for culture. NO findings of performation or internal hernia. 07/28: Postoperatively the patient remained lethargic. Family notes that she "takes a long time to wake up from anesthesia". She also developed soft SBPs and was transferred to the ICU for further care. 07/29: No overnight events. Vital Signs: Temp Pulse Resp BP SpO2 FiO2 100 F 103 18 101/71 95 07/29/18 07:50 07/29/18 11:15 07/29/18 11:20 07/29/18 11:15 07/29/18 11:15 Physical Exam: Gen:resting comfortably HEENT: NC in place Lungs: CTAB Cardiac: RRR Abdomen: soft, nontender to palpation Extremities: warm, dry Neuro: awake, asking questions but confused. follows commands Fluid Balance (Past 24 Hours): I= O= Net Intake & Output 07/27/18 07/28/18 07/29/18 07/30/18 06:59 06:59 06:59 06:59 Intake Total 4382 Output Total 2800 155 Balance 1582 -155 Weight 181 lb 3.52 oz Intake: IV Fluids 4235 CLINDAMYCIN 900MG 50 NS (0.9%) 685 NS 100ML, Gentamycin 100 120MG Potassium 300 lr 2000 IVPB 147 Potassium 147 Oral 0 Output: Urine 105 Tobin 2695 155 Other: Estimated Blood Loss min Comment ADLs: Meal Record Start: 07/28/18 21: 20 Freq: Status: Active Protocol: Created 07/28/18 21:20 System (Rec: 07/28/18 21:20 System [id number]) ADLs: Meal Record Start: 07/29/18 04: 24 Freq: 09,13,18 Status: Active Protocol: Created 07/29/18 04:24 [id number] (Rec: 07/29/18 04:24 [id number] [id number]) Document 07/29/18 08:56 [id number] (Rec: 07/29/18 08:56 [id number] [id number]) Intake and Output Start: 07/28/18 10: 29 Freq: Status: Active Protocol: Created 07/28/18 10:29 System (Rec: 07/28/18 10:29 System [id number]) Intake and Output Start: 07/28/18 21: 20 Freq: DAILY@0600,1400,2200 Status: Complete Protocol: Created 07/28/18 21:20 System (Rec: 07/28/18 21:20 System [id number]) Document 07/28/18 22:46 [id number] (Rec: 07/28/18 22:47 [id number] [id number]) Document 07/29/18 06:00 [id number] (Rec: 07/29/18 07:45 [id number] ICU-C15) Intake and Output Start: 07/29/18 04: 24 Freq: Q1HR Status: Active Protocol: Created 07/29/18 04:24 [id number] (Rec: 07/29/18 04:24 [id number] ICU-C15) Document 07/29/18 05:00 [id number] (Rec: 07/29/18 07:30 [id number] ICU-C15) Document 07/29/18 06:00 [id number] (Rec: 07/29/18 07:30 [id number] ICU-C15) Document 07/29/18 07:00 [id number] (Rec: 07/29/18 07:30 [id number] ICU-C15) Document 07/29/18 09:35 [id number] (Rec: 07/29/18 09:35 [id number] ICU-C15) Document 07/29/18 10:00 [id number] (Rec: 07/29/18 10:50 [id number] ICU-C15) Document 07/29/18 11:04 [id number] (Rec: 07/29/18 11:04 [id number] [id number]) Labs: Laboratory Results - last 24 hr 07/29/18 07/29/18 07/29/18 00:15 00:15 05:30 WBC 14.6 H RBC 4.20 Hgb 12.6 12.1 Hct 38 38 MCV 90 MCH 29 MCHC 32 RDW 13 Plt Count 194 MPV 9.8 Neut % (Auto) 93.1 Lymph % (Auto) 2.1 Fisher % (Auto) 4.6 Eos % (Auto) 0 Baso % (Auto) 0.2 Absolute Neuts (auto) 13.6 H Absolute Lymphs (auto) 0.3 L Absolute Monos (auto) 0.7 Absolute Eos (auto) 0 Absolute Basos (auto) 0 Absolute Nucleated RBC 0 Nucleated RBC % 0 Sodium Potassium Chloride Carbon Dioxide Anion Gap BUN Creatinine Est GFR ( Amer) Est GFR (Non-Af Amer) BUN/Creatinine Ratio Glucose Lactic Acid 2.0 Calcium Total Bilirubin AST ALT Alkaline Phosphatase Lactate Dehydrogenase Total Protein Albumin Globulin Albumin/Globulin Ratio Triglycerides Cholesterol LDL Cholesterol HDL Cholesterol 07/29/18 07/29/18 05:30 05:30 WBC RBC Hgb Hct MCV MCH MCHC RDW Plt Count MPV Neut % (Auto) Lymph % (Auto) Fisher % (Auto) Eos % (Auto) Baso % (Auto) Absolute Neuts (auto) Absolute Lymphs (auto) Absolute Monos (auto) Absolute Eos (auto) Absolute Basos (auto) Absolute Nucleated RBC Nucleated RBC % Sodium 138 Potassium 4.5 Chloride 107 Carbon Dioxide 27 Anion Gap 4 BUN 23 Creatinine 1.26 H Est GFR ( Amer) 49.8 Est GFR (Non-Af Amer) 41.2 BUN/Creatinine Ratio 18.3 Glucose 97 Lactic Acid 1.0 Calcium 8.1 L Total Bilirubin 1.30 H AST 181 H ALT 146 H Alkaline Phosphatase 161 H Lactate Dehydrogenase 318 H Total Protein 5.3 L Albumin 2.8 L Globulin 2.5 Albumin/Globulin Ratio 1.1 Triglycerides 92 Cholesterol 159 LDL Cholesterol 68 HDL Cholesterol 72.9 Studies: 07/29 CXR: NAD 07/28 CTA abd/pelvis: unchanged long segment jejunal wall thickening with suspicion for ischemic bowel diverticulosis extensive atherosclerotic disease with no hemodynamically signficant stenosis or intra arterial thrombosis 07/28 CT abd/pelvis, noncontrast: long segment of circumferential jejunal wall thickening suspected trace pneumoatosis and portal venous gas small volume ascites extensive calcification of aorta 07/28 AXR: No pneumoperitoneum. Paucity of bowel niki. Nutrition: NPO Impression: 77 yo F presented to the hospital on 07/28 with one day of sudden onset abdominal pain. CT/CTA of abdomen demonstrated long segment of jejunal wall thickening and question of pneumatosis. Lactic acid and WBC normal. Went for urgent laparoscopy and found to have hyperemic thickened loop of bowel, no clear perforations or areas of ischemia. No transition point. Transferred to ICU overnight for soft BPs. Plan: Cardiovascular: (1) Sinus tachycardia; (2) Hypotension; (3) Chronic benign essential HTN -- HR 87-107 -- SBP 82-123 -- Telemetry -- Metoprolol Home meds: HCTZ, Metoprolol Pulmonary: (1) COPD -- RR 13-26 -- sats 95-100 on 3L NC -- CXR: NAD -- PRN Albuterol -- Mometasone/Formoterol and Spiriva Home meds: Spiriva, Albuterol, Symbicort, 3L home O2 Gastrointestinal: (1) elevated LFTs; (2) Jejunal enteritis vs mesenteric ischemia; (3) Peritonitis; (4) hx of diverticulosis -- US and duplex of RUQ ordered -- LFTs Tbili 1.30 from 0.40 ALK 161 from 188 AST 181 from 25 ALT 146 from 38 -- diet: NPO until pain improves and mental status improves -- bowel regimen: None -- ulcer prophylaxis: Protonix as on home PPI -- Zofran as needed Home meds: Zofran, Omeprazole Endocrine: No acute issues -- monitor BGs Home meds: None Renal: (1) Prerenal azotemia; (2) Hypocalcemia; (3) Hypovolemia -- UOP: 233ml/hr -- I/O:4382/2800 -- Cr 1.26 from 1.38, follow trend -- Lytes Na 138 from 136 K 4.5 Ca 8.1, replace Mag 2.2 on 07/29 Phos ordered for AM -- IVF: NS @ 100 ml/hr Home meds: None Infectious disease: (1) Sepsis; (2) Bacterial peritonitis -- Tmax 100F -- WBC 14.6 from 10.8, follow trend -- Micro 07/29 MRSA screen negative UA ordered blood ordered 07/28 Ascites 2+ Gram negative bacilli -- ABX Zosyn Home meds: None Neurologic: (1) Chronic pain syndrome/chronic low back pain; (2) Acute postoperative pain control; (3) Acute encephalopathy secondary to medications and sepsis; (4) Osteoarthritis -- PRN Tylenol -- PRN Dilaudid for postoperative pain control -- Zoloft Home meds: Ativan, [place], Roxicodone, Requip, Mobic, Zoloft Hematological: No acute issues -- Duplex of portal vein/IVC ordered given elevated LFTs and thickened bowel loop -- Hgb 12.1 from 12.6 -- Plt 194 from 307 -- DVT prophylaxis: SQ Heparin Home meds: None Metabolic: No acute issues -- Lactic aicd 1.0 form 2.0 from < 0.3 Home meds: None Deep vein thrombosis prophylaxis: SQ Heparin Dietary: Protonix Condition: serious Prognosis: guarded Code status: full Disposition: continue ICU care Family updated at bedside regarding clinical course and plan of care Cumulative time spent in the care of this patient (excluding any procedure time) : at least 30 minutes. Patient care included clinical interview (with patient and/or family), bedside exam of the patient, review of labs, x-rays, and other ancillary data, coordination of (respiratory, nursing care, review of patient's records, discussion regarding patients management with involved consultants, primary physician, pharmacists, and other healthcare personnel (dietary, case management , physical/occupational therapy etc.)
[2018-07-29] MEDS ORDERED: Lactated Ringers 1000 ML Bag* 1,000 ML IV SCH (12:00)
[2018-07-29] MEDS ORDERED: Calcium Gluconate INJ* 1 GM in NS 0.9% 50 ML* 50 ML IVPB ONE (12:30)
[2018-07-29] MEDS ORDERED: fentaNYL PATCH 25 MCG/HR TRANSDERM SCH (13:00)
--- NOTE | 2018-07-29 13:25 | CONS ---
CONSULTATION REPORT: DATE OF CONSULT: 07/29/18 REQUESTING PHYSICIAN: Dr. Villalobos. CONSULTING SERVICE: Infectious Disease. REASON FOR CONSULT: Peritonitis. IMPRESSION: 1. Abdominal pain with adhesions, infected peritoneal fluid, no gross perforation found on exploratory laparoscopy, did have lysis of adhesions. 2. Peritoneal fluid shows a gram-negative minerva on Gram stain. Cultures are pending. 3. Encephalopathy, present on admission, multifactorial. RECOMMENDATION: We will continue Zosyn 3.375 g IV every 6 hours. Await her culture results to plan a long-term antibiotic plan. HISTORY OF PRESENT ILLNESS: This is a 77-year-old woman, who was admitted yesterday with abdominal pain. She cannot provide any history, which was obtained instead from review of the medical records, discussion with Dr. Villalobos and the patient's daughter. Per the patient's daughter, she was well the night before, the next morning awoke with severe abdominal pain, was brought to the hospital yesterday, had a white count of 10,000, was tachycardic and hypothermic. She had a CT abdomen and pelvis that was concerning for ischemic bowel with circumferential jejunal wall thickening, trace pneumatosis and portal venous gas, small amount of ascites, with diverticulosis. She was taken to the operating room, some turbid fluid was encountered. Dr. Villalobos sent it for studies including Gram stain that showed gram-negative bacilli, cultures pending. She has been on Zosyn since the surgery. She cannot provide any review of systems or history. PAST MEDICAL HISTORY: 1. Exploratory laparotomy, 2016 with E. coli peritonitis. 2. Status post total abdominal hysterectomy, 1979. 3. Status post , 1975. 4. Status post left hip arthroplasty, 2014. 5. Repair of left hip fracture, 2016. 6. Hypertension. 7. COPD, on supplemental oxygen at home. 8. Osteoarthritis. 9. Chronic pain. 10. Diverticulosis. 11. Cervical cancer. 12. Wrist fracture. MEDICATIONS: 1. Tylenol. 2. Albuterol. 3. Heparin subcutaneous injection. 4. Dilaudid as needed. 5. Metoprolol. 6. Normal saline. 7. Sertraline. 8. Spiriva. 9. Zosyn. ALLERGIES: DOXYCYCLINE. FAMILY HISTORY: No recurrent infections. SOCIAL HISTORY: She is a past smoker. She lives across the road from her daughter and another one lives with her. REVIEW OF SYSTEMS: Unobtainable. PHYSICAL EXAM: Vital Signs: Temperature is 37.7, heart rate 100, respiratory rate 20, blood pressure 101/46, oxygen saturation 97% on room air. In general, she is awake, lying in bed, does not appear comfortable. Neurologic: She does not regard and does not answer questions. HEENT: There is no conjunctival hemorrhage. Oropharynx without lesions. Neck: Supple without mass. Heart: Regular rate and rhythm without murmurs, rubs or gallops. Lungs: Clear to auscultation bilaterally. Abdomen: Soft, mildly distended. There is bowel sounds present. There is no rebound. Skin: There is no rash or splint hemorrhage. Musculoskeletal: There is no spine tenderness to palpation. LABORATORY DATA: White blood cell count 14, hemoglobin 12, platelets 194. Creatinine 1.2, ALT is 146, bilirubin 1.3. Please see impression and recommendations as outlined above. Thank you for asking me to see Ms. Montero in consultation. [id number]/[facility] #: [id number] [facility] CENTERNoemí
[2018-07-29 13:49] LABS: Urine Appearance Cloudy; Urine Bacteria Absent (Absent); Urine Bilirubin Negative (Negative); Urine Blood 3+ (Negative); Urine Color Amber; Urine Glucose Negative (Negative); Urine Ketones Negative (Negative); Urine Nitrite Negative (Negative); Urine Protein 1+(30 mg/dL) (Negative); Urine Red Blood Cell 3+(>10/hpf) (Absent); Urine Red Blood Cell Casts Present (Absent); Urine Specific Gravity 1.025 (1.010-1.030); Urine Squamous Epithelial Cell Present (Absent); Urine Urobilinogen Negative (Negative); Urine White Blood Cell 3+(>20/hpf) (Absent)
[2018-07-29] MEDS: Pantoprazole IV* 40 MG IV SCH (14:35)
[2018-07-29] MEDS: Mometasone/Formoter 200/5 MDI INH SCH (14:46)
[2018-07-29] MEDS: Tiotropium CAP.INH* CAP.INH/18 MCG (USE ORDER SET !) INH SCH (14:47)
[2018-07-29] MEDS ORDERED: OLANZAPINE 10 MG IM ONE (18:45)
[2018-07-29] MEDS: fentaNYL Patch Check Q Shift 1 NOTE FOLLOW UP SCH (19:36)
[2018-07-29 22:00] LABS: BUN/Creatinine Ratio 23.7 (8-20); Calcium 7.5 mg/dL (8.6-10.3); EGFR African American 70.7 (>60); EGFR Non-African American 58.5 (>60); Potassium 3.8 mmol/L (3.5-5.0)
[2018-07-29] MEDS ORDERED: Acetaminophen IV 1GM/100ML * 100 ML IVPB ONE (22:00)
[2018-07-29] MEDS ORDERED: Dexmedetomidine* 400 MCG in NS 0.9% 100 ML* 96 ML IVPB SCH (22:00)
[2018-07-29 22:02] LABS: Hematocrit 34 % (35-47); Hemoglobin 10.7 g/dl (12.0-16.0); Mean Corpuscular HGB Conc 32 g/dl (31-36); Mean Corpuscular Hemoglobin 29 pg (27-31); Mean Corpuscular Volume 91 fL (80-97); Mean Platelet Volume 10.1 fL (7.4-10.4); Platelet Count 180 10^3/ul (150-450); Red Blood Count 3.72 10^6/ul (4.00-5.40); Red Cell Distribution Width 14 % (10.5-15); White Blood Count 18.6 10^3/ul (3.5-10.8)
[2018-07-30] MEDS: NS 0.9% 1000 ML** 1,000 ML IV SCH (00:10)
[2018-07-30] MEDS: HYDROmorphone INJ* 0.5 MG/0.5 ML SYRINGE IV PRN ×2 (00:55→04:20)
[2018-07-30] MEDS ORDERED: NS 0.9% 500 ML* 500 ML IV ONE (02:12)
[2018-07-30] MEDS ORDERED: NS 0.9% 1000 ML** 1,000 ML IV SCH (02:13)
[2018-07-30] MEDS: Lactated Ringers 1000 ML Bag* 1,000 ML IV SCH ×2 (02:35→08:44)
[2018-07-30] MEDS ORDERED: HYDROmorphone INJ1* 1 MG/ML SYRINGE ONE (04:16)
[2018-07-30] MEDS: Piperacillin/Tazobactam VIAL*) 3.375 GM in NS 0.9% 100 ML* 100 ML IVPB SCH ×2 (04:22→10:02)
[2018-07-30 05:35] LABS: Hematocrit 30 % (35-47); Hemoglobin 9.5 g/dl (12.0-16.0); Mean Corpuscular HGB Conc 32 g/dl (31-36); Mean Corpuscular Hemoglobin 29 pg (27-31); Mean Corpuscular Volume 91 fL (80-97); Mean Platelet Volume 9.8 fL (7.4-10.4); Platelet Count 140 10^3/ul (150-450); Red Blood Count 3.28 10^6/ul (4.00-5.40); Red Cell Distribution Width 14 % (10.5-15); White Blood Count 13.2 10^3/ul (3.5-10.8)
[2018-07-30 05:50] LABS: BUN/Creatinine Ratio 26.4 (8-20); Calcium 7.9 mg/dL (8.6-10.3); EGFR African American 76.4 (>60); EGFR Non-African American 63.1 (>60); Magnesium 1.3 mg/dL (1.9-2.7); Phosphorus 2.9 mg/dL (2.5-5.0); Potassium 4.2 mmol/L (3.5-5.0)
[2018-07-30] MEDS: fentaNYL Patch Check Q Shift 1 NOTE FOLLOW UP SCH (07:31)
[2018-07-30] MEDS: Mometasone/Formoter 200/5 MDI INH SCH ×3 (07:44→23:20)
[2018-07-30] MEDS: Sertraline* 100 MG TAB PO SCH (07:50)
[2018-07-30] MEDS: Metoprolol Tartrate TAB* 25 MG PO SCH ×2 (07:51→21:11)
[2018-07-30] MEDS: Heparin VIAL(*) 5000 UNITS/ML VIAL (FIVE THOUSAND) SUBCUT SCH ×2 (08:20→21:11)
[2018-07-30] MEDS: Pantoprazole IV* 40 MG IV SCH (08:20)
[2018-07-30] MEDS: Tiotropium CAP.INH* CAP.INH/18 MCG (USE ORDER SET !) INH SCH (09:28)
--- NOTE | 2018-07-30 10:18 | PN ---
Progress Note - Progress Note Date of Service: 07/30/18 Note: Surgery Progress Note Patient was seen this morning around 8:45am S: Patient was reportedly agitated again last night, with SBP continually in the 80-90s. She has been on and off precedex gtt and dilaudid PRN. This morning she appears slightly improved in mental status compared to yesterday. No longer persistently moaning and she appears more alert and can answer questions more clearly. She noted she is feeling okay. Her son at the bedside also feels she is improved today and has been saying she does not have as much abdominal pain. Objective: Vital Signs - 24 hr 07/29/18 07/29/18 07/29/18 10:13 10:15 10:16 Temperature Pulse Rate 104 105 106 Respiratory 27 26 25 Rate Blood Pressure 123/89 116/60 (mmHg) O2 Sat by Pulse 97 97 97 Oximetry 07/29/18 07/29/18 07/29/18 10:20 10:30 10:31 Temperature Pulse Rate 98 101 Respiratory 21 17 16 Rate Blood Pressure 90/50 (mmHg) O2 Sat by Pulse 98 98 Oximetry 07/29/18 07/29/18 07/29/18 10:45 10:46 10:52 Temperature Pulse Rate 100 104 Respiratory 21 17 18 Rate Blood Pressure 96/59 (mmHg) O2 Sat by Pulse 98 97 Oximetry 07/29/18 07/29/18 07/29/18 11:00 11:01 11:15 Temperature Pulse Rate 101 101 103 Respiratory 24 20 26 Rate Blood Pressure 101/46 101/71 (mmHg) O2 Sat by Pulse 97 97 95 Oximetry 07/29/18 07/29/18 07/29/18 11:20 11:30 11:45 Temperature Pulse Rate 100 97 Respiratory 18 17 19 Rate Blood Pressure 98/56 103/49 (mmHg) O2 Sat by Pulse 98 98 Oximetry 07/29/18 07/29/18 07/29/18 11:51 12:00 12:13 Temperature 98.6 F Pulse Rate 100 Respiratory 19 26 20 Rate Blood Pressure (mmHg) O2 Sat by Pulse 97 Oximetry 07/29/18 07/29/18 07/29/18 12:15 12:16 12:30 Temperature Pulse Rate 102 99 97 Respiratory 19 20 16 Rate Blood Pressure 114/51 (mmHg) O2 Sat by Pulse 96 96 99 Oximetry 07/29/18 07/29/18 07/29/18 12:31 12:32 12:36 Temperature Pulse Rate 93 95 95 Respiratory 19 20 19 Rate Blood Pressure 84/49 74/52 96/50 (mmHg) O2 Sat by Pulse 98 99 98 Oximetry 07/29/18 07/29/18 07/29/18 12:45 13:00 13:14 Temperature Pulse Rate 92 93 Respiratory 14 16 16 Rate Blood Pressure 89/48 89/46 (mmHg) O2 Sat by Pulse 98 98 Oximetry 07/29/18 07/29/18 07/29/18 13:15 13:17 13:18 Temperature Pulse Rate 95 Respiratory 18 16 15 Rate Blood Pressure 98/57 (mmHg) O2 Sat by Pulse 99 Oximetry 07/29/18 07/29/18 07/29/18 13:19 13:30 13:45 Temperature Pulse Rate 98 98 Respiratory 19 17 20 Rate Blood Pressure 88/64 (mmHg) O2 Sat by Pulse 99 98 Oximetry 07/29/18 07/29/18 07/29/18 14:00 14:15 14:30 Temperature Pulse Rate 98 100 105 Respiratory 22 27 18 Rate Blood Pressure (mmHg) O2 Sat by Pulse 99 99 98 Oximetry 07/29/18 07/29/18 07/29/18 14:35 14:41 14:45 Temperature Pulse Rate 100 101 Respiratory 18 20 17 Rate Blood Pressure 97/58 111/58 (mmHg) O2 Sat by Pulse 97 98 Oximetry 07/29/18 07/29/18 07/29/18 15:00 15:15 15:30 Temperature Pulse Rate 103 98 98 Respiratory 19 22 20 Rate Blood Pressure 119/53 (mmHg) O2 Sat by Pulse 98 100 100 Oximetry 07/29/18 07/29/18 07/29/18 15:31 15:44 15:45 Temperature Pulse Rate 100 106 Respiratory 20 23 Rate Blood Pressure 115/55 130/75 (mmHg) O2 Sat by Pulse 100 98 96 Oximetry 07/29/18 07/29/18 07/29/18 16:00 16:15 16:30 Temperature Pulse Rate 103 104 103 Respiratory 19 20 Rate Blood Pressure 134/74 123/72 133/52 (mmHg) O2 Sat by Pulse 97 97 99 Oximetry 07/29/18 07/29/18 07/29/18 16:44 16:45 16:47 Temperature 98.7 F Pulse Rate 105 101 Respiratory 16 16 Rate Blood Pressure 83/56 119/58 (mmHg) O2 Sat by Pulse 99 100 Oximetry 07/29/18 07/29/18 07/29/18 16:57 17:00 17:15 Temperature Pulse Rate 99 100 Respiratory 17 19 29 Rate Blood Pressure 117/53 (mmHg) O2 Sat by Pulse 100 100 Oximetry 07/29/18 07/29/18 07/29/18 17:16 17:22 17:30 Temperature Pulse Rate 98 103 Respiratory 21 24 17 Rate Blood Pressure 109/71 107/51 (mmHg) O2 Sat by Pulse 99 100 Oximetry 07/29/18 07/29/18 07/29/18 17:45 18:00 18:01 Temperature Pulse Rate 103 104 105 Respiratory 27 22 22 Rate Blood Pressure 110/55 119/44 (mmHg) O2 Sat by Pulse 98 94 93 Oximetry 07/29/18 07/29/18 07/29/18 18:15 18:30 18:45 Temperature Pulse Rate 101 104 103 Respiratory 25 29 22 Rate Blood Pressure 113/57 113/55 126/55 (mmHg) O2 Sat by Pulse 100 100 100 Oximetry 07/29/18 07/29/18 07/29/18 19:00 19:15 19:30 Temperature Pulse Rate 102 104 102 Respiratory 23 19 20 Rate Blood Pressure 116/60 (mmHg) O2 Sat by Pulse 99 99 89 Oximetry 07/29/18 07/29/18 07/29/18 19:31 19:45 19:46 Temperature Pulse Rate 109 105 108 Respiratory 20 26 21 Rate Blood Pressure 130/58 124/49 (mmHg) O2 Sat by Pulse 96 100 99 Oximetry 07/29/18 07/29/18 07/29/18 19:54 20:00 20:15 Temperature 98.1 F Pulse Rate 105 101 Respiratory 18 21 Rate Blood Pressure 121/55 133/62 (mmHg) O2 Sat by Pulse 91 97 Oximetry 07/29/18 07/29/18 07/29/18 20:30 20:31 20:45 Temperature Pulse Rate 105 109 106 Respiratory 19 23 20 Rate Blood Pressure 118/73 132/83 (mmHg) O2 Sat by Pulse 99 94 100 Oximetry 07/29/18 07/29/18 07/29/18 21:00 21:01 21:15 Temperature Pulse Rate 106 110 107 Respiratory 19 19 27 Rate Blood Pressure 135/61 (mmHg) O2 Sat by Pulse 100 100 98 Oximetry 07/29/18 07/29/18 07/29/18 21:16 21:30 21:31 Temperature Pulse Rate 106 113 113 Respiratory 24 25 26 Rate Blood Pressure 146/66 140/85 (mmHg) O2 Sat by Pulse 97 100 97 Oximetry 07/29/18 07/29/18 07/29/18 21:45 21:47 22:00 Temperature Pulse Rate 108 110 109 Respiratory 25 23 25 Rate Blood Pressure 144/60 (mmHg) O2 Sat by Pulse 100 98 96 Oximetry 07/29/18 07/29/18 07/29/18 22:02 22:15 22:30 Temperature Pulse Rate 108 105 96 Respiratory 27 21 19 Rate Blood Pressure 113/67 129/54 (mmHg) O2 Sat by Pulse 99 99 99 Oximetry 07/29/18 07/29/18 07/29/18 22:31 22:38 22:48 Temperature Pulse Rate 101 92 92 Respiratory 18 20 22 Rate Blood Pressure 94/43 80/42 77/58 (mmHg) O2 Sat by Pulse 99 100 97 Oximetry 07/29/18 07/29/18 07/29/18 23:00 23:11 23:15 Temperature Pulse Rate 87 82 87 Respiratory 18 18 16 Rate Blood Pressure 76/41 82/43 84/48 (mmHg) O2 Sat by Pulse 99 99 99 Oximetry 07/29/18 07/29/18 07/29/18 23:25 23:28 23:30 Temperature Pulse Rate 87 83 88 Respiratory 19 23 23 Rate Blood Pressure 75/45 73/29 (mmHg) O2 Sat by Pulse 100 99 99 Oximetry 07/29/18 07/29/18 07/29/18 23:31 23:36 23:45 Temperature Pulse Rate 87 89 94 Respiratory 21 21 20 Rate Blood Pressure 56/33 98/49 (mmHg) O2 Sat by Pulse 99 100 100 Oximetry 07/29/18 07/29/18 07/29/18 23:46 23:54 23:56 Temperature Pulse Rate 87 89 95 Respiratory 18 21 25 Rate Blood Pressure 90/51 126/59 116/74 (mmHg) O2 Sat by Pulse 100 98 99 Oximetry 07/30/18 07/30/18 07/30/18 00:00 00:03 00:05 Temperature 97.9 F Pulse Rate 93 89 93 Respiratory 20 23 25 Rate Blood Pressure 85/63 120/67 125/74 (mmHg) O2 Sat by Pulse 99 99 100 Oximetry 07/30/18 07/30/18 07/30/18 00:10 00:15 00:16 Temperature Pulse Rate 91 87 88 Respiratory 22 22 23 Rate Blood Pressure 99/68 95/53 (mmHg) O2 Sat by Pulse 99 100 100 Oximetry 07/30/18 07/30/18 07/30/18 00:17 00:20 00:24 Temperature Pulse Rate 88 77 88 Respiratory 26 19 20 Rate Blood Pressure 77/56 91/50 (mmHg) O2 Sat by Pulse 100 100 100 Oximetry 07/30/18 07/30/18 07/30/18 00:30 00:31 00:45 Temperature Pulse Rate 83 87 88 Respiratory 30 24 22 Rate Blood Pressure 84/51 92/61 (mmHg) O2 Sat by Pulse 100 100 100 Oximetry 07/30/18 07/30/18 07/30/18 00:46 00:55 00:56 Temperature Pulse Rate 91 97 Respiratory 21 25 28 Rate Blood Pressure 139/77 (mmHg) O2 Sat by Pulse 100 99 Oximetry 07/30/18 07/30/18 07/30/18 01:00 01:01 01:15 Temperature Pulse Rate 101 94 93 Respiratory 28 18 26 Rate Blood Pressure 102/69 77/53 (mmHg) O2 Sat by Pulse 89 100 100 Oximetry 07/30/18 07/30/18 07/30/18 01:18 01:30 01:31 Temperature Pulse Rate 91 88 89 Respiratory 20 31 18 Rate Blood Pressure 87/48 80/48 (mmHg) O2 Sat by Pulse 98 99 99 Oximetry 07/30/18 07/30/18 07/30/18 01:45 01:46 02:00 Temperature Pulse Rate 94 92 Respiratory 21 14 28 Rate Blood Pressure 98/59 67/45 (mmHg) O2 Sat by Pulse 98 98 Oximetry 07/30/18 07/30/18 07/30/18 02:01 02:03 02:15 Temperature Pulse Rate 91 86 Respiratory 24 22 21 Rate Blood Pressure 77/46 96/45 80/37 (mmHg) O2 Sat by Pulse 98 99 Oximetry 07/30/18 07/30/18 07/30/18 02:30 02:45 03:00 Temperature Pulse Rate 86 85 89 Respiratory 18 25 22 Rate Blood Pressure 85/46 98/41 105/47 (mmHg) O2 Sat by Pulse 99 99 100 Oximetry 07/30/18 07/30/18 07/30/18 03:15 03:30 03:34 Temperature 97.4 F Pulse Rate 87 89 Respiratory 24 22 Rate Blood Pressure 98/45 104/48 (mmHg) O2 Sat by Pulse 100 100 Oximetry 07/30/18 07/30/18 07/30/18 03:45 04:00 04:15 Temperature Pulse Rate 93 92 99 Respiratory 24 24 30 Rate Blood Pressure 109/50 118/49 142/55 (mmHg) O2 Sat by Pulse 99 99 98 Oximetry 07/30/18 07/30/18 07/30/18 04:20 04:30 04:45 Temperature Pulse Rate 99 94 Respiratory 22 17 25 Rate Blood Pressure 112/49 103/50 (mmHg) O2 Sat by Pulse 99 98 Oximetry 07/30/18 07/30/18 07/30/18 05:00 05:15 05:16 Temperature Pulse Rate 98 113 109 Respiratory 18 21 23 Rate Blood Pressure 99/42 98/84 (mmHg) O2 Sat by Pulse 99 93 97 Oximetry 07/30/18 07/30/18 07/30/18 05:30 05:45 05:46 Temperature Pulse Rate 100 106 105 Respiratory 17 22 20 Rate Blood Pressure 126/54 145/51 (mmHg) O2 Sat by Pulse 99 97 98 Oximetry 07/30/18 07/30/18 07/30/18 06:00 06:15 06:16 Temperature Pulse Rate 107 104 107 Respiratory 19 25 24 Rate Blood Pressure 126/57 131/78 (mmHg) O2 Sat by Pulse 100 95 94 Oximetry 07/30/18 07/30/18 07/30/18 06:30 06:31 06:39 Temperature Pulse Rate 105 105 108 Respiratory 24 24 20 Rate Blood Pressure 123/83 112/53 (mmHg) O2 Sat by Pulse 96 96 97 Oximetry 07/30/18 07/30/18 07/30/18 06:45 06:46 07:00 Temperature Pulse Rate 105 103 104 Respiratory 19 23 30 Rate Blood Pressure 108/59 (mmHg) O2 Sat by Pulse 98 99 98 Oximetry 07/30/18 07/30/18 07/30/18 07:02 07:13 07:15 Temperature Pulse Rate 108 99 103 Respiratory 30 23 19 Rate Blood Pressure 89/51 107/52 (mmHg) O2 Sat by Pulse 97 99 97 Oximetry 07/30/18 07/30/18 07/30/18 07:16 07:30 07:35 Temperature 99.3 F Pulse Rate 101 95 Respiratory 24 21 Rate Blood Pressure 98/55 98/54 (mmHg) O2 Sat by Pulse 99 99 Oximetry 07/30/18 07/30/18 07/30/18 07:45 07:46 08:00 Temperature Pulse Rate 95 94 96 Respiratory 19 25 20 Rate Blood Pressure 88/49 (mmHg) O2 Sat by Pulse 99 98 99 Oximetry 07/30/18 07/30/18 07/30/18 08:15 08:25 08:30 Temperature Pulse Rate 90 91 Respiratory 22 20 24 Rate Blood Pressure 127/58 (mmHg) O2 Sat by Pulse 99 94 Oximetry 07/30/18 07/30/18 07/30/18 08:31 08:45 09:00 Temperature Pulse Rate 90 93 89 Respiratory 22 19 17 Rate Blood Pressure 98/60 81/53 103/52 (mmHg) O2 Sat by Pulse 97 99 99 Oximetry 07/30/18 07/30/18 09:15 09:16 Temperature Pulse Rate 91 83 Respiratory 18 17 Rate Blood Pressure 105/71 (mmHg) O2 Sat by Pulse 97 97 Oximetry Laboratory Results - last 24 hr 07/28/18 07/29/18 07/29/18 10:22 13:28 21:30 WBC RBC Hgb Hct MCV MCH MCHC RDW Plt Count MPV Sodium 141 Potassium 3.8 Chloride 114 H Carbon Dioxide 22 Anion Gap 5 BUN 22 Creatinine 0.93 Est GFR ( Amer) 70.7 Est GFR (Non-Af Amer) 58.5 BUN/Creatinine Ratio 23.7 H Glucose 71 POC Glucose (mg/dL) 153 H Lactic Acid Calcium 7.5 L Phosphorus Magnesium Urine Color Suzie Urine Appearance Cloudy Urine pH 5.0 Ur Specific [place] 1.025 Urine Protein 1+(30 mg/dl) A Urine Ketones Negative Urine Blood 3+ A Urine Nitrate Negative Urine Bilirubin Negative Urine Urobilinogen Negative Ur Leukocyte Esterase 1+ A Urine WBC (Auto) 3+(>20/hpf) A Urine RBC (Auto) 3+(>10/hpf) A Ur Squamous Epith Cells Present A Urine Bacteria Absent RBC Casts Present A Urine Glucose Negative 07/29/18 07/29/18 07/30/18 21:30 21:30 05:30 WBC 18.6 H RBC 3.72 L Hgb 10.7 L Hct 34 L MCV 91 MCH 29 MCHC 32 RDW 14 Plt Count 180 MPV 10.1 Sodium 141 Potassium 4.2 Chloride 111 Carbon Dioxide 20 L Anion Gap 10 BUN 23 Creatinine 0.87 Est GFR ( Amer) 76.4 Est GFR (Non-Af Amer) 63.1 BUN/Creatinine Ratio 26.4 H Glucose 68 L POC Glucose (mg/dL) Lactic Acid 0.6 Calcium 7.9 L Phosphorus 2.9 Magnesium 1.3 L Urine Color Urine Appearance Urine pH Ur Specific [place] Urine Protein Urine Ketones Urine Blood Urine Nitrate Urine Bilirubin Urine Urobilinogen Ur Leukocyte Esterase Urine WBC (Auto) Urine RBC (Auto) Ur Squamous Epith Cells Urine Bacteria RBC Casts Urine Glucose 07/30/18 07/30/18 05:30 08:55 WBC 13.2 H RBC 3.28 L Hgb 9.5 L Hct 30 L MCV 91 MCH 29 MCHC 32 RDW 14 Plt Count 140 L MPV 9.8 Sodium Potassium Chloride Carbon Dioxide Anion Gap BUN Creatinine Est GFR ( Amer) Est GFR (Non-Af Amer) BUN/Creatinine Ratio Glucose POC Glucose (mg/dL) Lactic Acid 0.8 Calcium Phosphorus Magnesium Urine Color Urine Appearance Urine pH Ur Specific [place] Urine Protein Urine Ketones Urine Blood Urine Nitrate Urine Bilirubin Urine Urobilinogen Ur Leukocyte Esterase Urine WBC (Auto) Urine RBC (Auto) Ur Squamous Epith Cells Urine Bacteria RBC Casts Urine Glucose Intake & Output 07/29/18 07/30/18 07/30/18 22:59 06:59 14:59 Intake Total 954 709.7 Output Total 485 232 250 Balance 469 477.7 -250 Weight 182 lb 3.889 oz Intake: IV Fluids 679 580.2 LR 566 NS (0.9%) 679 14.2 IVPB 275 100 Calcium Gluconate 70 Zosyn 205 100 Medicated IV 29.5 Precedex 29.5 Output: Tobin 485 232 250 UOP x 24 hr- 932 cc Abx: zosyn Micro: peritoneal fluid + e.coli U/A: +WBC, LE Physical exam: abdomen soft, some tenderness on right abdomen, non distended, no rebound or guarding. LUQ lap port site with bruising extending slight to left lateral abdomen A/P: 77 yo F with a history of COPD, HTN who presented with diffuse abdominal pain and CT concerning for ischemic bowel, now POD 2 from diagnostic laparoscopy and extensive lysis of adhesions with no significant intraabdominal pathology identified. Patient remains delirious. Neuro: Patient has acute delirium but appears someone improved today. She has been on and off precedex gtt and taking intermittent dilaudid for pain control. CV: BPs remain variable but have typically been above SBP 80s and patient not on pressors, continue to follow. Resp: COPD, continue home meds GI: Continue NPO today. Patient does not seem to complain as much about abdominal pain, however while she remains somewhat delirious and cannot get an accurate exam based on her mental status, should continue NPO for one more day. ID: Peritoneal fluid grew e.coli, henriquez sensitive. Appreciate Dr. Raymundo's recommendations. Patient's previous cx show she grew e.coli in 2017 peritoneal fluid. She also has U/A on this admission with +LE and WBCs. Awaiting urine cx. Continue zosyn, per Dr. Raymundo. It is unclear what the source of her intraabdominal pathology was. Her lactate remains normal, WBC 13 today but does seem to have a dilutional component to it. She remains afebrile. She has extensive atherosclerotic disease and dehydrated with Cr 1.4 when she arrived to ED, but no other lab abnormalities, was HD stable and CT showed thickened jejunal loop with ascites, concerning for ischemia and some stenosis at the celiac/NICOLA. It is possible patient could have had non occlusive mesenteric ischemia from dehydration and subsequent bacterial translocation accounting for the e.coli + peritoneal fluid. Or possibly the patient had had an internal hernia that was freed during the lysis of adhesions. She clinically is appearing to be better now however, on Zosyn. Renal: Cr normalized, UOP adequate, getting boluses intermittently for low blood pressure. Liver: transaminitis and hyperbilirubinemia yesterday. Patient already had cholecystectomy and RUQ US yesterday showed normal portal flow, no thrombosis. Trending labs today.
[2018-07-30] MEDS: Dexmedetomidine* 400 MCG in NS 0.9% 100 ML* 96 ML IVPB SCH ×2 (10:53→20:07)
[2018-07-30] MEDS ORDERED: HYDROmorphone INJ* 0.5 MG/0.5 ML SYRINGE IV PRN (12:29)
[2018-07-30] MEDS ORDERED: Lactated Ringers 1000 ML Bag* 1,000 ML IV SCH (12:30)
[2018-07-30] MEDS: Acetaminophen TAB* 325 MG PO PRN (14:27)
--- NOTE | 2018-07-30 15:21 | PN ---
Progress Note - Progress Note Date of Service: 07/30/18 SOAP: Subjective: CC: abd infection HPI: 77 year old woman with abd pain, ex lap, encephalopathy which is slowly improving. No fever, passing flatus no BM. Objective: Vital Signs Temp 37.0 C 07/30/18 12:00 Pulse 144 07/30/18 15:01 Resp 19 07/30/18 15:01 BP 155/94 07/30/18 15:01 Pulse Ox 89 07/30/18 15:01 Intake & Output 07/29/18 07/30/18 07/30/18 18:59 06:59 18:59 Intake Total 3198 1663.7 1362 Output Total 420 512 339 Balance 2778 1151.7 1023 Weight 182 lb 3.889 oz Intake: IV Fluids 3024 1259.2 Albumin 100 LR 2000 566 NS (0.9%) 838 693.2 Potassium 86 IVPB 177 573 0430 Calcium Gluconate 70 LR 906 NS (0.9%) 80 Potassium 63 Zosyn 111 305 100 Medicated IV 29.5 63 Precedex 29.5 63 Tobin Irrigate Amount 213 Output: Tobin 420 512 339 Gen:awake, no distress HEENT: no thrush Heart:RRR no murmur Lungs:CTA BL Abd:decr BS, soft, mildly distended Skin: no rash Microbiology 07/29/18 15:10 Aerobic Blood Culture - Preliminary Blood Venous No Growth Day 1 Anaerobic Blood Culture - Preliminary No Growth Day 1 07/29/18 15:07 Aerobic Blood Culture - Preliminary Blood Venous No Growth Day 1 Anaerobic Blood Culture - Preliminary No Growth Day 1 07/29/18 13:28 Urine Culture - Final Urine No Growth (<1,000 CFU/mL) 07/28/18 15:00 Gram Stain - Final Peritoneal Fluid Body Fluid Culture - Preliminary Escherichia Coli 07/28/18 15:00 Anaerobic Culture - Preliminary Body Fluid Laboratory Results - last 24 hr 07/28/18 07/29/18 07/29/18 10:22 21:30 21:30 WBC 18.6 H RBC 3.72 L Hgb 10.7 L Hct 34 L MCV 91 MCH 29 MCHC 32 RDW 14 Plt Count 180 MPV 10.1 Sodium 141 Potassium 3.8 Chloride 114 H Carbon Dioxide 22 Anion Gap 5 BUN 22 Creatinine 0.93 Est GFR ( Amer) 70.7 Est GFR (Non-Af Amer) 58.5 BUN/Creatinine Ratio 23.7 H Glucose 71 POC Glucose (mg/dL) 153 H Lactic Acid Calcium 7.5 L Phosphorus Magnesium 07/29/18 07/30/18 07/30/18 21:30 05:30 05:30 WBC 13.2 H RBC 3.28 L Hgb 9.5 L Hct 30 L MCV 91 MCH 29 MCHC 32 RDW 14 Plt Count 140 L MPV 9.8 Sodium 141 Potassium 4.2 Chloride 111 Carbon Dioxide 20 L Anion Gap 10 BUN 23 Creatinine 0.87 Est GFR ( Amer) 76.4 Est GFR (Non-Af Amer) 63.1 BUN/Creatinine Ratio 26.4 H Glucose 68 L POC Glucose (mg/dL) Lactic Acid 0.6 Calcium 7.9 L Phosphorus 2.9 Magnesium 1.3 L 07/30/18 08:55 WBC RBC Hgb Hct MCV MCH MCHC RDW Plt Count MPV Sodium Potassium Chloride Carbon Dioxide Anion Gap BUN Creatinine Est GFR ( Amer) Est GFR (Non-Af Amer) BUN/Creatinine Ratio Glucose POC Glucose (mg/dL) Lactic Acid 0.8 Calcium Phosphorus Magnesium Assessment: 1. E.coli intra-abd infection, focal, suspect small perforation 2. ex lap, lysis of adhesions 3. encephalopathy; due to infection and medications 4. obesity 5. transaminitis Plan: 1. change zosyn to ceftriaxone (ordered), continue IV for now 35 minutes floor time >50% face to face with patient and family discussing abx plans and prognosis, all questions answered
[2018-07-30] MEDS ORDERED: cefTRIAXone(*) 1 GM in NS 0.9% 50 ML* 50 ML IVPB SCH (16:00)
[2018-07-30] MEDS ORDERED: Polyethylene Glycol 3350 BTL* 238 GM BTL PO ONE (16:29)
[2018-07-30] MEDS ORDERED: Docusate CAP* 100 MG PO PRN (16:29)
[2018-07-30] MEDS ORDERED: Senna TAB PO ONE (16:29)
[2018-07-30] MEDS ORDERED: Magnesium Sulfate 2 GM IV* 2 GM/50 ML BAG IVPB ONE (16:29)
[2018-07-30] MEDS: LORazepam TAB(*) 0.5 MG PO PRN ×2 (16:47→22:58)
[2018-07-30 16:56] LABS: Albumin 2.9 g/dL (3.2-5.2); Albumin/Globulin Ratio 1.3 (1-3); Globulin 2.2 g/dL (2-4); Indirect Bilirubin 0.5 mg/dL (0.3-1.0); Total Bilirubin 1.2 mg/dL (0.2-1.0); Total Protein 5.1 g/dL (6.4-8.9)
--- NOTE | 2018-07-30 18:01 | PN ---
Date of Service: 07/30/18 Critical Care Services: 77 yo F with hx of multiple prior abdominal surgeries presented to ED on 07/28 with acute onset diffuse abdominal pain x 1 day. On evaluation in ED found to be tachycardic but with otherwise stable VS. WBC and lactic acid normal. CT abdomen noncontrasted (due to elevated creatinine) showed free fluid in abdomen and thickened jejunum with possible portal venous gas and pneumatosis. CTA done which was negative for mesenteric arterial thrombosis/embolus. She was admitted to Medicine and surgery consulted. She went emergently to the OR for diagnositic laparoscopy where she was found to have inflammed, hyperemic small bowel and extensive intraabdominal adhesions. A laparoscopic lysis of adhesions was performed. Turbid fluid was found and sent for culture. NO findings of performation or internal hernia. 07/28: Postoperatively the patient remained lethargic. Family notes that she "takes a long time to wake up from anesthesia". She also developed soft SBPs and was transferred to the ICU for further care. 07/29: No overnight events. 07/30: Patient more awake and alert but confused today. No current complains. Right forearm noted to be erythematous without pain. PICC on the Right functional. Vital Signs: Temp Pulse Resp BP SpO2 FiO2 98.2 F 114 18 145/83 96 07/30/18 15:33 07/30/18 17:00 07/30/18 17:00 07/30/18 17:00 07/30/18 17:00 Physical Exam: Gen:NAD HEENT: NCAT, nasal orifice patent. Neck midline. No LA Lungs: CTAB Cardiac: RRR Abdomen: soft, nontender to palpation. Ecchymosis noted on the left abdominal site. Extremities: warm, dry Neuro: awake, alert. Doesnt follow commands. Non focal Fluid Balance (Past 24 Hours): I= O= Net Intake & Output 07/28/18 07/29/18 07/30/18 07/31/18 06:59 06:59 06:59 06:59 Intake Total 4382 4861.7 1362 Output Total 2800 932 1289 Balance 1582 3929.7 73 Weight 181 lb 3.52 oz 182 lb 3.889 oz Intake: IV Fluids 4235 4283.2 Albumin 100 CLINDAMYCIN 900MG 50 LR 2566 NS (0.9%) 685 1531.2 NS 100ML, Gentamycin 100 120MG Potassium 300 86 lr 2000 IVPB 106 039 1768 Calcium Gluconate 70 LR 906 NS (0.9%) 80 Potassium 147 63 Zosyn 416 100 Medicated IV 29.5 63 Precedex 29.5 63 Oral 0 0 Tobin Irrigate Amount 213 Output: Urine 105 Tobin 2695 692 1289 Other: Estimated Blood Loss min Comment ADLs: Meal Record Start: 07/28/18 21: 20 Freq: Status: Active Protocol: Created 07/28/18 21:20 System (Rec: 07/28/18 21:20 System [id number]) ADLs: Meal Record Start: 07/29/18 04: 24 Freq: ,13,18 Status: Active Protocol: Created 07/29/18 04:24 [id number] (Rec: 07/29/18 04:24 [id number] ICU-C15) Document 07/29/18 08:56 [id number] (Rec: 07/29/18 08:56 [id number] ICU-C15) Document 07/29/18 13:00 [id number] (Rec: 07/29/18 13:15 [id number] ICU-C15) Document 07/29/18 17:27 [id number] (Rec: 07/29/18 17:27 [id number] ICU-C15) Document 07/30/18 09:00 [id number] (Rec: 07/30/18 09:29 [id number] ICU-M28) Document 07/30/18 13:00 [id number] (Rec: 07/30/18 13:30 [id number] ICU-M33) Intake and Output Start: 07/28/18 10: 29 Freq: Status: Active Protocol: Created 07/28/18 10:29 System (Rec: 07/28/18 10:29 System [id number]) Intake and Output Start: 07/28/18 21: 20 Freq: DAILY@0600,1400,2200 Status: Complete Protocol: Created 07/28/18 21:20 System (Rec: 07/28/18 21:20 System SSU-M07) Document 07/28/18 22:46 [id number] (Rec: 07/28/18 22:47 [id number] SSU-C05) Document 07/29/18 06:00 [id number] (Rec: 07/29/18 07:45 [id number] ICU-C15) Intake and Output Start: 07/29/18 04: 24 Freq: Q1HR Status: Active Protocol: Created 07/29/18 04:24 [id number] (Rec: 07/29/18 04:24 [id number] ICU-C15) Document 07/29/18 05:00 [id number] (Rec: 07/29/18 07:30 [id number] ICU-C15) Document 07/29/18 06:00 [id number] (Rec: 07/29/18 07:30 [id number] ICU-C15) Document 07/29/18 07:00 [id number] (Rec: 07/29/18 07:30 [id number] ICU-C15) Document 07/29/18 09:35 [id number] (Rec: 07/29/18 09:35 [id number] ICU-C15) Document 07/29/18 10:00 YOS1631 (Rec: 07/29/18 10:50 [id number] ICU-C15) Document 07/29/18 11:04 [id number] (Rec: 07/29/18 11:04 AGL9112 ICU-M33) Document 07/29/18 12:15 [id number] (Rec: 07/29/18 12:15 [id number] ICU-M33) Document 07/29/18 13:28 [id number] (Rec: 07/29/18 13:28 [id number] ICU-M33) Document 07/29/18 15:10 [id number] (Rec: 07/29/18 15:10 [id number] ICU-C15) Document 07/29/18 16:00 ORL2098 (Rec: 07/29/18 16:44 IQY6041 ICU-M33) Document 07/29/18 16:59 [id number] (Rec: 07/29/18 16:59 KKY7266 ICU-C15) Document 07/29/18 18:21 HTK2331 (Rec: 07/29/18 18:21 [id number] ICU-C15) Document 07/29/18 19:00 [id number] (Rec: 07/29/18 20:04 [id number] ICU-C15) Document 07/29/18 20:00 WSQ1210 (Rec: 07/29/18 20:04 TIL1651 ICU-C15) Document 07/29/18 21:00 [id number] (Rec: 07/29/18 22:22 [id number] ICU-C15) Document 07/29/18 22:00 [id number] (Rec: 07/29/18 22:22 QQZ2052 ICU-C15) Document 07/29/18 23:00 MUW1931 (Rec: 07/29/18 23:04 [id number] ICU-C15) Document 07/30/18 00:00 [id number] (Rec: 07/30/18 00:02 [id number] ICU-C15) Document 07/30/18 01:00 [id number] (Rec: 07/30/18 02:15 TAR1563 ICU-C15) Document 07/30/18 02:00 [id number] (Rec: 07/30/18 02:15 [id number] ICU-C15) Document 07/30/18 03:00 EXG1063 (Rec: 07/30/18 04:08 [id number] ICU-C15) Document 07/30/18 04:00 ATU1494 (Rec: 07/30/18 04:09 [id number] ICU-C15) Document 07/30/18 05:00 [id number] (Rec: 07/30/18 05:10 [id number] ICU-M33) Document 07/30/18 06:00 [id number] (Rec: 07/30/18 06:04 [id number] ICU-C15) Document 07/30/18 07:00 XDV1311 (Rec: 07/30/18 07:19 [id number] ICU-M33) Document 07/30/18 08:00 [id number] (Rec: 07/30/18 08:37 [id number] ICU-M33) Document 07/30/18 09:39 [id number] (Rec: 07/30/18 09:39 XIQ6907 ICU-C16) Document 07/30/18 10:00 AWI9846 (Rec: 07/30/18 10:29 ZIA1672 ICU-M28) Document 07/30/18 10:58 HFY0380 (Rec: 07/30/18 10:58 [id number] ICU-M33) Document 07/30/18 12:00 [id number] (Rec: 07/30/18 12:03 ADF1001 ICU-M33) Document 07/30/18 13:00 [id number] (Rec: 07/30/18 13:30 [id number] ICU-M33) Document 07/30/18 14:52 REE6529 (Rec: 07/30/18 14:53 [id number] ICU-M33) Document 07/30/18 16:00 [id number] (Rec: 07/30/18 17:28 EUC2073 ICU-C10) Document 07/30/18 17:00 [id number] (Rec: 07/30/18 17:55 [id number] ICU-C06) Labs: Laboratory Results - last 24 hr 07/29/18 07/29/18 07/29/18 21:30 21:30 21:30 WBC 18.6 H RBC 3.72 L Hgb 10.7 L Hct 34 L MCV 91 MCH 29 MCHC 32 RDW 14 Plt Count 180 MPV 10.1 Sodium 141 Potassium 3.8 Chloride 114 H Carbon Dioxide 22 Anion Gap 5 BUN 22 Creatinine 0.93 Est GFR ( Amer) 70.7 Est GFR (Non-Af Amer) 58.5 BUN/Creatinine Ratio 23.7 H Glucose 71 Lactic Acid 0.6 Calcium 7.5 L Phosphorus Magnesium Total Bilirubin Direct Bilirubin Indirect Bilirubin AST ALT Alkaline Phosphatase Total Protein Albumin Globulin Albumin/Globulin Ratio 07/30/18 07/30/18 07/30/18 05:30 05:30 08:55 WBC 13.2 H RBC 3.28 L Hgb 9.5 L Hct 30 L MCV 91 MCH 29 MCHC 32 RDW 14 Plt Count 140 L MPV 9.8 Sodium 141 Potassium 4.2 Chloride 111 Carbon Dioxide 20 L Anion Gap 10 BUN 23 Creatinine 0.87 Est GFR ( Amer) 76.4 Est GFR (Non-Af Amer) 63.1 BUN/Creatinine Ratio 26.4 H Glucose 68 L Lactic Acid 0.8 Calcium 7.9 L Phosphorus 2.9 Magnesium 1.3 L Total Bilirubin Direct Bilirubin Indirect Bilirubin AST ALT Alkaline Phosphatase Total Protein Albumin Globulin Albumin/Globulin Ratio 07/30/18 09:26 WBC RBC Hgb Hct MCV MCH MCHC RDW Plt Count MPV Sodium Potassium Chloride Carbon Dioxide Anion Gap BUN Creatinine Est GFR ( Amer) Est GFR (Non-Af Amer) BUN/Creatinine Ratio Glucose Lactic Acid Calcium Phosphorus Magnesium Total Bilirubin 1.20 H Direct Bilirubin 0.70 H Indirect Bilirubin 0.5 AST 69 H ALT 86 H Alkaline Phosphatase 108 H Total Protein 5.1 L Albumin 2.9 L Globulin 2.2 Albumin/Globulin Ratio 1.3 Studies: 07/29 CXR: NAD 07/28 CTA abd/pelvis: unchanged long segment jejunal wall thickening with suspicion for ischemic bowel diverticulosis extensive atherosclerotic disease with no hemodynamically signficant stenosis or intra arterial thrombosis 07/28 CT abd/pelvis, noncontrast: long segment of circumferential jejunal wall thickening suspected trace pneumoatosis and portal venous gas small volume ascites extensive calcification of aorta 07/28 AXR: No pneumoperitoneum. Paucity of bowel niki. Nutrition: Passed swallow eval Advanced Diet as tolerated Impression: 77 yo F presented to the hospital on 07/28 with one day of sudden onset abdominal pain. CT/CTA of abdomen demonstrated long segment of jejunal wall thickening and question of pneumatosis. Lactic acid and WBC normal. Went for urgent laparoscopy and found to have hyperemic thickened loop of bowel, no clear perforations or areas of ischemia. No transition point. Transferred to ICU overnight for soft BPs. Acute encephalopathy Leukocytosis Anemia Hypoglycemia Acute mild transaminitis Plan: Cardiovascular: (1) Sinus tachycardia unknown etiology (2) Hypotension resolved (3) Chronic benign essential HTN -- HR 87-107 -- SBP 82-123 -- Telemetry -- Metoprolol started 07/30 25 mg BID with holding parameters Home meds: HCTZ, Metoprolol Pulmonary: (1) COPD -- RR 13-26 -- sats 95-100 on 3L NC -- CXR: NAD -- PRN Albuterol -- Mometasone/Formoterol and Spiriva Home meds: Spiriva, Albuterol, Symbicort, 3L home O2 Gastrointestinal/Hepatology: (1) mild transaminitis- improving levels (2) Jejunal enteritis vs mesenteric ischemia; (3) Peritonitis; (4) hx of diverticulosis (5) constipation -- duplex of hepatic veins and portal veins 07/29 shows increase echogenicity around PV and BD which could be due to hepatitis -- bowel regimen: aggressive bowel regimen -- ulcer prophylaxis: Protonix as on home PPI -- Zofran as needed Home meds: Zofran, Omeprazole Endocrine: No acute issues -- monitor BGs Home meds: None Renal: NAVID resolved Decrease IVF to 75 cc/h LR. Discontinue when tolerating oral intake Home meds: None Infectious disease: (1) Sepsis; (2) Bacterial peritonitis (3) leukocytosis improving 18-->13 -- Micro 07/29 MRSA screen negative UA ordered blood ordered 07/28 Ascites 2+ Gram negative bacilli -- ABX Zosyn-->to CTX as per ID Home meds: None Neurologic: (1) Chronic pain syndrome/chronic low back pain; (2) Acute postoperative pain control; (3) Acute encephalopathy secondary to medications and sepsis; (4) Osteoarthritis (5) anxiety (6) ICU delirium -- PRN Tylenol -- PRN Dilaudid for postoperative pain control -- Zoloft - resumed ativan at lower dose - start seroquel 12.5 mg qhs 07/30 Home meds: Ativan, Mobile, Roxicodone, Requip, Mobic, Zoloft Hematological: Acute anemia 12-->10--.9 suspect post surgical no s/sx of active bleed will follow up with am labs -- DVT prophylaxis: SQ Heparin Home meds: None Metabolic: No acute issues -- Lactic aicd 1.0 form 2.0 from < 0.3 Home meds: None Deep vein thrombosis prophylaxis: SQ Heparin Dietary: Protonix Prognosis: guarded Code status: full Disposition: continue ICU care Family updated at bedside regarding clinical course and plan of care Cumulative time spent in the care of this patient (excluding any procedure time) : at least 35 minutes. Patient care included clinical interview (with patient and/or family), bedside exam of the patient, review of labs, x-rays, and other ancillary data, coordination of (respiratory, nursing care, review of patient's records, discussion regarding patients management with involved consultants, primary physician, pharmacists, and other healthcare personnel (dietary, case management , physical/occupational therapy etc.)
[2018-07-30] MEDS ORDERED: Bisacodyl SUPP* 10 MG SUPP PR ONE (18:08)
[2018-07-30] MEDS ORDERED: Furosemide IV* 10 MG/ML VIAL (40 MG) IV ONE (19:40)
[2018-07-30] MEDS ORDERED: LORazepam TAB(*) 0.5 MG ONE (22:56)
[2018-07-30] MEDS: Ondansetron INJ* 2 MG/ML VIAL IV PRN (22:58)
[2018-07-31] MEDS ORDERED: Haloperidol INJ IV/IM* 5 MG/ML AMP ONE (04:13)
[2018-07-31] MEDS ORDERED: Haloperidol INJ IV/IM* 5 MG/ML AMP IV SLOW PU ONE (04:15)
[2018-07-31] MEDS: LORazepam TAB(*) 0.5 MG PO PRN ×3 (05:27→21:25)
[2018-07-31 05:47] LABS: Hematocrit 34 % (35-47); Hemoglobin 10.8 g/dl (12.0-16.0); Mean Corpuscular HGB Conc 32 g/dl (31-36); Mean Corpuscular Hemoglobin 28 pg (27-31); Mean Corpuscular Volume 89 fL (80-97); Mean Platelet Volume 9.8 fL (7.4-10.4); Platelet Count 179 10^3/ul (150-450); Red Blood Count 3.83 10^6/ul (4.00-5.40); Red Cell Distribution Width 14 % (10.5-15); White Blood Count 19.2 10^3/ul (3.5-10.8)
[2018-07-31] MEDS: Dexmedetomidine* 400 MCG in NS 0.9% 100 ML* 96 ML IVPB SCH (05:50)
[2018-07-31] MEDS: Albuterol HFA INHALER* 8 gm MDI INH PRN (05:57)
[2018-07-31 06:01] LABS: BUN/Creatinine Ratio 28.2 (8-20); Calcium 9.6 mg/dL (8.6-10.3); EGFR African American 86.7 (>60); EGFR Non-African American 71.6 (>60); Magnesium 1.9 mg/dL (1.9-2.7); Potassium 3.1 mmol/L (3.5-5.0)
--- NOTE | 2018-07-31 08:02 | PN ---
Date of Service: 07/31/18 Critical Care Services: 77F with htn, djd, copd, multiple abdominal surgeries, presents with abdominal pain thought to have ischemic bowel. s/p laparoscopy. Now with delirium. 07/31: Calm and confused. Hemodynamically stable. Vital Signs: Temp Pulse Resp BP SpO2 FiO2 98.7 F 91 26 150/83 100 07/31/18 07:20 07/31/18 07:00 07/31/18 07:00 07/31/18 04:01 07/31/18 07:00 Physical Exam: Gen - nad, confused heent - ncat, eomi, neck - no jvd lungs - cta cv - s1/s2, no murmur abd - soft, nt, sugical incisions c/d/i ext - no cce neuro - confused Fluid Balance (Past 24 Hours): I= O= Net Intake & Output 07/29/18 07/30/18 07/31/18 08/01/18 06:59 06:59 06:59 06:59 Intake Total 4382 4861.7 1799.4 Output Total 2800 932 4579 Balance 1582 3929.7 -2779.6 Weight 82.2 kg 82.664 kg 84.7 kg Intake: IV Fluids 4235 4283.2 382.4 Albumin 100 CLINDAMYCIN 900MG 50 LR 2566 344 NS (0.9%) 685 1531.2 38.4 NS 100ML, Gentamycin 100 120MG Potassium 300 86 lr 2000 IVPB 285 338 7733 Calcium Gluconate 70 LR 906 Mag 55 NS (0.9%) 80 Potassium 147 63 Zosyn 416 100 Medicated IV 29.5 63 Precedex 29.5 63 Oral 0 0 Tobin Irrigate Amount 213 Output: Urine 105 Tobin 2695 932 4579 Other: Date of Last Bowel 07/30/18 Movement # Bowel Movements 1 Estimated Stool Amount Medium Estimated Blood Loss min Comment Labs: Laboratory Results - last 24 hr 07/30/18 07/30/18 07/31/18 08:55 09:26 05:40 WBC RBC Hgb Hct MCV MCH MCHC RDW Plt Count MPV Sodium 144 Potassium 3.1 L Chloride 108 Carbon Dioxide 30 Anion Gap 6 BUN 22 Creatinine 0.78 Est GFR ( Amer) 86.7 Est GFR (Non-Af Amer) 71.6 BUN/Creatinine Ratio 28.2 H Glucose 117 H Lactic Acid 0.8 Calcium 9.6 Phosphorus 2.0 L Magnesium 1.9 Total Bilirubin 1.20 H Direct Bilirubin 0.70 H Indirect Bilirubin 0.5 AST 69 H ALT 86 H Alkaline Phosphatase 108 H Total Protein 5.1 L Albumin 2.9 L Globulin 2.2 Albumin/Globulin Ratio 1.3 07/31/18 05:40 WBC 19.2 H RBC 3.83 L Hgb 10.8 L Hct 34 L MCV 89 MCH 28 MCHC 32 RDW 14 Plt Count 179 MPV 9.8 Sodium Potassium Chloride Carbon Dioxide Anion Gap BUN Creatinine Est GFR ( Amer) Est GFR (Non-Af Amer) BUN/Creatinine Ratio Glucose Lactic Acid Calcium Phosphorus Magnesium Total Bilirubin Direct Bilirubin Indirect Bilirubin AST ALT Alkaline Phosphatase Total Protein Albumin Globulin Albumin/Globulin Ratio Studies: CTA abd/pel 07/[address] COMPONENT: 1. Unchanged lung segment jejunal wall thickening with suspicion for ischemic bowel. 2. Diverticulosis with no significant signs of inflammation. 3. Status post cholecystectomy. 4. Status post hysterectomy. ABDOMINAL CT A COMPONENT: 1. Extensive atherosclerotic disease as above with no hemodynamically significant stenosis or intra-arterial thrombosis. CXR 07/30 IMPRESSION: RIGHT LOWER LUNG CONSOLIDATION. Portal Vein US 07/29 IMPRESSION: 1. No sonographic evidence of portal venous hypertension or thrombosis. 2. Relative increase in echogenicity surrounding the portal veins and biliary ducts compared to the homogenously hypoechoic liver is a nonspecific finding sometimes identified with hepatitis. 3. Trace ascites is partially visualized. Impression: 77F with htn, djd, copd, multiple abdominal surgeries, presents with abdominal pain thought to have ischemic bowel. s/p laparoscopy. Now with delirium. Plan: Neuro - delirium - haldol prn - seroquel qhs - c/w sertraline cv - htn - c/w home bblocker - restart hctz after electrolytes repleted pulm - RLL consolidation, copd - pna vs atelecatsis - nebs q4h - on abx for abdominal sepsis - incentive spirometry - chest pt id - abdominal sepsis - id following - e coli in peritoneal fluid - on ceftriaxone - f/u cultures gi - advance diet as tolerated renal - monitor i/o - replete potassium - replete phos heme - monitor cbc endo - check fs lines - picc ppx - gi/dvt full code Critical Care Time: 50 mins
[2018-07-31] MEDS ORDERED: Sodium Phosphate INJ* 30 MMOLE in NS 0.9% 250 ML* 250 ML IVPB ONE (08:30)
[2018-07-31] MEDS ORDERED: Haloperidol INJ IV/IM* 5 MG/ML AMP IV SLOW PU PRN (08:44)
[2018-07-31] MEDS: Pantoprazole IV* 40 MG IV SCH (08:55)
[2018-07-31] MEDS: KCL 20 MEQ/100 ML IVPREMIX* 20 MEQ/100 ML BAG IV SCH ×3 (08:55→13:32)
[2018-07-31] MEDS: Sertraline* 100 MG TAB PO SCH (08:55)
[2018-07-31] MEDS: Heparin VIAL(*) 5000 UNITS/ML VIAL (FIVE THOUSAND) SUBCUT SCH ×2 (08:56→21:25)
[2018-07-31] MEDS: Metoprolol Tartrate TAB* 25 MG PO SCH ×2 (08:56→21:24)
[2018-07-31] MEDS ORDERED: Zosyn per Pharmacy* NOTE FOLLOW UP SCH (10:00)
[2018-07-31] MEDS ORDERED: Piperacillin/Tazobac ADVAN(*) 3.375 GM in NS 0.9% 100 ML* 100 ML IVPB ONE (10:00)
[2018-07-31] MEDS: Tiotropium CAP.INH* CAP.INH/18 MCG (USE ORDER SET !) INH SCH (10:23)
[2018-07-31] MEDS: Acetaminophen TAB* 325 MG PO PRN (11:32)
--- NOTE | 2018-07-31 12:01 | PN ---
Progress Note - Progress Note Date of Service: 07/31/18 Note: Surgery Progress Note S: Patient is doing well overnight. No complaints. She does not have abdominal pain. Was a little short of breath this morning and CXR showed right lung infiltrate. Having BM. Objective: Vital Signs - 24 hr 07/30/18 07/30/18 07/30/18 12:00 12:15 12:16 Temperature 98.6 F Pulse Rate 99 106 96 Respiratory 28 28 32 Rate Blood Pressure 116/88 (mmHg) O2 Sat by Pulse 96 97 97 Oximetry 07/30/18 07/30/18 07/30/18 12:30 12:35 12:45 Temperature Pulse Rate 113 108 99 Respiratory 20 25 19 Rate Blood Pressure 118/60 (mmHg) O2 Sat by Pulse 85 97 95 Oximetry 07/30/18 07/30/18 07/30/18 13:00 13:01 13:15 Temperature Pulse Rate 95 94 93 Respiratory 28 26 19 Rate Blood Pressure 122/61 (mmHg) O2 Sat by Pulse 97 97 95 Oximetry 07/30/18 07/30/18 07/30/18 13:30 13:45 14:00 Temperature Pulse Rate 96 91 91 Respiratory 30 39 22 Rate Blood Pressure (mmHg) O2 Sat by Pulse 97 98 98 Oximetry 07/30/18 07/30/18 07/30/18 14:01 14:15 14:30 Temperature Pulse Rate 94 89 97 Respiratory 15 23 19 Rate Blood Pressure 126/67 (mmHg) O2 Sat by Pulse 99 99 86 Oximetry 07/30/18 07/30/18 07/30/18 14:47 14:52 15:00 Temperature Pulse Rate 106 139 Respiratory 23 19 20 Rate Blood Pressure (mmHg) O2 Sat by Pulse 95 90 Oximetry 07/30/18 07/30/18 07/30/18 15:01 15:15 15:30 Temperature Pulse Rate 144 133 120 Respiratory 19 26 35 Rate Blood Pressure 155/94 (mmHg) O2 Sat by Pulse 89 89 94 Oximetry 07/30/18 07/30/18 07/30/18 15:33 15:45 16:00 Temperature 98.2 F Pulse Rate 112 99 Respiratory 18 28 Rate Blood Pressure (mmHg) O2 Sat by Pulse 94 96 Oximetry 07/30/18 07/30/18 07/30/18 16:01 16:15 16:30 Temperature Pulse Rate 108 145 121 Respiratory 36 27 23 Rate Blood Pressure 141/91 (mmHg) O2 Sat by Pulse 94 88 97 Oximetry 07/30/18 07/30/18 07/30/18 16:45 16:47 17:00 Temperature Pulse Rate 121 114 Respiratory 24 20 18 Rate Blood Pressure 145/83 (mmHg) O2 Sat by Pulse 95 96 Oximetry 07/30/18 07/30/18 07/30/18 17:15 17:30 17:45 Temperature Pulse Rate 101 108 109 Respiratory 16 15 27 Rate Blood Pressure (mmHg) O2 Sat by Pulse 98 95 98 Oximetry 07/30/18 07/30/18 07/30/18 18:00 18:01 18:15 Temperature Pulse Rate 97 110 Respiratory 22 20 38 Rate Blood Pressure 144/77 (mmHg) O2 Sat by Pulse 93 92 Oximetry 07/30/18 07/30/18 07/30/18 18:30 18:45 19:00 Temperature Pulse Rate 100 Respiratory 24 19 21 Rate Blood Pressure (mmHg) O2 Sat by Pulse 93 Oximetry 07/30/18 07/30/18 07/30/18 19:15 19:29 19:30 Temperature Pulse Rate 131 122 118 Respiratory 22 22 16 Rate Blood Pressure 148/100 (mmHg) O2 Sat by Pulse 94 98 98 Oximetry 07/30/18 07/30/18 07/30/18 19:45 20:00 20:01 Temperature 99.7 F Pulse Rate 112 101 108 Respiratory 17 24 26 Rate Blood Pressure 148/61 (mmHg) O2 Sat by Pulse 100 100 98 Oximetry 07/30/18 07/30/18 07/30/18 20:15 20:30 20:45 Temperature Pulse Rate 97 108 111 Respiratory 25 16 17 Rate Blood Pressure (mmHg) O2 Sat by Pulse 100 99 99 Oximetry 07/30/18 07/30/18 07/30/18 21:00 21:01 21:15 Temperature Pulse Rate 85 109 103 Respiratory 21 21 16 Rate Blood Pressure 135/50 (mmHg) O2 Sat by Pulse 100 100 98 Oximetry 07/30/18 07/30/18 07/30/18 21:30 21:45 22:00 Temperature Pulse Rate 96 99 90 Respiratory 24 22 25 Rate Blood Pressure (mmHg) O2 Sat by Pulse 100 98 100 Oximetry 07/30/18 07/30/18 07/30/18 22:01 22:15 22:30 Temperature Pulse Rate 88 99 93 Respiratory 18 16 20 Rate Blood Pressure 164/79 (mmHg) O2 Sat by Pulse 100 97 100 Oximetry 07/30/18 07/30/18 07/30/18 22:45 22:58 23:00 Temperature Pulse Rate 106 108 Respiratory 23 20 22 Rate Blood Pressure (mmHg) O2 Sat by Pulse 99 96 Oximetry 07/30/18 07/30/18 07/30/18 23:03 23:15 23:29 Temperature Pulse Rate 102 95 98 Respiratory 19 21 20 Rate Blood Pressure 143/102 (mmHg) O2 Sat by Pulse 100 100 100 Oximetry 07/30/18 07/30/18 07/30/18 23:30 23:38 23:45 Temperature 98.4 F Pulse Rate 93 104 Respiratory 18 20 Rate Blood Pressure (mmHg) O2 Sat by Pulse 100 100 Oximetry 07/31/18 07/31/18 07/31/18 00:00 00:15 00:26 Temperature Pulse Rate 97 97 88 Respiratory 25 27 22 Rate Blood Pressure 151/77 (mmHg) O2 Sat by Pulse 100 97 99 Oximetry 07/31/18 07/31/18 07/31/18 00:30 00:45 01:00 Temperature Pulse Rate 91 91 100 Respiratory 22 27 25 Rate Blood Pressure (mmHg) O2 Sat by Pulse 99 98 98 Oximetry 07/31/18 07/31/18 07/31/18 01:15 01:30 01:37 Temperature Pulse Rate 111 88 Respiratory 22 25 Rate Blood Pressure (mmHg) O2 Sat by Pulse 98 100 97 Oximetry 07/31/18 07/31/18 07/31/18 01:45 02:00 02:07 Temperature Pulse Rate 83 92 94 Respiratory 26 22 22 Rate Blood Pressure 159/70 (mmHg) O2 Sat by Pulse 99 90 97 Oximetry 07/31/18 07/31/18 07/31/18 02:15 02:30 02:45 Temperature Pulse Rate 94 89 Respiratory 40 20 22 Rate Blood Pressure (mmHg) O2 Sat by Pulse 98 99 Oximetry 07/31/18 07/31/18 07/31/18 03:00 03:15 03:30 Temperature 98.1 F Pulse Rate 84 88 87 Respiratory 20 21 27 Rate Blood Pressure (mmHg) O2 Sat by Pulse 99 98 99 Oximetry 07/31/18 07/31/18 07/31/18 03:45 04:00 04:01 Temperature Pulse Rate 92 89 81 Respiratory 28 19 21 Rate Blood Pressure 150/83 (mmHg) O2 Sat by Pulse 98 98 93 Oximetry 07/31/18 07/31/18 07/31/18 04:15 04:30 04:45 Temperature Pulse Rate 89 83 80 Respiratory 37 29 24 Rate Blood Pressure (mmHg) O2 Sat by Pulse 99 99 99 Oximetry 07/31/18 07/31/18 07/31/18 05:00 05:15 05:27 Temperature Pulse Rate 74 83 Respiratory 23 26 18 Rate Blood Pressure (mmHg) O2 Sat by Pulse 100 94 Oximetry 07/31/18 07/31/18 07/31/18 05:30 05:45 05:59 Temperature Pulse Rate 93 87 82 Respiratory 25 21 24 Rate Blood Pressure (mmHg) O2 Sat by Pulse 99 98 99 Oximetry 07/31/18 07/31/18 07/31/18 06:00 06:15 06:30 Temperature Pulse Rate 86 77 79 Respiratory 19 26 29 Rate Blood Pressure (mmHg) O2 Sat by Pulse 99 100 100 Oximetry 07/31/18 07/31/18 07/31/18 06:45 07:00 07:15 Temperature Pulse Rate 80 91 81 Respiratory 18 26 21 Rate Blood Pressure (mmHg) O2 Sat by Pulse 100 100 98 Oximetry 07/31/18 07/31/18 07/31/18 07:17 07:20 07:30 Temperature 98.7 F Pulse Rate 79 78 Respiratory 26 36 Rate Blood Pressure 165/62 (mmHg) O2 Sat by Pulse 99 100 Oximetry 07/31/18 07/31/18 07/31/18 07:45 08:00 08:15 Temperature Pulse Rate 73 76 81 Respiratory 26 19 23 Rate Blood Pressure (mmHg) O2 Sat by Pulse 99 99 99 Oximetry 07/31/18 07/31/18 07/31/18 08:30 08:45 09:00 Temperature Pulse Rate 78 81 77 Respiratory 36 23 Rate Blood Pressure (mmHg) O2 Sat by Pulse 99 94 100 Oximetry 07/31/18 07/31/18 07/31/18 09:15 09:30 09:45 Temperature Pulse Rate 97 81 81 Respiratory 28 44 29 Rate Blood Pressure (mmHg) O2 Sat by Pulse 96 96 95 Oximetry 07/31/18 07/31/18 07/31/18 10:00 10:15 10:30 Temperature Pulse Rate 83 75 79 Respiratory 20 16 16 Rate Blood Pressure (mmHg) O2 Sat by Pulse 98 94 82 Oximetry 07/31/18 07/31/18 07/31/18 10:45 10:53 11:00 Temperature Pulse Rate 79 86 Respiratory 28 21 24 Rate Blood Pressure 174/101 (mmHg) O2 Sat by Pulse 96 96 Oximetry 07/31/18 07/31/18 07/31/18 11:08 11:15 11:31 Temperature 98.7 F Pulse Rate 83 78 Respiratory 28 23 Rate Blood Pressure 149/69 (mmHg) O2 Sat by Pulse 100 95 Oximetry Laboratory Results - last 24 hr 07/30/18 07/31/18 07/31/18 09:26 05:40 05:40 WBC 19.2 H RBC 3.83 L Hgb 10.8 L Hct 34 L MCV 89 MCH 28 MCHC 32 RDW 14 Plt Count 179 MPV 9.8 Sodium 144 Potassium 3.1 L Chloride 108 Carbon Dioxide 30 Anion Gap 6 BUN 22 Creatinine 0.78 Est GFR ( Amer) 86.7 Est GFR (Non-Af Amer) 71.6 BUN/Creatinine Ratio 28.2 H Glucose 117 H Calcium 9.6 Phosphorus 2.0 L Magnesium 1.9 Total Bilirubin 1.20 H Direct Bilirubin 0.70 H Indirect Bilirubin 0.5 AST 69 H ALT 86 H Alkaline Phosphatase 108 H Total Protein 5.1 L Albumin 2.9 L Globulin 2.2 Albumin/Globulin Ratio 1.3 Intake & Output 07/30/18 07/31/18 07/31/18 22:59 06:59 14:59 Intake Total 437.4 480 Output Total 1585 2655 Balance -1147.6 -2655 480 Weight 186 lb 11.704 oz Intake: IV Fluids 382.4 LR 344 NS (0.9%) 38.4 IVPB 55 Mag 55 Oral 0 480 Output: Sosa 1585 2655 Other: Date of Last Bowel 07/30/18 t Movement # Bowel Movements 1 2 Estimated Stool Amount Medium Small Physical exam: abdomen soft, nontender to deep palpation, incision c/d/i, LUQ hematoma improving A/P: 77 yo F with COPD, HTN POD 3 from diagnostic laparoscopy for possible ischemic bowel, none identified. She is improving on abx. E.coli grew from peritoneal fluid. - Patient's mentation much improved. She is conversing more easily and responds to questions appropriately and is less agitated. - Patient switched to zosyn given right lung infiltrate, also covering e.coli in peritoneal fluid. WBC 19, remains afebrile. - CLD today - DC sosa catheter - Physical therapy - Appreciate ICU care, patient has been transferred to machine clipper service
[2018-07-31] MEDS: Nystatin SUSPENSION* 100000 UNITS/ML 5 ML UDC PO SCH ×3 (13:32→21:24)
[2018-07-31] MEDS: Mometasone/Formoter 200/5 MDI INH SCH ×2 (15:21→21:28)
[2018-07-31] MEDS: ZOSYN 3.375 GM Q8H per EXTENDED INFUSION IVPB SCH ×2 (20:23)
[2018-07-31] MEDS ORDERED: QUEtiapine TAB* 25 MG PO SCH ×2 (21:00)
[2018-07-31] MEDS: QUEtiapine TAB* 25 MG PO SCH (21:25)
[2018-08-01] MEDS: ZOSYN 3.375 GM Q8H per EXTENDED INFUSION IVPB SCH ×2 (03:30)
[2018-08-01] MEDS: LORazepam TAB(*) 0.5 MG PO PRN ×2 (04:05→15:47)
[2018-08-01 06:56] LABS: Calcium 8.8 mg/dL (8.6-10.3); Magnesium 1.8 mg/dL (1.9-2.7)
[2018-08-01 07:02] LABS: BUN/Creatinine Ratio 28.3 (8-20); EGFR African American 117.3 (>60); EGFR Non-African American 96.9 (>60); Phosphorus 2.2 mg/dL (2.5-5.0)
[2018-08-01] MEDS ORDERED: Alteplase (CATHFLO)* 2 MG VIAL IV PRN (07:09)
[2018-08-01 07:55] LABS: Potassium 3.7 mmol/L (3.5-5.0)
[2018-08-01] MEDS ORDERED: Magnesium Sulfate 2 GM IV* 2 GM/50 ML BAG IVPB ONE (08:04)
[2018-08-01] MEDS: Tiotropium CAP.INH* CAP.INH/18 MCG (USE ORDER SET !) INH SCH (08:23)
--- NOTE | 2018-08-01 08:42 | PN ---
Progress Note - Progress Note Date of Service: 08/01/18 Note: Surgery Progress Note S: Patient overnight had more delirium and agitation. She was doing very well yesterday afternoon and was completely lucid and comfortable. Per son she did not sleep last night until 5am. She remains afebrile. Denies pain. Tolerating CLD and having liquid BM. O: Vital Signs - 24 hr 07/31/18 07/31/18 07/31/18 08:45 09:00 09:15 Temperature Pulse Rate 81 77 97 Respiratory 23 28 Rate Blood Pressure (mmHg) O2 Sat by Pulse 94 100 96 Oximetry 07/31/18 07/31/18 07/31/18 09:30 09:45 10:00 Temperature Pulse Rate 81 81 83 Respiratory 44 29 20 Rate Blood Pressure (mmHg) O2 Sat by Pulse 96 95 98 Oximetry 07/31/18 07/31/18 07/31/18 10:15 10:30 10:45 Temperature Pulse Rate 75 79 79 Respiratory 16 16 28 Rate Blood Pressure (mmHg) O2 Sat by Pulse 94 82 96 Oximetry 07/31/18 07/31/18 07/31/18 10:53 11:00 11:08 Temperature Pulse Rate 86 83 Respiratory 21 24 28 Rate Blood Pressure 174/101 149/69 (mmHg) O2 Sat by Pulse 96 100 Oximetry 07/31/18 07/31/18 07/31/18 11:15 11:30 11:31 Temperature 98.7 F Pulse Rate 78 79 Respiratory 23 19 Rate Blood Pressure (mmHg) O2 Sat by Pulse 95 90 Oximetry 07/31/18 07/31/18 07/31/18 11:45 12:00 12:15 Temperature Pulse Rate 85 76 86 Respiratory 22 24 26 Rate Blood Pressure (mmHg) O2 Sat by Pulse 88 100 92 Oximetry 07/31/18 07/31/18 07/31/18 12:30 12:45 13:00 Temperature Pulse Rate 81 75 70 Respiratory 23 20 22 Rate Blood Pressure (mmHg) O2 Sat by Pulse 95 85 100 Oximetry 07/31/18 07/31/18 07/31/18 13:15 13:16 13:30 Temperature Pulse Rate 81 78 79 Respiratory 15 25 25 Rate Blood Pressure 150/68 (mmHg) O2 Sat by Pulse 97 100 92 Oximetry 07/31/18 07/31/18 07/31/18 13:32 13:45 14:00 Temperature Pulse Rate 90 72 Respiratory 24 26 25 Rate Blood Pressure 144/73 (mmHg) O2 Sat by Pulse 91 99 Oximetry 07/31/18 07/31/18 07/31/18 14:01 14:15 14:30 Temperature Pulse Rate 77 66 67 Respiratory 14 22 22 Rate Blood Pressure 144/73 (mmHg) O2 Sat by Pulse 100 100 100 Oximetry 07/31/18 07/31/18 07/31/18 14:45 15:00 15:01 Temperature Pulse Rate 85 78 81 Respiratory 13 23 25 Rate Blood Pressure 135/82 (mmHg) O2 Sat by Pulse 90 98 97 Oximetry 07/31/18 07/31/18 07/31/18 15:15 15:30 15:45 Temperature Pulse Rate 68 72 73 Respiratory 23 21 23 Rate Blood Pressure (mmHg) O2 Sat by Pulse 100 94 94 Oximetry 07/31/18 07/31/18 07/31/18 16:00 16:01 16:15 Temperature Pulse Rate 77 76 75 Respiratory 22 22 28 Rate Blood Pressure 152/72 (mmHg) O2 Sat by Pulse 91 92 92 Oximetry 07/31/18 07/31/18 07/31/18 16:30 16:45 17:00 Temperature Pulse Rate 77 75 Respiratory 25 25 22 Rate Blood Pressure (mmHg) O2 Sat by Pulse 91 99 Oximetry 07/31/18 07/31/18 07/31/18 17:01 17:15 17:30 Temperature Pulse Rate 75 77 83 Respiratory 24 23 23 Rate Blood Pressure 168/103 (mmHg) O2 Sat by Pulse 94 99 93 Oximetry 07/31/18 07/31/18 07/31/18 18:42 20:25 21:25 Temperature 98.6 F Pulse Rate 76 Respiratory 16 18 20 Rate Blood Pressure 141/53 (mmHg) O2 Sat by Pulse 98 Oximetry 07/31/18 08/01/18 08/01/18 23:30 00:00 03:21 Temperature 98.0 F 97.7 F Pulse Rate 85 62 Respiratory 19 18 Rate Blood Pressure 146/59 142/72 (mmHg) O2 Sat by Pulse 99 99 Oximetry 08/01/18 08/01/18 08/01/18 04:05 05:24 06:10 Temperature Pulse Rate 80 Respiratory 18 16 Rate Blood Pressure (mmHg) O2 Sat by Pulse 98 Oximetry 08/01/18 08/01/18 07:18 08:24 Temperature 97.1 F Pulse Rate 71 78 Respiratory 18 14 Rate Blood Pressure 138/63 (mmHg) O2 Sat by Pulse 100 98 Oximetry Laboratory Results - last 24 hr 08/01/18 06:38 Sodium 140 Potassium 3.7 Chloride 109 Carbon Dioxide 24 Anion Gap 7 BUN 17 Creatinine 0.60 Est GFR ( Amer) 117.3 Est GFR (Non-Af Amer) 96.9 BUN/Creatinine Ratio 28.3 H Glucose 111 H Calcium 8.8 Phosphorus 2.2 L Magnesium 1.8 L Intake & Output 07/31/18 08/01/18 08/01/18 22:59 06:59 14:59 Intake Total 240 0 Output Total 0 0 Balance 240 0 Intake: Oral 240 0 Output: Urine 0 0 Other: Estimated Void Small Medium Date of Last Bowel 07/31/18 08/01/18 Movement # Bowel Movements 1 1 Estimated Stool Amount Small Medium # Voids 1 1 Abd: soft, NTND, incisions c/d/i, hematoma/bruising improving A/P: Patient is a 77 yo F POD 4 from diagnostic laparoscopy and lysis of adhesions with continued sun downing. - Can advance diet as tolerated - Continue to trend LFTs - Appreciate abx management by Dr. Raymundo - Appreciate care by hospitalist team
[2018-08-01] MEDS: Pantoprazole IV* 40 MG IV SCH (08:48)
[2018-08-01] MEDS: Metoprolol Tartrate TAB* 25 MG PO SCH ×2 (08:53→20:45)
[2018-08-01] MEDS: rOPINIRole TAB* 1 MG PO SCH (08:53)
[2018-08-01] MEDS: Sertraline* 100 MG TAB PO SCH (08:53)
[2018-08-01] MEDS: Nystatin SUSPENSION* 100000 UNITS/ML 5 ML UDC PO SCH ×4 (08:54→20:45)
[2018-08-01] MEDS: Heparin VIAL(*) 5000 UNITS/ML VIAL (FIVE THOUSAND) SUBCUT SCH ×2 (08:58→20:46)
--- NOTE | 2018-08-01 10:02 | PN ---
Progress Note - Progress Note Date of Service: 08/01/18 SOAP: Subjective: CC: abd infection HPI: 77 year old woman with abd pain, ex lap, encephalopathy which is slowly improving. Was up much of last night, tired now. Per daughter she had a good day yesterday. Eating a little more and less abd pain. Objective: Vital Signs Temp 36.2 C 08/01/18 07:18 Pulse 78 08/01/18 08:24 Resp 14 08/01/18 08:24 BP 138/63 08/01/18 07:18 Pulse Ox 98 08/01/18 08:24 Intake & Output 07/31/18 08/01/18 08/01/18 18:59 06:59 18:59 Intake Total 1299 240 Output Total 0 Balance 1299 240 Weight 189 lb 14.4 oz Intake: IV Fluids 231 NS (0.9%) 231 IVPB 328 Potassium 213 Zosyn 115 Oral 740 240 Output: Urine 0 Other: Estimated Void Medium Date of Last Bowel 07/31/18 08/01/18 Movement # Bowel Movements 2 1 1 Estimated Stool Amount Small Medium Medium # Voids 1 Gen:awake, no distress HEENT: no thrush Heart:RRR no murmur Lungs:CTA BL Abd:decr BS, soft, mildly distended Skin: no rash Laboratory Results - last 24 hr 08/01/18 06:38 Sodium 140 Potassium 3.7 Chloride 109 Carbon Dioxide 24 Anion Gap 7 BUN 17 Creatinine 0.60 Est GFR ( Amer) 117.3 Est GFR (Non-Af Amer) 96.9 BUN/Creatinine Ratio 28.3 H Glucose 111 H Calcium 8.8 Phosphorus 2.2 L Magnesium 1.8 L Assessment: 1. E.coli intra-abd infection, focal, suspect small perforation 2. ex lap, lysis of adhesions 3. encephalopathy; due to infection and medications, improving 4. obesity 5. transaminitis Plan: 1. change back to ceftriaxone (ordered), continue IV for now, PO when eating more. Discussed with Dr Villalobos
[2018-08-01 10:16] LABS: Hematocrit 33 % (35-47); Hemoglobin 10.6 g/dl (12.0-16.0); Mean Corpuscular HGB Conc 32 g/dl (31-36); Mean Corpuscular Hemoglobin 29 pg (27-31); Mean Corpuscular Volume 89 fL (80-97); Mean Platelet Volume 9.7 fL (7.4-10.4); Platelet Count 198 10^3/ul (150-450); Red Blood Count 3.72 10^6/ul (4.00-5.40); Red Cell Distribution Width 14 % (10.5-15); White Blood Count 11.5 10^3/ul (3.5-10.8)
[2018-08-01 10:28] LABS: Albumin 2.9 g/dL (3.2-5.2); Albumin/Globulin Ratio 0.9 (1-3); Globulin 3.3 g/dL (2-4); Indirect Bilirubin 0.5 mg/dL (0.3-1.0); Total Bilirubin 0.7 mg/dL (0.2-1.0); Total Protein 6.2 g/dL (6.4-8.9)
[2018-08-01] MEDS: Mometasone/Formoter 200/5 MDI INH SCH ×2 (12:20→22:31)
[2018-08-01] MEDS: Albuterol HFA INHALER* 8 gm MDI INH PRN ×2 (12:28→23:53)
[2018-08-01] MEDS ORDERED: cefTRIAXone(*) 1 GM in NS 0.9% 50 ML* 50 ML IVPB SCH (18:00)
--- NOTE | 2018-08-01 18:29 | PN ---
Subjective Date of Service: 08/01/18 Interval History: On unit when patient reporting difficulty breathing, on assessment patient was noted to not be wearing supplemental O2 as she had removed it. O2 replaced and patient's O2 sat increased accordingly. Chest xray ordered and unremarkable. Patient improved with O2. On assessment later patient much more conversational and oriented. Daughter at bedside. Patient was noted to be shifting in seat while assessing. Discussed observation with daughter and patient. Both state patient has difficulty with anxiety and being in the hospital. Usually takes Ativan 1 mg TID as needed at home. Reports most days she only needs one, but some days when anxiety is higher she will take 3 in a day. Patient denies cp, sob, palpitations. Patient denies nausea. Requesting increase in diet Patient continues to have soft stool. Objective Active Medications: Acetaminophen (Tylenol Tab*) 650 mg PO Q4H PRN PRN Reason: Pain Or Temperature >101 F Last Admin: 07/31/18 11:32 Dose: 650 mg Albuterol (Ventolin Hfa Inhaler*) 2 puff INH Q4H PRN PRN Reason: SOB/WHEEZING Last Admin: 08/01/18 12:28 Dose: 2 puff Alteplase, Recombinant (Cathflo Activase*) 2 mg IV Q24H PRN PRN Reason: PER PROTOCOL Last Admin: 08/01/18 08:48 Dose: 2 mg Docusate Sodium (Colace Cap*) 100 mg PO BID PRN PRN Reason: CONSTIPATION Last Admin: 07/30/18 16:47 Dose: 100 mg Haloperidol Lactate (Haldol Inj Iv/Im*) 1 mg IV SLOW PU Q6H PRN PRN Reason: AGITATION Last Admin: 07/31/18 23:38 Dose: 1 mg Heparin Sodium (Porcine) (Heparin Vial(*)) 5,000 units SUBCUT Q12HR BIBI Last Admin: 08/01/18 08:58 Dose: 5,000 units Heparin Sodium (Porcine) (Heparin Flush Picc/Ml/Cvc(*)) 1 - 3 ml FLUSH 0600, 1800 BIBI; Protocol Last Admin: 08/01/18 17:52 Dose: 3 ml Hydromorphone HCl (Dilaudid Inj*) 0.5 mg IV Q6H PRN PRN Reason: Pain - severe Ceftriaxone Sodium 1 gm/ (Sodium Chloride) 50 mls @ 200 mls/hr IVPB Q24H [facility] Last Admin: 08/01/18 17:07 Dose: 200 mls/hr Lorazepam (Ativan Tab(*)) 0.5 mg PO Q6H PRN PRN Reason: ANXIETY Last Admin: 08/01/18 15:47 Dose: 0.5 mg Metoprolol Tartrate (Lopressor Tab*) 25 mg PO Q12HR [facility] Last Admin: 08/01/18 08:53 Dose: 25 mg Mometasone Furoate/Formoterol Fumar (Dulera 200/5 Mdi*) 1 puff INH BID [facility]; Protocol Last Admin: 08/01/18 12:20 Dose: 1 puff Nystatin (Nystatin Suspension*) 500,000 units PO QID [facility] Stop: 08/07/18 11:56 Last Admin: 08/01/18 17:07 Dose: 500,000 units Ondansetron HCl (Zofran Inj*) 4 mg IV Q4H PRN PRN Reason: NAUSEA/VOMITING Last Admin: 07/30/18 22:58 Dose: 4 mg Pantoprazole Sodium (Protonix Iv*) 40 mg IV DAILY [facility] Last Admin: 08/01/18 08:48 Dose: 40 mg Quetiapine Fumarate (Seroquel Tab*) 25 mg PO BEDTIME [facility] Last Admin: 07/31/18 21:25 Dose: 25 mg Ropinirole HCl (Requip Tab*) 1 mg PO DAILY [facility] Last Admin: 08/01/18 08:53 Dose: 1 mg Sertraline HCl (Zoloft*) 100 mg PO DAILY [facility] Last Admin: 08/01/18 08:53 Dose: 100 mg Tiotropium [place] (Spiriva Cap.Inh*) 1 cap INH DAILY [facility] Last Admin: 08/01/18 08:23 Dose: 1 cap Vital Signs - 8 hr 08/01/18 08/01/18 08/01/18 11:35 15:34 15:47 Temperature 99.1 F 97.8 F Pulse Rate 71 72 Respiratory 16 20 16 Rate Blood Pressure 130/57 148/69 (mmHg) O2 Sat by Pulse 100 98 Oximetry 08/01/18 16:00 Temperature Pulse Rate Respiratory Rate Blood Pressure (mmHg) O2 Sat by Pulse 96 Oximetry Oxygen Devices in Use Now: Nasal Cannula Appearance: NAD Ears/Nose/Mouth/Throat: Clear Oropharnyx, Mucous Membranes Moist Neck: NL Appearance and Movements; NL JVP Respiratory: Symmetrical Chest Expansion and Respiratory Effort, Clear to Auscultation Cardiovascular: NL Sounds; No Murmurs; No JVD, RRR, No Edema Abdominal: NL Sounds; No Tenderness; No Distention, - - Incisions wnl. Scant bruising noted. Improving per nurse. Lymphatic: No Cervical Adenopathy Extremities: No Edema Skin: No Rash or Ulcers Neurological: Alert and Oriented x 3 Nutrition: Taking PO's Result Diagrams: 08/01/18 09:45 08/01/18 06:38 Additional Lab and Data: Laboratory Results - last 24 hr 08/01/18 08/01/18 08/01/18 06:38 09:45 09:45 WBC 11.5 H RBC 3.72 L Hgb 10.6 L Hct 33 L MCV 89 MCH 29 MCHC 32 RDW 14 Plt Count 198 MPV 9.7 Sodium 140 Potassium 3.7 Chloride 109 Carbon Dioxide 24 Anion Gap 7 BUN 17 Creatinine 0.60 Est GFR ( Amer) 117.3 Est GFR (Non-Af Amer) 96.9 BUN/Creatinine Ratio 28.3 H Glucose 111 H Calcium 8.8 Phosphorus 2.2 L Magnesium 1.8 L Total Bilirubin 0.70 Direct Bilirubin 0.20 H Indirect Bilirubin 0.5 AST 20 ALT 50 Alkaline Phosphatase 125 H Total Protein 6.2 L Albumin 2.9 L Globulin 3.3 Albumin/Globulin Ratio 0.9 L Microbiology and Other Data: Microbiology 07/29/18 15:07 Aerobic Blood Culture - Preliminary Blood Venous No Growth Day 3 Anaerobic Blood Culture - Preliminary No Growth Day 3 07/29/18 15:10 Aerobic Blood Culture - Preliminary Blood Venous No Growth Day 3 Anaerobic Blood Culture - Preliminary No Growth Day 3 07/28/18 15:00 Gram Stain - Final Peritoneal Fluid Body Fluid Culture - Final Escherichia Coli 07/28/18 15:00 Anaerobic Culture - Final Body Fluid 07/31/18 13:10 Stool Gross Appearance - Final Stool C. difficile DNA Amplification - Final 027 Presumptive NEGATIVE Toxigenic C.diff NEGATIVE 07/29/18 13:28 Urine Culture - Final Urine No Growth (<1,000 CFU/mL) 07/29/18 04:15 Nasal Screen MRSA (PCR) - Final Nasal Mrsa Not Detected Assess/Plan/Problems-Billing Assessment: 77 yr old female with abd surgery x3 in 2017, copd 3L nc at baseline, diffuse arteriosclerotic disease, htn, anxiety; who is POD 4 of lysis of adhesions and culture of turbid abd fluid - Patient Problems (1) Abdominal pain Comment: - S/P laparoscopy with lysis of adhesions and culture of turbid abd fluid. POD 4. - Etiology of abd pain unclear - Pain improving - Tolerating full diet. Will advance to regular. - Cont IV PPI - Abd fluid grew pedro Matthews with Dr Yonny Dixon on board (2) Anxiety Comment: - Will increase patient's Ativan to home dose of 1 mg TID PRN and hold for sedation. - Cont Zoloft (3) Confusion Comment: - Improving. - Per family this is common for patient after surgery - Cont to monitor - Cont bed alarm and personal alarm - Cont Seraquel (4) Acute kidney injury Comment: - Resolved - Creatinine was elevated at 1.38 on admission and now wnl - Cont to hold Hydrodiuril in acute illness - Cont to monitor creatinine - Cont to hold Meloxicam (5) Leukocytosis Comment: - Trending down - Cont to monitor - Afebrile - Cont abx (6) COPD (chronic obstructive pulmonary disease) Comment: - Stable - Continue Dulera, Spiriva, prn nebulizers - Encourage incentive spirometer (7) HTN (hypertension) Comment: - BP trending up - Continue home metoprolol with hold paramters. (8) Restless leg syndrome Comment: - Cont Requip (9) Abnormal LFTs Comment: - Cont to monitor (10) DVT prophylaxis Comment: - SQ heparin Status and Disposition: Inpatient until medical stable. Discharge home with nursing services early next week? Attending: Nabor Powell
[2018-08-01] MEDS ORDERED: LORazepam TAB(*) 1 MG PO PRN (19:10)
[2018-08-01] MEDS: QUEtiapine TAB* 25 MG PO SCH (20:45)
[2018-08-02] MEDS: Albuterol HFA INHALER* 8 gm MDI INH PRN ×3 (04:25→20:14)
[2018-08-02 06:00] LABS: Hematocrit 31 % (35-47); Mean Corpuscular HGB Conc 32 g/dl (31-36); Mean Corpuscular Hemoglobin 29 pg (27-31); Mean Corpuscular Volume 89 fL (80-97); Mean Platelet Volume 10.1 fL (7.4-10.4); Platelet Count 165 10^3/ul (150-450); Red Blood Count 3.51 10^6/ul (4.00-5.40); Red Cell Distribution Width 14 % (10.5-15); White Blood Count 8.2 10^3/ul (3.5-10.8)
[2018-08-02 06:15] LABS: Albumin 2.7 g/dL (3.2-5.2); Albumin/Globulin Ratio 0.9 (1-3); Calcium 9.4 mg/dL (8.6-10.3); EGFR African American 138.4 (>60); EGFR Non-African American 114.3 (>60); Globulin 3.1 g/dL (2-4); Indirect Bilirubin 0.4 mg/dL (0.3-1.0); Magnesium 1.9 mg/dL (1.9-2.7); Phosphorus 1.9 mg/dL (2.5-5.0); Potassium 3.1 mmol/L (3.5-5.0); Total Bilirubin 0.6 mg/dL (0.2-1.0); Total Protein 5.8 g/dL (6.4-8.9)
[2018-08-02] MEDS ORDERED: Potassium Chlor TAB* 20 MEQ TAB.ER PO ONE (06:19)
[2018-08-02] MEDS ORDERED: LORazepam TAB(*) 0.5 MG PO ONE (06:20)
[2018-08-02] MEDS: KCL 10 MEQ/50 ML IVPREMIX* 10 MEQ/50 ML BAG IV SCH ×2 (06:56→09:18)
[2018-08-02] MEDS: Tiotropium CAP.INH* CAP.INH/18 MCG (USE ORDER SET !) INH SCH (07:51)
--- NOTE | 2018-08-02 08:20 | PN ---
Progress Note - Progress Note Date of Service: 08/02/18 Note: Surgery Progress Note S: Patient appears confused this morning, can answer some questions and states she wishes to go home. Per nurse she just received ativan. Diet advanced yesterday. O: Vital Signs - 24 hr 08/01/18 08/01/18 08/01/18 08:24 09:00 11:35 Temperature 99.1 F Pulse Rate 78 71 Respiratory 14 16 16 Rate Blood Pressure 130/57 (mmHg) O2 Sat by Pulse 98 100 Oximetry 08/01/18 08/01/18 08/01/18 15:34 15:47 16:00 Temperature 97.8 F Pulse Rate 72 Respiratory 20 16 Rate Blood Pressure 148/69 (mmHg) O2 Sat by Pulse 98 96 Oximetry 08/01/18 08/01/18 08/01/18 17:45 19:48 21:07 Temperature 98.2 F Pulse Rate 81 Respiratory 16 17 20 Rate Blood Pressure 146/59 (mmHg) O2 Sat by Pulse 100 Oximetry 08/01/18 08/01/18 08/02/18 23:22 23:58 02:07 Temperature 98.3 F Pulse Rate 85 Respiratory 18 20 16 Rate Blood Pressure 142/69 (mmHg) O2 Sat by Pulse 96 Oximetry 08/02/18 08/02/18 08/02/18 03:58 04:13 06:46 Temperature 97.9 F Pulse Rate 66 Respiratory 17 18 Rate Blood Pressure 152/84 (mmHg) O2 Sat by Pulse 97 91 Oximetry 08/02/18 07:42 Temperature 98.1 F Pulse Rate 106 Respiratory 16 Rate Blood Pressure 150/67 (mmHg) O2 Sat by Pulse 90 Oximetry Intake & Output 08/01/18 08/02/18 08/02/18 22:59 06:59 14:59 Intake Total 1305 1018 150 Output Total 100 Balance 1205 1018 150 Weight 191 lb Intake: IV Fluids 20 658 NS (0.9%) 20 658 Medicated IV 55 Ceftriaxone 55 Oral 1230 360 150 Output: Urine 100 Other: Estimated Void Medium Large # Bowel Movements 1 Estimated Stool Amount Medium # Voids 0 2 Laboratory Results - last 24 hr 08/01/18 08/01/18 08/02/18 09:45 09:45 04:40 WBC 11.5 H RBC 3.72 L Hgb 10.6 L Hct 33 L MCV 89 MCH 29 MCHC 32 RDW 14 Plt Count 198 MPV 9.7 Sodium 142 Potassium 3.1 L Chloride 103 Carbon Dioxide 34 H Anion Gap 5 BUN 13 Creatinine 0.52 Est GFR ( Amer) 138.4 Est GFR (Non-Af Amer) 114.3 BUN/Creatinine Ratio 25.0 H Glucose 110 H Calcium 9.4 Phosphorus 1.9 L Magnesium 1.9 Total Bilirubin 0.70 0.60 Direct Bilirubin 0.20 H 0.20 H Indirect Bilirubin 0.5 0.4 AST 20 15 ALT 50 38 Alkaline Phosphatase 125 H 127 H Total Protein 6.2 L 5.8 L Albumin 2.9 L 2.7 L Globulin 3.3 3.1 Albumin/Globulin Ratio 0.9 L 0.9 L 08/02/18 04:40 WBC 8.2 RBC 3.51 L Hgb 10.0 L Hct 31 L MCV 89 MCH 29 MCHC 32 RDW 14 Plt Count 165 MPV 10.1 Sodium Potassium Chloride Carbon Dioxide Anion Gap BUN Creatinine Est GFR ( Amer) Est GFR (Non-Af Amer) BUN/Creatinine Ratio Glucose Calcium Phosphorus Magnesium Total Bilirubin Direct Bilirubin Indirect Bilirubin AST ALT Alkaline Phosphatase Total Protein Albumin Globulin Albumin/Globulin Ratio Physical exam: abdomen soft, non tender, bruising around LUQ port site incision improving A/P: 77 yo F POD 5 from diagnostic laparoscopy and lysis of adhesions for abdominal pain, possible ischemic bowel. - Patient remains afebrile, WBC normalized today, LFTs downtrending, continue abx with final regimen per Dr. Raymundo's recommendations - Continue regular diet as tolerated - OOB and ambulate
[2018-08-02] MEDS: Sertraline* 100 MG TAB PO SCH (08:31)
[2018-08-02] MEDS: Pantoprazole IV* 40 MG IV SCH (08:31)
[2018-08-02] MEDS: rOPINIRole TAB* 1 MG PO SCH (08:31)
[2018-08-02] MEDS: Acetaminophen TAB* 325 MG PO PRN ×3 (08:31→20:18)
[2018-08-02] MEDS: Nystatin SUSPENSION* 100000 UNITS/ML 5 ML UDC PO SCH ×4 (08:31→20:23)
[2018-08-02] MEDS: Metoprolol Tartrate TAB* 25 MG PO SCH ×2 (08:31→20:17)
[2018-08-02] MEDS: Heparin VIAL(*) 5000 UNITS/ML VIAL (FIVE THOUSAND) SUBCUT SCH ×2 (08:32→20:29)
--- NOTE | 2018-08-02 09:19 | PN ---
Progress Note - Progress Note Date of Service: 08/02/18 SOAP: Subjective: CC: abd infection HPI: 77 year old woman with abd pain, ex lap, encephalopathy which is slowly improving. Hard to sleep, appetite improving. Diarrhea is better. Abd pain decreasing. Objective: Vital Signs Temp 36.7 C 08/02/18 07:42 Pulse 106 08/02/18 07:42 Resp 16 08/02/18 07:42 BP 150/67 08/02/18 07:42 Pulse Ox 90 08/02/18 07:42 Intake & Output 08/01/18 08/02/18 08/02/18 18:59 06:59 18:59 Intake Total 925 1948 150 Output Total 0 100 Balance 925 1848 150 Weight 189 lb 14.4 oz 191 lb Intake: IV Fluids 20 658 NS (0.9%) 20 658 Medicated IV 55 Ceftriaxone 55 Oral 850 1290 150 Output: Urine 0 100 Other: Estimated Void Large Large # Bowel Movements 1 1 Estimated Stool Amount Medium Medium # Voids 2 1 Gen:awake, no distress HEENT: no thrush Heart:RRR no murmur Lungs:CTA BL Abd:+BS, soft, no rebound Skin: no rash Laboratory Results - last 24 hr 08/01/18 08/01/18 08/02/18 09:45 09:45 04:40 WBC 11.5 H RBC 3.72 L Hgb 10.6 L Hct 33 L MCV 89 MCH 29 MCHC 32 RDW 14 Plt Count 198 MPV 9.7 Sodium 142 Potassium 3.1 L Chloride 103 Carbon Dioxide 34 H Anion Gap 5 BUN 13 Creatinine 0.52 Est GFR ( Amer) 138.4 Est GFR (Non-Af Amer) 114.3 BUN/Creatinine Ratio 25.0 H Glucose 110 H Calcium 9.4 Phosphorus 1.9 L Magnesium 1.9 Total Bilirubin 0.70 0.60 Direct Bilirubin 0.20 H 0.20 H Indirect Bilirubin 0.5 0.4 AST 20 15 ALT 50 38 Alkaline Phosphatase 125 H 127 H Total Protein 6.2 L 5.8 L Albumin 2.9 L 2.7 L Globulin 3.3 3.1 Albumin/Globulin Ratio 0.9 L 0.9 L 08/02/18 04:40 WBC 8.2 RBC 3.51 L Hgb 10.0 L Hct 31 L MCV 89 MCH 29 MCHC 32 RDW 14 Plt Count 165 MPV 10.1 Sodium Potassium Chloride Carbon Dioxide Anion Gap BUN Creatinine Est GFR ( Amer) Est GFR (Non-Af Amer) BUN/Creatinine Ratio Glucose Calcium Phosphorus Magnesium Total Bilirubin Direct Bilirubin Indirect Bilirubin AST ALT Alkaline Phosphatase Total Protein Albumin Globulin Albumin/Globulin Ratio Assessment: 1. E.coli intra-abd infection, focal, suspect small perforation 2. ex lap, lysis of adhesions 3. encephalopathy; due to infection and medications, improving 4. obesity 5. transaminitis Plan: 1. change ceftriaxone to amox 500 mg po tid day 11/22
--- NOTE | 2018-08-02 10:43 | PN ---
Subjective Date of Service: 08/02/18 Interval History: Resting in bed on assessment. Family at bedside. Denies cp, palpitations, sob, nausea, vomiting, diarrhea, fever, chills. Reports abd pain improving. Had episode of increase anxiety last night and needed additional ativan Objective Active Medications: Acetaminophen (Tylenol Tab*) 650 mg PO Q4H PRN PRN Reason: Pain Or Temperature >101 F Last Admin: 08/02/18 08:31 Dose: 650 mg Albuterol (Ventolin Hfa Inhaler*) 2 puff INH Q4H PRN PRN Reason: SOB/WHEEZING Last Admin: 08/02/18 04:25 Dose: 2 puff Alteplase, Recombinant (Cathflo Activase*) 2 mg IV Q24H PRN PRN Reason: PER PROTOCOL Last Admin: 08/01/18 08:48 Dose: 2 mg Amoxicillin (Amoxicillin Po (*)) 500 mg PO TID BIBI Stop: 08/07/18 12:00 Docusate Sodium (Colace Cap*) 100 mg PO BID PRN PRN Reason: CONSTIPATION Last Admin: 07/30/18 16:47 Dose: 100 mg Haloperidol Lactate (Haldol Inj Iv/Im*) 1 mg IV SLOW PU Q6H PRN PRN Reason: AGITATION Last Admin: 07/31/18 23:38 Dose: 1 mg Heparin Sodium (Porcine) (Heparin Vial(*)) 5,000 units SUBCUT Q12HR [facility] Last Admin: 08/02/18 08:32 Dose: 5,000 units Heparin Sodium (Porcine) (Heparin Flush Picc/Ml/Cvc(*)) 1 - 3 ml FLUSH 0600, 1800 [facility]; Protocol Last Admin: 08/02/18 04:52 Dose: 3 ml Hydromorphone HCl (Dilaudid Inj*) 0.5 mg IV Q6H PRN PRN Reason: Pain - severe Lorazepam (Ativan Tab(*)) 1 mg PO Q8H PRN PRN Reason: ANXIETY Last Admin: 08/01/18 23:58 Dose: 1 mg Metoprolol Tartrate (Lopressor Tab*) 25 mg PO Q12HR [facility] Last Admin: 08/02/18 08:31 Dose: 25 mg Mometasone Furoate/Formoterol Fumar (Dulera 200/5 Mdi*) 1 puff INH RT.BID [facility]; Protocol Nystatin (Nystatin Suspension*) 500,000 units PO QID [facility] Stop: 08/07/18 11:56 Last Admin: 08/02/18 08:31 Dose: 500,000 units Ondansetron HCl (Zofran Inj*) 4 mg IV Q4H PRN PRN Reason: NAUSEA/VOMITING Last Admin: 07/30/18 22:58 Dose: 4 mg Pantoprazole Sodium (Protonix Iv*) 40 mg IV DAILY [facility] Last Admin: 08/02/18 08:31 Dose: 40 mg Quetiapine Fumarate (Seroquel Tab*) 25 mg PO BEDTIME [facility] Last Admin: 08/01/18 20:45 Dose: 25 mg Ropinirole HCl (Requip Tab*) 1 mg PO DAILY [facility] Last Admin: 08/02/18 08:31 Dose: 1 mg Sertraline HCl (Zoloft*) 100 mg PO DAILY [facility] Last Admin: 08/02/18 08:31 Dose: 100 mg Tiotropium [place] (Spiriva Cap.Inh*) 1 cap INH DAILY [facility] Last Admin: 08/02/18 07:51 Dose: 1 cap Vital Signs - 8 hr 08/02/18 08/02/18 08/02/18 03:58 04:13 06:46 Temperature 97.9 F Pulse Rate 66 Respiratory 17 18 Rate Blood Pressure 152/84 (mmHg) O2 Sat by Pulse 97 91 Oximetry 08/02/18 07:42 Temperature 98.1 F Pulse Rate 106 Respiratory 16 Rate Blood Pressure 150/67 (mmHg) O2 Sat by Pulse 90 Oximetry Oxygen Devices in Use Now: Nasal Cannula Appearance: Comfortable, NAD Eyes: No Scleral Icterus Ears/Nose/Mouth/Throat: Clear Oropharnyx, Mucous Membranes Moist Neck: NL Appearance and Movements; NL JVP Respiratory: Symmetrical Chest Expansion and Respiratory Effort, Clear to Auscultation Cardiovascular: NL Sounds; No Murmurs; No JVD, No Edema Abdominal: NL Sounds; No Tenderness; No Distention Lymphatic: No Cervical Adenopathy Extremities: No Edema Skin: No Rash or Ulcers Neurological: Alert and Oriented x 3 Nutrition: Taking PO's Result Diagrams: 08/02/18 04:40 08/02/18 04:40 Additional Lab and Data: Laboratory Results - last 24 hr 08/02/18 08/02/18 04:40 04:40 WBC 8.2 RBC 3.51 L Hgb 10.0 L Hct 31 L MCV 89 MCH 29 MCHC 32 RDW 14 Plt Count 165 MPV 10.1 Sodium 142 Potassium 3.1 L Chloride 103 Carbon Dioxide 34 H Anion Gap 5 BUN 13 Creatinine 0.52 Est GFR ( Amer) 138.4 Est GFR (Non-Af Amer) 114.3 BUN/Creatinine Ratio 25.0 H Glucose 110 H Calcium 9.4 Phosphorus 1.9 L Magnesium 1.9 Total Bilirubin 0.60 Direct Bilirubin 0.20 H Indirect Bilirubin 0.4 AST 15 ALT 38 Alkaline Phosphatase 127 H Total Protein 5.8 L Albumin 2.7 L Globulin 3.1 Albumin/Globulin Ratio 0.9 L Microbiology and Other Data: Microbiology 07/29/18 15:07 Aerobic Blood Culture - Preliminary Blood Venous No Growth Day 3 Anaerobic Blood Culture - Preliminary No Growth Day 3 07/29/18 15:10 Aerobic Blood Culture - Preliminary Blood Venous No Growth Day 3 Anaerobic Blood Culture - Preliminary No Growth Day 3 07/28/18 15:00 Gram Stain - Final Peritoneal Fluid Body Fluid Culture - Final Escherichia Coli 07/28/18 15:00 Anaerobic Culture - Final Body Fluid 07/31/18 13:10 Stool Gross Appearance - Final Stool C. difficile DNA Amplification - Final 027 Presumptive NEGATIVE Toxigenic C.diff NEGATIVE 07/29/18 13:28 Urine Culture - Final Urine No Growth (<1,000 CFU/mL) 07/29/18 04:15 Nasal Screen MRSA (PCR) - Final Nasal Mrsa Not Detected Assess/Plan/Problems-Billing Assessment: 77 yr old female with abd surgery x3 in 2017, copd 3L nc at baseline, diffuse arteriosclerotic disease, htn, anxiety; who is POD 4 of lysis of adhesions and culture of turbid abd fluid - Patient Problems (1) Abdominal pain Comment: - S/P laparoscopy with lysis of adhesions and culture of turbid abd fluid. POD 5. - Etiology of abd pain unclear - Pain improving - Tolerating regular. - IV PPI transitioned to PO PPI - Abd fluid grew Ecoli, tx with Rocephin, Dr Blancas on board - Transitioned to PO abx Amox 500mg PO TID 5/10 days (2) Anxiety Comment: - Will increase patient's Ativan to home dose of 1 mg TID PRN and hold for sedation. - Cont Zoloft - Needed additional dose of Ativan this morning due to agitation. Per family agitation at night is normal for her as she occasionally does not go to sleep until 0500. - Patient also needs sleep apnea evaluation but keeps cancelling due to anxiety per daughter (3) Confusion Comment: - Improving. Family state she is near baseline - Per family this is common for patient after surgery - Cont to monitor - Cont bed alarm and personal alarm - Cont Seraquel (4) Acute kidney injury Comment: - Resolved - Creatinine was elevated at 1.38 on admission and now wnl - Cont to hold Hydrodiuril in acute illness - Cont to monitor creatinine - Cont to hold Meloxicam (5) Leukocytosis Comment: - Trending down - Cont to monitor - Afebrile - Cont abx (6) COPD (chronic obstructive pulmonary disease) Comment: - Stable - Continue Dulera, Spiriva, prn nebulizers - Encourage incentive spirometer (7) HTN (hypertension) Comment: - BP trending up - Continue home metoprolol with hold paramters. (8) Restless leg syndrome Comment: - Cont Requip (9) Abnormal LFTs Comment: - Cont to monitor - Trending down (10) DVT prophylaxis Comment: - SQ heparin (11) SVT (supraventricular tachycardia) Comment: - Per night time provider patient had a short run of SVT - No hx of same - Potassium low at 3.1, therfore, patient was replaced with IV. - Repeat K+ tomorrow. - Cont tele Status and Disposition: Inpatient until medical stable. Discharge home with nursing services early next week? Attending: Nabor Powell
[2018-08-02] MEDS: Mometasone/Formoter 200/5 MDI INH SCH ×2 (11:55→20:15)
[2018-08-02] MEDS: Amoxicillin PO (*) 500 MG CAP PO SCH ×2 (14:49→20:17)
[2018-08-02] MEDS: QUEtiapine TAB* 25 MG PO SCH (20:17)
[2018-08-03] MEDS: Acetaminophen TAB* 325 MG PO PRN ×3 (03:49→21:58)
[2018-08-03 06:10] LABS: Hematocrit 30 % (35-47); Hemoglobin 9.9 g/dl (12.0-16.0); Mean Corpuscular HGB Conc 33 g/dl (31-36); Mean Corpuscular Hemoglobin 29 pg (27-31); Mean Corpuscular Volume 88 fL (80-97); Mean Platelet Volume 9.8 fL (7.4-10.4); Platelet Count 171 10^3/ul (150-450); Red Blood Count 3.44 10^6/ul (4.00-5.40); Red Cell Distribution Width 14 % (10.5-15)
[2018-08-03 06:11] LABS: BUN/Creatinine Ratio 17.4 (8-20); EGFR African American 159.4 (>60); EGFR Non-African American 131.7 (>60); Magnesium 1.7 mg/dL (1.9-2.7); Phosphorus 2.5 mg/dL (2.5-5.0); Potassium 3.2 mmol/L (3.5-5.0)
[2018-08-03] MEDS: Mometasone/Formoter 200/5 MDI INH SCH ×2 (07:45→19:35)
[2018-08-03] MEDS: Pantoprazole IV* 40 MG IV SCH (09:55)
[2018-08-03] MEDS: Metoprolol Tartrate TAB* 25 MG PO SCH ×2 (09:56→21:51)
[2018-08-03] MEDS: Amoxicillin PO (*) 500 MG CAP PO SCH ×3 (09:56→21:52)
[2018-08-03] MEDS: Nystatin SUSPENSION* 100000 UNITS/ML 5 ML UDC PO SCH ×4 (09:56→22:03)
[2018-08-03] MEDS: Heparin VIAL(*) 5000 UNITS/ML VIAL (FIVE THOUSAND) SUBCUT SCH ×2 (09:56→21:46)
[2018-08-03] MEDS: Sertraline* 100 MG TAB PO SCH (09:56)
[2018-08-03] MEDS: Tiotropium CAP.INH* CAP.INH/18 MCG (USE ORDER SET !) INH SCH (09:56)
[2018-08-03] MEDS: rOPINIRole TAB* 1 MG PO SCH ×2 (10:13→21:51)
--- NOTE | 2018-08-03 11:16 | PN ---
Progress Note - Progress Note Date of Service: 08/03/18 SOAP: Subjective: Reports mild pain in RUQ. Some N/-V. +flatus and BM. Objective: Vital Signs Temp 98.2 F 08/03/18 07:35 Pulse 71 08/03/18 07:35 Resp 19 08/03/18 07:56 BP 152/60 08/03/18 07:35 Pulse Ox 100 08/03/18 07:56 Gen: sleeping, arousable Abd: incisions c/d/i no blanching erythema; obese; soft with mild upper abd tenderness. Intake & Output 08/02/18 08/03/18 08/03/18 18:59 06:59 18:59 Intake Total 150 1280 Output Total 225 800 Balance -75 480 Weight 200 lb 1.6 oz Intake: Oral 150 1280 Output: Urine 225 800 Other: Estimated Void Large Date of Last Bowel 08/03/18 Movement # Bowel Movements 1 2 Estimated Stool Amount Medium Small # Voids 1 Laboratory Results - last 24 hr 08/03/18 08/03/18 05:35 05:35 WBC 9.0 RBC 3.44 L Hgb 9.9 L Hct 30 L MCV 88 MCH 29 MCHC 33 RDW 14 Plt Count 171 MPV 9.8 Sodium 140 Potassium 3.2 L Chloride 102 Carbon Dioxide 36 H Anion Gap 2 BUN 8 Creatinine 0.46 L Est GFR ( Amer) 159.4 Est GFR (Non-Af Amer) 131.7 BUN/Creatinine Ratio 17.4 Glucose 107 H Calcium 9.0 Phosphorus 2.5 Magnesium 1.7 L Assessment: 77 yo F POD 5 from diagnostic laparoscopy and lysis of adhesions for abdominal pain, E. coli peritonitis possibly 2/2 ischemic bowel (Non-Occlusive Mesenteric Ischemia). She is doing remarkably well with no surgical issues at present. Plan: Cont diet. Abx per ID. Home per Hospitalist service when able.
[2018-08-03] MEDS: Ondansetron INJ* 2 MG/ML VIAL IV PRN (14:40)
[2018-08-03] MEDS ORDERED: Potassium Chlor TAB* 20 MEQ TAB.ER PO ONE ×2 (16:47→21:00)
--- NOTE | 2018-08-03 16:47 | PN ---
Subjective Date of Service: 08/03/18 Interval History: Ms. Montero denies complaint and reports that she feels well today. She has had multiple formed bowel movements today. She denies chest pain, SOB, nausea, or abdominal pain. She is tolerating oral intake well. Objective Active Medications: Acetaminophen (Tylenol Tab*) 650 mg PO Q4H PRN Albuterol (Ventolin Hfa Inhaler*) 2 puff INH Q4H PRN Alteplase, Recombinant (Cathflo Activase*) 2 mg IV Q24H PRN Amoxicillin (Amoxicillin Po (*)) 500 mg PO TID BIIB Docusate Sodium (Colace Cap*) 100 mg PO BID PRN Haloperidol Lactate (Haldol Inj Iv/Im*) 1 mg IV SLOW PU Q6H PRN Heparin Sodium (Porcine) (Heparin Vial(*)) 5,000 units SUBCUT Q12HR [facility] Heparin Sodium (Porcine) (Heparin Flush Picc/Ml/Cvc(*)) 1 - 3 ml FLUSH 0600, 1800 [facility]; Protocol Hydromorphone HCl (Dilaudid Inj*) 0.5 mg IV Q6H PRN Lorazepam (Ativan Tab(*)) 1 mg PO Q8H PRN Metoprolol Tartrate (Lopressor Tab*) 25 mg PO Q12HR [facility] Mometasone Furoate/Formoterol Fumar (Dulera 200/5 Mdi*) 1 puff INH RT.BID [facility]; Protocol Nystatin (Nystatin Suspension*) 500,000 units PO QID [facility] Ondansetron HCl (Zofran Inj*) 4 mg IV Q4H PRN Pantoprazole Sodium (Protonix Iv*) 40 mg IV DAILY [facility] Quetiapine Fumarate (Seroquel Tab*) 25 mg PO BEDTIME [facility] Ropinirole HCl (Requip Tab*) 1 mg PO BEDTIME [facility] Sertraline HCl (Zoloft*) 100 mg PO DAILY [facility] Tiotropium [place] (Spiriva Cap.Inh*) 1 cap INH DAILY [facility] Vital Signs: Temp Pulse Resp BP Pulse Ox 97.5 F 71 16 159/62 100 08/03/18 12:40 08/03/18 12:40 08/03/18 12:40 08/03/18 12:40 08/03/18 12:40 Oxygen Devices in Use Now: Nasal Cannula Appearance: Female lying in bed in NAD Eyes: No Scleral Icterus Ears/Nose/Mouth/Throat: Mucous Membranes Moist Neck: Trachea Midline Respiratory: Symmetrical Chest Expansion and Respiratory Effort, Clear to Auscultation Cardiovascular: NL Sounds; No Murmurs; No JVD, No Edema Abdominal: NL Sounds; No Tenderness; No Distention Lymphatic: No Cervical Adenopathy Extremities: No Edema Skin: No Rash or Ulcers Neurological: Alert and Oriented x 3, NL Muscle Strength and Tone Nutrition: Taking PO's Result Diagrams: 08/03/18 05:35 08/03/18 05:35 Additional Lab and Data: . Microbiology and Other Data: . Assess/Plan/Problems-Billing Assessment: Ms. Montero is a 77 yr old female with abd surgery x3 in 2017, copd 3L nc at baseline, diffuse arteriosclerotic disease, htn, anxiety; who s/p lysis of adhesions and culture of turbid abd fluid - Patient Problems (1) Peritonitis Comment: - Recovering well, tolerating regular diet, normal formed bowel movement today - POD # 6, complication of e-coli peritonitis after lysis of adhesions with non occlusive mesenteric ischemia. - Continue augmentin, day 6/10 (2) Abnormal LFTs Comment: - Resolved (3) Acute kidney injury Comment: - Resolved (4) Anxiety Comment: - Will increase patient's Ativan to home dose of 1 mg TID PRN and hold for sedation. Cont Zoloft (5) Confusion Comment: - Resolved. (6) Restless leg syndrome Comment: - Cont Requip (7) SVT (supraventricular tachycardia) Comment: - SVT x 1 - Replete potassium and magnesium. (8) COPD (chronic obstructive pulmonary disease) Comment: - Stable - Continue Dulera, Spiriva, prn nebulizers - Encourage incentive spirometer (9) HTN (hypertension) Comment: - SBP 130-150s - Continue home metoprolol with hold paramters. (10) DVT prophylaxis Comment: - SQ heparin Status and Disposition: Inpatient until medical stable. Anticipate discharge to home in AM
[2018-08-03] MEDS ORDERED: Magnesium Sulfate IV* 3 GM in NS 0.9% 100 ML* 100 ML IVPB ONE (17:12)
[2018-08-03] MEDS: QUEtiapine TAB* 25 MG PO SCH (21:51)
[2018-08-04] MEDS: Acetaminophen TAB* 325 MG PO PRN ×3 (05:29→20:46)
--- NOTE | 2018-08-04 08:53 | PN ---
Progress Note - Progress Note Date of Service: 08/04/18 SOAP: Subjective: Reports abdomen feels "hard". Mild diffuse pain and tenderness. Objective: Vital Signs Temp 97.6 F 08/04/18 07:26 Pulse 66 08/04/18 07:26 Resp 18 08/04/18 07:26 BP 140/64 08/04/18 07:26 Pulse Ox 100 08/04/18 07:26 Gen: sleeping but easily arousable. Abd: obese, healing incisions without erythema, soft with mild diffuse tenderness. Intake & Output 08/03/18 08/04/18 08/04/18 18:59 06:59 18:59 Intake Total 150 1090 Output Total 100 300 Balance 50 790 Weight 198 lb 6.4 oz Intake: IV Fluids 110 NS (0.9%) 110 IVPB 130 Mag 130 Oral 150 850 Output: Urine 100 300 Other: Estimated Void Medium Medium # Bowel Movements 1 2 Estimated Stool Amount Medium Medium # Voids 1 1 Assessment: 77 yo F POD 6 from diagnostic laparoscopy and lysis of adhesions for abdominal pain, E. coli peritonitis possibly 2/2 ischemic bowel (Non-Occlusive Mesenteric Ischemia). Pain from resolving peritonitis. Plan: Cont diet. Abx per ID. Home per Hospitalist service when able. Will follow.
[2018-08-04] MEDS: Mometasone/Formoter 200/5 MDI INH SCH ×2 (09:15→20:55)
[2018-08-04] MEDS: Amoxicillin PO (*) 500 MG CAP PO SCH ×3 (09:16→20:44)
[2018-08-04] MEDS: Tiotropium CAP.INH* CAP.INH/18 MCG (USE ORDER SET !) INH SCH (09:16)
[2018-08-04] MEDS: Heparin VIAL(*) 5000 UNITS/ML VIAL (FIVE THOUSAND) SUBCUT SCH ×2 (09:17→20:48)
[2018-08-04] MEDS: Sertraline* 100 MG TAB PO SCH (09:17)
[2018-08-04] MEDS: Metoprolol Tartrate TAB* 25 MG PO SCH ×2 (09:17→20:45)
[2018-08-04] MEDS: Nystatin SUSPENSION* 100000 UNITS/ML 5 ML UDC PO SCH ×3 (09:19→14:29)
[2018-08-04 09:37] LABS: BUN/Creatinine Ratio 8.5 (8-20); Calcium 8.9 mg/dL (8.6-10.3); EGFR African American 155.5 (>60); EGFR Non-African American 128.5 (>60); Potassium 3.8 mmol/L (3.5-5.0)
[2018-08-04] MEDS: Pantoprazole TAB * 40 MG TAB PO SCH (09:53)
--- NOTE | 2018-08-04 14:36 | PN ---
Subjective Date of Service: 08/04/18 Interval History: Ms. Montero reports that she feels generally well today. She has some mild lower abdominal pain which she anticipates will resolve when she has a bowel movement (as this has been the pattern recently). She wonders if an abdominal binder would provide some support to her lower abdomen and relieve pain when she is walking. She is tolerating oral intake. She denies nausea. She is having normal formed bowel movements. She denies shortness of breath or chest pain. She is eager for discharge to home. Objective Active Medications: Acetaminophen (Tylenol Tab*) 650 mg PO Q4H PRN Albuterol (Ventolin Hfa Inhaler*) 2 puff INH Q4H PRN Alteplase, Recombinant (Cathflo Activase*) 2 mg IV Q24H PRN Amoxicillin (Amoxicillin Po (*)) 500 mg PO TID [facility] Docusate Sodium (Colace Cap*) 100 mg PO BID PRN Haloperidol Lactate (Haldol Inj Iv/Im*) 1 mg IV SLOW PU Q6H PRN Heparin Sodium (Porcine) (Heparin Vial(*)) 5,000 units SUBCUT Q12HR [facility] Heparin Sodium (Porcine) (Heparin Flush Picc/Ml/Cvc(*)) 1 - 3 ml FLUSH 0600, 1800 [facility]; Protocol Hydromorphone HCl (Dilaudid Inj*) 0.5 mg IV Q6H PRN Lorazepam (Ativan Tab(*)) 1 mg PO Q8H PRN Metoprolol Tartrate (Lopressor Tab*) 25 mg PO Q12HR [facility] Mometasone Furoate/Formoterol Fumar (Dulera 200/5 Mdi*) 1 puff INH RT.BID [facility]; Protocol Nystatin (Nystatin Suspension*) 500,000 units PO QID [facility] Ondansetron HCl (Zofran Inj*) 4 mg IV Q4H PRN Pantoprazole Sodium (Protonix Tab (Nf)) 40 mg PO DAILY [facility] Quetiapine Fumarate (Seroquel Tab*) 25 mg PO BEDTIME [facility] Ropinirole HCl (Requip Tab*) 1 mg PO BEDTIME [facility] Sertraline HCl (Zoloft*) 100 mg PO DAILY [facility] Tiotropium [place] (Spiriva Cap.Inh*) 1 cap INH DAILY [facility] Vital Signs: Temp Pulse Resp BP Pulse Ox 97.9 F 72 16 139/53 100 08/04/18 11:29 08/04/18 11:29 08/04/18 11:29 08/04/18 11:29 08/04/18 11:29 Oxygen Devices in Use Now: Nasal Cannula Appearance: Female sitting up in bed in NAD Eyes: No Scleral Icterus Ears/Nose/Mouth/Throat: Mucous Membranes Moist Neck: Trachea Midline Respiratory: Symmetrical Chest Expansion and Respiratory Effort, Clear to Auscultation Cardiovascular: NL Sounds; No Murmurs; No JVD, No Edema Abdominal: - - Soft, mild tenderness in lower abdomen, BS + Skin: No Rash or Ulcers Neurological: Alert and Oriented x 3, NL Muscle Strength and Tone Nutrition: Taking PO's Result Diagrams: 08/03/18 05:35 08/04/18 09:14 Additional Lab and Data: . Microbiology and Other Data: . Assess/Plan/Problems-Billing Assessment: Ms. Montero is a 77 yr old female with abd surgery x3 in 2017, copd 3L nc at baseline, diffuse arteriosclerotic disease, htn, anxiety; who s/p lysis of adhesions and culture of turbid abd fluid - Patient Problems (1) Peritonitis Comment: - Recovering well, tolerating regular diet, normal formed bowel movements - POD # 7, complication of e-coli peritonitis after lysis of adhesions with non occlusive mesenteric ischemia. - Continue augmentin, day 7/10 (2) Abnormal LFTs Comment: - Resolved (3) Acute kidney injury Comment: - Resolved (4) Anxiety Comment: - Continue ativan and zoloft (5) Confusion Comment: - Resolved. (6) Restless leg syndrome Comment: - Cont Requip (7) SVT (supraventricular tachycardia) Comment: - SVT x 1 - Repleted potassium and magnesium. (8) COPD (chronic obstructive pulmonary disease) Comment: - Stable - Continue Dulera, Spiriva, prn nebulizers - Encourage incentive spirometer (9) HTN (hypertension) Comment: - SBP 130-150s - Continue home metoprolol with hold paramters. (10) DVT prophylaxis Comment: - SQ heparin Status and Disposition: Inpatient until medical stable. Discharge to home in AM.
[2018-08-04] MEDS: rOPINIRole TAB* 1 MG PO SCH (20:45)
[2018-08-04] MEDS: QUEtiapine TAB* 25 MG PO SCH (20:45)
--- NOTE | 2018-08-04 23:26 | DS ---
CC: Dr. Weeks * [facility] MEDICINE DISCHARGE SUMMARY: DATE OF ADMISSION: 07/28/18 DATE OF DISCHARGE: 08/05/18 PRIMARY CARE PHYSICIAN: Dr. Weeks. ATTENDING PHYSICIAN: Dr. Nabor Powell * (dictation provided by Zoila Delgado NP). PRIMARY DIAGNOSIS: Nonocclusive mesenteric ischemia, status post lysis of adhesions with E. coli peritonitis. SECONDARY DIAGNOSES: 1. Hypertension. 2. Chronic obstructive pulmonary disease, on 3 L of oxygen intermittently at home. 3. Osteoarthritis. 4. Chronic pain. 5. Diverticulosis. 6. History of cervical cancer. 7. History of previous wrist fracture. PAST SURGICAL HISTORY: 1. in 1975. 2. Total abdominal hysterectomy for cervical cancer in 1979. 3. Left hip replacement in 2014. 4. Three exploratory laparotomies in 2016 with cholecystectomy at that time. 5. Repair of left wrist fracture in 2016. MEDICATIONS: At the time of discharge are: 1. Requip 1 mg p.o. daily. 2. Hydrocodone/acetaminophen 5/325 two tabs p.o. t.i.d. p.r.n. 3. Omeprazole 20 mg p.o. daily. 4. Symbicort 160/4.5 one puff inhaled b.i.d. 5. Albuterol 2 puffs inhaled q.4 hours p.r.n. 6. Lorazepam 1 mg p.o. t.i.d. p.r.n. 7. Hydrochlorothiazide 25 mg p.o. daily. 8. Sertraline 100 mg p.o. daily. 9. Ondansetron 4 mg p.o. q.4 hours p.r.n. 10. Metoprolol tartrate 25 mg p.o. daily. 11. Tiotropium 1 cap inhaled daily. 12. Amoxicillin 500 mg p.o. t.i.d. x 3 days. HOSPITAL COURSE: Ms. Montero is a 77-year-old female with past medical history as outlined above who presented to the emergency room on 07/28/18 with concern for diffuse abdominal pain. Please see the dictated H and P from Dr. Villalobos for complete details. In brief, the patient states that the pain had started at 9 a.m. the morning prior to admission. CT of abdomen showed mild ascites around a thickened- appearing jejunum with possible portal venous gas and possible pneumatosis. There was concern for mesenteric ischemia and Dr. Villalobos took the patient to the OR for diagnostic exploratory laparotomy that evening. Dr. Villalobos found extensive adhesions throughout the abdomen. There was turbid fluid noted in the left upper quadrant. Extensive lysis of adhesions was undertaken. The jejunal loop was noted to be hyperemic in appearance. It was mildly distended and appeared to be inflamed. There was no apparent enterotomy in any location and no obvious perforation. I will note that the patient had a similar episode approximately 2 years ago where she became suddenly ill with abdominal pain. She had exploratory laparotomy at that time, which also was essentially negative. The thought was that perhaps the patient was having intermittent nonocclusive mesenteric ischemia. The Gram stain and culture from the peritoneal fluid ultimately grew E. coli. The patient was seen in consultation by Dr. Tanner Raymundo from the Infectious Disease Services and I refer you to his note for complete details, but in brief, he recommended Zosyn initially and then after several days of treatment, she was transitioned over to amoxicillin. She is currently on amoxicillin 500 p.o. t.i.d., on day 7 of a 10-day course. Ms. Montero initially had a normal white blood cell count after surgery. It did rise to a peak of 19.2, but is now normal. She has been afebrile. She has had good resolution of her abdominal pain. She is tolerating a regular diet well. She has had no nausea and no vomiting. She reports normal formed bowel movements. During her postoperative course, she did have a period of delirium, but she is now back to her baseline mentation and is appropriate. She had an initial acute kidney injury with a creatinine of 1.38, which is now resolved. She has had some mild electrolyte abnormalities, which were repleted and all her electrolytes are now normal. She had a transient elevation in her LFTs, which is now resolved as well. Ms. Montero is doing well today. She has been seen in continued consultation by surgical services and Dr. Roca notes that she is medically stable for discharge to home and to follow up with [facility] outpatient. DISPOSITION: To home on 08/05/18. DIET: Low fat, low salt. ACTIVITY: The patient has been instructed to not lift anything more than 5 pounds until she follows with [facility]. FOLLOWUP PLANS: 1. Please follow up with [facility]. The patient has been asked to call for an appointment on Sunday a.m. 2. Please follow up with Dr. Weeks in the next 5 to 7 days. This is a short summary of a prolonged hospitalization. I refer you to the medical record for complete details. TIME SPENT: Approximately 60 minutes were spent in the discharge of this patient, more than half the time was spent with the patient at the bedside reviewing the events leading up to this hospitalization, performing the physical examination, and reviewing my plan of care. ZOILA DELGADO NP [id number]/[facility] #: [id number] BARBI
[2018-08-05] MEDS: Acetaminophen TAB* 325 MG PO PRN ×2 (02:04→06:05)
[2018-08-05] MEDS: Tiotropium CAP.INH* CAP.INH/18 MCG (USE ORDER SET !) INH SCH (08:07)
[2018-08-05 08:16] VITALS: BP 159/56
[2018-08-05] MEDS: Mometasone/Formoter 200/5 MDI INH SCH (09:48)
[2018-08-05] MEDS: Pantoprazole TAB * 40 MG TAB PO SCH (09:48)
[2018-08-05] MEDS: Metoprolol Tartrate TAB* 25 MG PO SCH (09:49)
[2018-08-05] MEDS: Amoxicillin PO (*) 500 MG CAP PO SCH (09:49)
[2018-08-05] MEDS: Sertraline* 100 MG TAB PO SCH (09:49)
[2018-08-05] MEDS: Heparin VIAL(*) 5000 UNITS/ML VIAL (FIVE THOUSAND) SUBCUT SCH (09:49)
== END 2018-08-05 11:04 | disposition home or self-care (01) | DRG 853 ==
LOC: ED 10:01 → OR 14:50 → SSU 21:16 → ICU 07-29 04:07 → SSU 07-31 18:41
PROVIDERS: ADMIT Surgery; ATTEND Internal Medicine
PROC: 02HV33Z Insertion of Infusion Device into Superior Vena Cava, Percutaneous Approach (ICD-10-PCS; principal; 2018-07-29)
PROC: 0DNW4ZZ Release Peritoneum, Percutaneous Endoscopic Approach (ICD-10-PCS; 2018-07-29)
DX: A41.9 Sepsis, unspecified organism (principal); K55.059 Acute (reversible) ischemia of intestine, part and extent unspecified; K65.8 Other peritonitis; G92 Toxic encephalopathy; R18.8 Other ascites; I77.4 Celiac artery compression syndrome; N17.9 Acute kidney failure, unspecified; I47.1 Supraventricular tachycardia; E86.1 Hypovolemia; G89.4 Chronic pain syndrome; M54.5 Low back pain; Z96.642 Presence of left artificial hip joint; J44.9 Chronic obstructive pulmonary disease, unspecified; K57.90 Diverticulosis of intestine, part unspecified, without perforation or abscess without bleeding; M19.90 Unspecified osteoarthritis, unspecified site; F41.9 Anxiety disorder, unspecified; E66.9 Obesity, unspecified; K66.0 Peritoneal adhesions (postprocedural) (postinfection); I12.9 Hypertensive chronic kidney disease with stage 1 through stage 4 chronic kidney disease, or unspecified chronic kidney disease; N18.9 Chronic kidney disease, unspecified; T50.905A Adverse effect of unspecified drugs, medicaments and biological substances, initial encounter; Y92.9 Unspecified place or not applicable; G25.81 Restless legs syndrome; B96.20 Unspecified Escherichia coli [E. coli] as the cause of diseases classified elsewhere; Z90.710 Acquired absence of both cervix and uterus; Z88.1 Allergy status to other antibiotic agents; Z85.41 Personal history of malignant neoplasm of cervix uteri; Z98.42 Cataract extraction status, left eye; Z98.41 Cataract extraction status, right eye; Z82.49 Family history of ischemic heart disease and other diseases of the circulatory system; Z87.891 Personal history of nicotine dependence; Z90.49 Acquired absence of other specified parts of digestive tract; Z68.37 Body mass index [BMI] 37.0-37.9, adult; Z99.81 Dependence on supplemental oxygen; R41.0 Disorientation, unspecified; I95.9 Hypotension, unspecified; E83.51 Hypocalcemia; D72.829 Elevated white blood cell count, unspecified; K59.00 Constipation, unspecified
CPT/HCPCS: 36415; 71045; 74018; 74174; 74176; 80048; 80053; 80061; 80076; 81003; 81015; 83605; 83615; 83690; 83735; 83880; 84100; 84484; 85014; 85018; 85025; 85027; 85610; 85730; 86140; 87040; 87070; 87073; 87077; 87086; 87186; 87205; 87493; 87641; 93005; 93975; 94640; 99285; A9270-GY; C1751; G8978-GP-CJ; G8979-GP-CI; J0330; J0610; J0696; J1170; J1240; J1580; J1630; J1644; J1940; J2250; J2270; J2405; J2543; J2704; J3010; J3475; J3480; P9047; Q9967

== ENCOUNTER 2018-12-23 13:53 | Day surgery (SDC) | payer MEDICARE, OTHER ==
[~2018-12-23 13:53] MED LIST: Buffered Lidocaine 1% SYRIN* 1 ML/SYRINGE INTRADERM ONE; Dexamethasone IV* 4 MG/ML 1 ML (4 MG) IV SLOW PU ONE; Famotidine IV* 10 MG/ML 2 ML (20 mg) IV ONE; Lactated Ringers 1000 ML Bag* 1,000 ML IV SCH
[2018-12-23] MEDS ORDERED: Dexamethasone IV* 4 MG/ML 1 ML (4 MG) ONE (14:11)
[2018-12-23] MEDS ORDERED: Famotidine IV* 10 MG/ML 2 ML (20 mg) ONE (14:11)
[2018-12-23] MEDS ORDERED: Buffered Lidocaine 1% SYRIN* 1 ML/SYRINGE INTRADERM ONE (14:47)
[2018-12-23] MEDS ORDERED: Midazolam* 1 MG/ML 2 ML VIAL (2 MG) ONE (14:51)
[2018-12-23] MEDS ORDERED: Lidocaine 2% PF * 5 ML VIAL ONE (14:51)
[2018-12-23] MEDS ORDERED: Propofol* 10 MG/ML 20 ML BTL ONE (14:51)
[2018-12-23] MEDS ORDERED: fentaNYL* 50 MCG/ML 2 ML VIAL (100 MCG VIAL) ONE (14:51)
[2018-12-23] MEDS ORDERED: Lidocaine 1% MPF wEPI 200,000* 30 ML SDV ONE (15:23)
[2018-12-23] MEDS ORDERED: Bupivacaine 0.25% SDV PF* 10 ML VIAL INJ ONE (15:23)
[2018-12-23] MEDS ORDERED: hydrALAZINE IV* 20 MG/ML VIAL ONE (16:18)
[2018-12-23 17:27] VITALS: BP 166/87
--- NOTE | 2018-12-23 20:59 | OP ---
DATE OF OPERATION: 12/23/18 - SDS DATE OF : 40 SURGEON: Grayson Villegas MD. UPHOLSTERY INSTRUCTOR: None. ANESTHESIOLOGIST: Dr. Plummer. ANESTHESIA: Local MAC. PRE-OP DIAGNOSIS: Right middle trigger finger, stuck in flexion. POST-OP DIAGNOSIS: Right middle trigger finger, stuck in flexion. OPERATIVE PROCEDURE: Right middle trigger finger release. INDICATIONS: Paulette's trigger finger is very severe , the finger is stuck down in the palm. We had talked about risks and benefits. She understands the need to move the finger immediately after surgery and try to loosen it up. She wants to proceed. ESTIMATED BLOOD LOSS: 2 mL. COMPLICATIONS: None. FINDINGS: See above and below. DESCRIPTION OF PROCEDURE: Paulette was seen in the preoperative holding area. The correct side, site, and procedure were identified. We came back to the operating room. The arm was prepped and draped in the usual fashion and time- out was performed. I had already numbed up the operative site with 0.25% plain Marcaine. I made a 1-cm longitudinal incision over the A1 patricia. Dissection was carried down and full- thickness flaps were bluntly raised off the tendon sheath. The tendon sheath was released along the radial third. The entirety of the A1 patricia was released. The release was completed distally and proximally with the tenotomy scissors. The A0 patricia was released. I then had her flex and extend the finger multiple times and she could do it without any catching. I irrigated out the wounds. Skin was closed with 4-0 nylon. Soft dressing was applied, and she was taken to recovery room in stable condition. [id number]/[facility] #: [id number] [facility]
== END 2018-12-23 17:59 | disposition home or self-care (01) ==
LOC: OR 13:53
PROVIDERS: ATTEND Orthopaedic Surgery Hand Surgery
DX: M65.331 Trigger finger, right middle finger (principal); Z87.891 Personal history of nicotine dependence; J44.9 Chronic obstructive pulmonary disease, unspecified; I10 Essential (primary) hypertension; M19.90 Unspecified osteoarthritis, unspecified site; K21.9 Gastro-esophageal reflux disease without esophagitis; F41.8 Other specified anxiety disorders; G47.33 Obstructive sleep apnea (adult) (pediatric)
CPT/HCPCS: J0360; J1100; J2001; J2250; J2704; J3010; J3490